=== PATIENT | male | born 1945 | race Caucasian/White ===

== ENCOUNTER 2018-03-03 09:10 | Emergency (ER) | payer OTHER ==
--- OUTSIDE RECORDS SUMMARY | 2018-03-03 09:13 | XMS REPORT | Clinical Summary ---
:1945 Author Organization [facility] Address [address] [place] [id number] Care Team Providers Name Role Phone Unavailable Primary Care Provider Unavailable Allergies Not on File Current Medications Not on file Active Problems Not on file Encounters Date Type Specialty Care Team Description 04/20/2017 Orders Only Cardiothoracic Surgery Provider, MD [place] after 03/02/2017 Social History Tobacco Use Types Packs/Day Years Used Date Never Assessed Sex Assigned at Date Recorded Not on file Last Filed Vital Signs Not on file Plan of Treatment Health Maintenance Due Date Last Done Comments COLON CANCER SCREENING 11/07/1997 SHINGRIX VACCINE (#1) 11/07/1997 ZOSTER VACCINE 2007 PNEUMOCOCCAL POLYSACCHARIDE VACCINE AGE 65 AND OVER 11/07/2012 PNEUMOCOCCAL-13 11/07/2012 INFLUENZA VACCINE 04/04/2018 Results Not on fileafter 03/02/2017
--- OUTSIDE RECORDS SUMMARY | 2018-03-03 09:14 | XMS REPORT | Clinical Summary ---
:1945 Author Organization [facility] Address [address] [place] [address] Phone Care Team Providers Name Role Phone Unavailable Primary Care Provider Unavailable Allergies Active Allergy Reactions Severity Noted Date Comments Codeine Other (See Comments) 11/12/2015 Muscle and stomach cramps Current Medications Prescription Sig. Disp. Refills Start Date End Date Status tiotropium Inhale 18 mcg Active (SPIRIVA) 18 mcg by mouth via inhalation capsule inhaler daily. aspirin 81 MG EC Take 81 mg by Active tablet mouth daily. ezetimibe (ZETIA) Take 1 tablet 0 12/17/2015 Active 10 mg tablet (10 mg total) by mouth daily. metoprolol Take 50 mg by Active (TOPROL-XL) 25 MG mouth daily. 24 hr tablet metFORMIN Take 500 mg by Active (GLUCOPHAGE) 500 mouth 2 (two) MG tablet times daily with breakfast and dinner. albuterol HFA Inhale 2 puffs Active (VENTOLIN HFA) 90 by mouth via mcg/actuation inhaler every 6 inhaler (six) hours as needed for Wheezing. losartan (COZAAR) Take 1 tablet 30 tablet 11 08/15/2017 08/15/2018 Active 25 MG tablet (25 mg total) by mouth daily. predniSONE 2uhbh6u, 50 tablet 0 08/14/2017 Active (DELTASONE) 10 MG 2ujgu1c, tablet 4tabx,3d, 4rjhr5g, 5uljc8y,8eyze6b then stop. furosemide (LASIX) Take 1 tablet 60 tablet 11 08/14/2017 08/14/2018 Active 40 MG tablet (40 mg total) by mouth 2 (two) times daily. clopidogrel Take 75 mg by 08/08/2017 Discontinued (PLAVIX) 75 mg mouth daily. tablet ferrous sulfate Take 325 mg by 08/08/2017 Discontinued 325 (65 FE) MG mouth daily tablet with breakfast. simvastatin Take 1 tablet 0 12/17/2015 08/08/2017 Discontinued (ZOCOR) 40 MG (40 mg total) tablet by mouth nightly. HYDROcodone-acetam Take 1-2 30 tablet 0 12/17/2015 08/08/2017 Discontinued inophen (NORCO tablets by 5-325) 5-325 mg mouth every 4 per tablet (four) hours as needed. levoFLOXacin Take 750 mg by 08/14/2017 Discontinued (LEVAQUIN) 750 MG mouth daily. tablet predniSONE Take 40 mg by 08/14/2017 Discontinued (DELTASONE) 20 MG mouth daily. tablet Active Problems Problem Noted Date Acute on chronic diastolic CHF (congestive heart failure), NYHA class 3 2016 ([facility]) Overview: Due to ischemic CM, decompensation in setting of respiratory illness Acute on chronic congestive heart failure, unspecified congestive heart 2016 failure type Chest pain 12/21/2015 Wound infection 12/11/2015 AAA (abdominal aortic aneurysm) ([facility]) 11/13/2015 HTN (hypertension) 11/13/2015 PVD (peripheral vascular disease) ([facility]) 11/13/2015 Iliac aneurysm ([facility]) 11/13/2015 HLD (hyperlipidemia) 11/13/2015 DM (diabetes mellitus), type 2 ([facility]) 11/13/2015 Encounters Date Type Specialty Care Team Description 08/07/2017 - Hospital Encounter Cardiology Zander Spencer Acute on chronic 08/14/2017 MD Mika congestive heart Emanuel Chairez Reza, MD unspecified Ana Conley congestive heart MD Emanuel failure type ([facility]) (Primary Dx);SOB (shortness of breath);Hypoxemia 08/07/2017 Orders Only General Internal Medicine after 03/02/2017 Family History Medical History Relation Name Comments Aneurysm Father COPD Father Heart disease Father Heart disease Mother Relation Name Status Comments Father Mother Social History Tobacco Use Types Packs/Day Years Used Date Former Smoker 11/11/1965 - 11/11/2012 Smokeless Tobacco: Never Used Comments: smoked 1 pack a week for 40 years Alcohol Use Drinks/Week oz/Week Comments No Sex Assigned at Date Recorded Not on file Last Filed Vital Signs Vital Sign Reading Time Taken Blood Pressure 127/75 08/14/2017 8:14 AM [facility]PERATIONS [facility] Pulse 53 08/14/2017 8:45 AM INFANTRY OPERATIONS SPECIALIST Temperature 36.3 C (97.3 F) 08/14/2017 8:14 AM INFANTRY OPERATIONS SPECIALIST Respiratory Rate 20 08/14/2017 8:45 AM INFANTRY OPERATIONS SPECIALIST Oxygen Saturation 94% 08/14/2017 8:45 AM INFANTRY OPERATIONS SPECIALIST Inhaled Oxygen Concentration - - Weight 84.5 kg (186 lb 3.2 oz) 08/14/2017 5:06 AM INFANTRY OPERATIONS SPECIALIST Height 170.2 cm (5' 7") 08/07/2017 3:12 PM INFANTRY OPERATIONS SPECIALIST Body Mass Index 29.16 08/14/2017 5:06 AM INFANTRY OPERATIONS SPECIALIST Plan of Treatment Health Maintenance Due Date Last Done Comments INFLUENZA VACCINE 06/04/2018 Implants Implanted Type Area Carpet Weaver Device Expiration Model / Identifier Date Serial / Lot Shaq Martinez Gld [id number] - [id number] Graft/Pa N/A: GETINGE 09/03/2018 [id number] / Implanted: Qty: 1 on 11/18/2015 by Chas Lopez MD [facility] Abdomen IND: MAQUET:CV / [id number] Results EKG-SCANNED (08/16/2017 1:01 PM)RHYTHM STRIP - SCAN (08/15/2017 1:01 PM)POC- Glucose meter (08/14/2017 8:19 AM)Only the most recent of25 resultswithin the time period is included. Component Value Ref Range POC-Glucose Meter 121 (H)Comment: TESTED AT [address] 70 - 110 mg/[place] [address] Specimen Performing Laboratory Blood [facility] [address] [address] CBC with platelet count + automated diff (08/14/2017 4:58 AM)Only the most recent of8 resultswithin the time period is included. Component Value Ref Range WBC 12.8 (H) 3.5 - 10.5 K/L RBC 5.35 4.63 - 6.08 M/L Hemoglobin 15.2 13.7 - 17.5 GM/DL Hematocrit 45.8 40.1 - 51.0 % MCV 85.6 79.0 - 92.2 fL MCH 28.4 25.7 - 32.2 pg MCHC 33.2 32.3 - 36.5 GM/DL RDW 14.6 (H) 11.6 - 14.4 % Platelets 145 (L) 150 - 450 K/CU MM MPV 11.1 9.4 - 12.4 fL nRBC 0 0 - 0 /100 WBC % Neutros 81 % % Lymphs 12 % % Monos 6 % % Eos 0 % % Baso 0 % # Neutros 10.45 (H) 1.78 - 5.38 K/L # Lymphs 1.48 1.32 - 3.57 K/L # Monos 0.70 0.30 - 0.82 K/L # Eos 0.00 (L) 0.04 - 0.54 K/L # Baso 0.02 0.01 - 0.08 K/L Immature Granulocytes-Relative 1 0 - 1 % Specimen Performing Laboratory Blood [facility] [address] [address] CBC with platelet count + automated diff (08/14/2017 4:58 AM)Only the most recent of8 resultswithin the time period is included. Specimen Performing Laboratory Blood Narrative The following orders were created for panel order CBC with platelet count + automated diff. Procedure Abnormality Status --------- ------ CBC with platelet count ...[[id number]]AbnormalFinal result Please view results for these tests on the individual orders. Basic metabolic panel (08/14/2017 4:58 AM)Only the most recent of8 resultswithin the time period is included. Component Value Ref Range Sodium 137 136 - 145 meq/L Potassium 3.6 3.5 - 5.1 meq/L Chloride 94 (L) 98 - 107 meq/L CO2 32 (H) 22 - 29 meq/L BUN 36 (H) 7 - 21 mg/dL Creatinine 0.97 0.57 - 1.25 mg/dL Glucose 111 (H) 70 - 105 mg/dL Calcium 9.2 8.4 - 10.2 mg/dL EGFR 77Comment: ESTIMATED GFR IS NOT ACCURATE mL/min/1.73 sq m CREATININE CLEARANCE IN PREDICTING GLOMERULAR FILTRATION RATE. ESTIMATED GFR IS NOT APPLICABLE FOR DIALYSIS PATIENTS. Specimen Performing Laboratory Blood [facility] [address] [address] NM myocardial perfusion PET (rest and stress) (08/11/2017 2:34 PM) Specimen Performing Laboratory [employer] KARON Skinner FINAL REPORT PROCEDURE:Rest/Stress MYOCARDIAL PERFUSION PET with regadenoson\\XA9\\ CPT CODE:32620 INDICATION:CAD HISTORY:Cardiac risk factors: Diabetes, hypertension, hyperlipidemia. Other cardiovascular history: CAD, prior AK, prior PCI. Recent cardiac symptoms: None reported. Current cardiovascular-related medications: Aspirin, Zetia, metoprolol. PROTOCOL:Limited low-dose CT imaging was performed for attenuation correction. 40.1 mCi of Rb-82 chloride was injected iv at rest, and gated PET (positron emission tomography) images were obtained. Subsequently, 40.1 mCi of Rb-82 chloride was injected iv at expected peak pharmacologic effect, and gated PET images were obtained. PRELIMINARY STRESS TEST DATA FROM NONINVASIVE CARDIOLOGY: Pharmacologic stress was by 10-second iv infusion of 0.4 mg of regadenoson. Radiotracer was injected 30 seconds after start of stress. Heart rate was 59 beats/min at rest and 91 beats/min (60% of MPHR) at tracer injection. BP was 134/70 mmHg at rest and 169/78 mmHg at tracer injection. Stress was stopped for predetermined endpoint. The patient experienced no symptoms; treatment was not required. Preliminary ECG evaluation revealed sinus rhythm at rest and no ischemic changes with stress. (Final ECG interpretation and other stress and monitoring data are reported separately by Cardiology.) IMAGING FINDINGS:Study quality is good. Images obtained after stress injection show decreased radiotracer uptake in the mid to apical inferior lateral LV. Resting images show physiologic distribution. LV volume appears normal. RV volume appears normal. Gated images obtained immediately after stress show hypokinetic inferior lateral LV wall motion. Gated images obtained at rest show normal LV wall motion. LVEF at rest is 40%. LVEF at stress is 39%. IMPRESSION: 1. Abnormal study.2. Appropriate pharmacologic stress.3. Abnormal myocardial perfusion.There is a mild severity, moderate size, reversible, perfusion defect in the mid to apical inferior lateral LV.4. Mildly decreased resting LV function. No deterioration of function is noted with pharmacologic stress.5. Extracardiac tracer distribution is normal.6. No previous [facility] study for comparison. NONINVASIVE RISK STRATIFICATION: The above findings are considered intermediate risk (1% to 3% annual mortality rate) based on the following criterion: - Mild/moderate resting left ventricular dysfunction (LVEF 35% to 49%) - Stress-induced moderate perfusion defect without LV dilation or increased lung intake (thallium-201) ([facility]. 2012;59(9):857-31.) Signed: Ilya Colunga MD Report Verified Date/Time:08/11/2017 16:26:13 Reading Location: [id number] [facility] Reading Room Procedure Note Interface, External Ris In - 08/11/2017 4:28 PM INFANTRY OPERATIONS SPECIALIST FINAL REPORT PROCEDURE: Rest/Stress MYOCARDIAL PERFUSION PET with regadenoson\\XA9\\ CPT CODE: 70134 INDICATION: CAD HISTORY: Cardiac risk factors: Diabetes, hypertension, hyperlipidemia. Other cardiovascular history: CAD, prior AK, prior PCI. Recent cardiac symptoms: None reported. Current cardiovascular-related medications: Aspirin, Zetia, metoprolol. PROTOCOL: Limited low-dose CT imaging was performed for attenuation correction. 40.1 mCi of Rb-82 chloride was injected iv at rest, and gated PET (positron emission tomography) images were obtained. Subsequently, 40.1 mCi of Rb-82 chloride was injected iv at expected peak pharmacologic effect, and gated PET images were obtained. PRELIMINARY STRESS TEST DATA FROM NONINVASIVE CARDIOLOGY: Pharmacologic stress was by 10-second iv infusion of 0.4 mg of regadenoson. Radiotracer was injected 30 seconds after start of stress. Heart rate was 59 beats/min at rest and 91 beats/min (60% of MPHR) at tracer injection. BP was 134/70 mmHg at rest and 169/78 mmHg at tracer injection. Stress was stopped for predetermined endpoint. The patient experienced no symptoms; treatment was not required. Preliminary ECG evaluation revealed sinus rhythm at rest and no ischemic changes with stress. (Final ECG interpretation and other stress and monitoring data are reported separately by Cardiology.) IMAGING FINDINGS: Study quality is good. Images obtained after stress injection show decreased radiotracer uptake in the mid to apical inferior lateral LV. Resting images show physiologic distribution. LV volume appears normal. RV volume appears normal. Gated images obtained immediately after stress show hypokinetic inferior lateral LV wall motion. Gated images obtained at rest show normal LV wall motion. LVEF at rest is 40%. LVEF at stress is 39%. IMPRESSION: 1. Abnormal study. 2. Appropriate pharmacologic stress. 3. Abnormal myocardial perfusion. There is a mild severity, moderate size, reversible, perfusion defect in the mid to apical inferior lateral LV. 4. Mildly decreased resting LV function. No deterioration of function is noted with pharmacologic stress. 5. Extracardiac tracer distribution is normal. 6. No previous [facility] study for comparison. NONINVASIVE RISK STRATIFICATION: The above findings are considered intermediate risk (1% to 3% annual mortality rate) based on the following criterion: - Mild/moderate resting left ventricular dysfunction (LVEF 35% to 49%) - Stress-induced moderate perfusion defect without LV dilation or increased lung intake (thallium-201) ([facility]. 2012;59(9):857-81.) Signed: Ilya Colunga MD Report Verified Date/Time: 08/11/2017 16:26:13 Reading Location: [address] Reading Room Treadmill tolerance(Non-Nuclear Treadmill) (08/11/2017 2:28 PM) Specimen Performing Laboratory [employer] Narrative Protocol Name Regadenoson Time In Exercise Phase 00:01:00 Max. Systolic BP 169 mmHg Max Diastolic BP 78 mmHg Max Heart Rate 91 BPM Max Predicted Heart Rate 151 BPM Reason For Termination Predetermined end point Reason for Test CAD, HF exacerbation, Echo Wall-motion abnormalit Target HR Formula (220 - Age)*100% Arrhythmias atrial premature beats ventricular premature beats Resting ECG sinus bradycardia ST Changes No Significant Changes Overall Impression Indeterminate due to pharmacological stress Chest Pain none HR Response To Exercise BP Response To Exercise ASA Zetia metoprolol Confirmed by fellow Gary Bright ([id number]) on 08/11/2017 3:27:50 PM Confirmed by MD NELSON, FIIF ([id number]) on 08/23/2017 12:31:09 PM Procedure Note Interface, External Ris In - 08/23/2017 12:31 PM INFANTRY OPERATIONS SPECIALIST Protocol Name Regadenoson Time In Exercise Phase 00:01:00 Max. Systolic BP 169 mmHg Max Diastolic BP 78 mmHg Max Heart Rate 91 BPM Max Predicted Heart Rate 151 BPM Reason For Termination Predetermined end point Reason for Test CAD, HF exacerbation, Echo Wall-motion abnormalit Target HR Formula (220 - Age)*100% Arrhythmias atrial premature beats ventricular premature beats Resting ECG sinus bradycardia ST Changes No Significant Changes Overall Impression Indeterminate due to pharmacological stress Chest Pain none HR Response To Exercise BP Response To Exercise ASA Zetia metoprolol Confirmed by fellow Gary Bright ([id number]) on 08/11/2017 3:27:50 PM Confirmed by MD DAMON JORGE ([id number]) on 08/23/2017 12:31:09 PM Clostridium difficile Toxin PCR (08/09/2017 4:52 PM) Component Value Ref Range C.Diff Toxin, PCR Not Detected Not Detected Specimen Performing Laboratory Stool [facility] [address] [address] Narrative This qualitative real-time polymerase chain reaction assay detects the tcdB gene, encoded on the C.difficile pathogenicity locus (PaLoc).The product of tcdB , toxin B, is a cytotoxin essential for causing C.difficile-associated disease (CDAD) and is found in virtually all toxigenic C.difficile. This assay is performed for patients suspected of having either community- acquired or nosocomial CDAD.Accordingly, only symptomatic patients should be tested and formed stools will be rejected unless ileus is present (i.e., specified when ordering).Patients may be colonized with toxigenic C.difficile strains not causing active disease; therefore, clinical correlation is needed when deciding how to manage patients with a positive test result. The assay has not been validated as a test of cure as amplifiable nucleic acid may persist after effective treatment; therefore, follow-up testing of a positive result is not recommended. ECHOCARDIOGRAM REPORT - SCAN (08/09/2017 7:20 AM)CT chest with high resolution/ ild (08/08/2017 10:03 PM) Specimen Performing Laboratory [employer] Narrative FINAL REPORT HISTORY: Patient with hx of RA c/b ILD presenting with worsening SOB COMPARISON : None Technique : Multiple axial images of the chest were performed from the lung apices to the lung bases with 5 mm slice thickness without the administration of IV contrast. Images were presented in both the lung and soft tissue windows. In addition, high resolution images of the lungs were performed with 1.25 mm slice thickness in the supine and prone positions as well as with inspiration and expiration. This exam was performed according to our departmental dose optimization program which includes automated exposure control, adjustment of the mA and/or kV according to patient size and/or use of iterative reconstructive technique. Comment: The thyroid gland is within normal limits. There is no axillary or hilar lymphadenopathy. There are some nonspecifically prominent mediastinal lymph nodes. For example, there is a prominent subcarinal lymph node measuring up to 1.9 x 1.1 cm. There is a prominent pretracheal lymph node measuring up to 1.5 x 1.2 cm. There is cardiomegaly. There is atherosclerotic vascular disease. There is coronary atherosclerosis. The patient does have cardiomegaly. The visualized portions of the spleen, adrenal glands, pancreas, and kidneys are within normal limits. There is a lobulated appearance of the hepatic contour. The findings could be related to hepatic cirrhosis. The patient is status post cholecystectomy. The osseous structures as well as the subcutaneous soft tissues are without any abnormalities. No pneumothorax or pleural effusion is seen. The patient does have interstitial prominence as well as fibrosis predominantly in a peripheral distribution. There are areas of patchy groundglass airspace disease seen most significantly in the right lower lobe where there are some alveolar components. In the right lower lobe, there is a 1.0 cm nodule. Correlation with a PET-CT scan is advised. A neoplastic process cannot be entirely excluded. Impression: 1. Predominantly peripheral distribution of interstitial prominence and fibrosis. There is also some patchy groundglass airspace disease. The constellation of findings are nonspecific but could be a sequela of rheumatoid lung. Other considerations include an interstitial pneumonitis such as interstitial pneumonitis/pulmonary fibrosis or drug toxicity. Given the areas of airspace disease, superimposed infectious pneumonitis particularly in the right lower lobe cannot be excluded. 2. Emphysema/COPD. 3. Approximately 1 cm nodule in the right lower lobe. Correlation with a PET-CT scan is advised. 4. Nonspecifically prominent mediastinal lymph nodes. Signed: Roberta Harmon MD Report Verified Date/Time:08/09/2017 07:31:21 Reading Location: [facility] Diagnostic Imaging Reading Room - [place] [address] Procedure Note Interface, External Ris In - 08/09/2017 7:33 AM INFANTRY OPERATIONS SPECIALIST FINAL REPORT HISTORY: Patient with hx of RA c/b ILD presenting with worsening SOB COMPARISON : None Technique : Multiple axial images of the chest were performed from the lung apices to the lung bases with 5 mm slice thickness without the administration of IV contrast. Images were presented in both the lung and soft tissue windows. In addition, high resolution images of the lungs were performed with 1.25 mm slice thickness in the supine and prone positions as well as with inspiration and expiration. This exam was performed according to our departmental dose optimization program which includes automated exposure control, adjustment of the mA and/or kV according to patient size and/or use of iterative reconstructive technique. Comment: The thyroid gland is within normal limits. There is no axillary or hilar lymphadenopathy. There are some nonspecifically prominent mediastinal lymph nodes. For example, there is a prominent subcarinal lymph node measuring up to 1.9 x 1.1 cm. There is a prominent pretracheal lymph node measuring up to 1.5 x 1.2 cm. There is cardiomegaly. There is atherosclerotic vascular disease. There is coronary atherosclerosis. The patient does have cardiomegaly. The visualized portions of the spleen, adrenal glands, pancreas, and kidneys are within normal limits. There is a lobulated appearance of the hepatic contour. The findings could be related to hepatic cirrhosis. The patient is status post cholecystectomy. The osseous structures as well as the subcutaneous soft tissues are without any abnormalities. No pneumothorax or pleural effusion is seen. The patient does have interstitial prominence as well as fibrosis predominantly in a peripheral distribution. There are areas of patchy groundglass airspace disease seen most significantly in the right lower lobe where there are some alveolar components. In the right lower lobe, there is a 1.0 cm nodule. Correlation with a PET-CT scan is advised. A neoplastic process cannot be entirely excluded. Impression: 1. Predominantly peripheral distribution of interstitial prominence and fibrosis. There is also some patchy groundglass airspace disease. The constellation of findings are nonspecific but could be a sequela of rheumatoid lung. Other considerations include an interstitial pneumonitis such as interstitial pneumonitis/pulmonary fibrosis or drug toxicity. Given the areas of airspace disease, superimposed infectious pneumonitis particularly in the right lower lobe cannot be excluded. 2. Emphysema/COPD. 3. Approximately 1 cm nodule in the right lower lobe. Correlation with a PET-CT scan is advised. 4. Nonspecifically prominent mediastinal lymph nodes. Signed: Roberta Harmon MD Report Verified Date/Time: 08/09/2017 07:31:21 Reading Location: [facility] Diagnostic Imaging Reading Room - [place] [address] Troponin I (08/08/2017 4:50 PM)Only the most recent of2 resultswithin the time period is included. Component Value Ref Range Troponin I 0.05 (H) 0.00 - 0.03 ng/mL Specimen Performing Laboratory Blood - Arm, [address] [address] Narrative Troponin I (TnI) levels must be interpreted in the context of the presenting symptoms and the clinical findings. Elevated TnI levels indicate myocardial damage, but are not specific for ischemic heart disease. Elevated TnI levels are seen in patients with other cardiac conditions (including myocarditis and congestive heart failure), and slight TnI elevations occur in patients with other conditions, including sepsis, renal failure, acidosis, acute neurological disease, and persistent tachyarrhythmia. Creatine Kinase (CK), Total and MB (08/08/2017 4:50 PM)Only the most recent of2 resultswithin the time period is included. Component Value Ref Range Total CK 73 29 - 200 U/L CK-MB 1.8 0.0 - 6.6 ng/mL MB Relative Index 2.5 % Specimen Performing Laboratory Blood - Arm, [address] [address] Narrative CK-MB Reference Range: <6.7Normal 6.7-10.0Borderline >10.0 Abnormal 2D Echo W/O Doppler(No Doppler) (08/08/2017 1:58 PM) Component Value Ref Range Ejection Fraction Specimen Performing Laboratory [facility] Narrative Transthoracic Echocardiography Report (TTE) Demographics Patient NameOLIVIER BRAY Date of Study08/08/2017 DAVID Male Visit [id number] Room [id number] Number Date of 1945Referring Physician Age 71 year(s)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 Clinical History HGB 15.0 HCT 45.4 % ILIAC ANEURYSM, COPD, CAD, STENTS X2 (2001, 2005), DMITRY, CPAP, DM, HLD, HTN, AK (2001), TIA, ABD. AO REPAIR, PVD Height: 67 inches Weight: 90.72 kg (200 lbs) BSA: 2.02 m^2 BMI: 31.32 kg/m^2 HR: 68 bpm BP: 155/67 mmHg Summary The LV endocardium is adequately visualized. The left ventricle is chamber size (by vol index) is normal (male - LVED vol - 34-74ml/m2). Moderate concentric LV hypertrophy. The following segment(s) appear hypokinetic: inferolateral and mid lateral ramos . The other segments contract normally. LVEF by Buckley's method of disk assessment is lower limits of normal (50-55%) . LA size is normal (16-34 ml/m2) . The right ventricular chamber size and systolic function are within normal limits. No evidence of tricuspid regurgitation. Unable to estimate peak systolic PA pressure; inadequate TR velocity signal. The inferior vena cava size is normal . The estimated RA pressure by IVC dynamics 5-10mmHg . No pericardial effusion is visualized. Signature Findings Rhythm/BPRegular sinus rhythm during the exam. Left Ventricle The LV endocardium is adequately visualized. The left ventricle is chamber size (by vol index) is normal (male - LVED vol - 34-74ml/m2). Moderate concentric LV hypertrophy. The following segment(s) appear hypokinetic: inferolateral and mid lateral ramos . The other segments contract normally. LVEF by Buckley's method of disk assessment is lower limits of normal (50-55% ) . Left AtriumLA size is normal (16-34 ml/m2) . Right VentricleThe right ventricular chamber size and systolic function are within normal limits. Right Atrium RA size is normal. Aortic Valve Mild AoV cusp thickening. AoV cusp mobility is mildly decreased . Mild AoV cusp calcification. Mild aortic regurgitation. Mild aortic stenosis. Mitral Valve Normal MV structure and function. Mild mitral annular calcification. Tricuspid ValveNormal TV structure and function. No evidence of tricuspid regurgitation. Unable to estimate peak systolic PA pressure; inadequate TR velocity signal. Pulmonic Valve Normal PV structure appears normal by available views. AortaAortic root size (SInus of Valsalva diameter) is normal . PericardiumNo pericardial effusion is visualized. IVC/SVC/PA/PV/PleuralThe inferior vena cava size is normal . The estimated RA pressure by IVC dynamics 5-10mmHg . Chambers/Structures Left Atrium LA Volume: 51.65 ml LA Area: 18.65 cm^ 2 LA Vol. Index: 26 ml/m^2 Left Ventricle LVIDd: 4.18 cm LVIDs: 3.73 cm LV Septum Diastolic: 1.6 cm LV PW Diastolic: 1.38 cm LV FS: 10.8 % LVEDV Buckley's:114.55 ml LVESV Buckley's:49.03 ml LVEDVI: 57 ml/m^2 LVEF Buckley's: 57.2 % LVESVI: 24 ml/m ^2 LVOT Diameter: 2.4 cm Aorta Ao Root S of Lori.: 3.72 cm Doppler/Quantitative Measurements Aortic Valve Peak Velocity: 2.81 m/sMean Velocity: 1.91 m/s Peak Gradient: 31.69 mmHgMean Gradient: 16.85 mmHg AV Area (continuity): 1.57 cm^2 AV VTI: 60.87 cm AV DVI: 0.35 LVOT Peak Velocity: 1.02 m/s Peak Gradient: 4.19 mmHg Mean Velocity: 0.68 m/s Mean Gradient: 2.1 mmHg LVOT Diameter: 2.4 cm LVOT VTI: 21.15 cm LVOT Area: 4.52 cm^2LVOT SV:95.63 ml LVOT CO: 6.5 l/minLVOT CI: 3.22 l/min/m^2 Procedure Note Interface, External Ris In - 08/08/2017 6:49 PM INFANTRY OPERATIONS SPECIALIST Transthoracic Echocardiography Report (TTE) Demographics Patient Name OLIVIER BRAY Date of Study 08/08/2017 DAVID Gender Male Visit Number [id number] Race Room Number 2435 Number Date of 1945 Referring Physician Age 71 year(s) Field Map Editor Mary Paredes RDCS Interpreting [facility] Needs to be Pre Physician Read Zander Brewer MD Procedure Type of Study TTE procedure:ECHO2D MODE W/O DOPPLER (Routine) Indications:Shortness of breath. Clinical History HGB 15.0 HCT 45.4 % ILIAC ANEURYSM, COPD, CAD, STENTS X2 (2001, 2005), DMITRY, CPAP, DM, HLD, HTN, AK (2001), TIA, ABD. AO REPAIR, PVD Height: 67 inches Weight: 90.72 kg (200 lbs) BSA: 2.02 m^2 BMI: 31.32 kg/m^2 HR: 68 bpm BP: 155/67 mmHg Summary The LV endocardium is adequately visualized. The left ventricle is chamber size (by vol index) is normal (male - LVED vol - 34-74ml/m2). Moderate concentric LV hypertrophy. The following segment(s) appear hypokinetic: inferolateral and mid lateral ramos . The other segments contract normally. LVEF by Buckley's method of disk assessment is lower limits of normal (50-55%) . LA size is normal (16-34 ml/m2) . The right ventricular chamber size and systolic function are within normal limits. No evidence of tricuspid regurgitation. Unable to estimate peak systolic PA pressure; inadequate TR velocity signal. The inferior vena cava size is normal . The estimated RA pressure by IVC dynamics 5-10mmHg . No pericardial effusion is visualized. Signature Findings Rhythm/BP Regular sinus rhythm during the exam. Left Ventricle The LV endocardium is adequately visualized. The left ventricle is chamber size (by vol index) is normal (male - LVED vol - 34-74ml/m2). Moderate concentric LV hypertrophy. The following segment(s) appear hypokinetic: inferolateral and mid lateral ramos . The other segments contract normally. LVEF by Buckley's method of disk assessment is lower limits of normal (50-55%) . Left Atrium LA size is normal (16-34 ml/m2) . Right Ventricle The right ventricular chamber size and systolic function are within normal limits. Right Atrium RA size is normal. Aortic Valve Mild AoV cusp thickening. AoV cusp mobility is mildly decreased . Mild AoV cusp calcification. Mild aortic regurgitation. Mild aortic stenosis. Mitral Valve Normal MV structure and function. Mild mitral annular calcification. Tricuspid Valve Normal TV structure and function. No evidence of tricuspid regurgitation. Unable to estimate peak systolic PA pressure; inadequate TR velocity signal. Pulmonic Valve Normal PV structure appears normal by available views. Aorta Aortic root size (SInus of Valsalva diameter) is normal . Pericardium No pericardial effusion is visualized. IVC/SVC/PA/PV/Pleural The inferior vena cava size is normal . The estimated RA pressure by IVC dynamics 5-10mmHg . Chambers/Structures Left Atrium LA Volume: 51.65 ml LA Area: 18.65 cm^2 LA Vol. Index: 26 ml/m^2 Left Ventricle LVIDd: 4.18 cm LVIDs: 3.73 cm LV Septum Diastolic: 1.6 cm LV PW Diastolic: 1.38 cm LV FS: 10.8 % LVEDV Buckley's:114.55 ml LVESV Buckley's:49.03 ml LVEDVI: 57 ml/m^2 LVEF Buckley's: 57.2 % LVESVI: 24 ml/m^2 LVOT Diameter: 2.4 cm Aorta Ao Root S of Lori.: 3.72 cm Doppler/Quantitative Measurements Aortic Valve Peak Velocity: 2.81 m/s Mean Velocity: 1.91 m/s Peak Gradient: 31.69 mmHg Mean Gradient: 16.85 mmHg AV Area (continuity): 1.57 cm^2 AV VTI: 60.87 cm AV DVI: 0.35 LVOT Peak Velocity: 1.02 m/s Peak Gradient: 4.19 mmHg Mean Velocity: 0.68 m/s Mean Gradient: 2.1 mmHg LVOT Diameter: 2.4 cm LVOT VTI: 21.15 cm LVOT Area: 4.52 cm^2 LVOT SV:95.63 ml LVOT CO: 6.5 l/min LVOT CI: 3.22 l/min/m^2 POC-Lactic Acid, Venous (08/08/2017 11:44 AM) Component Value Ref Range POC-Lactic Acid, Venous 1.5Comment: TESTED AT [address] 0.9 - 1.7 mmol/L [place] [address] Specimen [place]forming [place] [address] Urinalysis w/ Microscopic (08/08/2017 11:11 AM) Component Value Ref Range Color, UA Light Yellow Clarity, UA Clear Specific [place], UA 1.004 1.001 - 1.035 pH, UA 5.0 5.0 - 8.0 Protein, UA Negative Negative Glucose, UA Negative Negative Ketones, UA Negative Negative Bilirubin, UA Negative Negative Blood, UA Negative Negative Nitrite, UA Negative Negative Leukocytes, UA Negative Negative Urobilinogen, UA 0.2 0.2 - 1.0 mg/dL RBC, UA 1 /HPF WBC, UA <1 /HPF Bacteria, UA Rare Squam Epithel, UA <1 /HPF Hyaline Casts, UA 2 /LPF Specimen Source Urine, Clean Catch Specimen Performing Laboratory Urine - Urine, [place] [address] ED ECG Interpretation (08/08/2017 12:24 AM) Zander Dodge MD 08/08/2017 12:24 AM ECG/EKG Interpretation Date/Time: 08/07/2017 5:00 PM Performed by: ZANDER SPENCER Authorized by: ZANDER SPENCER The ECG was interpreted by ED physician. This ECG was not compared with previous ECG(s).The ECG is interpreted as sinus rhythm. Rate is normal rate. Heart rate is 80 BPM. Conduction: conduction normal. ST segments normal. Clinical Impression: abnormal ECGECG reviewed and does not meet STEMI criteria. Patient tolerance: Patient tolerated the procedure well with no immediate complications XR chest 2 views (08/07/2017 7:26 PM) Specimen Performing Laboratory GE RIS Narrative FINAL REPORT CHEST, AP AND LATERAL. HISTORY: Shortness of breath. COMPARISON: 12/26/2015. FINDINGS/IMPRESSION: The trachea is midline. Again identified are chronic appearing interstitial/fibrotic changes bilaterally, similar to the prior examination. There is no evidence of new large focal consolidation, pneumothorax, or significant pleural effusion. The cardiomediastinal silhouette is stable in appearance. No acute osseous abnormalities are identified. Signed: Zak Gatica MD Report Verified Date/Time:08/07/2017 21:09:37 Reading Location: [address] Consult Reading Room Procedure Note Interface, External Ris In - 08/07/2017 9:11 PM INFANTRY OPERATIONS SPECIALIST FINAL REPORT CHEST, AP AND LATERAL. HISTORY: Shortness of breath. COMPARISON: 12/26/2015. FINDINGS/IMPRESSION: The trachea is midline. Again identified are chronic appearing interstitial/fibrotic changes bilaterally, similar to the prior examination. There is no evidence of new large focal consolidation, pneumothorax, or significant pleural effusion. The cardiomediastinal silhouette is stable in appearance. No acute osseous abnormalities are identified. Signed: Zak Gatica MD Report Verified Date/Time: 08/07/2017 21:09:37 Reading Location: [facility] C013 Consult Reading Room 12 lead (08/07/2017 5:00 PM) Specimen Performing Laboratory GE MUSE Narrative Ventricular Rate 81 BPM Atrial Rate 81 BPM P-R Interval 140 ms QRS Duration 92 ms Q-T Interval 372 ms QTC Calculation(Bazett) 432 ms P [place] 42 degrees R [place] -27 degrees T [place] 23 degrees Sinus rhythm with Premature atrial complexes Moderate voltage criteria for LVH, may be normal variant Inferior infarct (cited on or before 12-NOV-2015) Poor R wave progression , canot exclude old [id number] December 2015 Nonspecific T wave abnormality inferolateral leads Abnormal ECG When compared with ECG of 21-DEC-2015 13:20, Premature ventricular complexes are no longer Present Premature atrial complexes are now Present Confirmed by MD SALVADOR, KAYLEN ([id number]) on 08/08/2017 6:45:29 AM Procedure Note Interface, External Ris In - 08/08/2017 6:45 AM INFANTRY OPERATIONS SPECIALIST Ventricular Rate 81 BPM Atrial Rate 81 BPM P-R Interval 140 ms QRS Duration 92 ms Q-T Interval 372 ms QTC Calculation(Bazett) 432 ms P [place] 42 degrees R [place] -27 degrees T [place] 23 degrees Sinus rhythm with Premature atrial complexes Moderate voltage criteria for LVH, may be normal variant Inferior infarct (cited on or before 12-NOV-2015) Poor R wave progression , canot exclude old infarct 21 December 2015 Nonspecific T wave abnormality inferolateral leads Abnormal ECG When compared with ECG of 21-DEC-2015 13:20, Premature ventricular complexes are no longer Present Premature atrial complexes are now Present Confirmed by MD SALVADOR, KAYLEN ([id number]) on 08/08/2017 6:45:29 AM B-type Natriuretic Factor (BNP) (08/07/2017 5:00 PM) Component Value Ref Range BNP 1067 (H) 0 - 100 pg/mL Specimen Performing Laboratory Blood - Arm, [address] [address] Magnesium (08/07/2017 5:00 PM) Component Value Ref Range Magnesium 1.9 1.6 - 2.6 mg/dL Specimen Performing Laboratory Blood - Arm, [address] [address] after 03/02/2017
--- OUTSIDE RECORDS SUMMARY | 2018-03-03 09:14 | XMS REPORT ---
:1945 Author Organization [facility] Address [address] [place] [address] [address] [place] [address] Care Team Providers Name Role Phone MARTHA SANCHEZ YARI Unavailable Unavailable Problems This patient has no known problems. Allergies, Adverse Reactions, Alerts This patient has no known allergies or adverse reactions. Medications This patient has no known medications. Results Test Description Test Time Test Comments Text Results Atomic Results Result Comments POCT-GLUCOSE METER 2017-08-14 08:28:00 Test Item Value Reference Range Comments POC-GLUCOSE METER (BEAKER) (test 121 mg/dL 70-110 TESTED AT [facility] [address] [facility] hmxh=9620) [facility] [address] CBC W/PLT COUNT & AUTO [id number] 06:50:00 Test Item Value Reference Range Comments WHITE BLOOD CELL COUNT (BEAKER) (test uuml=116) 12.8 K/ L 3.5-10.5 RED BLOOD CELL COUNT (BEAKER) (test avzm=581) 5.35 M/ L 4.63-6.08 HEMOGLOBIN (BEAKER) (test covc=141) 15.2 GM/DL 13.7-17.5 HEMATOCRIT (BEAKER) (test guok=357) 45.8 % 40.1-51.0 MEAN CORPUSCULAR VOLUME (BEAKER) (test bdrd=120) 85.6 fL 79.0-92.2 MEAN CORPUSCULAR HEMOGLOBIN (BEAKER) (test 28.4 pg 25.7-32.2 hcez=747) MEAN CORPUSCULAR HEMOGLOBIN CONC (BEAKER) (test 33.2 GM/DL 32.3-36.5 lfsv=288) RED CELL DISTRIBUTION WIDTH (BEAKER) (test 14.6 % 11.6-14.4 okvz=021) PLATELET COUNT (BEAKER) (test foyu=471) 145 K/CU MM 150-450 MEAN PLATELET VOLUME (BEAKER) (test qubj=219) 11.1 fL 9.4-12.4 NUCLEATED RED BLOOD CELLS (BEAKER) (test 0 /100 WBC 0-0 gdkp=119) NEUTROPHILS RELATIVE PERCENT (BEAKER) (test 81 % ejga=991) LYMPHOCYTES RELATIVE PERCENT (BEAKER) (test 12 % hvni=671) MONOCYTES RELATIVE PERCENT (BEAKER) (test 6 % rvhf=029) EOSINOPHILS RELATIVE PERCENT (BEAKER) (test 0 % wmsm=546) BASOPHILS RELATIVE PERCENT (BEAKER) (test 0 % irdh=216) NEUTROPHILS ABSOLUTE COUNT (BEAKER) (test 10.45 K/ L 1.78-5.38 epqs=441) LYMPHOCYTES ABSOLUTE COUNT (BEAKER) (test 1.48 K/ L 1.32-3.57 ixnh=494) MONOCYTES ABSOLUTE COUNT (BEAKER) (test 0.70 K/ L 0.30-0.82 pcuq=833) EOSINOPHILS ABSOLUTE COUNT (BEAKER) (test 0.00 K/ L 0.04-0.54 ynkl=840) BASOPHILS ABSOLUTE COUNT (BEAKER) (test 0.02 K/ L 0.01-0.08 fjpj=615) IMMATURE GRANULOCYTES-RELATIVE PERCENT (BEAKER) 1 % 0-1 (test fijd=1738) BASIC METABOLIC [id number] 06:45:00 Test Item Value Reference Range Comments SODIUM (BEAKER) (test 137 meq/L 136-145 fmlj=511) POTASSIUM (BEAKER) (test 3.6 meq/L 3.5-5.1 mocq=996) CHLORIDE (BEAKER) (test 94 meq/L 98-107 elhm=645) CO2 (BEAKER) (test 32 meq/L 22-29 xohl=766) BLOOD UREA NITROGEN 36 mg/dL 7-21 (BEAKER) (test joff=267) CREATININE (BEAKER) (test 0.97 mg/dL 0.57-1.25 ewtr=393) GLUCOSE RANDOM (BEAKER) 111 mg/dL 70-105 (test qhia=133) CALCIUM (BEAKER) (test 9.2 mg/dL 8.4-10.2 igwf=613) EGFR (BEAKER) (test 77 mL/min/1.73 sq m ESTIMATED GFR IS NOT gecs=0945) ACCURATE CREATININE CLEARANCE IN PREDICTING GLOMERULAR FILTRATION RATE. ESTIMATED GFR IS NOT APPLICABLE FOR DIALYSIS PATIENTS. POCT-GLUCOSE [id number] 20:50:00 Test Item Value Reference Range Comments POC-GLUCOSE METER (BEAKER) 78 mg/dL 70-110 TESTED AT [address] (test gkwt=0749) [facility] [address] POCT-GLUCOSE [id number] 17:10:00 Test Item Value Reference Range Comments POC-GLUCOSE METER (BEAKER) 328 mg/dL 70-110 Notified [facility]/TESTED AT [facility] (test xjzx=4024) [address] [place] [address] POCT-GLUCOSE [id number] 14:47:00 Test Item Value Reference Range Comments POC-GLUCOSE METER (BEAKER) 222 mg/dL 70-110 TESTED AT [address] (test zcmq=1295) [facility] [address] POCT-GLUCOSE [id number] 11:34:00 Test Item Value Reference Range Comments POC-GLUCOSE METER (BEAKER) 265 mg/dL 70-110 TESTED AT [address] (test piaa=6119) [facility] [address] POCT-GLUCOSE [id number] 08:39:00 Test Item Value Reference Range Comments POC-GLUCOSE METER (BEAKER) 122 mg/dL 70-110 TESTED AT [address] (test ppcm=5380) [facility] [address] BASIC METABOLIC [id number] 06:29:00 Test Item Value Reference Range Comments SODIUM (BEAKER) (test 137 meq/L 136-145 moef=135) POTASSIUM (BEAKER) (test 3.6 meq/L 3.5-5.1 mhvl=535) CHLORIDE (BEAKER) (test 92 meq/L 98-107 plau=308) CO2 (BEAKER) (test 33 meq/L 22-29 nsec=153) BLOOD UREA NITROGEN 37 mg/dL 7-21 (BEAKER) (test tcbz=796) CREATININE (BEAKER) (test 1.12 mg/dL 0.57-1.25 rrze=608) GLUCOSE RANDOM (BEAKER) 133 mg/dL 70-105 (test moza=309) CALCIUM (BEAKER) (test 9.6 mg/dL 8.4-10.2 cgxt=831) EGFR (BEAKER) (test 65 mL/min/1.73 sq m ESTIMATED GFR IS NOT mjag=0427) ACCURATE CREATININE CLEARANCE IN PREDICTING GLOMERULAR FILTRATION RATE. ESTIMATED GFR IS NOT APPLICABLE FOR DIALYSIS PATIENTS. CBC W/PLT COUNT & AUTO [id number] 05:49:00 Test Item Value Reference Range Comments WHITE BLOOD CELL COUNT (BEAKER) (test jszy=270) 13.0 K/ L 3.5-10.5 RED BLOOD CELL COUNT (BEAKER) (test aumm=178) 5.25 M/ L 4.63-6.08 HEMOGLOBIN (BEAKER) (test izex=743) 15.0 GM/DL 13.7-17.5 HEMATOCRIT (BEAKER) (test roly=872) 45.2 % 40.1-51.0 MEAN CORPUSCULAR VOLUME (BEAKER) (test tbmk=608) 86.1 fL 79.0-92.2 MEAN CORPUSCULAR HEMOGLOBIN (BEAKER) (test 28.6 pg 25.7-32.2 vyec=870) MEAN CORPUSCULAR HEMOGLOBIN CONC (BEAKER) (test 33.2 GM/DL 32.3-36.5 vxeu=814) RED CELL DISTRIBUTION WIDTH (BEAKER) (test 14.6 % 11.6-14.4 jtaz=283) PLATELET COUNT (BEAKER) (test yshs=190) 179 K/CU MM 150-450 MEAN PLATELET VOLUME (BEAKER) (test kcof=514) 11.0 fL 9.4-12.4 NUCLEATED RED BLOOD CELLS (BEAKER) (test 0 /100 WBC 0-0 ehiz=916) NEUTROPHILS RELATIVE PERCENT (BEAKER) (test 83 % fcdt=417) LYMPHOCYTES RELATIVE PERCENT (BEAKER) (test 9 % mgsr=500) MONOCYTES RELATIVE PERCENT (BEAKER) (test 7 % igzx=326) EOSINOPHILS RELATIVE PERCENT (BEAKER) (test 0 % plgl=734) BASOPHILS RELATIVE PERCENT (BEAKER) (test 0 % cays=730) NEUTROPHILS ABSOLUTE COUNT (BEAKER) (test 10.75 K/ L 1.78-5.38 puoe=082) LYMPHOCYTES ABSOLUTE COUNT (BEAKER) (test 1.22 K/ L 1.32-3.57 vnhb=170) MONOCYTES ABSOLUTE COUNT (BEAKER) (test 0.85 K/ L 0.30-0.82 nibj=959) EOSINOPHILS ABSOLUTE COUNT (BEAKER) (test 0.00 K/ L 0.04-0.54 jiwm=355) BASOPHILS ABSOLUTE COUNT (BEAKER) (test 0.03 K/ L 0.01-0.08 iaul=497) IMMATURE GRANULOCYTES-RELATIVE PERCENT (BEAKER) 1 % 0-1 (test wsup=0816) POCT-GLUCOSE [id number] 21:41:00 Test Item Value Reference Range Comments POC-GLUCOSE METER (BEAKER) 283 mg/dL 70-110 TESTED AT [address] (test jlqb=2990) [place] [id number] POCT-GLUCOSE [id number] 17:20:00 Test Item Value Reference Range Comments POC-GLUCOSE METER (BEAKER) 228 mg/dL 70-110 TESTED AT [address] (test cadu=0301) [place] [id number] POCT-GLUCOSE [id number] 11:41:00 Test Item Value Reference Range Comments POC-GLUCOSE METER (BEAKER) 294 mg/dL 70-110 TESTED AT [address] (test vjsl=8632) [place] [id number] POCT-GLUCOSE [id number] 09:38:00 Test Item Value Reference Range Comments POC-GLUCOSE METER (BEAKER) 338 mg/dL 70-110 Notified [facility]/TESTED AT [facility] (test srjx=4168) [address] [place] [address] CBC W/PLT COUNT & AUTO [id number] 05:42:00 Test Item Value Reference Range Comments WHITE BLOOD CELL COUNT (BEAKER) (test ulju=800) 10.9 K/ L 3.5-10.5 RED BLOOD CELL COUNT (BEAKER) (test khtn=740) 5.28 M/ L 4.63-6.08 HEMOGLOBIN (BEAKER) (test biee=088) 15.1 GM/DL 13.7-17.5 HEMATOCRIT (BEAKER) (test bily=166) 45.8 % 40.1-51.0 MEAN CORPUSCULAR VOLUME (BEAKER) (test vemt=337) 86.7 fL 79.0-92.2 MEAN CORPUSCULAR HEMOGLOBIN (BEAKER) (test 28.6 pg 25.7-32.2 aoxd=826) MEAN CORPUSCULAR HEMOGLOBIN CONC (BEAKER) (test 33.0 GM/DL 32.3-36.5 akna=110) RED CELL DISTRIBUTION WIDTH (BEAKER) (test 14.6 % 11.6-14.4 kvom=237) PLATELET COUNT (BEAKER) (test tjym=566) 188 K/CU MM 150-450 MEAN PLATELET VOLUME (BEAKER) (test ekxm=051) 11.5 fL 9.4-12.4 NUCLEATED RED BLOOD CELLS (BEAKER) (test 0 /100 WBC 0-0 ibdl=040) NEUTROPHILS RELATIVE PERCENT (BEAKER) (test 90 % qckg=277) LYMPHOCYTES RELATIVE PERCENT (BEAKER) (test 5 % tpwn=880) MONOCYTES RELATIVE PERCENT (BEAKER) (test 4 % aswf=467) EOSINOPHILS RELATIVE PERCENT (BEAKER) (test 0 % afgx=501) BASOPHILS RELATIVE PERCENT (BEAKER) (test 0 % jtbm=326) NEUTROPHILS ABSOLUTE COUNT (BEAKER) (test 9.85 K/ L 1.78-5.38 panx=972) LYMPHOCYTES ABSOLUTE COUNT (BEAKER) (test 0.51 K/ L 1.32-3.57 ldbd=783) MONOCYTES ABSOLUTE COUNT (BEAKER) (test 0.44 K/ L 0.30-0.82 myiy=056) EOSINOPHILS ABSOLUTE COUNT (BEAKER) (test 0.00 K/ L 0.04-0.54 nwmu=849) BASOPHILS ABSOLUTE COUNT (BEAKER) (test 0.01 K/ L 0.01-0.08 urlv=720) IMMATURE GRANULOCYTES-RELATIVE PERCENT (BEAKER) 1 % 0-1 (test sgwb=3934) BASIC METABOLIC [id number] 05:33:00 Test Item Value Reference Range Comments SODIUM (BEAKER) (test 134 meq/L 136-145 gqmt=456) POTASSIUM (BEAKER) (test 4.5 meq/L 3.5-5.1 grwh=919) CHLORIDE (BEAKER) (test 94 meq/L 98-107 xttd=499) CO2 (BEAKER) (test 30 meq/L 22-29 krbl=364) BLOOD UREA NITROGEN 24 mg/dL 7-21 (BEAKER) (test orcp=013) CREATININE (BEAKER) (test 0.86 mg/dL 0.57-1.25 yttl=512) GLUCOSE RANDOM (BEAKER) 277 mg/dL 70-105 (test qbux=263) CALCIUM (BEAKER) (test 9.4 mg/dL 8.4-10.2 paal=155) EGFR (BEAKER) (test 88 mL/min/1.73 sq m ESTIMATED GFR IS NOT sale=5722) ACCURATE CREATININE CLEARANCE IN PREDICTING GLOMERULAR FILTRATION RATE. ESTIMATED GFR IS NOT APPLICABLE FOR DIALYSIS PATIENTS. POCT-GLUCOSE [id number] 21:39:00 Test Item Value Reference Range Comments POC-GLUCOSE METER (BEAKER) 290 mg/dL 70-110 TESTED AT [facility] [address] [facility] (test oksk=5795) [facility] [address] POCT-GLUCOSE [id number] 17:46:00 Test Item Value Reference Range Comments POC-GLUCOSE METER (BEAKER) 252 mg/dL 70-110 TESTED AT [address] (test lqxl=8639) [place] [address] PET, CARDIAC PERFUSION MULTIPLE STUDIES, REST AND [id number] 16:26: 00Referring: Dr. Smita Stewart for exam:->known CAD s/p STENT x 2 with HF exacerbation; echowall motion abnormality LCX territoryFINAL REPORT PROCEDURE: Rest/Stress MYOCARDIAL PERFUSION PET with regadenoson\XA9\ CPT CODE: 91401 INDICATION: CAD HISTORY: Cardiac risk factors: Diabetes, hypertension, hyperlipidemia. Other cardiovascular history: CAD, prior GA, prior PCI. Recent cardiac symptoms: None reported. Current cardiovascular-related medications: Aspirin, Zetia, metoprolol. PROTOCOL: Limited low-dose CT imaging was performed for attenuation correction. 40.1 mCi of Rb-82 chloride was injected iv at rest, and gated PET (positron emission tomography) images were obtained. Subsequently, 40.1 mCi of Rb-82 chloride was injected iv at expected peak pharmacologic effect , and gated PET images were obtained. PRELIMINARY [...] mmHg at tracer injection. Stress was stopped forpredetermined endpoint. The patient experienced no symptoms; treatment was not required. PreliminaryECG evaluation revealed sinus rhythm at rest and [...] tracer distribution is normal. 6. No previous [facility] study for comparison. NONINVASIVE RISK STRATIFICATION: The above findings are considered intermediate risk (1% to 3% annual mortality rate ) based on the following criterion: - Mild/moderate resting left ventricular dysfunction (LVEF 35% to 49%)- Stress-induced moderate perfusion defect without LV dilation or increasedlung intake (thallium-201)([facility];59(9):857-81.) Signed: Arely Colunga Verified Date/Time: 08/11/2017 16:26:13 Reading Location: [address] Reading Room POCT-GLUCOSE [id number] 13: 31:00 Test Item Value Reference Range Comments POC-GLUCOSE METER (BEAKER) 288 mg/dL 70-110 TESTED AT [facility] [address] [place] [address] (test syym=6900) [facility] [address] POCT-GLUCOSE [id number] 08:50:00 Test Item Value Reference Range Comments POC-GLUCOSE METER (BEAKER) 173 mg/dL 70-110 TESTED AT [address] (test dxxv=0784) [facility] [address] CBC W/PLT COUNT & AUTO [id number] 06:24:00 Test Item Value Reference Range Comments WHITE BLOOD CELL COUNT (BEAKER) (test ebwu=049) 8.1 K/ L 3.5-10.5 RED BLOOD CELL COUNT (BEAKER) (test ntwl=868) 4.75 M/ L 4.63-6.08 HEMOGLOBIN (BEAKER) (test ctji=822) 13.7 GM/DL 13.7-17.5 HEMATOCRIT (BEAKER) (test kmpa=753) 41.8 % 40.1-51.0 MEAN CORPUSCULAR VOLUME (BEAKER) (test nawf=064) 88.0 fL 79.0-92.2 MEAN CORPUSCULAR HEMOGLOBIN (BEAKER) (test 28.8 pg 25.7-32.2 ttly=887) MEAN CORPUSCULAR HEMOGLOBIN CONC (BEAKER) (test 32.8 GM/DL 32.3-36.5 idhn=313) RED CELL DISTRIBUTION WIDTH (BEAKER) (test 14.6 % 11.6-14.4 urqa=888) PLATELET COUNT (BEAKER) (test nwzs=287) 140 K/CU MM 150-450 MEAN PLATELET VOLUME (BEAKER) (test voqh=037) 11.4 fL 9.4-12.4 NUCLEATED RED BLOOD CELLS (BEAKER) (test 0 /100 WBC 0-0 szxc=557) NEUTROPHILS RELATIVE PERCENT (BEAKER) (test 87 % zjxr=026) LYMPHOCYTES RELATIVE PERCENT (BEAKER) (test 6 % fjjd=163) MONOCYTES RELATIVE PERCENT (BEAKER) (test 6 % isnx=190) EOSINOPHILS RELATIVE PERCENT (BEAKER) (test 0 % wpyp=926) BASOPHILS RELATIVE PERCENT (BEAKER) (test 0 % vpzp=887) NEUTROPHILS ABSOLUTE COUNT (BEAKER) (test 7.08 K/ L 1.78-5.38 lhww=656) LYMPHOCYTES ABSOLUTE COUNT (BEAKER) (test 0.48 K/ L 1.32-3.57 bwvl=703) MONOCYTES ABSOLUTE COUNT (BEAKER) (test 0.47 K/ L 0.30-0.82 envr=881) EOSINOPHILS ABSOLUTE COUNT (BEAKER) (test 0.00 K/ L 0.04-0.54 fmar=282) BASOPHILS ABSOLUTE COUNT (BEAKER) (test 0.01 K/ L 0.01-0.08 fiqm=881) IMMATURE GRANULOCYTES-RELATIVE PERCENT (BEAKER) 1 % 0-1 (test wzez=4657) BASIC METABOLIC [id number] 06:07:00 Test Item Value Reference Range Comments SODIUM (BEAKER) (test 135 meq/L 136-145 irdl=539) POTASSIUM (BEAKER) (test 5.0 meq/L 3.5-5.1 xzcs=027) CHLORIDE (BEAKER) (test 100 meq/L 98-107 dfcv=883) CO2 (BEAKER) (test 26 meq/L 22-29 uqup=161) BLOOD UREA NITROGEN 23 mg/dL 7-21 (BEAKER) (test isoq=665) CREATININE (BEAKER) (test 0.73 mg/dL 0.57-1.25 cmsf=924) GLUCOSE RANDOM (BEAKER) 213 mg/dL 70-105 (test jnib=374) CALCIUM (BEAKER) (test 9.5 mg/dL 8.4-10.2 ayvx=443) EGFR (BEAKER) (test 107 mL/min/1.73 sq m ESTIMATED GFR IS NOT tcju=4710) ACCURATE CREATININE CLEARANCE IN PREDICTING GLOMERULAR FILTRATION RATE. ESTIMATED GFR IS NOT APPLICABLE FOR DIALYSIS PATIENTS. POCT-GLUCOSE [id number] 21:36:00 Test Item Value Reference Range Comments POC-GLUCOSE METER (BEAKER) 141 mg/dL 70-110 TESTED AT [facility] [address] [facility] (test uucu=7389) [facility] [address] POCT-GLUCOSE [id number] 17:36:00 Test Item Value Reference Range Comments POC-GLUCOSE METER (BEAKER) 236 mg/dL 70-110 TESTED AT [facility] [address] [facility] (test ajiy=3651) [place] [id number] CLOSTRIDIUM DIFFICILE TOXIN [id number] 14:36:00 Test Item Value Reference Range Comments CLOSTRIDIUM DIFFICILE TOXIN, PCR (BEAKER) (test Not Detected Not Detected pobj=4663) This qualitative real-time polymerase chain reaction assay detects the tcdB gene , encoded on the C.difficile pathogenicity locus (PaLoc). The product of tcdB, toxin B, is a cytotoxin essential for causing C.difficile-associated disease ( CDAD) and is found in virtually all toxigenic C.difficile.This assay is performed for patients suspected of having either community-acquired or nosocomial CDAD. Accordingly, only symptomatic patients should be tested and formed stools will be rejected unless ileus is present (i.e., specified when ordering). Patients may be colonized with toxigenic C.difficile strains not causing active disease; therefore, clinical correlation is needed when deciding how to manage patients with a positive test result.The assay has not been validated as a test of cure as amplifiable nucleic acid may persist after effective treatment; therefore, follow-up testing of a positive result is not recommended.POCT-GLUCOSE [id number] 14:18:00 Test Item Value Reference Range Comments POC-GLUCOSE METER (BEAKER) 266 mg/dL 70-110 TESTED AT [address] (test utfe=8818) [place] [address] POCT-GLUCOSE [id number] 07:54:00 Test Item Value Reference Range Comments POC-GLUCOSE METER (BEAKER) 206 mg/dL 70-110 TESTED AT [address] (test gics=8025) [place] [address] BASIC METABOLIC [id number] 05:33:00 Test Item Value Reference Range Comments SODIUM (BEAKER) (test 133 meq/L 136-145 yjtl=654) POTASSIUM (BEAKER) (test 4.7 meq/L 3.5-5.1 rtyt=464) CHLORIDE (BEAKER) (test 98 meq/L 98-107 edmz=181) CO2 (BEAKER) (test 27 meq/L 22-29 pxtn=088) BLOOD UREA NITROGEN 19 mg/dL 7-21 (BEAKER) (test frwz=369) CREATININE (BEAKER) (test 0.75 mg/dL 0.57-1.25 erng=691) GLUCOSE RANDOM (BEAKER) 232 mg/dL 70-105 (test gwdi=905) CALCIUM (BEAKER) (test 9.1 mg/dL 8.4-10.2 gpzo=729) EGFR (BEAKER) (test 103 mL/min/1.73 sq m ESTIMATED GFR IS NOT ynlf=2053) ACCURATE CREATININE CLEARANCE IN PREDICTING GLOMERULAR FILTRATION RATE. ESTIMATED GFR IS NOT APPLICABLE FOR DIALYSIS PATIENTS. CBC W/PLT COUNT & AUTO [id number] 05:19:00 Test Item Value Reference Range Comments WHITE BLOOD CELL COUNT (BEAKER) (test rgxr=273) 4.6 K/ L 3.5-10.5 RED BLOOD CELL COUNT (BEAKER) (test wtzr=130) 4.80 M/ L 4.63-6.08 HEMOGLOBIN (BEAKER) (test hnqn=930) 13.8 GM/DL 13.7-17.5 HEMATOCRIT (BEAKER) (test pmhj=394) 41.6 % 40.1-51.0 MEAN CORPUSCULAR VOLUME (BEAKER) (test bfhj=407) 86.7 fL 79.0-92.2 MEAN CORPUSCULAR HEMOGLOBIN (BEAKER) (test 28.8 pg 25.7-32.2 qtdx=440) MEAN CORPUSCULAR HEMOGLOBIN CONC (BEAKER) (test 33.2 GM/DL 32.3-36.5 dmof=621) RED CELL DISTRIBUTION WIDTH (BEAKER) (test 14.6 % 11.6-14.4 dwfc=629) PLATELET COUNT (BEAKER) (test yxau=564) 136 K/CU MM 150-450 MEAN PLATELET VOLUME (BEAKER) (test rpmj=613) 11.4 fL 9.4-12.4 NUCLEATED RED BLOOD CELLS (BEAKER) (test 0 /100 WBC 0-0 jcux=989) NEUTROPHILS RELATIVE PERCENT (BEAKER) (test 81 % zwpn=398) LYMPHOCYTES RELATIVE PERCENT (BEAKER) (test 11 % tpoj=388) MONOCYTES RELATIVE PERCENT (BEAKER) (test 7 % hzxh=393) EOSINOPHILS RELATIVE PERCENT (BEAKER) (test 0 % rcjc=127) BASOPHILS RELATIVE PERCENT (BEAKER) (test 0 % tbvu=521) NEUTROPHILS ABSOLUTE COUNT (BEAKER) (test 3.70 K/ L 1.78-5.38 alxy=611) LYMPHOCYTES ABSOLUTE COUNT (BEAKER) (test 0.48 K/ L 1.32-3.57 cspe=615) MONOCYTES ABSOLUTE COUNT (BEAKER) (test 0.31 K/ L 0.30-0.82 jubt=605) EOSINOPHILS ABSOLUTE COUNT (BEAKER) (test 0.00 K/ L 0.04-0.54 wgja=904) BASOPHILS ABSOLUTE COUNT (BEAKER) (test 0.01 K/ L 0.01-0.08 yhvl=073) IMMATURE GRANULOCYTES-RELATIVE PERCENT (BEAKER) 1 % 0-1 (test pkpn=5971) POCT-GLUCOSE [id number] 23:18:00 Test Item Value Reference Range Comments POC-GLUCOSE METER (BEAKER) 238 mg/dL 70-110 TESTED AT [place] [id number] [facility] (test budl=0269) [place] [id number] POCT-GLUCOSE [id number] 16:48:00 Test Item Value Reference Range Comments POC-GLUCOSE METER (BEAKER) 226 mg/dL 70-110 TESTED AT [address] (test rpqd=4377) [place] [address] POCT-GLUCOSE [id number] 13:44:00 Test Item Value Reference Range Comments POC-GLUCOSE METER (BEAKER) 180 mg/dL 70-110 TESTED AT [address] (test gmzu=9940) [place] [address] POCT-GLUCOSE [id number] 08:19:00 Test Item Value Reference Range Comments POC-GLUCOSE METER (BEAKER) 192 mg/dL 70-110 TESTED AT [address] (test pikx=0026) [place] [address] CT, CHEST, WITH HIGH RESOLUTION, INTERSTITAL LUNG [id number] 07:31: 00Referring: Dr. Smita Stewart for exam:->Patient with hx of RA c/b ILD presenting with worsening SOBFINAL REPORT HISTORY: Patient with hx of RA c/b ILD presenting with worseningSOB COMPARISON : None Technique : Multiple axial [...] lobe. Correlation with a PET-CT scan is advised.4. Nonspecifically prominent mediastinal lymph nodes. Signed: Roberta Harmon MDReport Verified Date/ Time: 08/09/2017 07:31:21 Reading Location: [facility] Diagnostic Imaging Reading Room - [place] [address] 07 :31 AMBASIC METABOLIC [id number] 07:02:00 Test Item Value Reference Range Comments SODIUM (BEAKER) (test 132 meq/L 136-145 klrc=943) POTASSIUM (BEAKER) (test 4.5 meq/L 3.5-5.1 jmkc=244) CHLORIDE (BEAKER) (test 94 meq/L 98-107 inbx=981) CO2 (BEAKER) (test 32 meq/L 22-29 bbho=832) BLOOD UREA NITROGEN 20 mg/dL 7-21 (BEAKER) (test jwsh=534) CREATININE (BEAKER) (test 0.76 mg/dL 0.57-1.25 iuin=675) GLUCOSE RANDOM (BEAKER) 212 mg/dL 70-105 (test puxl=951) CALCIUM (BEAKER) (test 9.0 mg/dL 8.4-10.2 hsni=794) EGFR (BEAKER) (test 102 mL/min/1.73 sq m ESTIMATED GFR IS NOT wvag=6328) ACCURATE CREATININE CLEARANCE IN PREDICTING GLOMERULAR FILTRATION RATE. ESTIMATED GFR IS NOT APPLICABLE FOR DIALYSIS PATIENTS. CBC W/PLT COUNT & AUTO [id number] 06:11:00 Test Item Value Reference Range Comments WHITE BLOOD CELL COUNT (BEAKER) (test mfjv=534) 5.0 K/ L 3.5-10.5 RED BLOOD CELL COUNT (BEAKER) (test xbfg=943) 4.85 M/ L 4.63-6.08 HEMOGLOBIN (BEAKER) (test fuji=050) 14.0 GM/DL 13.7-17.5 HEMATOCRIT (BEAKER) (test volg=477) 42.0 % 40.1-51.0 MEAN CORPUSCULAR VOLUME (BEAKER) (test nuej=550) 86.6 fL 79.0-92.2 MEAN CORPUSCULAR HEMOGLOBIN (BEAKER) (test 28.9 pg 25.7-32.2 zpkc=755) MEAN CORPUSCULAR HEMOGLOBIN CONC (BEAKER) (test 33.3 GM/DL 32.3-36.5 apvq=208) RED CELL DISTRIBUTION WIDTH (BEAKER) (test 14.8 % 11.6-14.4 jqxk=189) PLATELET COUNT (BEAKER) (test svct=312) 130 K/CU MM 150-450 MEAN PLATELET VOLUME (BEAKER) (test yhxo=248) 10.7 fL 9.4-12.4 NUCLEATED RED BLOOD CELLS (BEAKER) (test 0 /100 WBC 0-0 hzfk=168) NEUTROPHILS RELATIVE PERCENT (BEAKER) (test 78 % lgbt=702) LYMPHOCYTES RELATIVE PERCENT (BEAKER) (test 13 % xvgq=369) MONOCYTES RELATIVE PERCENT (BEAKER) (test 9 % gzby=096) EOSINOPHILS RELATIVE PERCENT (BEAKER) (test 0 % alvn=012) BASOPHILS RELATIVE PERCENT (BEAKER) (test 0 % pbkd=342) NEUTROPHILS ABSOLUTE COUNT (BEAKER) (test 3.90 K/ L 1.78-5.38 uwxu=696) LYMPHOCYTES ABSOLUTE COUNT (BEAKER) (test 0.63 K/ L 1.32-3.57 newr=715) MONOCYTES ABSOLUTE COUNT (BEAKER) (test 0.43 K/ L 0.30-0.82 esbn=273) EOSINOPHILS ABSOLUTE COUNT (BEAKER) (test 0.00 K/ L 0.04-0.54 sfin=533) BASOPHILS ABSOLUTE COUNT (BEAKER) (test 0.01 K/ L 0.01-0.08 fkft=960) IMMATURE GRANULOCYTES-RELATIVE PERCENT (BEAKER) 1 % 0-1 (test hyno=7893) POCT-GLUCOSE [id number] 21:23:00 Test Item Value Reference Range Comments POC-GLUCOSE METER (BEAKER) 194 mg/dL 70-110 TESTED AT [facility] [address] [facility] (test sywx=0245) [facility] [address] CREATINE KINASE (CK), TOTAL AND [id number] 17:44:00 Test Item Value Reference Range Comments CREATINE KINASE TOTAL (BEAKER) (test sies=149) 73 U/L 29-200 CREATINE KINASE-MB (BEAKER) (test szjz=295) 1.8 ng/mL 0.0-6.6 CREATINE KINASE-MB INDEX (BEAKER) (test iblg=243) 2.5 % CK-MB Reference Range:<6.7 Normal6.7-10.0 Borderline>10.0 AbnormalTROPONIN [id number] 17:44:00 Test Item Value Reference Range Comments TROPONIN I (BEAKER) (test offg=097) 0.05 ng/mL 0.00-0.03 Troponin I (TnI) levels must be interpreted [...] failure, acidosis, acute neurological disease, and persistent tachyarrhythmia.BASIC METABOLIC [id number] 17:41:00 Test Item Value Reference Range Comments SODIUM (BEAKER) (test 138 meq/L 136-145 ccnv=367) POTASSIUM (BEAKER) (test 4.3 meq/L 3.5-5.1 Specimen slightly zeuj=473) hemolyzed CHLORIDE (BEAKER) (test 96 meq/L 98-107 lvlf=746) CO2 (BEAKER) (test 31 meq/L 22-29 nxpn=487) BLOOD UREA NITROGEN 20 mg/dL 7-21 (BEAKER) (test qbxp=115) CREATININE (BEAKER) (test 0.82 mg/dL 0.57-1.25 Specimen slightly jebu=573) hemolyzed GLUCOSE RANDOM (BEAKER) 169 mg/dL 70-105 (test dchq=723) CALCIUM (BEAKER) (test 9.7 mg/dL 8.4-10.2 rtrw=268) EGFR (BEAKER) (test 93 mL/min/1.73 sq m ESTIMATED GFR IS NOT owyb=0157) ACCURATE CREATININE CLEARANCE IN PREDICTING GLOMERULAR FILTRATION RATE. ESTIMATED GFR IS NOT APPLICABLE FOR DIALYSIS PATIENTS. POCT-GLUCOSE [id number] 16:17:00 Test Item Value Reference Range Comments POC-GLUCOSE METER (BEAKER) 159 mg/dL 70-110 TESTED AT [facility] [address] [facility] (test uzbb=5948) [facility] [address] CBC W/PLT COUNT & AUTO [id number] 15:59:00 Test Item Value Reference Range Comments WHITE BLOOD CELL COUNT (BEAKER) (test cxvu=134) 5.3 K/ L 3.5-10.5 RED BLOOD CELL COUNT (BEAKER) (test rgsr=907) 5.24 M/ L 4.63-6.08 HEMOGLOBIN (BEAKER) (test nqvk=961) 15.0 GM/DL 13.7-17.5 HEMATOCRIT (BEAKER) (test iapy=828) 45.4 % 40.1-51.0 MEAN CORPUSCULAR VOLUME (BEAKER) (test mlks=798) 86.6 fL 79.0-92.2 MEAN CORPUSCULAR HEMOGLOBIN (BEAKER) (test 28.6 pg 25.7-32.2 butf=918) MEAN CORPUSCULAR HEMOGLOBIN CONC (BEAKER) (test 33.0 GM/DL 32.3-36.5 kikc=546) RED CELL DISTRIBUTION WIDTH (BEAKER) (test 15.5 % 11.6-14.4 ihqy=014) PLATELET COUNT (BEAKER) (test bywe=545) 167 K/CU MM 150-450 MEAN PLATELET VOLUME (BEAKER) (test zmky=137) 13.2 fL 9.4-12.4 NUCLEATED RED BLOOD CELLS (BEAKER) (test 0 /100 WBC 0-0 mdtt=084) NEUTROPHILS RELATIVE PERCENT (BEAKER) (test 81 % ffkq=679) LYMPHOCYTES RELATIVE PERCENT (BEAKER) (test 12 % mjvx=231) MONOCYTES RELATIVE PERCENT (BEAKER) (test 6 % zgkd=032) EOSINOPHILS RELATIVE PERCENT (BEAKER) (test 0 % msyq=748) BASOPHILS RELATIVE PERCENT (BEAKER) (test 0 % qssq=446) NEUTROPHILS ABSOLUTE COUNT (BEAKER) (test 4.31 K/ L 1.78-5.38 uqnf=791) LYMPHOCYTES ABSOLUTE COUNT (BEAKER) (test 0.66 K/ L 1.32-3.57 ygci=080) MONOCYTES ABSOLUTE COUNT (BEAKER) (test 0.30 K/ L 0.30-0.82 wpme=501) EOSINOPHILS ABSOLUTE COUNT (BEAKER) (test 0.00 K/ L 0.04-0.54 syes=795) BASOPHILS ABSOLUTE COUNT (BEAKER) (test 0.01 K/ L 0.01-0.08 lmvb=357) IMMATURE GRANULOCYTES-RELATIVE PERCENT (BEAKER) 1 % 0-1 (test hptn=1903) POCT-LACTIC ACID, [id number] 13:57:00 Test Item Value Reference Range Comments POC-LACTIC ACID, VENOUS 1.5 mmol/L 0.9-1.7 TESTED AT [facility] [address] [facility] (BEAKER) (test zjca=1355) [facility] [address] URINALYSIS W/ [id number] 12:10:00 Test Item Value Reference Range Comments COLOR (BEAKER) (test cehb=137) Light Yellow CLARITY (BEAKER) (test xhik=084) Clear SPECIFIC GRAVITY UA (BEAKER) (test 1.004 1.001-1.035 iyrz=356) PH UA (BEAKER) (test wjlx=468) 5.0 5.0-8.0 PROTEIN UA (BEAKER) (test bxxb=020) Negative Negative GLUCOSE UA (BEAKER) (test gsau=149) Negative Negative KETONES UA (BEAKER) (test oqvb=082) Negative Negative BILIRUBIN UA (BEAKER) (test mfvt=621) Negative Negative BLOOD UA (BEAKER) (test nlck=773) Negative Negative NITRITE UA (BEAKER) (test rrzk=313) Negative Negative LEUKOCYTE ESTERASE UA (BEAKER) (test Negative Negative uubl=223) UROBILINOGEN UA (BEAKER) (test lugh=112) 0.2 mg/dL 0.2-1.0 RBC UA (BEAKER) (test wznj=357) 1 /HPF WBC UA (BEAKER) (test uroy=888) < /HPF BACTERIA (BEAKER) (test telz=904) Rare SQUAMOUS EPITHELIAL (BEAKER) (test < /HPF uuqj=779) HYALINE CASTS (BEAKER) (test cywp=937) 2 /LPF SOURCE(BEAKER) (test qipk=2378) Urine, Clean Catch POCT-GLUCOSE [id number] 11:37:00 Test Item Value Reference Range Comments POC-GLUCOSE METER (BEAKER) 206 mg/dL 70-110 TESTED AT [facility] [address] [facility] (test nsom=8995) [facility] [address] RAD, CHEST, 2 [id number] 21:09:00Referring: Dr. Smita Stewart for exam:->SHORTNESS OF BREATHFINAL REPORT CHEST, AP AND LATERAL. HISTORY: Shortness of breath. COMPARISON:12/26/2015. FINDINGS/IMPRESSION : The trachea is midline. Again identified are chronic appearing interstitial/ fibrotic changes bilaterally, similar to the prior examination. There is no evidence of newlarge focal consolidation, pneumothorax, or significant pleural effusion. The cardiomediastinal silhouette is stable in appearance. No acute osseous abnormalities are identified. Signed: Zak Gatica MDReport Verified Date/Time: 08/07/2017 21:09:37 Reading Location: [address] Consult Reading Room B- TYPE NATRIURETIC FACTOR (BNP)2017-08-07 17:48:00 Test Item Value Reference Range Comments B-TYPE NATRIURETIC PEPTIDE (BEAKER) (test 1067 pg/mL 0-100 xhyu=162) CREATINE KINASE (CK), TOTAL AND [id number] 17:44:00 Test Item Value Reference Range Comments CREATINE KINASE TOTAL (BEAKER) (test twbr=240) 77 U/L 29-200 CREATINE KINASE-MB (BEAKER) (test huvi=066) 1.7 ng/mL 0.0-6.6 CREATINE KINASE-MB INDEX (BEAKER) (test xmoy=892) 2.2 % CK-MB Reference Range:<6.7 Normal6.7-10.0 Borderline>10.0 AbnormalTROPONIN [id number] 17:44:00 Test Item Value Reference Range Comments TROPONIN I (BEAKER) (test cyvm=212) 0.06 ng/mL 0.00-0.03 Troponin I (TnI) levels must be interpreted [...] failure, acidosis, acute neurological disease, and persistent tachyarrhythmia.[id number] 17:41:00 Test Item Value Reference Range Comments MAGNESIUM (BEAKER) (test vrxj=293) 1.9 mg/dL 1.6-2.6 BASIC METABOLIC [id number] 17:41:00 Test Item Value Reference Range Comments SODIUM (BEAKER) (test 137 meq/L 136-145 rfez=166) POTASSIUM (BEAKER) (test 4.1 meq/L 3.5-5.1 epkt=144) CHLORIDE (BEAKER) (test 100 meq/L 98-107 eioz=080) CO2 (BEAKER) (test 28 meq/L 22-29 mjqt=432) BLOOD UREA NITROGEN 20 mg/dL 7-21 (BEAKER) (test klcd=148) CREATININE (BEAKER) (test 0.78 mg/dL 0.57-1.25 bfwi=151) GLUCOSE RANDOM (BEAKER) 90 mg/dL 70-105 (test pvhw=409) CALCIUM (BEAKER) (test 9.6 mg/dL 8.4-10.2 gdud=381) EGFR (BEAKER) (test 99 mL/min/1.73 sq m ESTIMATED GFR IS NOT sryx=3990) ACCURATE CREATININE CLEARANCE IN PREDICTING GLOMERULAR FILTRATION RATE. ESTIMATED GFR IS NOT APPLICABLE FOR DIALYSIS PATIENTS. CBC W/PLT COUNT & AUTO [id number] 17:31:00 Test Item Value Reference Range Comments WHITE BLOOD CELL COUNT (BEAKER) (test nsjk=548) 11.3 K/ L 3.5-10.5 RED BLOOD CELL COUNT (BEAKER) (test bhxs=120) 5.21 M/ L 4.63-6.08 HEMOGLOBIN (BEAKER) (test mzde=456) 14.8 GM/DL 13.7-17.5 HEMATOCRIT (BEAKER) (test xdal=972) 46.1 % 40.1-51.0 MEAN CORPUSCULAR VOLUME (BEAKER) (test xfld=015) 88.5 fL 79.0-92.2 MEAN CORPUSCULAR HEMOGLOBIN (BEAKER) (test 28.4 pg 25.7-32.2 uicn=240) MEAN CORPUSCULAR HEMOGLOBIN CONC (BEAKER) (test 32.1 GM/DL 32.3-36.5 lqvn=353) RED CELL DISTRIBUTION WIDTH (BEAKER) (test 15.3 % 11.6-14.4 nbbh=202) PLATELET COUNT (BEAKER) (test xbdp=167) 126 K/CU MM 150-450 MEAN PLATELET VOLUME (BEAKER) (test qllp=607) 11.2 fL 9.4-12.4 NUCLEATED RED BLOOD CELLS (BEAKER) (test 0 /100 WBC 0-0 vaxa=718) NEUTROPHILS RELATIVE PERCENT (BEAKER) (test 82 % vvpo=365) LYMPHOCYTES RELATIVE PERCENT (BEAKER) (test 10 % daiv=918) MONOCYTES RELATIVE PERCENT (BEAKER) (test 7 % ibyf=124) EOSINOPHILS RELATIVE PERCENT (BEAKER) (test 0 % oxib=510) BASOPHILS RELATIVE PERCENT (BEAKER) (test 0 % zbif=887) NEUTROPHILS ABSOLUTE COUNT (BEAKER) (test 9.21 K/ L 1.78-5.38 ttpl=622) LYMPHOCYTES ABSOLUTE COUNT (BEAKER) (test 1.16 K/ L 1.32-3.57 fplm=173) MONOCYTES ABSOLUTE COUNT (BEAKER) (test 0.80 K/ L 0.30-0.82 jqid=489) EOSINOPHILS ABSOLUTE COUNT (BEAKER) (test 0.02 K/ L 0.04-0.54 mwyg=885) BASOPHILS ABSOLUTE COUNT (BEAKER) (test 0.03 K/ L 0.01-0.08 nepj=116) IMMATURE GRANULOCYTES-RELATIVE PERCENT (BEAKER) 0 % 0-1 (test fawk=6292)
[2018-03-03 10:13] LABS: Albumin 2.6 g/dL (3.4-5.0); Bilirubin Direct 11.2 mg/dL (0-0.2); Potassium 3.4 mmol/L (3.5-5.1); Protein, Total 6.9 g/dL (6.4-8.2)
[2018-03-03 10:16] LABS: Bilirubin Total 13.6 mg/dL (0.2-1.0)
[2018-03-03 10:37] LABS: Hematocrit 33.5 % (39.6-49.0); MCH 29.5 pg (27.0-35.0); MCV 90.3 fL (80-100); MPV 10.3 fL (7.6-11.3); RBC Red Blood Cell Count 3.71 M/uL (4.33-5.43)
--- NOTE | 2018-03-03 11:15 | RAD REPORT ---
EXAM DESCRIPTION: RAD - Chest Single View - 03/03/2018 9:50 am CLINICAL HISTORY: COPD, dyspnea COMPARISON: August 2007 TECHNIQUE: AP portable chest image was obtained 0937 hours . FINDINGS: Lung volumes are low. Patient has a very extensive interstitial lung pattern. Pattern is n ot substantially different though infiltrates could easily be masked by the severity of the chronic p attern. Heart size is prominent but stable. Upper lobe vascular within normal limits. Trachea is midl ine. No pneumothorax or large pleural effusion. No gross bony abnormality seen. No acute aortic findi ngs suspected. IMPRESSION: Extensive chronic interstitial lung disease present. Pattern is not substantially different but could easily mask early pneumonia. Mild cardiomegaly without vascular engorgement. Mild failure could be masked but no significant failu re or volume overload identified.
--- NOTE | 2018-03-03 12:13 | RAD REPORT ---
EXAM DESCRIPTION: CT - Abdomen Pelvis W Contrast - 03/03/2018 11:44 am CLINICAL HISTORY: Jaundice, abdominal pain COMPARISON: None. TECHNIQUE: Biphasic, helical CT imaging of the abdomen and pelvis was performed following 100 ml non -ionic IV contrast. Oral contrast was given. All CT scans are performed using dose optimization technique as appropriate and may include automated exposure control or mA/KV adjustment according to patient size. FINDINGS: Prominent interstitial fibrotic lung changes are present at each base. No acute infiltrate , mass or pleural effusion. Mild cardiomegaly is present without pericardial effusion. Liver has a nodular contour. No focal liver parenchymal lesion identifiable. No splenomegaly or focal splenic finding. No pancreatic mass or peripancreatic inflammatory stranding. Cholecystectomy clips are present. No biliary tree dilatation. Symmetric renal function is seen with no hydronephrosis or suspicious renal mass. No pyelonephritis o r acute renal parenchymal mass. A 3 centimeter parapelvic cyst or extrarenal pelvis on the left. A 3 centimeter anterior mid left renal cyst is also present. No urinary bladder abnormality. No gastric dilatation or gastric wall thickening. No acute large or small bowel dilatation. The appen timmy is normal. An acute GI process is not suspected. No free air or pneumatosis. Nonspecific strandi ng is seen in the right pericolic gutter and along the right anterior renal fascia. No mass or bulky lymphadenopathy. A complex supraumbilical hernia is present approximately 5 cm in size. Patient has small chronic seromas along the lower abdominal wall incision. No active process suspected at this si te. No adrenal abnormality. Disc and bony degenerative changes are present without an acute bone process. Vascular calcifications are present. Aortoiliac surgical changes are noted. An acute vascular process is not seen. IMPRESSION: No pancreatitis, biliary tree dilatation or obstructive process or jaundice. Nodular liver capsule. No focal liver parenchymal lesions seen. No acute or GI process seen. Additional nonacute findings detailed in the body of the report.
[2018-03-03 12:25] LABS: Anisocytosis 2+; Blood Morphology Comment NOTED (NOT SEEN); Platelet Estimate ADEQ; Target Cells 2+
--- NOTE | 2018-03-03 13:20 | ER ---
Nurse's Notes [facility] Name: Olivier Camp Age: 72 yrs Sex: Male : 1945 Arrival Date: 03/03/2018 Time: 09:13 Bed 5 Private MD: Bob Stanley E Diagnosis: Bilirubinemia;Jaundice Presentation: 03/03 09:24 Presenting complaint: daughter reports that they noticed patient began turning a yellow ss color 1 week ago. Pt has begun new medications recently for RA treatment. Transition of care: patient was not received from another setting of care. Onset of symptoms was February 24, 2018. Risk Assessment: Do you want to hurt yourself or someone else? Patient reports no desire to harm self or others. Initial Sepsis Screen: Does the patient meet any 2 criteria? HR > 90 bpm. Yes Does the patient have a suspected source of infection? No. Patient's initial sepsis screen is negative. Care prior to arrival: None. 09:24 Method Of Arrival: Ambulatory ss 09:24 Acuity: EMILY 3 ss Historical: - Allergies: 09:31 Codeine; ss - Home Meds: 09:51 aspirin 81 mg Oral TbEC [Active]; metformin 500 mg Oral tab 1 tab 2 times per day sv [Active]; Zetia 10 mg Oral tab 1 tab once daily [Active]; metoprolol succinate 25 mg oral Tb24 1 tab once daily [Active]; prednisone 10 mg Oral tab once daily [Active]; furosemide 40 mg Oral tab 1 tab once daily [Active]; Incruse Ellipta 62.5 mcg/actuation inhalation dsdv 1 puff once daily [Active]; albuterol sulfate 90 mcg/actuation Inhl HFAA 2 puffs every 4 hours [Active]; azathioprine 50 mg Oral tab 2 tabs 2 times per day [Active]; Remicade intravenous intravenous [Active]; - PMHx: 09:31 AAA; ADD/ADHD; Diabetes - NIDDM; High Cholesterol; Hypertension; iliac aneurysm; Sleep ss Apnea; 09:51 staph infection; right elbow; sv - PSHx: 09:31 STENTS X 2; AORTIC ANEURYSM; ss - Immunization history:: Adult Immunizations up to date. - Social history:: Smoking status: Patient/guardian denies using tobacco. - Family history:: not pertinent. - Ebola Screening: : No symptoms or risks identified at this time. - Hospitalizations: : No recent hospitalization is reported. Screenin:57 Abuse screen: Denies threats or abuse. Denies injuries from another. Nutritional sv screening: No deficits noted. Tuberculosis screening: No symptoms or risk factors identified. Fall Risk None identified. Assessment: 09:25 General: Appears in no apparent distress. comfortable, Behavior is calm, cooperative, sv appropriate for age. Pain: Denies pain. Neuro: Level of Consciousness is awake, alert, obeys commands, Oriented to person, place, time, situation, Moves all extremities. Full function Gait is steady, Speech is normal. Cardiovascular: Patient's skin is warm and dry. Edema is 1+ to left midcalf, left ankle, right midcalf and right ankle pitting to left midcalf, left ankle, right midcalf and right ankle Rhythm is sinus rhythm with unifocal PVCs. Respiratory: Respiratory effort is even, unlabored, Respiratory pattern is regular, symmetrical. GI: Abdomen is round Abd is soft X 4 quads Reports tolerance of fluids, tolerance of food, "beige" stools Patient currently denies abdominal pain, nausea, vomiting. : Reports dark yellow urine. EENT: Sclera/Cornea icteric. Derm: Skin is jaundiced, Bruising that is multiple bruises noted throughout body in different stages of healing.. Musculoskeletal: Range of motion: intact in all extremities. 11:10 Reassessment: Patient appears in no apparent distress at this time. No changes from sv previously documented assessment. Patient and/or family updated on plan of care and expected duration. Pain level reassessed. Patient is alert, oriented x 3, equal unlabored respirations, skin warm/dry/pink. 13:48 Reassessment: Patient appears in no apparent distress at this time. No changes from sv previously documented assessment. Patient and/or family updated on plan of care and expected duration. Pain level reassessed. Patient is alert, oriented x 3, equal unlabored respirations, skin warm/dry/pink. Vital Signs: 09:31 BP 155 / 87; Pulse 97; Resp 18; Temp 97.6(TE); Pulse Ox 100% on 5 lpm NC; ss 09:41 BP 131 / 75; Pulse 90; Resp 19; Pulse Ox 99% on 5 lpm NC; dh3 10:41 BP 129 / 75; Pulse 87; Resp 28; Pulse Ox 96% on 5 lpm NC; dh3 11:41 BP 119 / 53; Pulse 85; Resp 22; Pulse Ox 98% on 5 lpm NC; dh3 12:11 BP 101 / 80; Pulse 67; Resp 23; Pulse Ox 100% on 5 lpm NC; dh3 12:54 BP 124 / 64; Pulse 68; Resp 17; Pulse Ox 100% on 5 lpm NC; 3 ED Course: 09:13 Patient arrived in ED. sb2 09:13 Bob Stanley MD is Private Physician. sb2 09:16 Ronan Honeycutt MD is Attending Physician. rn 09:18 Elva Lagos RN is Primary Nurse. sv 09:25 Patient has correct armband on for positive identification. Placed in gown. Bed in low sv position. Call light in reach. Adult w/ patient. classroom monitor on. Pulse ox on. NIBP on. Door closed. Head of bed elevated. 09:28 Triage completed. ss 09:31 Arm band placed on right wrist. ss 09:35 Initial lab(s) drawn, by me, sent to lab. First set of blood cultures drawn by me. sv Inserted saline lock: 20 gauge in right antecubital area, using aseptic technique. Blood collected. Flushed right antecubital with 5 ml normal saline. 09:36 EKG done, by ED staff, reviewed by Ronan Honeycutt MD. dh3 09:47 XRAY Chest (1 view) In Process Unspecified. EDMS 09:57 Second set of blood cultures drawn by me, by venipuncture 23G to left ac. dh3 09:58 Awaiting lab results, Awaiting radiology results. Awaiting CT Scan. sv 10:20 Lab(s) recollected, by me, sent to lab. dh3 11:43 CT completed. Patient moved to CT via stretcher. Patient moved back from CT. cw1 11:44 CT Abd/Pelvis - W/Contrast In Process Unspecified. EDMS 12:10 Urine collected: clean catch specimen. sv 13:48 No provider procedures requiring assistance completed. IV discontinued, intact, sv bleeding controlled, No redness/swelling at site. Pressure dressing applied. Administered Medications: No medications were administered Point of Care Testing: Blood Glucose: 09:59 Blood Glucose: 131 mg/dL; sv Ranges: Intake: 10:00 PO: 500ml (Contrast); Total: 500ml. sv 10:00 Called and informed Mónica pt finished contrast. sv Outcome: 13:19 Discharge ordered by . rn 13:48 Patient left the ED. sv 13:48 Discharged to home ambulatory, with family, with his home O2 sv 13:48 Condition: stable 13:48 Discharge instructions given to patient, family, Instructed on discharge instructions, follow up and referral plans. Demonstrated understanding of instructions, follow-up care. Signatures: Dispatcher [employer] Elva Issa RN RN Ronan Honeycutt MD MD rn Smirch, Shelby, RN RN Apurva Wilson 1 Chet, Neena 3 Caroline Lerner sb2 Corrections: (The following items were deleted from the chart) 09:51 09:31 PMHx: staph infection; [facility] 09:56 09:25 GI: Abdomen is round Abd is soft X 4 quads Reports "beige" stools sv :56 09:25 EENT: Sclera/Cornea jaundice. sv sv 13:53 13:52 Patient left the ED. sv sv
--- NOTE | 2018-03-03 13:20 | EDPHYS ---
Physician Documentation [facility] Name: Olivier Camp Age: 72 yrs Sex: Male : 1945 Arrival Date: 03/03/2018 Time: 09:13 Bed 5 Private MD: Bob Stanley E ED Physician Ronan Honeycutt HPI: 03/03 09:31 This 72 yrs old Male presents to ER via Ambulatory with complaints of rn Jaundice. 09:31 Reports yellowing of skin and elevated liver function tests for 1-2 weeks, getting rn worse, no abd pain/vomiting, normal appetite, started azathioprine recently, and on remicade, holding it for last week, no trauma, told in past may have liver problems, + former daily drinker. . Onset: The symptoms/episode began/occurred 2 week(s) ago. Severity of symptoms: At their worst the symptoms were moderate in the emergency department the symptoms are unchanged. The patient has experienced a previous episode. The patient has been recently seen by a physician:. Historical: - Allergies: 09:31 Codeine; ss - Home Meds: 09:51 aspirin 81 mg Oral TbEC [Active]; metformin 500 mg Oral tab 1 tab 2 times per day sv [Active]; Zetia 10 mg Oral tab 1 tab once daily [Active]; metoprolol succinate 25 mg oral Tb24 1 tab once daily [Active]; prednisone 10 mg Oral tab once daily [Active]; furosemide 40 mg Oral tab 1 tab once daily [Active]; Incruse Ellipta 62.5 mcg/actuation inhalation dsdv 1 puff once daily [Active]; albuterol sulfate 90 mcg/actuation Inhl HFAA 2 puffs every 4 hours [Active]; azathioprine 50 mg Oral tab 2 tabs 2 times per day [Active]; Remicade intravenous intravenous [Active]; - PMHx: 09:31 AAA; ADD/ADHD; Diabetes - NIDDM; High Cholesterol; Hypertension; iliac aneurysm; Sleep ss Apnea; 09:51 staph infection; right elbow; sv - PSHx: :31 STENTS X 2; AORTIC ANEURYSM; ss - Immunization history:: Adult Immunizations up to date. - Social history:: Smoking status: Patient/guardian denies using tobacco. - Family history:: not pertinent. - Ebola Screening: : No symptoms or risks identified at this time. - Hospitalizations: : No recent hospitalization is reported. ROS: 09:31 Constitutional: Negative for fever, chills, and weight loss, Eyes: Negative for injury, rn pain, redness, and discharge, Neck: Negative for injury, pain, and swelling, Cardiovascular: Negative for chest pain, palpitations, and edema, Respiratory: Negative for pleuritic chest pain Abdomen/GI: Negative for abdominal pain, nausea, vomiting, diarrhea, and constipation, MS/Extremity: Negative for injury and deformity, Skin: + jaundice Neuro: Negative for headache, weakness, numbness, tingling, and seizure. Exam: : Constitutional: This is a well developed, well nourished patient who is awake, alert, rn and in no acute distress. Head/Face: Normocephalic, atraumatic. Eyes: + scleral icterus Neck: Trachea midline, no thyromegaly or masses palpated, and no cervical lymphadenopathy. Supple, full range of motion without nuchal rigidity, or vertebral point tenderness. No Meningismus. Cardiovascular: Regular rate and rhythm with a normal S1 and S2. No gallops, murmurs, or rubs. Normal PMI, no JVD. No pulse deficits. Respiratory: mild tachypnea with diminished bilateral breath sounds, no retractions, speaks full sentences Abdomen/GI: soft, mild RUQ tenderness, no rebound Skin: + jaundice with ecchymosis over bilateral upper extremities MS/ Extremity: Pulses equal, no cyanosis. Neurovascular intact. Full, normal range of motion. Equal circumference. Neuro: Awake and alert, GCS 15, oriented to person, place, time, and situation. Cranial nerves II-XII grossly intact. Motor strength 5/5 in all extremities. Sensory grossly intact. Vital Signs: 09:31 BP 155 / 87; Pulse 97; Resp 18; Temp 97.6(TE); Pulse Ox 100% on 5 lpm NC; ss 09:41 BP 131 / 75; Pulse 90; Resp 19; Pulse Ox 99% on 5 lpm NC; dh3 10:41 BP 129 / 75; Pulse 87; Resp 28; Pulse Ox 96% on 5 lpm NC; dh3 11:41 BP 119 / 53; Pulse 85; Resp 22; Pulse Ox 98% on 5 lpm NC; dh3 12:11 BP 101 / 80; Pulse 67; Resp 23; Pulse Ox 100% on 5 lpm NC; dh3 12:54 BP 124 / 64; Pulse 68; Resp 17; Pulse Ox 100% on 5 lpm NC; dh3 MDM: 09:16 Patient medically screened. rn 12:59 Differential Diagnosis hepatitis, obstructive jaundice, medication side effect. Data rn reviewed: vital signs, nurses notes, lab test result(s), radiologic studies, CT scan, plain films, and as a result, I will discharge patient. Counseling: I had a detailed discussion with the patient and/or guardian regarding: the historical points, exam findings, and any diagnostic results supporting the discharge/admit diagnosis, lab results, radiology results, the need for outpatient follow up, to return to the emergency department if symptoms worsen or persist or if there are any questions or concerns that arise at home. Special discussion: I discussed with the patient/guardian in detail that at this point there is no indication for admission to the hospital. It is understood, however, that if the symptoms persist or worsen the patient needs to return immediately for re-evaluation. ED course: Pt with labs improving, feels ok, asymptomatic, eating fine, improving Bili, may be due to medication that patient is holding, offered admission for GI consult, but unlikely to due anything acute given normal CT abdomen and gallbladder already removed, patient prefers to go home, will f/u with his doctor on Monday for repeat labs and instructed to return if worsens. . 03/03 09:30 Order name: Basic Metabolic Panel; Complete Time: 10:35 rn 03/03 09:30 Order name: CBC with Diff; Complete Time: 12:37 rn 03/03 09:30 Order name: Hepatic Function; Complete Time: 10:35 rn 03/03 09:30 Order name: Lipase; Complete Time: 10:35 rn 03/03 09:30 Order name: AMMONIA; Complete Time: 10:35 rn 03/03 09:30 Order name: Blood Culture Adult (2) rn 03/03 09:30 Order name: IV Saline Lock; Complete Time: 10:02 rn 03/03 09:30 Order name: Labs collected and sent; Complete Time: 10:02 rn 03/03 09:30 Order name: Hepatitis Panel rn 03/03 09:30 Order name: CT Abd/Pelvis - W/Contrast; Complete Time: 12:15 rn 03/03 09:30 Order name: XRAY Chest (1 view); Complete Time: 12:15 rn 03/03 10:41 Order name: Manual Differential; Complete Time: 12:37 EDMS 03/03 11:32 Order name: Glucose, Ancillary Testing; Complete Time: 12:15 EDMS 03/03 12:12 Order name: Urine Dipstick--Ancillary (enter results) em1 Administered Medications: No medications were administered Point of Care Testing: Blood Glucose: 09:59 Blood Glucose: 131 mg/dL; sv Ranges: Critical Glucose Levels:Adult <50 mg/dl or >400 mg/dl <40 mg/dl or >180 mg/dl Disposition: 03/03/18 13:19 Discharged to Home. Impression: Bilirubinemia, Jaundice. - Condition is Stable. - Discharge Instructions: Jaundice. - Medication Reconciliation Form, Thank You Letter, Antibiotic Education, Prescription Opioid Use form. - Follow up: Private Physician; When: 2 - 3 days; Reason: Recheck today's complaints, Re-evaluation by your physician. - Problem is an ongoing problem. - Symptoms have improved. Signatures: Dispatcher [employer] EDAL Elva Lagos RN RN sv Ronan Honeycutt MD MD rn Smirch, Shelby, RN RN ss Corrections: (The following items were deleted from the chart) 09:51 09:31 PMHx: staph infection; ss sv 13:18 12:59 ED course: Pt with labs improving, feel s. rn rn 13:52 13:19 03/03/2018 13:19 Discharged to Home. Impression: Bilirubinemia; Jaundice. sv Condition is Stable. Forms are Medication Reconciliation Form, Thank You Letter, Antibiotic Education, Prescription Opioid Use. Follow up: Private Physician; When: 2 - 3 days; Reason: Recheck today's complaints, Re-evaluation by your physician. Problem is an ongoing problem. Symptoms have improved. rn
[2018-03-03 13:30] LABS: Urine Blood NEGATIVE (NEG); Urine Glucose TRACE (NEG); Urine Protein TRACE (NEG); Urine pH 5.5 (5.0-7.0)
[2018-03-03 13:56] VITALS: TEMP 97.6
[2018-03-03 14:00] VITALS: O2SAT 100
[2018-03-03 14:02] VITALS: BP 124/64
--- NOTE | 2018-03-04 16:05 | EKG ---
Test Date: 2018-03-03 Test Time: 09:31:25 Resin Mixer: SOL MEASUREMENT RESULTS: Intervals: Rate: 83 OK: 144 QRSD: 104 QT: 366 QTc: 430 [place]: P: 26 OK: 144 QRS: -21 T: 50 INTERPRETIVE STATEMENTS: Sinus rhythm with frequent and consecutive premature ventricular complexes Minimal voltage criteria for LVH, may be normal variant Inferior infarct, age undetermined Anterior infarct, age undetermined Abnormal ECG Compared to ECG 09/01/2017 13:16:02 Ventricular premature complex(es) now present Sinus tachycardia no longer present Atrial premature complex(es) no longer present Myocardial infarct finding still present Electronically Signed On 03-04-18 16:04:31 CDT by Dannie Pugh
[2018-03-07 03:53] LABS: HBsAG Nonreactive (Nonreactive); Hepatitis A IgM Antibody Nonreactive
== END 2018-03-03 13:52 | disposition home or self-care (01) ==
LOC: ER 09:10
DX: E80.4 Gilbert syndrome (principal); I10 Essential (primary) hypertension; E78.00 Pure hypercholesterolemia, unspecified; E11.9 Type 2 diabetes mellitus without complications; Z79.82 Long term (current) use of aspirin; Z88.5 Allergy status to narcotic agent
CPT/HCPCS: 36415; 71045; 74177; 80048; 80074; 80076; 81003; 82140; 82962; 83690; 85025; 87040 ×2; 93005; 99285; Q9967

== ENCOUNTER 2018-05-06 12:57 | Emergency (ER) | payer OTHER ==
--- OUTSIDE RECORDS SUMMARY | 2018-05-06 13:00 | XMS REPORT | Clinical Summary ---
:1945 Author Organization [facility] Address [address] [place] [address] Phone Care Team Providers Name Role Phone [...] (25 mg total) by mouth daily. predniSONE 9ysua8l, 50 tablet 0 08/14/2017 Active (DELTASONE) 10 MG 0izip6o, tablet 4tabx,3d, 2zwup4h, 0cgoo9y,1hgjm3a then stop. furosemide (LASIX) Take 1 tablet [...] (congestive heart failure), NYHA class 3 2016 ([facility]LY [facility]) Overview: Due to ischemic CM, decompensation in setting of respiratory illness Acute on chronic congestive heart failure, unspecified congestive heart 2016 failure type Chest pain 12/21/2015 Wound infection 12/11/2015 AAA (abdominal aortic aneurysm) ([facility]) 11/13/2015 HTN (hypertension) 11/13/2015 PVD (peripheral vascular disease) ([facility]) 11/13/2015 Iliac aneurysm ([facility]) 11/13/2015 HLD (hyperlipidemia) 11/13/2015 DM (diabetes mellitus), type 2 ([facility]) 11/13/2015 Encounters Date Type Specialty Care Team Description 08/07/2017 - Hospital Encounter Cardiology Zander Spencer Acute on chronic 08/14/2017 MD Mika congestive heart Emanuel Chairez Reza, MD unspecified nAa Conley congestive heart MD Emanuel failure type ([facility]) (Primary Dx);SOB (shortness of breath);Hypoxemia 08/07/2017 Orders Only General Internal Medicine after 05/05/2017 Family History Medical History Relation Name Comments [...] Taken Blood Pressure 127/75 08/14/2017 8:14 AM SHAREPOINT DEVELOPER Pulse 53 08/14/2017 8:45 AM SHAREPOINT DEVELOPER Temperature 36.3 C (97.3 F) 08/14/2017 8:14 AM SHAREPOINT DEVELOPER Respiratory Rate 20 08/14/2017 8:45 AM SHAREPOINT DEVELOPER Oxygen Saturation 94% 08/14/2017 8:45 AM SHAREPOINT DEVELOPER Inhaled Oxygen Concentration - - Weight 84.5 kg (186 lb 3.2 oz) 08/14/2017 5:06 AM SHAREPOINT DEVELOPER Height 170.2 cm (5' 7") 08/07/2017 3:12 PM SHAREPOINT DEVELOPER Body Mass Index 29.16 08/14/2017 5:06 AM SHAREPOINT DEVELOPER Plan of Treatment Health Maintenance Due Date Last Done Comments INFLUENZA VACCINE 06/04/2018 Implants Implanted Type Area Voip Engineer Device Expiration Model / Identifier Date Serial / Lot Shaq Martinez Gld [id number] - [id number] Graft/Pa N/A: GETINGE 09/03/2018 [id number] / Implanted: Qty: 1 on 11/18/2015 by Chas Lopez MD [facility] Abdomen IND: MAQUET:CV / [id number] Results EKG-SCANNED (08/16/2017 1:01 PM)RHYTHM STRIP - SCAN (08/15/2017 1:01 PM)POC- Glucose meter (08/14/2017 8:19 AM)Only the most recent of25 resultswithin the time period is included. Component Value Ref Range POC-Glucose Meter 121 (H)Comment: TESTED AT [address] 70 - 110 mg/[place] [address] Specimen Performing Laboratory Blood [facility] [address] [address] CBC with platelet count + automated diff [...] 1 % Specimen Performing Laboratory Blood [facility] [address] [address] CBC with platelet count + automated diff (08/14/2017 4:58 AM)Only the most recent of8 resultswithin the time period is included. Specimen Performing Laboratory Blood Narrative The following orders were created for panel order CBC with platelet count + automated diff. Procedure Abnormality Status --------- ------ CBC with platelet count ...[[id number]]AbnormalFinal result Please view results for these tests [...] DIALYSIS PATIENTS. Specimen Performing Laboratory Blood [facility] [address] [address] NM myocardial perfusion PET (rest and stress) (08/11/2017 2:34 PM) Specimen Performing Laboratory she[facility]hou[facility] KARON Skinner FINAL REPORT PROCEDURE:Rest/Stress MYOCARDIAL PERFUSION PET with regadenoson\\XA9\\ CPT CODE:78779 INDICATION:CAD HISTORY:Cardiac risk factors: Diabetes, hypertension, hyperlipidemia. Other cardiovascular history: CAD, prior MS, prior PCI. Recent cardiac symptoms: None reported. [...] Extracardiac tracer distribution is normal.6. No previous [facility] study for comparison. NONINVASIVE RISK STRATIFICATION: The above findings are considered intermediate risk (1% to 3% annual mortality rate) based on the following criterion: - Mild/moderate resting left ventricular dysfunction (LVEF 35% to 49%) - Stress-induced moderate perfusion defect without LV dilation or increased lung intake (thallium-201) ([employer] 2012;59(9):857-13.) Signed: Ilya Colunga MD Report Verified Date/Time:08/11/2017 16:26:13 Reading Location: [address] P327B [facility] Reading Room Procedure Note Interface, External Ris In - 08/11/2017 4:28 PM SHAREPOINT DEVELOPER FINAL REPORT PROCEDURE: Rest/Stress MYOCARDIAL PERFUSION PET with regadenoson\\XA9\\ CPT CODE: 28939 INDICATION: CAD HISTORY: Cardiac risk factors: Diabetes, hypertension, hyperlipidemia. Other cardiovascular history: CAD, prior MS, prior PCI. Recent cardiac symptoms: None reported. [...] tracer distribution is normal. 6. No previous [facility] study for comparison. NONINVASIVE RISK STRATIFICATION: The above findings are considered intermediate risk (1% to 3% annual mortality rate) based on the following criterion: - Mild/moderate resting left ventricular dysfunction (LVEF 35% to 49%) - Stress-induced moderate perfusion defect without LV dilation or increased lung intake (thallium-201) ([employer] 2012;59(9):857-81.) Signed: Ilya Colunga MD Report Verified Date/Time: 08/11/2017 16:26:13 Reading Location: [address] Reading Room Treadmill tolerance(Non-Nuclear Treadmill) (08/11/2017 2:28 PM) Specimen Performing Laboratory Par8o Narrative Protocol Name Regadenoson Time In Exercise [...] 08/11/2017 3:27:50 PM Confirmed by MD NELSON, FIFI ([id number]) on 08/23/2017 12:31:09 PM Procedure Note Interface, External Ris In - 08/23/2017 12:31 PM SHAREPOINT DEVELOPER Protocol Name Regadenoson Time In Exercise Phase [...] Exercise ASA Zetia metoprolol Confirmed by fellow Gayr Bright ([id number]) on 08/11/2017 3:27:50 PM Confirmed by MD DAMON JORGE ([id number]) on 08/23/2017 12:31:09 PM Clostridium difficile Toxin PCR (08/09/2017 4:52 PM) Component Value Ref Range C.Diff Toxin, PCR Not Detected Not Detected Specimen Performing Laboratory Stool [facility] [address] [address] Narrative This qualitative real-time polymerase chain reaction [...] ild (08/08/2017 10:03 PM) Specimen Performing Laboratory Stribe Narrative FINAL REPORT HISTORY: Patient with hx [...] MD Report Verified Date/Time:08/09/2017 07:31:21 Reading Location: [facility] Diagnostic Imaging Reading Room - [place] [address] Procedure Note Interface, External Ris In - 08/09/2017 7:33 AM SHAREPOINT DEVELOPER FINAL REPORT HISTORY: Patient with hx of [...] Report Verified Date/Time: 08/09/2017 07:31:21 Reading Location: [facility] Diagnostic Imaging Reading Room - [place] [address] Troponin I (08/08/2017 4:50 PM)Only the most recent of2 resultswithin the time period is included. Component Value Ref Range Troponin I 0.05 (H) 0.00 - 0.03 ng/mL Specimen Performing Laboratory Blood - Arm, [address] [address] Narrative Troponin I (TnI) levels must be [...] % Specimen Performing Laboratory Blood - Arm, [address] [address] Narrative CK-MB Reference Range: <6.7Normal 6.7-10.0Borderline >10.0 Abnormal 2D Echo W/O Doppler(No Doppler) (08/08/2017 1:58 PM) Component Value Ref Range Ejection Fraction Specimen Performing Laboratory [facility] ECHO [facility] Narrative Transthoracic Echocardiography Report (TTE) Demographics Patient NameOLIVIER BRAY Date of Study08/08/2017 DAVID Male Visit [id number] Room Easgxb0331 Number Date of 1945Referring Physician Age 71 year(s)Marketing Sales Supervisor Mary Paredes [facility] Interpreting [facility] Needs to be Pre PhysicianRead Zander Brewer MD Procedure Type of Study TTE procedure:ECHO2D MODE W/O DOPPLER (Routine) Indications:Shortness of breath. Clinical History HGB 15.0 HCT 45.4 % ILIAC ANEURYSM, COPD, CAD, STENTS X2 (2001, 2005), DMITRY, CPAP, DM, HLD, HTN, MS (2001), TIA, ABD. AO REPAIR, PVD Height: [...] External Ris In - 08/08/2017 6:49 PM SHAREPOINT DEVELOPER Transthoracic Echocardiography Report (TTE) Demographics Patient Name OLIVIER BRAY Date of Study 08/08/2017 DAVID Gender Male Visit Number [id number] Race Room Number 2435 Number Date of 1945 Referring Physician Age 71 year(s) Marketing Sales Supervisor Mary Paredes RDCS Interpreting [facility] Needs to be Pre Physician Read Zander Brewer MD Procedure Type of Study TTE procedure:ECHO2D MODE W/O DOPPLER (Routine) Indications:Shortness of breath. Clinical History HGB 15.0 HCT 45.4 % ILIAC ANEURYSM, COPD, CAD, STENTS X2 (2001, 2005), DMITRY, CPAP, DM, HLD, HTN, MS (2001), TIA, ABD. AO REPAIR, PVD Height: [...] Range POC-Lactic Acid, Venous 1.5Comment: TESTED AT [address] 0.9 - 1.7 mmol/L [place] [address] Specimen Performing [place] [address] Urinalysis w/ Microscopic (08/08/2017 11:11 AM) Component Value Ref Range Color, UA Light Yellow Clarity, UA Clear Specific [place], UA 1.004 1.001 - 1.035 pH, UA [...] Performing Laboratory Urine - Urine, [place] [address] ED ECG Interpretation (08/08/2017 12:24 AM) Zander [...] MD Report Verified Date/Time:08/07/2017 21:09:37 Reading Location: [address] Consult Reading Room Procedure Note Interface, External Ris In - 08/07/2017 9:11 PM SHAREPOINT DEVELOPER FINAL REPORT CHEST, AP AND LATERAL. HISTORY: [...] Report Verified Date/Time: 08/07/2017 21:09:37 Reading Location: [facility] C013 Consult Reading Room 12 lead (08/07/2017 5:00 PM) Specimen Performing Laboratory GE MUSE Narrative Ventricular Rate 81 BPM Atrial Rate 81 BPM P-R Interval 140 ms QRS Duration 92 ms Q-T Interval 372 ms QTC Calculation(Bazett) 432 ms P [place] 42 degrees R [place] -27 degrees T [place] 23 degrees Sinus rhythm with Premature atrial complexes Moderate voltage criteria for LVH, may be normal variant Inferior infarct (cited on or before 12-NOV-2015) Poor R wave progression , canot exclude old [id number] December 2015 Nonspecific T wave abnormality inferolateral leads Abnormal ECG When compared with ECG of 21-DEC-2015 13:20, Premature ventricular complexes are no longer Present Premature atrial complexes are now Present Confirmed by MD SALVADOR, KAYLEN ([id number]) on 08/08/2017 6:45:29 AM Procedure Note Interface, External Ris In - 08/08/2017 6:45 AM SHAREPOINT DEVELOPER Ventricular Rate 81 BPM Atrial Rate 81 BPM P-R Interval 140 ms QRS Duration 92 ms Q-T Interval 372 ms QTC Calculation(Bazett) 432 ms P [place] 42 degrees R [place] -27 degrees T [place] 23 degrees Sinus rhythm with Premature atrial [...] pg/mL Specimen Performing Laboratory Blood - Arm, [address] [address] Magnesium (08/07/2017 5:00 PM) Component Value Ref Range Magnesium 1.9 1.6 - 2.6 mg/dL Specimen Performing Laboratory Blood - Arm, [address] [address] after 05/05/2017
--- OUTSIDE RECORDS SUMMARY | 2018-05-06 13:00 | XMS REPORT | Clinical Summary ---
:1945 Author Organization [facility] Address [address] [place] [address] Care Team Providers Name Role Phone Bob Stanley MD Primary Care Provider Allergies Active Allergy Reactions Severity Noted Date Comments Codeine Other (See Comments), GI High 01/05/2016 Severe Stomach cramps Intolerance Current Medications Prescription Sig. Disp. Refills Start Date End Date Status aspirin (ECOTRIN) 81 MG Take 81 mg by mouth Active enteric coated tablet daily. metFORMIN (GLUCOPHAGE) Take 500 mg by Active 500 mg tablet mouth 2 (two) times a day with meals. ezetimibe (ZETIA) 10 mg Take 10 mg by mouth Active tablet daily. predniSONE (DELTASONE) 10 Take 10 mg by mouth Active mg tablet daily. albuterol (PROAIR Inhale 2 puffs Active HFA,PROVENTIL every 6 (six) hours HFA,VENTOLIN HFA) 90 as needed for mcg/actuation inhaler wheezing. furosemide (LASIX) 40 mg Take 40 mg by mouth Active tablet 2 (two) times a day. metoprolol tartrate Take 25 mg by mouth Active (LOPRESSOR) 25 mg tablet 2 (two) times a day. ursodiol (ACTIGALL) 500 Take 500 mg by Active MG tablet mouth 3 (three) times a day. spironolactone Take 100 mg by Active (ALDACTONE) 100 MG tablet mouth daily. umeclidinium bromide Inhale. Active (INCRUSE ELLIPTA INHL) HYDROcodone-ibuprofen Take 1 tablet by Active (VICOPROFEN) 7.5-200 mg mouth every 8 per tablet (eight) hours as needed for moderate pain. Active Problems Not on file Encounters Date Type Specialty Care Team Description 04/26/2018 Hospital Encounter Radiology Egwim, Chukwuma I., Cirrhosis of liver with ascites, unspecified hepatic cirrhosis type 04/24/2018 Hospital Encounter Radiology Eula Lopezwcalderon I., Other ascites 04/20/2018 Transcribe Orders Radiology TavowiEula hawkinswcalderon I., Cirrhosis of liver with MD ascites, unspecified hepatic cirrhosis type (Primary Dx) 04/19/2018 Transcribe Orders Radiology EgwiJairon hawkinskwuma I., Other ascites ( Primary MD Dx) 04/13/2018 Hospital Encounter Radiology TavowiEula hawkinswuma I., Cirrhosis of liver without ascites, unspecified hepatic cirrhosis type; Nonspecific abnormal results of liver function study 04/10/2018 Procedure Pass Radiology 04/10/2018 Transcribe Orders Access Eula Lopzewuma I., Cirrhosis of liver without ascites, unspecified hepatic cirrhosis type (Primary Dx); Nonspecific abnormal results of liver function study after 05/05/2017 Social History Tobacco Use Types Packs/Day Years Used Date Never Assessed Sex Assigned at Date Recorded Not on file Last Filed Vital Signs Vital Sign Reading Time Taken Blood Pressure 159/85 04/26/2018 4:45 PM CDT Pulse 87 04/26/2018 4:45 PM CDT Temperature 36.4 C (97.6 F) 04/26/2018 1:45 PM CDT Respiratory Rate 18 04/26/2018 4:45 PM CDT Oxygen Saturation 100% 04/26/2018 4:45 PM CDT Inhaled Oxygen Concentration - - Weight 99.8 kg (220 lb) 04/26/2018 11:10 AM CDT Height 170.2 cm (5' 7") 04/26/2018 11:10 AM CDT Body Mass Index 34.46 04/26/2018 11:10 AM CDT Plan of Treatment Health Maintenance Due Date Last Done Comments COLON CANCER SCREENING 11/07/1997 SHINGRIX VACCINE (#1) 11/07/1997 ZOSTER VACCINE 2007 PNEUMOCOCCAL POLYSACCHARIDE VACCINE AGE 65 AND OVER 11/07/2012 PNEUMOCOCCAL-13 11/07/2012 INFLUENZA VACCINE 04/04/2018 Procedures Procedure Name Priority Date/Time Associated Comments Diagnosis IR TRANSJUGULAR LIVER Routine 04/26/2018 1:57 Cirrhosis of liver Results for this BIOPSY PM CDT with ascites, procedure are in unspecified hepatic the results cirrhosis type section. POC GLUCOSE Routine 04/26/2018 1:45 Results for this PM CDT procedure are in the results section. SURGICAL PATHOLOGY Routine 04/26/2018 1:39 Results for this REQUEST PM CDT procedure are in the results section. POC GLUCOSE Routine 04/26/2018 11:02 Results for this AM CDT procedure are in the results section. US ABDOMINAL Routine 04/24/2018 12:47 Other ascites Results for this PARACENTESIS IMAGING PM CDT procedure are in the results section. CELL COUNT AND Routine 04/24/2018 12:13 Results for this DIFFERENTIAL, BODY PM CDT procedure are in FLUID the results section. GRAM STAIN Routine 04/24/2018 12:13 Results for this PM CDT procedure are in the results section. AEROBIC CULTURE Routine 04/24/2018 12:13 Results for this PM CDT procedure are in the results section. MRI CHOLANGIOGRAM W WO Routine 04/13/2018 9:08 Cirrhosis of liver Results for this CONTRAST AM CDT without ascites, procedure are in unspecified hepatic the results cirrhosis type section. Nonspecific abnormal results of liver function study POC CREATININE Routine 04/13/2018 8:24 Results for this AM CDT procedure are in the results section. ESTIMATED GFR Routine 04/13/2018 8:24 Results for this AM CDT procedure are in the results section. after 05/05/2017 Results IR Transjugular Liver Biopsy (04/26/2018 1:57 PM) Narrative Performed At PERFORMING RADIOLOGIST: ANNA Duncan MD ASSISTANTS: None ANESTHESIA TYPE: Moderate sedation was administered by the procedure nurse and monitored by the procedure physician for a [id number] sedation time of 53 minutes. Lidocaine 1% was used for local anesthetic. ANTIBIOTICS: None. PRE PROCEDURE DIAGNOSIS: Cirrhosis. POST PROCEDURE DIAGNOSIS: Status post right hepatic venogram with pressure measurements and transjugular liver biopsy. PROCEDURE: 1. Right hepatic venogram with pressure measurements. 2. Transjugular liver biopsy. TECHNIQUE: Written informed consent was obtained prior to the procedure. All elements of maximal sterile barrier technique were followed. The patient's right neck was sterilely prepared and draped in the routine manner. Under ultrasound guidance, documentation of vessel patency, needle access with permanent recording, and reporting are performed followed by placement of a sheath in the right internal jugular vein. Using real time ultrasound guidance, Lidocaine 1% was administered to overlying soft tissues via a 25 gauges needle. Then, using real-time ultrasound guidance, a 21-gauge micropuncture needle was used to access the right internal jugular vein. A 0.018 inch guidewire was advanced centrally under fluoroscopy. The needle was removed and a micropuncture sheath system was placed. A 0.035 inch Amplatz wire was then advanced through the micropuncture sheath and into the inferior vena cava. A long 9-Bahamian vascular sheath was then placed, and advanced over the guidewire into the right atrium.A 5-Bahamian multipurpose catheter and the Amplatz wire were used used to select the right hepatic vein. The catheter and wire combination were then advanced distally into the inferior right lower lobe. The catheter in this position, wedged hepatic venogram was performed. Normal parenchymal and peripheral portal vein is noted. Then, with the catheter in this position, wedged hepatic pressure was obtained. The catheter was then retracted gently aspirating until blood flow was obtained. With the catheter in this position, a right hepatic venogram was performed which demonstrated a patent right hepatic vein with normal course and caliber. Again, with the catheter in this position, free hepatic pressure was obtained. Finally, a right atrial pressure was obtained via the sheath. Then, a 0.035 inch Amplatz wire and multipurpose catheter were advanced into the periphery of the right lobe of the liver. The sheath was advanced over the wire catheter combination. The catheter was removed over the wire. The transjugular liver biopsy system was advanced through the 9-Bahamian vascular sheath into the right hepatic vein. With the system in this position, multiple 18-gauge core liver biopsy specimens were obtained and submitted to pathology. The transjugular liver biopsy system and 9-Bahamian vascular sheath were then removed from the right internal jugular vein, and hemostasis was achieved with compression. The patient tolerated the procedure well. RADIATION DOSE: Ka,r=583 mGy COMPLICATIONS: None SPECIMENS REMOVED: As described in the above report. ESTIMATED BLOOD LOSS: Less than 2 mL. BLOOD/BLOOD PRODUCTS ADMINISTERED: None. GRAFTS/IMPLANTS: None. IMPRESSION: 1. Normal right hepatic venogram 2. Successful transjugular liver biopsy was performed, as detailed above. 3. Pressure measurements: Right atrium: 7 mmHg Free hepatic: 8 mmHg Wedge hepatic: 13 mmHg PLAN: - Patient will be observed for the next 3 hours. - Patient will remain nothing by mouth for the next 3 hours. - If patient remained stable, patient will be discharged home. [facility]-[id number] Procedure Note [facility], Radiology Results Incoming - 04/26/2018 4:08 PM CDT PERFORMING RADIOLOGIST: Luis Duncan MD ASSISTANTS: None ANESTHESIA TYPE: Moderate sedation was administered by the procedure nurse and monitored by the procedure physician for a iwuv-yf-qgoy sedation time of 53 minutes. Lidocaine 1 % was used for local anesthetic. ANTIBIOTICS: None. PRE PROCEDURE DIAGNOSIS: Cirrhosis. POST PROCEDURE DIAGNOSIS: Status post right hepatic venogram with pressure measurements and transjugular liver biopsy. PROCEDURE: 1. Right hepatic venogram with pressure measurements. 2. Transjugular liver biopsy. TECHNIQUE: Written informed consent was obtained prior to the procedure. All elements of maximal sterile barrier technique were followed. The patient's right neck was sterilely prepared and draped in the routine manner. Under ultrasound guidance, documentation of vessel patency, needle access with permanent recording, and reporting are performed followed by placement of a sheath in the right internal jugular vein. Using real time ultrasound guidance, Lidocaine 1% was administered to overlying soft tissues via a 25 gauges needle. Then, using real-time ultrasound guidance, a 21-gauge micropuncture needle was used to access the right internal jugular vein. A 0.018 inch guidewire was advanced centrally under fluoroscopy. The needle was removed and a micropuncture sheath system was placed. A 0.035 inch Amplatz wire was then advanced through the micropuncture sheath and into the inferior vena cava. A long 9-Bahamian vascular sheath was then placed , and advanced over the guidewire into the right atrium. A 5-Bahamian multipurpose catheter and the Amplatz wire were used used to select the right hepatic vein. The catheter and wire combination were then advanced distally into the inferior right lower lobe. The catheter in this position, wedged hepatic venogram was performed. Normal parenchymal and peripheral portal vein is noted. Then, with the catheter in this position, wedged hepatic pressure was obtained. The catheter was then retracted gently aspirating until blood flow was obtained. With the catheter in this position, a right hepatic venogram was performed which demonstrated a patent right hepatic vein with normal course and caliber. Again, with the catheter in this position, free hepatic pressure was obtained. Finally, a right atrial pressure was obtained via the sheath. Then, a 0.035 inch Amplatz wire and multipurpose catheter were advanced into the periphery of the right lobe of the liver. The sheath was advanced over the wire catheter combination. The catheter was removed over the wire. The transjugular liver biopsy system was advanced through the 9-Bahamian vascular sheath into the right hepatic vein. With the system in this position, multiple 18-gauge core liver biopsy specimens were obtained and submitted to pathology. The transjugular liver biopsy system and 9-Bahamian vascular sheath were then removed from the right internal jugular vein, and hemostasis was achieved with compression. The patient tolerated the procedure well. RADIATION DOSE: Ka,r=583 mGy COMPLICATIONS: None SPECIMENS REMOVED: As described in the above report. ESTIMATED BLOOD LOSS: Less than 2 mL. BLOOD/BLOOD PRODUCTS ADMINISTERED: None. GRAFTS/IMPLANTS: None. IMPRESSION: 1. Normal right hepatic venogram 2. Successful transjugular liver biopsy was performed, as detailed above. 3. Pressure measurements: Right atrium: 7 mmHg Free hepatic: 8 mmHg Wedge hepatic: 13 mmHg PLAN: - Patient will be observed for the next 3 hours. - Patient will remain nothing by mouth for the next 3 hours. - If patient remained stable, patient will be discharged home. [id number] Performing Organization Address City/[facility] Phone Number [facility] [address] [place] [phone] POC glucose (04/26/2018 1:45 PM)Only the most recent of2 resultswithin the time period is included. POC glucose 74 65 - 99 mg/dL [facility] DEPARTMENT OF PATHOLOGY AND Comment: GENOMIC MEDICINE [facility] Notified RN Meter ID: [id number] Horse Stud Manager: Art Mei Performing Organization Address City/[facility] Phone Number [facility] DEPARTMENT OF PATHOLOGY AND [address] [place], [place] [id number] GENOMIC [facility] Surgical pathology request (04/26/2018 1:39 PM) [facility] DEPARTMENT OF PATHOLOGY AND GENOMIC MEDICINE Surgical pathology report See link below for PDF [facility] DEPARTMENT OF Lab Report PATHOLOGY AND GENOMIC MEDICINE Result status This is Final Report [facility] DEPARTMENT OF for [id number] PATHOLOGY AND GENOMIC MEDICINE Performing Organization Address City/[facility]/Zipcode Phone Number [facility] DEPARTMENT OF PATHOLOGY AND [address] [place] [phone] [facility] US Abdominal Paracentesis Imaging (04/24/2018 12:47 PM) Narrative Performed At Procedure [facility] Ultrasound-guided paracentesis. Physician Dr. Leal Clinical Indication Ascites. Anesthesia Lidocaine 1%. Sedation None. Technique Written informed consent was obtained prior to the procedure.Preprocedure ultrasound demonstrated ascites accessible for paracentesis. Utilizing standard sterile technique and real-time sonographic guidance, a 5 Bahamian Yueh catheter was advanced successfully into the peritoneal cavity with return of yellow ascites. A total of 4.8 L of fluid was removed. The Yueh catheter was removed and hemostasis was achieved with manual compression. The patient tolerated the procedure well. Complications None. Impression: Successful ultrasound-guided paracentesis with removal of 4.8 L of yellow ascites. Procedure Note Interface, Radiology Results Incoming - 04/24/2018 1:33 PM CDT Procedure Ultrasound-guided paracentesis. Physician Dr. Leal Clinical Indication Ascites. Anesthesia Lidocaine 1%. Sedation None. Technique Written informed consent was obtained prior to the procedure. Preprocedure ultrasound demonstrated ascites accessible for paracentesis. Utilizing standard sterile technique and real-time sonographic guidance, a 5 Bahamian Yueh catheter was advanced successfully into the peritoneal cavity with return of yellow ascites. A total of 4.8 L of fluid was removed. The Yueh catheter was removed and hemostasis was achieved with manual compression. The patient tolerated the procedure well. Complications None. Impression: Successful ultrasound-guided paracentesis with removal of 4.8 L of yellow ascites. Performing Organization Address City/State/Zipcode Phone Number [facility] [address] [place] [address] Aerobic culture (04/24/2018 12:13 PM) Aerobic culture isolate No growth after 3 days. [facility] DEPARTMENT OF Comment: PATHOLOGY AND GENOMIC Specimen Information MEDICINE Specimen Source: Peritoneal fluid Specimen Site: Not otherwise specified Specimen Peritoneal fluid - Not otherwise specified Performing Organization Address City/State/Zipcode Phone Number [facility] DEPARTMENT OF PATHOLOGY AND [address] [place] [phone] GENOMIC MEDICINE Gram stain (04/24/2018 12:13 PM) Gram stain isolate Few WBC's [facility] DEPARTMENT OF PATHOLOGY No organisms seen AND GENOMIC MEDICINE Comment: Specimen Information Specimen Source: Peritoneal fluid Specimen Site: Not otherwise specified Specimen Peritoneal fluid - Not otherwise specified Performing Organization Address City/[facility]/Zipcode Phone Number [facility] DEPARTMENT OF PATHOLOGY AND [address] [place] [address] [facility] MEDICINE Cell count and differential, body fluid (04/24/2018 12:13 PM) [facility] fluid type Peritoneal [facility] DEPARTMENT OF PATHOLOGY AND GENOMIC MEDICINE Color, fluid Pale yellow [facility] DEPARTMENT OF PATHOLOGY AND GENOMIC MEDICINE Appearance, fluid Hazy [facility] DEPARTMENT OF PATHOLOGY AND GENOMIC MEDICINE RBC, fluid SEE COMMENTComment: 1+ (0 /CMM [facility] DEPARTMENT OF - 500 RBC/CMM) PATHOLOGY AND GENOMIC MEDICINE Nucleated cells, fluid 307 /CMM [facility] DEPARTMENT OF PATHOLOGY AND GENOMIC MEDICINE Fluid mononuclear cell See Diff [facility] DEPARTMENT OF PATHOLOGY AND GENOMIC MEDICINE Neutrophils, fluid 4 % [facility] DEPARTMENT OF PATHOLOGY AND GENOMIC MEDICINE Lymphocytes, fluid 30 % [facility] DEPARTMENT OF PATHOLOGY AND GENOMIC MEDICINE Macrophages, fluid 66 % [facility] DEPARTMENT OF PATHOLOGY AND GENOMIC MEDICINE Specimen Fluid Narrative Performed At peritoneal [facility] DEPARTMENT OF PATHOLOGY AND GENOMIC MEDICINE Performing Organization Address City/State/Zipcode Phone Number [facility] DEPARTMENT OF PATHOLOGY AND [address] [place] [address] [facility] MRI CHOLANGIOGRAM W WO CONTRAST (04/13/2018 9:08 AM) Narrative Performed At EXAMINATION:MRI CHOLANGIOGRAM W WO CONTRAST [facility] CLINICAL HISTORY:K74.60 Unspecified cirrhosis of liver, R94.5 Abnormal results of liver function studies, cirrhosiselevated liver enzymes COMPARISON:None. TECHNIQUE: Multiplanar, multisequence MRI of the abdomen with and without intravenous gadolinium. MRCP images were obtained with 3-D reconstructions performed on the acquisition scanner under concurrent supervision. FINDINGS: The liver cirrhotic. There is a 1.8 cm hypointensity in the caudate lobe noted on out of phase T1 sequence (series 20 6A image 47). However no correlating signal or enhancement abnormality is seen on th e other sequences, suggesting artifact rather than true lesion though source of artifact is unclear. Portal vein is patent. The spleen is mildly enlarged. There is moderate ascites. Gallbladder is absent. No biliary or pancreatic duct dilatation. No pancreatic mass. A few cysts in the kidneys ranging from 2 mm up to 2.8 cm. No adrenal mass. No lymphadenopathy. Marked anasarca. IMPRESSION: Liver cirrhosis and portal hypertension. 1.8 cm subtle lipid containing lesion versus, more likely, artifact in the caudate lobe. Recommend short interval (3 months) follow-up with liver protocol CT. [facility]-[id number] Procedure Note Hm Interface, Radiology Results Incoming - 04/13/2018 10:05 AM CDT EXAMINATION: MRI CHOLANGIOGRAM W WO CONTRAST CLINICAL HISTORY: K74.60 Unspecified cirrhosis of liver, R94.5 Abnormal results of liver function studies, cirrhosis elevated liver enzymes COMPARISON: None. TECHNIQUE: Multiplanar, multisequence MRI of the abdomen with and without intravenous gadolinium. MRCP images were obtained with 3-D reconstructions performed on the acquisition scanner under concurrent supervision. FINDINGS: The liver cirrhotic. There is a 1.8 cm hypointensity in the caudate lobe noted on out of phase T1 sequence (series 20 6A image 47). However no correlating signal or enhancement abnormality is seen on the other sequences, suggesting artifact rather than true lesion though source of artifact is unclear. Portal vein is patent. The spleen is mildly enlarged. There is moderate ascites. Gallbladder is absent. No biliary or pancreatic duct dilatation. No pancreatic mass. A few cysts in the kidneys ranging from 2 mm up to 2.8 cm. No adrenal mass. No lymphadenopathy. Marked anasarca. IMPRESSION: Liver cirrhosis and portal hypertension. 1.8 cm subtle lipid containing lesion versus, more likely, artifact in the caudate lobe. Recommend short interval (3 months) follow-up with liver protocol CT. [facility]-[id number] Performing Organization Address City/[facility]/Zipcode Phone Number [facility] [address] [place] [address] Estimated GFR (04/13/2018 8:24 AM) GFR Non Af Amer 74 mL/min/1.73 m2 [facility] DEPARTMENT OF PATHOLOGY AND GENOMIC MEDICINE GFR Af Amer 89 mL/min/1.73 m2 [facility] DEPARTMENT OF Comment: PATHOLOGY AND GENOMIC Chronic kidney disease: <60 mL/min/1.73m2 MEDICINE Kidney failure: <15 mL/min/1.73m2 The estimated GFR is calculated from the IDMS-traceable Modification of Diet in Renal Disease Equation. The accuracy of the calculation is poor when the creatinine is normal. Calculated values >90 mL/min/1.73m2 are not reported. This equation has not been validated in children (<18 years), women, the elderly (>70 years), or ethnic groups other than Caucasians and Americans. Specimen Blood Performing Organization Address City/State/Zipcode Phone Number [facility] DEPARTMENT OF PATHOLOGY AND [address] [place] [address] GENOMIC MEDICINE POC creatinine (04/13/2018 8:24 AM) POC creatinine 1.0 0.7 - 1.2 mg/dl [facility] DEPARTMENT OF PATHOLOGY Comment: AND GENOMIC MEDICINE Meter ID: [id number] Horse Stud Manager: Joshua Nichols Specimen Blood Performing Organization Address City/State/Zipcode Phone Number [facility] DEPARTMENT OF PATHOLOGY AND [address] [place] [address] GENOMIC MEDICINE after 05/05/2017 Insurance Payer Benefit Plan / Group Subscriber ID Type Phone Address [employer] MEDICARE AETNA MEDICARE HMO/PPO [facility] xxxxxxxx HMO Home: [facility] TOM TOVAR y [phone] [place] [phone]
--- OUTSIDE RECORDS SUMMARY | 2018-05-06 13:01 | XMS REPORT ---
:1945 [facility] Address [address] [place] [address] [address] [place] [address] Care Team Providers Name Role Phone MARTHA [...] (BEAKER) (test 121 mg/dL 70-110 TESTED AT [facility] [address] [facility] vvfy=4285) [facility] [address] CBC W/PLT COUNT & AUTO [id number] 06:50:00 Test Item Value Reference Range Comments WHITE BLOOD CELL COUNT (BEAKER) (test jiat=845) 12.8 K/ L 3.5-10.5 RED BLOOD CELL COUNT (BEAKER) (test asmc=169) 5.35 M/ L 4.63-6.08 HEMOGLOBIN (BEAKER) (test pjsw=725) 15.2 GM/DL 13.7-17.5 HEMATOCRIT (BEAKER) (test emqc=399) 45.8 % 40.1-51.0 MEAN CORPUSCULAR VOLUME (BEAKER) (test nyav=422) 85.6 fL 79.0-92.2 MEAN CORPUSCULAR HEMOGLOBIN (BEAKER) (test 28.4 pg 25.7-32.2 eufb=128) MEAN CORPUSCULAR HEMOGLOBIN CONC (BEAKER) (test 33.2 GM/DL 32.3-36.5 kyzf=364) RED CELL DISTRIBUTION WIDTH (BEAKER) (test 14.6 % 11.6-14.4 wpxe=300) PLATELET COUNT (BEAKER) (test jzcq=551) 145 K/CU MM 150-450 MEAN PLATELET VOLUME (BEAKER) (test bjqv=357) 11.1 fL 9.4-12.4 NUCLEATED RED BLOOD CELLS (BEAKER) (test 0 /100 WBC 0-0 rfef=168) NEUTROPHILS RELATIVE PERCENT (BEAKER) (test 81 % blyt=026) LYMPHOCYTES RELATIVE PERCENT (BEAKER) (test 12 % emih=353) MONOCYTES RELATIVE PERCENT (BEAKER) (test 6 % fjvq=673) EOSINOPHILS RELATIVE PERCENT (BEAKER) (test 0 % prhs=584) BASOPHILS RELATIVE PERCENT (BEAKER) (test 0 % ubsr=624) NEUTROPHILS ABSOLUTE COUNT (BEAKER) (test 10.45 K/ L 1.78-5.38 xzmu=808) LYMPHOCYTES ABSOLUTE COUNT (BEAKER) (test 1.48 K/ L 1.32-3.57 majz=803) MONOCYTES ABSOLUTE COUNT (BEAKER) (test 0.70 K/ L 0.30-0.82 ytdg=017) EOSINOPHILS ABSOLUTE COUNT (BEAKER) (test 0.00 K/ L 0.04-0.54 movc=221) BASOPHILS ABSOLUTE COUNT (BEAKER) (test 0.02 K/ L 0.01-0.08 msdw=923) IMMATURE GRANULOCYTES-RELATIVE PERCENT (BEAKER) 1 % 0-1 (test xepp=5004) BASIC METABOLIC [id number] 06:45:00 Test Item Value Reference Range Comments SODIUM (BEAKER) (test 137 meq/L 136-145 sgpi=119) POTASSIUM (BEAKER) (test 3.6 meq/L 3.5-5.1 kxzh=254) CHLORIDE (BEAKER) (test 94 meq/L 98-107 mnxo=608) CO2 (BEAKER) (test 32 meq/L 22-29 hejl=425) BLOOD UREA NITROGEN 36 mg/dL 7-21 (BEAKER) (test uikq=911) CREATININE (BEAKER) (test 0.97 mg/dL 0.57-1.25 uidg=638) GLUCOSE RANDOM (BEAKER) 111 mg/dL 70-105 (test xakh=962) CALCIUM (BEAKER) (test 9.2 mg/dL 8.4-10.2 ehkn=903) EGFR (BEAKER) (test 77 mL/min/1.73 sq m ESTIMATED GFR IS NOT ekuw=3288) ACCURATE CREATININE CLEARANCE IN PREDICTING GLOMERULAR FILTRATION RATE. ESTIMATED GFR IS NOT APPLICABLE FOR DIALYSIS PATIENTS. POCT-GLUCOSE [id number] 20:50:00 Test Item Value Reference Range Comments POC-GLUCOSE METER (BEAKER) 78 mg/dL 70-110 TESTED AT [address] (test jlee=8002) [facility] [address] POCT-GLUCOSE [id number] 17:10:00 Test Item Value Reference Range Comments POC-GLUCOSE METER (BEAKER) 328 mg/dL 70-110 Notified [facility]/TESTED AT [facility] (test tlhh=4407) [address] [place] [address] POCT-GLUCOSE [id number] 14:47:00 Test Item Value Reference Range Comments POC-GLUCOSE METER (BEAKER) 222 mg/dL 70-110 TESTED AT [address] (test uipl=0874) [facility] [address] POCT-GLUCOSE [id number] 11:34:00 Test Item Value Reference Range Comments POC-GLUCOSE METER (BEAKER) 265 mg/dL 70-110 TESTED AT [address] (test jjin=3341) [facility] [address] POCT-GLUCOSE [id number] 08:39:00 Test Item Value Reference Range Comments POC-GLUCOSE METER (BEAKER) 122 mg/dL 70-110 TESTED AT [address] (test gyel=8870) [facility] [address] BASIC METABOLIC [id number] 06:29:00 Test Item Value Reference Range Comments SODIUM (BEAKER) (test 137 meq/L 136-145 xhrn=481) POTASSIUM (BEAKER) (test 3.6 meq/L 3.5-5.1 pgpt=854) CHLORIDE (BEAKER) (test 92 meq/L 98-107 yjiw=051) CO2 (BEAKER) (test 33 meq/L 22-29 vpad=450) BLOOD UREA NITROGEN 37 mg/dL 7-21 (BEAKER) (test gzzb=740) CREATININE (BEAKER) (test 1.12 mg/dL 0.57-1.25 rtoa=813) GLUCOSE RANDOM (BEAKER) 133 mg/dL 70-105 (test bpya=465) CALCIUM (BEAKER) (test 9.6 mg/dL 8.4-10.2 fjpx=310) EGFR (BEAKER) (test 65 mL/min/1.73 sq m ESTIMATED GFR IS NOT moxv=7232) ACCURATE CREATININE CLEARANCE IN PREDICTING GLOMERULAR FILTRATION RATE. ESTIMATED GFR IS NOT APPLICABLE FOR DIALYSIS PATIENTS. CBC W/PLT COUNT & AUTO [id number] 05:49:00 Test Item Value Reference Range Comments WHITE BLOOD CELL COUNT (BEAKER) (test lxrd=986) 13.0 K/ L 3.5-10.5 RED BLOOD CELL COUNT (BEAKER) (test mjjw=619) 5.25 M/ L 4.63-6.08 HEMOGLOBIN (BEAKER) (test doyr=947) 15.0 GM/DL 13.7-17.5 HEMATOCRIT (BEAKER) (test ztwe=346) 45.2 % 40.1-51.0 MEAN CORPUSCULAR VOLUME (BEAKER) (test itpg=542) 86.1 fL 79.0-92.2 MEAN CORPUSCULAR HEMOGLOBIN (BEAKER) (test 28.6 pg 25.7-32.2 ahzo=164) MEAN CORPUSCULAR HEMOGLOBIN CONC (BEAKER) (test 33.2 GM/DL 32.3-36.5 uttx=203) RED CELL DISTRIBUTION WIDTH (BEAKER) (test 14.6 % 11.6-14.4 xgxn=022) PLATELET COUNT (BEAKER) (test bfij=263) 179 K/CU MM 150-450 MEAN PLATELET VOLUME (BEAKER) (test frxg=979) 11.0 fL 9.4-12.4 NUCLEATED RED BLOOD CELLS (BEAKER) (test 0 /100 WBC 0-0 azlt=681) NEUTROPHILS RELATIVE PERCENT (BEAKER) (test 83 % zqvx=960) LYMPHOCYTES RELATIVE PERCENT (BEAKER) (test 9 % fmcr=842) MONOCYTES RELATIVE PERCENT (BEAKER) (test 7 % owft=547) EOSINOPHILS RELATIVE PERCENT (BEAKER) (test 0 % wjdz=911) BASOPHILS RELATIVE PERCENT (BEAKER) (test 0 % efiq=420) NEUTROPHILS ABSOLUTE COUNT (BEAKER) (test 10.75 K/ L 1.78-5.38 ezqi=027) LYMPHOCYTES ABSOLUTE COUNT (BEAKER) (test 1.22 K/ L 1.32-3.57 qyyk=566) MONOCYTES ABSOLUTE COUNT (BEAKER) (test 0.85 K/ L 0.30-0.82 jewx=465) EOSINOPHILS ABSOLUTE COUNT (BEAKER) (test 0.00 K/ L 0.04-0.54 mfav=736) BASOPHILS ABSOLUTE COUNT (BEAKER) (test 0.03 K/ L 0.01-0.08 mmbl=708) IMMATURE GRANULOCYTES-RELATIVE PERCENT (BEAKER) 1 % 0-1 (test rwkn=7758) POCT-GLUCOSE [id number] 21:41:00 Test Item Value Reference Range Comments POC-GLUCOSE METER (BEAKER) 283 mg/dL 70-110 TESTED AT [address] (test imxt=8292) [place] [id number] POCT-GLUCOSE [id number] 17:20:00 Test Item Value Reference Range Comments POC-GLUCOSE METER (BEAKER) 228 mg/dL 70-110 TESTED AT [address] (test xhjl=7985) [place] [id number] POCT-GLUCOSE [id number] 11:41:00 Test Item Value Reference Range Comments POC-GLUCOSE METER (BEAKER) 294 mg/dL 70-110 TESTED AT [address] (test wvvm=9247) [place] [id number] POCT-GLUCOSE [id number] 09:38:00 Test Item Value Reference Range Comments POC-GLUCOSE METER (BEAKER) 338 mg/dL 70-110 Notified [facility]/TESTED AT [facility] (test eugk=3537) [address] [place] [address] CBC W/PLT COUNT & AUTO [id number] 05:42:00 Test Item Value Reference Range Comments WHITE BLOOD CELL COUNT (BEAKER) (test cwol=919) 10.9 K/ L 3.5-10.5 RED BLOOD CELL COUNT (BEAKER) (test xxxn=842) 5.28 M/ L 4.63-6.08 HEMOGLOBIN (BEAKER) (test acdg=438) 15.1 GM/DL 13.7-17.5 HEMATOCRIT (BEAKER) (test ucqw=196) 45.8 % 40.1-51.0 MEAN CORPUSCULAR VOLUME (BEAKER) (test dlsm=722) 86.7 fL 79.0-92.2 MEAN CORPUSCULAR HEMOGLOBIN (BEAKER) (test 28.6 pg 25.7-32.2 wdes=479) MEAN CORPUSCULAR HEMOGLOBIN CONC (BEAKER) (test 33.0 GM/DL 32.3-36.5 hozc=540) RED CELL DISTRIBUTION WIDTH (BEAKER) (test 14.6 % 11.6-14.4 dvzb=870) PLATELET COUNT (BEAKER) (test ocjs=209) 188 K/CU MM 150-450 MEAN PLATELET VOLUME (BEAKER) (test eqar=650) 11.5 fL 9.4-12.4 NUCLEATED RED BLOOD CELLS (BEAKER) (test 0 /100 WBC 0-0 vllp=603) NEUTROPHILS RELATIVE PERCENT (BEAKER) (test 90 % ryvl=874) LYMPHOCYTES RELATIVE PERCENT (BEAKER) (test 5 % ujti=069) MONOCYTES RELATIVE PERCENT (BEAKER) (test 4 % npde=773) EOSINOPHILS RELATIVE PERCENT (BEAKER) (test 0 % kzsl=156) BASOPHILS RELATIVE PERCENT (BEAKER) (test 0 % lqpf=245) NEUTROPHILS ABSOLUTE COUNT (BEAKER) (test 9.85 K/ L 1.78-5.38 mtav=617) LYMPHOCYTES ABSOLUTE COUNT (BEAKER) (test 0.51 K/ L 1.32-3.57 hddu=785) MONOCYTES ABSOLUTE COUNT (BEAKER) (test 0.44 K/ L 0.30-0.82 bcyh=453) EOSINOPHILS ABSOLUTE COUNT (BEAKER) (test 0.00 K/ L 0.04-0.54 vgvz=022) BASOPHILS ABSOLUTE COUNT (BEAKER) (test 0.01 K/ L 0.01-0.08 kogf=188) IMMATURE GRANULOCYTES-RELATIVE PERCENT (BEAKER) 1 % 0-1 (test irto=3875) BASIC METABOLIC [id number] 05:33:00 Test Item Value Reference Range Comments SODIUM (BEAKER) (test 134 meq/L 136-145 fzln=725) POTASSIUM (BEAKER) (test 4.5 meq/L 3.5-5.1 odbl=159) CHLORIDE (BEAKER) (test 94 meq/L 98-107 oyin=773) CO2 (BEAKER) (test 30 meq/L 22-29 nxmz=145) BLOOD UREA NITROGEN 24 mg/dL 7-21 (BEAKER) (test ryfd=586) CREATININE (BEAKER) (test 0.86 mg/dL 0.57-1.25 okma=968) GLUCOSE RANDOM (BEAKER) 277 mg/dL 70-105 (test ojbr=400) CALCIUM (BEAKER) (test 9.4 mg/dL 8.4-10.2 cjer=602) EGFR (BEAKER) (test 88 mL/min/1.73 sq m ESTIMATED GFR IS NOT yals=0979) ACCURATE CREATININE CLEARANCE IN PREDICTING GLOMERULAR FILTRATION RATE. ESTIMATED GFR IS NOT APPLICABLE FOR DIALYSIS PATIENTS. POCT-GLUCOSE [id number] 21:39:00 Test Item Value Reference Range Comments POC-GLUCOSE METER (BEAKER) 290 mg/dL 70-110 TESTED AT [facility] [address] [facility] (test clfd=1032) [facility] [address] POCT-GLUCOSE [id number] 17:46:00 Test Item Value Reference Range Comments POC-GLUCOSE METER (BEAKER) 252 mg/dL 70-110 TESTED AT [address] (test pjxu=3951) [place] [address] PET, CARDIAC PERFUSION MULTIPLE STUDIES, REST AND [id number] 16:26: 00Referring: Dr. Smita Stewart for exam:->known CAD s/p STENT x 2 with HF exacerbation; echowall motion abnormality LCX territoryFINAL REPORT PROCEDURE: Rest/Stress MYOCARDIAL PERFUSION PET with regadenoson\XA9\ CPT CODE: 31166 INDICATION: CAD HISTORY: Cardiac risk factors: Diabetes, hypertension, hyperlipidemia. Other cardiovascular history: CAD, prior [place], prior PCI. Recent cardiac symptoms: None reported. [...] tracer distribution is normal. 6. No previous [facility] study for comparison. NONINVASIVE RISK STRATIFICATION: The above findings are considered intermediate risk (1% to 3% annual mortality rate ) based on the following criterion: - Mild/moderate resting left ventricular dysfunction (LVEF 35% to 49%)- Stress-induced moderate perfusion defect without LV dilation or increasedlung intake (thallium-201)([facility] 2012;59(9):857-81.) Signed: Arely Colunga Verified Date/Time: 08/11/2017 16:26:13 Reading Location: [address] Reading Room POCT-GLUCOSE [id number] 13: 31:00 Test Item Value Reference Range Comments POC-GLUCOSE METER (BEAKER) 288 mg/dL 70-110 TESTED AT [facility] [address] [place] [address] (test jlin=3945) [facility] [address] POCT-GLUCOSE [id number] 08:50:00 Test Item Value Reference Range Comments POC-GLUCOSE METER (BEAKER) 173 mg/dL 70-110 TESTED AT [address] (test pyyf=7435) [facility] [address] CBC W/PLT COUNT & AUTO [id number] 06:24:00 Test Item Value Reference Range Comments WHITE BLOOD CELL COUNT (BEAKER) (test qbai=641) 8.1 K/ L 3.5-10.5 RED BLOOD CELL COUNT (BEAKER) (test cpae=691) 4.75 M/ L 4.63-6.08 HEMOGLOBIN (BEAKER) (test pfxt=458) 13.7 GM/DL 13.7-17.5 HEMATOCRIT (BEAKER) (test gfsz=018) 41.8 % 40.1-51.0 MEAN CORPUSCULAR VOLUME (BEAKER) (test cgnq=309) 88.0 fL 79.0-92.2 MEAN CORPUSCULAR HEMOGLOBIN (BEAKER) (test 28.8 pg 25.7-32.2 wlpm=932) MEAN CORPUSCULAR HEMOGLOBIN CONC (BEAKER) (test 32.8 GM/DL 32.3-36.5 xpcw=268) RED CELL DISTRIBUTION WIDTH (BEAKER) (test 14.6 % 11.6-14.4 rxyr=438) PLATELET COUNT (BEAKER) (test uuhr=268) 140 K/CU MM 150-450 MEAN PLATELET VOLUME (BEAKER) (test mwjq=881) 11.4 fL 9.4-12.4 NUCLEATED RED BLOOD CELLS (BEAKER) (test 0 /100 WBC 0-0 aipq=214) NEUTROPHILS RELATIVE PERCENT (BEAKER) (test 87 % xiuw=012) LYMPHOCYTES RELATIVE PERCENT (BEAKER) (test 6 % ujup=467) MONOCYTES RELATIVE PERCENT (BEAKER) (test 6 % tvyo=299) EOSINOPHILS RELATIVE PERCENT (BEAKER) (test 0 % umxs=801) BASOPHILS RELATIVE PERCENT (BEAKER) (test 0 % ofmv=137) NEUTROPHILS ABSOLUTE COUNT (BEAKER) (test 7.08 K/ L 1.78-5.38 wxxy=152) LYMPHOCYTES ABSOLUTE COUNT (BEAKER) (test 0.48 K/ L 1.32-3.57 yxbm=904) MONOCYTES ABSOLUTE COUNT (BEAKER) (test 0.47 K/ L 0.30-0.82 cyyj=767) EOSINOPHILS ABSOLUTE COUNT (BEAKER) (test 0.00 K/ L 0.04-0.54 adff=028) BASOPHILS ABSOLUTE COUNT (BEAKER) (test 0.01 K/ L 0.01-0.08 yfqk=154) IMMATURE GRANULOCYTES-RELATIVE PERCENT (BEAKER) 1 % 0-1 (test rcvu=9339) BASIC METABOLIC [id number] 06:07:00 Test Item Value Reference Range Comments SODIUM (BEAKER) (test 135 meq/L 136-145 ykpy=482) POTASSIUM (BEAKER) (test 5.0 meq/L 3.5-5.1 ifvz=737) CHLORIDE (BEAKER) (test 100 meq/L 98-107 uugv=801) CO2 (BEAKER) (test 26 meq/L 22-29 mmnh=345) BLOOD UREA NITROGEN 23 mg/dL 7-21 (BEAKER) (test jyoy=056) CREATININE (BEAKER) (test 0.73 mg/dL 0.57-1.25 vcnv=621) GLUCOSE RANDOM (BEAKER) 213 mg/dL 70-105 (test wvkh=393) CALCIUM (BEAKER) (test 9.5 mg/dL 8.4-10.2 syau=281) EGFR (BEAKER) (test 107 mL/min/1.73 sq m ESTIMATED GFR IS NOT afib=1878) ACCURATE CREATININE CLEARANCE IN PREDICTING GLOMERULAR FILTRATION RATE. ESTIMATED GFR IS NOT APPLICABLE FOR DIALYSIS PATIENTS. POCT-GLUCOSE [id number] 21:36:00 Test Item Value Reference Range Comments POC-GLUCOSE METER (BEAKER) 141 mg/dL 70-110 TESTED AT [facility] [address] [facility] (test husr=0562) [facility] [address] POCT-GLUCOSE [id number] 17:36:00 Test Item Value Reference Range Comments POC-GLUCOSE METER (BEAKER) 236 mg/dL 70-110 TESTED AT [facility] [address] [facility] (test svsr=1076) [place] [id number] CLOSTRIDIUM DIFFICILE TOXIN [id number] 14:36:00 Test Item Value Reference Range Comments CLOSTRIDIUM DIFFICILE TOXIN, PCR (BEAKER) (test Not Detected Not Detected wuhd=7148) This qualitative real-time polymerase chain reaction assay [...] of a positive result is not recommended.POCT-GLUCOSE [id number] 14:18:00 Test Item Value Reference Range Comments POC-GLUCOSE METER (BEAKER) 266 mg/dL 70-110 TESTED AT [address] (test irmf=8529) [place] [address] POCT-GLUCOSE [id number] 07:54:00 Test Item Value Reference Range Comments POC-GLUCOSE METER (BEAKER) 206 mg/dL 70-110 TESTED AT [address] (test ubec=4631) [place] [address] BASIC METABOLIC [id number] 05:33:00 Test Item Value Reference Range Comments SODIUM (BEAKER) (test 133 meq/L 136-145 ozls=897) POTASSIUM (BEAKER) (test 4.7 meq/L 3.5-5.1 muxl=717) CHLORIDE (BEAKER) (test 98 meq/L 98-107 bvsn=229) CO2 (BEAKER) (test 27 meq/L 22-29 jtqs=705) BLOOD UREA NITROGEN 19 mg/dL 7-21 (BEAKER) (test irup=936) CREATININE (BEAKER) (test 0.75 mg/dL 0.57-1.25 sfaa=833) GLUCOSE RANDOM (BEAKER) 232 mg/dL 70-105 (test vcvz=811) CALCIUM (BEAKER) (test 9.1 mg/dL 8.4-10.2 omjq=284) EGFR (BEAKER) (test 103 mL/min/1.73 sq m ESTIMATED GFR IS NOT tpwq=8469) ACCURATE CREATININE CLEARANCE IN PREDICTING GLOMERULAR FILTRATION RATE. ESTIMATED GFR IS NOT APPLICABLE FOR DIALYSIS PATIENTS. CBC W/PLT COUNT & AUTO [id number] 05:19:00 Test Item Value Reference Range Comments WHITE BLOOD CELL COUNT (BEAKER) (test xeyk=794) 4.6 K/ L 3.5-10.5 RED BLOOD CELL COUNT (BEAKER) (test lczf=726) 4.80 M/ L 4.63-6.08 HEMOGLOBIN (BEAKER) (test eskn=280) 13.8 GM/DL 13.7-17.5 HEMATOCRIT (BEAKER) (test dmwq=933) 41.6 % 40.1-51.0 MEAN CORPUSCULAR VOLUME (BEAKER) (test tqgv=444) 86.7 fL 79.0-92.2 MEAN CORPUSCULAR HEMOGLOBIN (BEAKER) (test 28.8 pg 25.7-32.2 xsim=853) MEAN CORPUSCULAR HEMOGLOBIN CONC (BEAKER) (test 33.2 GM/DL 32.3-36.5 vegk=240) RED CELL DISTRIBUTION WIDTH (BEAKER) (test 14.6 % 11.6-14.4 wokd=582) PLATELET COUNT (BEAKER) (test dwpq=642) 136 K/CU MM 150-450 MEAN PLATELET VOLUME (BEAKER) (test ynzd=059) 11.4 fL 9.4-12.4 NUCLEATED RED BLOOD CELLS (BEAKER) (test 0 /100 WBC 0-0 ltwv=917) NEUTROPHILS RELATIVE PERCENT (BEAKER) (test 81 % eonl=109) LYMPHOCYTES RELATIVE PERCENT (BEAKER) (test 11 % bqby=172) MONOCYTES RELATIVE PERCENT (BEAKER) (test 7 % rjqf=434) EOSINOPHILS RELATIVE PERCENT (BEAKER) (test 0 % dagp=935) BASOPHILS RELATIVE PERCENT (BEAKER) (test 0 % juot=259) NEUTROPHILS ABSOLUTE COUNT (BEAKER) (test 3.70 K/ L 1.78-5.38 arsu=513) LYMPHOCYTES ABSOLUTE COUNT (BEAKER) (test 0.48 K/ L 1.32-3.57 heug=842) MONOCYTES ABSOLUTE COUNT (BEAKER) (test 0.31 K/ L 0.30-0.82 wukc=902) EOSINOPHILS ABSOLUTE COUNT (BEAKER) (test 0.00 K/ L 0.04-0.54 wcto=696) BASOPHILS ABSOLUTE COUNT (BEAKER) (test 0.01 K/ L 0.01-0.08 vgdu=329) IMMATURE GRANULOCYTES-RELATIVE PERCENT (BEAKER) 1 % 0-1 (test sduf=9425) POCT-GLUCOSE [id number] 23:18:00 Test Item Value Reference Range Comments POC-GLUCOSE METER (BEAKER) 238 mg/dL 70-110 TESTED AT [place] [id number] [facility] (test thvc=2190) [place] [id number] POCT-GLUCOSE [id number] 16:48:00 Test Item Value Reference Range Comments POC-GLUCOSE METER (BEAKER) 226 mg/dL 70-110 TESTED AT [address] (test ugii=7320) [place] [address] POCT-GLUCOSE [id number] 13:44:00 Test Item Value Reference Range Comments POC-GLUCOSE METER (BEAKER) 180 mg/dL 70-110 TESTED AT [address] (test rnzu=1429) [place] [address] POCT-GLUCOSE [id number] 08:19:00 Test Item Value Reference Range Comments POC-GLUCOSE METER (BEAKER) 192 mg/dL 70-110 TESTED AT [address] (test nsot=8203) [place] [address] CT, CHEST, WITH HIGH RESOLUTION, INTERSTITAL LUNG [id number] 07:31: 00Referring: Dr. Smita Stewart for exam:->Patient [...] Verified Date/ Time: 08/09/2017 07:31:21 Reading Location: [facility] Diagnostic Imaging Reading Room - [place] [address] 07 :31 AMBASIC METABOLIC [id number] 07:02:00 Test Item Value Reference Range Comments SODIUM (BEAKER) (test 132 meq/L 136-145 prxy=537) POTASSIUM (BEAKER) (test 4.5 meq/L 3.5-5.1 oxhj=727) CHLORIDE (BEAKER) (test 94 meq/L 98-107 fcus=945) CO2 (BEAKER) (test 32 meq/L 22-29 tqed=700) BLOOD UREA NITROGEN 20 mg/dL 7-21 (BEAKER) (test tllg=535) CREATININE (BEAKER) (test 0.76 mg/dL 0.57-1.25 ybsx=670) GLUCOSE RANDOM (BEAKER) 212 mg/dL 70-105 (test lfcq=830) CALCIUM (BEAKER) (test 9.0 mg/dL 8.4-10.2 rdfr=080) EGFR (BEAKER) (test 102 mL/min/1.73 sq m ESTIMATED GFR IS NOT xslj=3183) ACCURATE CREATININE CLEARANCE IN PREDICTING GLOMERULAR FILTRATION RATE. ESTIMATED GFR IS NOT APPLICABLE FOR DIALYSIS PATIENTS. CBC W/PLT COUNT & AUTO [id number] 06:11:00 Test Item Value Reference Range Comments WHITE BLOOD CELL COUNT (BEAKER) (test ynjh=931) 5.0 K/ L 3.5-10.5 RED BLOOD CELL COUNT (BEAKER) (test sveh=083) 4.85 M/ L 4.63-6.08 HEMOGLOBIN (BEAKER) (test vjsq=365) 14.0 GM/DL 13.7-17.5 HEMATOCRIT (BEAKER) (test buis=644) 42.0 % 40.1-51.0 MEAN CORPUSCULAR VOLUME (BEAKER) (test xpkr=098) 86.6 fL 79.0-92.2 MEAN CORPUSCULAR HEMOGLOBIN (BEAKER) (test 28.9 pg 25.7-32.2 prba=671) MEAN CORPUSCULAR HEMOGLOBIN CONC (BEAKER) (test 33.3 GM/DL 32.3-36.5 inro=114) RED CELL DISTRIBUTION WIDTH (BEAKER) (test 14.8 % 11.6-14.4 vktt=162) PLATELET COUNT (BEAKER) (test khof=366) 130 K/CU MM 150-450 MEAN PLATELET VOLUME (BEAKER) (test ftzv=270) 10.7 fL 9.4-12.4 NUCLEATED RED BLOOD CELLS (BEAKER) (test 0 /100 WBC 0-0 tfoq=907) NEUTROPHILS RELATIVE PERCENT (BEAKER) (test 78 % kxby=868) LYMPHOCYTES RELATIVE PERCENT (BEAKER) (test 13 % koxb=966) MONOCYTES RELATIVE PERCENT (BEAKER) (test 9 % qyzl=352) EOSINOPHILS RELATIVE PERCENT (BEAKER) (test 0 % okxq=274) BASOPHILS RELATIVE PERCENT (BEAKER) (test 0 % glri=325) NEUTROPHILS ABSOLUTE COUNT (BEAKER) (test 3.90 K/ L 1.78-5.38 cvco=507) LYMPHOCYTES ABSOLUTE COUNT (BEAKER) (test 0.63 K/ L 1.32-3.57 mkde=252) MONOCYTES ABSOLUTE COUNT (BEAKER) (test 0.43 K/ L 0.30-0.82 eiev=194) EOSINOPHILS ABSOLUTE COUNT (BEAKER) (test 0.00 K/ L 0.04-0.54 yrfo=597) BASOPHILS ABSOLUTE COUNT (BEAKER) (test 0.01 K/ L 0.01-0.08 hmnx=247) IMMATURE GRANULOCYTES-RELATIVE PERCENT (BEAKER) 1 % 0-1 (test rmmj=2039) POCT-GLUCOSE [id number] 21:23:00 Test Item Value Reference Range Comments POC-GLUCOSE METER (BEAKER) 194 mg/dL 70-110 TESTED AT [facility] [address] [facility] (test rkdm=4069) [facility] [address] CREATINE KINASE (CK), TOTAL AND [id number] 17:44:00 Test Item Value Reference Range Comments CREATINE KINASE TOTAL (BEAKER) (test hbng=280) 73 U/L 29-200 CREATINE KINASE-MB (BEAKER) (test btio=401) 1.8 ng/mL 0.0-6.6 CREATINE KINASE-MB INDEX (BEAKER) (test dagv=187) 2.5 % CK-MB Reference Range:<6.7 Normal6.7-10.0 Borderline>10.0 AbnormalTROPONIN [id number] 17:44:00 Test Item Value Reference Range Comments TROPONIN I (BEAKER) (test tnlg=900) 0.05 ng/mL 0.00-0.03 Troponin I (TnI) levels [...] acute neurological disease, and persistent tachyarrhythmia.BASIC METABOLIC [id number] 17:41:00 Test Item Value Reference Range Comments SODIUM (BEAKER) (test 138 meq/L 136-145 gnid=409) POTASSIUM (BEAKER) (test 4.3 meq/L 3.5-5.1 Specimen slightly qrxx=979) hemolyzed CHLORIDE (BEAKER) (test 96 meq/L 98-107 bjgc=604) CO2 (BEAKER) (test 31 meq/L 22-29 zhqw=086) BLOOD UREA NITROGEN 20 mg/dL 7-21 (BEAKER) (test ndhb=014) CREATININE (BEAKER) (test 0.82 mg/dL 0.57-1.25 Specimen slightly sxou=915) hemolyzed GLUCOSE RANDOM (BEAKER) 169 mg/dL 70-105 (test htmn=734) CALCIUM (BEAKER) (test 9.7 mg/dL 8.4-10.2 dawy=681) EGFR (BEAKER) (test 93 mL/min/1.73 sq m ESTIMATED GFR IS NOT ttld=0056) ACCURATE CREATININE CLEARANCE IN PREDICTING GLOMERULAR FILTRATION RATE. ESTIMATED GFR IS NOT APPLICABLE FOR DIALYSIS PATIENTS. POCT-GLUCOSE [id number] 16:17:00 Test Item Value Reference Range Comments POC-GLUCOSE METER (BEAKER) 159 mg/dL 70-110 TESTED AT [facility] [address] [facility] (test xbwb=3806) [facility] [address] CBC W/PLT COUNT & AUTO [id number] 15:59:00 Test Item Value Reference Range Comments WHITE BLOOD CELL COUNT (BEAKER) (test kogu=519) 5.3 K/ L 3.5-10.5 RED BLOOD CELL COUNT (BEAKER) (test hhrz=864) 5.24 M/ L 4.63-6.08 HEMOGLOBIN (BEAKER) (test icjf=529) 15.0 GM/DL 13.7-17.5 HEMATOCRIT (BEAKER) (test rjnb=766) 45.4 % 40.1-51.0 MEAN CORPUSCULAR VOLUME (BEAKER) (test ifmk=222) 86.6 fL 79.0-92.2 MEAN CORPUSCULAR HEMOGLOBIN (BEAKER) (test 28.6 pg 25.7-32.2 iqdp=642) MEAN CORPUSCULAR HEMOGLOBIN CONC (BEAKER) (test 33.0 GM/DL 32.3-36.5 bcir=434) RED CELL DISTRIBUTION WIDTH (BEAKER) (test 15.5 % 11.6-14.4 jnyw=224) PLATELET COUNT (BEAKER) (test gugf=906) 167 K/CU MM 150-450 MEAN PLATELET VOLUME (BEAKER) (test xxbk=732) 13.2 fL 9.4-12.4 NUCLEATED RED BLOOD CELLS (BEAKER) (test 0 /100 WBC 0-0 ysdo=302) NEUTROPHILS RELATIVE PERCENT (BEAKER) (test 81 % owaq=145) LYMPHOCYTES RELATIVE PERCENT (BEAKER) (test 12 % evlf=539) MONOCYTES RELATIVE PERCENT (BEAKER) (test 6 % pglb=662) EOSINOPHILS RELATIVE PERCENT (BEAKER) (test 0 % uvtk=377) BASOPHILS RELATIVE PERCENT (BEAKER) (test 0 % bakn=854) NEUTROPHILS ABSOLUTE COUNT (BEAKER) (test 4.31 K/ L 1.78-5.38 vyxw=618) LYMPHOCYTES ABSOLUTE COUNT (BEAKER) (test 0.66 K/ L 1.32-3.57 hfhe=350) MONOCYTES ABSOLUTE COUNT (BEAKER) (test 0.30 K/ L 0.30-0.82 ryyr=109) EOSINOPHILS ABSOLUTE COUNT (BEAKER) (test 0.00 K/ L 0.04-0.54 mecw=211) BASOPHILS ABSOLUTE COUNT (BEAKER) (test 0.01 K/ L 0.01-0.08 rggw=440) IMMATURE GRANULOCYTES-RELATIVE PERCENT (BEAKER) 1 % 0-1 (test jewe=6311) POCT-LACTIC ACID, [id number] 13:57:00 Test Item Value Reference Range Comments POC-LACTIC ACID, VENOUS 1.5 mmol/L 0.9-1.7 TESTED AT [facility] [address] [facility] (BEAKER) (test muno=0082) [facility] [address] URINALYSIS W/ [id number] 12:10:00 Test Item Value Reference Range Comments COLOR (BEAKER) (test gsdw=488) Light Yellow CLARITY (BEAKER) (test qefn=145) Clear SPECIFIC GRAVITY UA (BEAKER) (test 1.004 1.001-1.035 svyq=630) PH UA (BEAKER) (test fkmm=458) 5.0 5.0-8.0 PROTEIN UA (BEAKER) (test ikcq=075) Negative Negative GLUCOSE UA (BEAKER) (test kxfd=666) Negative Negative KETONES UA (BEAKER) (test pzdh=866) Negative Negative BILIRUBIN UA (BEAKER) (test vavz=017) Negative Negative BLOOD UA (BEAKER) (test wora=127) Negative Negative NITRITE UA (BEAKER) (test oris=921) Negative Negative LEUKOCYTE ESTERASE UA (BEAKER) (test Negative Negative epuy=023) UROBILINOGEN UA (BEAKER) (test mjgb=653) 0.2 mg/dL 0.2-1.0 RBC UA (BEAKER) (test nphu=376) 1 /HPF WBC UA (BEAKER) (test sigg=243) < /HPF BACTERIA (BEAKER) (test zyld=947) Rare SQUAMOUS EPITHELIAL (BEAKER) (test < /HPF iyai=325) HYALINE CASTS (BEAKER) (test irnw=218) 2 /LPF SOURCE(BEAKER) (test nubl=3262) Urine, Clean Catch POCT-GLUCOSE [id number] 11:37:00 Test Item Value Reference Range Comments POC-GLUCOSE METER (BEAKER) 206 mg/dL 70-110 TESTED AT [facility] [address] [facility] (test uljn=6199) [facility] [address] RAD, CHEST, 2 [id number] 21:09:00Referring: Dr. Smita Stewart for exam:->SHORTNESS OF [...] MDReport Verified Date/Time: 08/07/2017 21:09:37 Reading Location: [address] Consult Reading Room B- TYPE NATRIURETIC FACTOR (BNP)2017-08-07 17:48:00 Test Item Value Reference Range Comments B-TYPE NATRIURETIC PEPTIDE (BEAKER) (test 1067 pg/mL 0-100 llcm=509) CREATINE KINASE (CK), TOTAL AND [id number] 17:44:00 Test Item Value Reference Range Comments CREATINE KINASE TOTAL (BEAKER) (test ujvw=016) 77 U/L 29-200 CREATINE KINASE-MB (BEAKER) (test yswz=621) 1.7 ng/mL 0.0-6.6 CREATINE KINASE-MB INDEX (BEAKER) (test lsdf=747) 2.2 % CK-MB Reference Range:<6.7 Normal6.7-10.0 Borderline>10.0 AbnormalTROPONIN [id number] 17:44:00 Test Item Value Reference Range Comments TROPONIN I (BEAKER) (test lxyc=641) 0.06 ng/mL 0.00-0.03 Troponin I (TnI) levels [...] failure, acidosis, acute neurological disease, and persistent tachyarrhythmia.[id number] 17:41:00 Test Item Value Reference Range Comments MAGNESIUM (BEAKER) (test vyvc=586) 1.9 mg/dL 1.6-2.6 BASIC METABOLIC [id number] 17:41:00 Test Item Value Reference Range Comments SODIUM (BEAKER) (test 137 meq/L 136-145 nnts=716) POTASSIUM (BEAKER) (test 4.1 meq/L 3.5-5.1 opdu=999) CHLORIDE (BEAKER) (test 100 meq/L 98-107 dawv=218) CO2 (BEAKER) (test 28 meq/L 22-29 uuei=777) BLOOD UREA NITROGEN 20 mg/dL 7-21 (BEAKER) (test quyf=842) CREATININE (BEAKER) (test 0.78 mg/dL 0.57-1.25 bwgj=073) GLUCOSE RANDOM (BEAKER) 90 mg/dL 70-105 (test ncmo=986) CALCIUM (BEAKER) (test 9.6 mg/dL 8.4-10.2 qiug=944) EGFR (BEAKER) (test 99 mL/min/1.73 sq m ESTIMATED GFR IS NOT wpvu=5824) ACCURATE CREATININE CLEARANCE IN PREDICTING GLOMERULAR FILTRATION RATE. ESTIMATED GFR IS NOT APPLICABLE FOR DIALYSIS PATIENTS. CBC W/PLT COUNT & AUTO [id number] 17:31:00 Test Item Value Reference Range Comments WHITE BLOOD CELL COUNT (BEAKER) (test qqjj=859) 11.3 K/ L 3.5-10.5 RED BLOOD CELL COUNT (BEAKER) (test bbva=982) 5.21 M/ L 4.63-6.08 HEMOGLOBIN (BEAKER) (test zgon=315) 14.8 GM/DL 13.7-17.5 HEMATOCRIT (BEAKER) (test oclh=653) 46.1 % 40.1-51.0 MEAN CORPUSCULAR VOLUME (BEAKER) (test njik=309) 88.5 fL 79.0-92.2 MEAN CORPUSCULAR HEMOGLOBIN (BEAKER) (test 28.4 pg 25.7-32.2 skgd=034) MEAN CORPUSCULAR HEMOGLOBIN CONC (BEAKER) (test 32.1 GM/DL 32.3-36.5 lowr=397) RED CELL DISTRIBUTION WIDTH (BEAKER) (test 15.3 % 11.6-14.4 ageo=349) PLATELET COUNT (BEAKER) (test ztyl=958) 126 K/CU MM 150-450 MEAN PLATELET VOLUME (BEAKER) (test pmmu=949) 11.2 fL 9.4-12.4 NUCLEATED RED BLOOD CELLS (BEAKER) (test 0 /100 WBC 0-0 cpbx=382) NEUTROPHILS RELATIVE PERCENT (BEAKER) (test 82 % jfve=582) LYMPHOCYTES RELATIVE PERCENT (BEAKER) (test 10 % pako=776) MONOCYTES RELATIVE PERCENT (BEAKER) (test 7 % uvkc=667) EOSINOPHILS RELATIVE PERCENT (BEAKER) (test 0 % lxuc=396) BASOPHILS RELATIVE PERCENT (BEAKER) (test 0 % mpif=436) NEUTROPHILS ABSOLUTE COUNT (BEAKER) (test 9.21 K/ L 1.78-5.38 thlg=242) LYMPHOCYTES ABSOLUTE COUNT (BEAKER) (test 1.16 K/ L 1.32-3.57 datq=614) MONOCYTES ABSOLUTE COUNT (BEAKER) (test 0.80 K/ L 0.30-0.82 djcr=204) EOSINOPHILS ABSOLUTE COUNT (BEAKER) (test 0.02 K/ L 0.04-0.54 ecba=682) BASOPHILS ABSOLUTE COUNT (BEAKER) (test 0.03 K/ L 0.01-0.08 kotp=759) IMMATURE GRANULOCYTES-RELATIVE PERCENT (BEAKER) 0 % 0-1 (test pvme=8613)
[2018-05-06 13:34] LABS: Absolute Neutrophil 10.8 K/uL (1.8-8.0); Basophils % 0.4 % (0-1.3); Eosinophils % 1.2 % (0-4.4); Hematocrit 28.1 % (39.6-49.0); Lymphocytes % 14.3 % (15.3-44.8); MCH 32.6 pg (27.0-35.0); MCV 93.6 fL (80-100); MPV 9.5 fL (7.6-11.3); Monocytes % 7.4 % (3.3-12.3); RBC Red Blood Cell Count 3.01 M/uL (4.33-5.43)
[2018-05-06 13:41] LABS: Protime INR 1.2
[2018-05-06 14:01] LABS: Potassium 3.7 mmol/L (3.5-5.1)
[2018-05-06 14:02] LABS: Albumin 2.2 g/dL (3.4-5.0); Bilirubin Direct 1.8 mg/dL (0-0.2); Bilirubin Total 2.2 mg/dL (0.2-1.0); CKMB Creatine Kinase MB 1.1 ng/mL (0.3-3.6); Magnesium 1.6 mg/dL (1.8-2.4); Protein, Total 6.7 g/dL (6.4-8.2); Troponin (Emerg Dept Use Only) 0.03 ng/mL (0.0-0.045)
--- NOTE | 2018-05-06 14:33 | RAD REPORT ---
[facility] 1:47 pm CLINICAL HISTORY: Abdominal distention;SOB COMPARISON: Chest Single View dated 03/03/2018; FINDINGS: Moderate to marked bilateral interstitial lung opacities are unchanged having the appeara nce pulmonary fibrosis. The lungs appear clear of acute infiltrate. The heart is moderately enlarged IMPRESSION: No acute abnormalities displayed
[2018-05-06] MEDS ORDERED: PANTOPRAZOLE 40 MG INJ ONE ×2 (14:43→15:58)
[2018-05-06] MEDS ORDERED: PANTOPRAZOLE INJ 80 MG in NA CHLORIDE 0.9% 250 ML IV SCH (15:00)
[2018-05-06] MEDS ORDERED: ONDANSETRON 4 MG/2 ML VIAL ONE (15:02)
--- NOTE | 2018-05-06 15:30 | RAD REPORT ---
EXAM DESCRIPTION: CT - Abdomen Pelvis W Contrast - 05/06/2018 3:15 pm CLINICAL HISTORY: Abdominal pain COMPARISON: Abdomen Pelvis W Contrast dated 03/03/2018; TECHNIQUE: Computed axial tomography of the abdomen pelvis was obtained. 100 cc Isovue-300 was admin istered intravenously. Oral contrast was not requested which limits evaluation of bowel. All CT scans are performed using dose optimization technique as appropriate and may include automated exposure control or mA/KV adjustment according to patient size. FINDINGS: A cirrhotic liver is present. The portal vein is patent. The spleen, pancreas and adrenals appear unremarkable. Right kidney appears normal. Left renal cysts are unchanged. Postsurgical changes involve the aorta. Diverticula stem from the colon without evidence of diverticulitis. The appendix is normal. A small amount of ascites is present. A periumbilical hernia contains fat. The measures 3 centimeters . Small ventral hernias are present within the pelvis IMPRESSION: Cirrhosis with small to moderate amount of ascites.
[2018-05-06] MEDS ORDERED: NA CHLORIDE 0.9% 1,000 ML ONE (15:58)
[2018-05-06] MEDS ORDERED: OCTREOTIDE ACETATE 100 MCG/ML ONE (15:59)
[2018-05-06] MEDS ORDERED: CEFTRIAXONE/SWI 1gm 2 GM/20 ML SYR ONE (15:59)
[2018-05-06] MEDS ORDERED: OCTREOTIDE 500 MCG in NA CHLORIDE 0.9% 500 ML IV SCH (16:00)
--- NOTE | 2018-05-06 16:16 | ER ---
Nurse's Notes [facility] Name: Olivier Camp Age: 72 yrs Sex: Male : 1945 Arrival Date: 05/06/2018 Time: 12:57 Bed 8 Private MD: ANG CRUZ; Bob Stanley E Diagnosis: Gastrointestinal hemorrhage, unspecified Presentation: 05/06 12:58 Presenting complaint: EMS states: pt reports shortness of breath that started a few sg days ago but is worsening today, pt states that about two weeks ago he had 4 liters removed from his abdomen due to history of liver issues, reports GI physicians with [facility] in [facility] or [place] unsure at this time. Transition of care: patient was not received from another setting of care. Onset of symptoms was May 06, 2018. Risk Assessment: Do you want to hurt yourself or someone else? Patient reports no desire to harm self or others. Initial Sepsis Screen: Does the patient meet any 2 criteria? RR > 20 per min. HR > 90 bpm. Does the patient have a suspected source of infection? No. Patient's initial sepsis screen is negative. Care prior to arrival: None. 12:58 Method Of Arrival: EMS: [facility] sg 12:58 Acuity: EMILY 3 sg Triage Assessment: 13:00 General: Appears in no apparent distress. comfortable, well groomed, well developed, sg well nourished, Behavior is calm, cooperative, appropriate for age. Respiratory: the patient has mild shortness of breath. Historical: - Allergies: 13:06 Codeine; sg - Home Meds: 13:06 aspirin 81 mg oral chew 1 tab once daily [Active]; metformin 500 mg Oral tab 1 tab 2 sg times per day [Active]; ezetimibe oral 10 mg oral 1 tab once daily [Active]; metoprolol tartrate 25 mg Oral tab 1 tab once daily [Active]; prednisone 10 mg Oral tab 1 tab once daily [Active]; furosemide 40 mg Oral tab 1 tab once daily [Active]; Incruse Ellipta 62.5 mcg/actuation inhalation dsdv 1 puff once daily [Active]; Ventolin HFA 90 mcg/actuation Nebulizer HFAA 1 puff as needed when short of breath [Active]; hydrocodone-ibuprofen 7.5-200 mg Oral tab 1 tab every 4-6 hours for Pain [Active]; - PMHx: 13:06 AAA; ADD/ADHD; Diabetes - NIDDM; High Cholesterol; Hypertension; iliac aneurysm; Sleep sg Apnea; staph infection; right elbow; - PSHx: 13:06 AORTIC ANEURYSM; STENTS X 2; sg - Immunization history:: Adult Immunizations up to date. - Social history:: Smoking status: Patient/guardian denies using tobacco. - Ebola Screening: : Patient negative for fever greater than or equal to 101.5 degrees Fahrenheit, and additional compatible Ebola Virus Disease symptoms Patient denies exposure to infectious person Patient denies travel to an Ebola-affected area in the 21 days before illness onset No symptoms or risks identified at this time. Screenin:00 Abuse screen: Denies threats or abuse. Denies injuries from another. Nutritional sg screening: No deficits noted. Tuberculosis screening: No symptoms or risk factors identified. Never had TB. Fall Risk None identified. Assessment: 13:00 General: Appears in no apparent distress. uncomfortable, well groomed, well developed, sg well nourished, Behavior is calm, cooperative, appropriate for age. Pain: Denies pain. Neuro: Level of Consciousness is awake, alert, obeys commands, Oriented to person, place, time, Mercury Purifier are equal bilaterally Moves all extremities. Full function Speech is normal, Facial symmetry appears normal. Cardiovascular: Heart tones S1 S2 present Capillary refill is brisk in bilateral fingers Patient's skin is warm and dry. Chest pain is denied. Cardiovascular: Rhythm is sinus tachycardia. Respiratory: Reports shortness of breath at rest while sitting upright Airway is patent Respiratory effort is even, labored, Respiratory pattern is symmetrical, tachypnea Breath sounds are clear. GI: Abdomen is round distended, Last BM was May 06, 2018. Reports diarrhea, dark tarry stools. : No signs and/or symptoms were reported regarding the genitourinary system. EENT: No signs and/or symptoms were reported regarding the EENT system. Derm: Skin is intact, is healthy with good turgor, Skin is dry, Skin is jaundiced, Skin temperature is cool. Musculoskeletal: No signs and/or symptoms reported regarding the musculoskeletal system. Vital Signs: 13:00 BP 115 / 78; Pulse 108; Resp 21 S; Temp 97.7; Pulse Ox 93% on 2 lpm NC; Pain 0/10; sg 14:14 BP 133 / 80; Pulse 104; Resp 20; Temp 97.7; Pulse Ox 98% on 4 lpm NC; sg ED Course: 12:57 Patient arrived in ED. sg 12:58 Bob Stanley MD is Private Physician. sg 12:58 ANG CRUZ is Private Physician. sg 13:00 Triage completed. sg 13:00 Patient has correct armband on for positive identification. Bed in low position. Call sg light in reach. Side rails up X2. cardiac monitor on. Pulse ox on. NIBP on. Warm blanket given. Head of bed lowered. 13:00 No provider procedures requiring assistance completed. sg 13:07 Arm band placed on. sg 13:13 Ilya Caldera NP is PHCP. pm1 13:13 Dandy Lubin MD is Attending Physician. pm1 13:25 Initial lab(s) drawn, by me, sent to lab. EKG done, by ED staff, reviewed by Ilya [email or web address] Werner LEPE. Inserted saline lock: 22 gauge in right antecubital area, using aseptic technique. Blood collected. 13:32 Td Shields, OSMAN is Primary Nurse. sg 13:45 X-ray completed. Portable x-ray completed in exam room. Patient tolerated procedure ml well. 13:47 XRAY Chest (1 view) In Process Unspecified. EDMS 15:15 CT Abd/Pelvis - W/Contrast: IV contrast only In Process Unspecified. EDMS 17:25 Patient admitted, IV remains in place. intact, No redness/swelling at site. sg Administered Medications: 14:47 Drug: ProTONIX 40 mg Route: IVP; Site: right antecubital; la1 15:10 Follow up: Response: No adverse reaction sg 15:08 Drug: Zofran 4 mg Route: IVP; Site: right forearm; sg 15:30 Follow up: Response: No adverse reaction; Nausea is decreased sg 15:20 Drug: Magnesium Sulfate 1 grams Route: IVPB; Infused Over: 1 hrs; Site: right forearm; sg 16:00 Drug: ProTONIX 40 mg Route: IVP; Site: right forearm; sg 16:30 Follow up: Response: No adverse reaction 16:00 Drug: Rocephin - (cefTRIAXone) 2 grams {Note: medication administered slow IVP as per sg Pharmacy Instructions.} Route: IVPB; Infused Over: 30 mins; Site: right forearm; 16:19 Follow up: Response: No adverse reaction; IV Status: Completed infusion sg 16:01 CANCELLED (chagned to 100 mcg bolus): Octreotide 75 mcg IV at calculated rate once pm1 16:16 Drug: NS 0.9% 1000 ml Route: IV; Rate: 100 ml/hr; Site: right forearm; sg 16:27 Drug: Octreotide Infusion (50 mcg/hr) - (Octreotide 500 mcg, NS 0.9% 500 ml) Route: IV; sg Rate: 75 ml/hr; Site: left forearm; 18:00 Follow up: Response: No adverse reaction; IV Status: Infusion continued upon transfer sg 16:28 Drug: ProTONIX 8 mg/hr Route: IV; Rate: 25 ml/hr; Site: right forearm; sg 16:28 Drug: Octreotide 100 mcg Route: IV; Rate: bolus; Site: left forearm; sg 19:25 Follow up: Response: No adverse reaction; IV Status: Completed infusion Outcome: 16:15 ER care complete, transfer ordered by MD. pm1 17:40 Transferred by ground EMS to [facility], Transfer form completed. sg 17:40 Condition: stable 17:40 Instructed on follow up and referral plans. the need for transfer, safety practices, Demonstrated understanding of instructions, follow-up care. 17:41 Patient left the ED. ss Signatures: Dispatcher [employer] EDSaman Huffman [email or web address] Td Shields RN RN sg Lopez, Melissa ml Smirch, Shelby, RN RN ss Attema, Lee, RN RN la1 Ilya Caldera NP SCREW SUPERVISOR pm1
--- NOTE | 2018-05-06 16:16 | EDPHYS ---
Physician Documentation [facility] Name: Olivier Camp Age: 72 yrs Sex: Male : 1945 Arrival Date: 05/06/2018 Time: 12:57 Bed 8 Private MD: ANTHONY, EPISCOPAL; Bob Stanley E ED Physician Dandy Lubin HPI: 05/06 14:00 This 72 yrs old Male presents to ER via EMS with complaints of Shortness Of pm1 Breath, Abdominal Distention, Bloody Stools. 14:00 The patient presents to the emergency department with rectal bleeding, melena, on pm1 toilet paper, in toilet bowl, Every 2-3 hours since onset 1600 yesterday. Onset: The symptoms/episode began/occurred yesterday. Abdominal pain: none is appreciated. Modifying factors: The symptoms are alleviated by nothing, the symptoms are aggravated by nothing. Associated signs and symptoms: Pertinent positives: shortness of breath, Abdominal distention. Vomit x 1, Pertinent negatives: chest pain, dizziness at rest, dizziness when standing, fever, syncope, near-syncope. The patient has not experienced similar symptoms in the past. The patient has been recently seen by a physician: Paracentesis about 2 weeks ago with 4L removed. Patient with complaints of abdominal bloating/distention for 2-3 days with some shortness of breath. Patient noticed that he had to use more home oxygen than he normally uses. Yesterday the patient had shortness of breath walking to the restroom then had a black tarry bowel movement at 1600. Patient felt nauseated looking at the melena and vomited once. Melena every 2-3 hours since onset. Patient reports symptoms of shortness of breath improved with lying supine. Historical: - Allergies: 13:06 Codeine; sg - Home Meds: 13:06 aspirin 81 mg oral chew 1 tab once daily [Active]; metformin 500 mg Oral tab 1 tab 2 sg times per day [Active]; ezetimibe oral 10 mg oral 1 tab once daily [Active]; metoprolol tartrate 25 mg Oral tab 1 tab once daily [Active]; prednisone 10 mg Oral tab 1 tab once daily [Active]; furosemide 40 mg Oral tab 1 tab once daily [Active]; Incruse Ellipta 62.5 mcg/actuation inhalation dsdv 1 puff once daily [Active]; Ventolin HFA 90 mcg/actuation Nebulizer HFAA 1 puff as needed when short of breath [Active]; hydrocodone-ibuprofen 7.5-200 mg Oral tab 1 tab every 4-6 hours for Pain [Active]; - PMHx: 13:06 AAA; ADD/ADHD; Diabetes - NIDDM; High Cholesterol; Hypertension; iliac aneurysm; Sleep sg Apnea; staph infection; right elbow; - PSHx: 13:06 AORTIC ANEURYSM; STENTS X 2; sg - Immunization history:: Adult Immunizations up to date. - Social history:: Smoking status: Patient/guardian denies using tobacco. - Ebola Screening: : Patient negative for fever greater than or equal to 101.5 degrees Fahrenheit, and additional compatible Ebola Virus Disease symptoms Patient denies exposure to infectious person Patient denies travel to an Ebola-affected area in the 21 days before illness onset No symptoms or risks identified at this time. ROS: 14:00 Constitutional: Negative for fever, chills, and weight loss, Eyes: Negative for injury, pm1 pain, redness, and discharge, ENT: Negative for injury, pain, and discharge, Neck: Negative for injury, pain, and swelling, Cardiovascular: Negative for chest pain, palpitations, and edema. 14:00 Back: Negative for injury and pain, : Negative for injury, bleeding, discharge, and swelling, MS/Extremity: Negative for injury and deformity, Skin: Negative for injury, rash, and discoloration, Neuro: Negative for headache, weakness, numbness, tingling, and seizure. 14:00 Respiratory: Positive for shortness of breath, Negative for cough, wheezing. 14:00 Abdomen/GI: Positive for black/tarry stool, Vomit x 1, Negative for abdominal pain. Exam: 14:00 Constitutional: This is a well developed, well nourished patient who is awake, alert, pm1 and in no acute distress. Head/Face: Normocephalic, atraumatic. Eyes: Pupils equal round and reactive to light, extra-ocular motions intact. Lids and lashes normal. Conjunctiva and sclera are non-icteric and not injected. Cornea within normal limits. Periorbital areas with no swelling, redness, or edema. ENT: Nares patent. No nasal discharge, no septal abnormalities noted. Tympanic membranes are normal and external auditory canals are clear. Oropharynx with no redness, swelling, or masses, exudates, or evidence of obstruction, uvula midline. Mucous membranes moist. Neck: Trachea midline, no thyromegaly or masses palpated, and no cervical lymphadenopathy. Supple, full range of motion without nuchal rigidity, or vertebral point tenderness. No Meningismus. Chest/axilla: Normal chest wall appearance and motion. Nontender with no deformity. No lesions are appreciated. Cardiovascular: Regular rate and rhythm with a normal S1 and S2. No gallops, murmurs, or rubs. Normal PMI, no JVD. No pulse deficits. Respiratory: Lungs have equal breath sounds bilaterally, clear to auscultation and percussion. No rales, rhonchi or wheezes noted. No increased work of breathing, no retractions or nasal flaring. 14:00 Back: No spinal tenderness. No costovertebral tenderness. Full range of motion. Skin: Warm, dry with normal turgor. Normal color with no rashes, no lesions, and no evidence of cellulitis. MS/ Extremity: Pulses equal, no cyanosis. Neurovascular intact. Full, normal range of motion. 14:00 Abdomen/GI: Inspection: abdomen appears normal, Bowel sounds: normal, Palpation: abdomen is soft and non-tender, Rectal exam: rectal tone normal, Stool: guaiac positive, black, mass, is not appreciated, swelling, is not appreciated, tenderness, is not appreciated. 14:00 Neuro: Orientation: is normal, Motor: moves all fours. Vital Signs: 13:00 BP 115 / 78; Pulse 108; Resp 21 S; Temp 97.7; Pulse Ox 93% on 2 lpm NC; Pain 0/10; sg 14:14 BP 133 / 80; Pulse 104; Resp 20; Temp 97.7; Pulse Ox 98% on 4 lpm NC; sg MDM: 13:20 Patient medically screened. pm1 15:40 Counseling: I had a detailed discussion with the patient and/or guardian regarding: the pm1 historical points, exam findings, and any diagnostic results supporting the discharge/admit diagnosis, lab results, radiology results, the need to transfer to another facility, [facility] does not immediately have the required specialist. 15:53 Physician consultation: Ronaldo Bain MD was called at 15:54, was contacted at pm1 15:54, regarding regarding transfer, patient's condition, and will see patient would like medications started, NS 100 mL/hr, Octreotide 100 mcg IV bolus, Octreotide continuous infusion 75 mcg/hr, Protonix 80 mg IV bolus, and Protonix 8 mg/hr continuous infusion, and Rocephin 2 gm IV. 16:10 Physician consultation: MD Redd was contacted at 16:04, regarding regarding transfer, pm1 patient's condition, and will see patient. 16:40 Data reviewed: vital signs. Data interpreted: Pulse oximetry: on room air is 98 %. pm1 Interpretation: normal. 05/06 13:15 Order name: Basic Metabolic Panel; Complete Time: 14:17 pm1 05/06 13:15 Order name: CBC with Diff; Complete Time: 13:44 pm1 05/06 13:15 Order name: Ckmb; Complete Time: 14:17 pm1 05/06 13:15 Order name: CPK; Complete Time: 14:17 pm1 05/06 13:15 Order name: LFT's; Complete Time: 14:17 pm1 05/06 13:15 Order name: Magnesium; Complete Time: 14:17 pm1 05/06 13:15 Order name: NT PRO-BNP; Complete Time: 14:17 pm1 05/06 13:15 Order name: PT-INR; Complete Time: 14:17 pm1 05/06 13:15 Order name: Ptt, Activated; Complete Time: 14:17 pm1 05/06 13:15 Order name: Troponin (emerg Dept Use Only); Complete Time: 14:17 pm1 05/06 13:17 Order name: AMMONIA; Complete Time: 14:17 pm1 05/06 13:17 Order name: Type And Screen; Complete Time: 14:17 pm1 05/06 14:39 Order name: ABO/RH no charge; Complete Time: 14:41 EDMS 05/06 16:14 Order name: Blood Culture Adult (2) pm1 05/06 16:14 Order name: Urine Culture pm1 05/06 16:15 Order name: Blood Culture EDRI 05/06 16:24 Order name: Urine Dipstick--Ancillary (enter results) 05/06 13:15 Order name: XRAY Chest (1 view); Complete Time: 14:41 pm1 05/06 14:33 Order name: CT Abd/Pelvis - W/Contrast: IV contrast only; Complete Time: 15:31 pm1 05/06 13:15 Order name: EKG; Complete Time: 13:16 pm1 05/06 13:15 Order name: Cardiac monitoring; Complete Time: 13:25 pm1 05/06 13:15 Order name: EKG - Nurse/Tech; Complete Time: 13:26 pm1 05/06 13:15 Order name: IV Saline Lock; Complete Time: 13:26 pm1 05/06 13:15 Order name: Labs collected and sent; Complete Time: 13:26 pm1 05/06 13:15 Order name: O2 Per Protocol; Complete Time: 13:26 pm1 05/06 13:15 Order name: O2 Sat Monitoring; Complete Time: 13:26 pm1 05/06 13:15 Order name: Urine Dipstick-Ancillary (obtain specimen); Complete Time: 16:17 pm1 Administered Medications: 14:47 Drug: ProTONIX 40 mg Route: IVP; Site: right antecubital; la1 15:10 Follow up: Response: No adverse reaction sg 15:08 Drug: Zofran 4 mg Route: IVP; Site: right forearm; sg 15:30 Follow up: Response: No adverse reaction; Nausea is decreased sg 15:20 Drug: Magnesium Sulfate 1 grams Route: IVPB; Infused Over: 1 hrs; Site: right forearm; sg 16:00 Drug: ProTONIX 40 mg Route: IVP; Site: right forearm; sg 16:30 Follow up: Response: No adverse reaction sg 16:00 Drug: Rocephin - (cefTRIAXone) 2 grams {Note: medication administered slow IVP as per Pharmacy Instructions.} Route: IVPB; Infused Over: 30 mins; Site: right forearm; 16:19 Follow up: Response: No adverse reaction; IV Status: Completed infusion sg 16:01 CANCELLED (chagned to 100 mcg bolus): Octreotide 75 mcg IV at calculated rate once pm1 16:16 Drug: NS 0.9% 1000 ml Route: IV; Rate: 100 ml/hr; Site: right forearm; sg 16:27 Drug: Octreotide Infusion (50 mcg/hr) - (Octreotide 500 mcg, NS 0.9% 500 ml) Route: IV; sg Rate: 75 ml/hr; Site: left forearm; 18:00 Follow up: Response: No adverse reaction; IV Status: Infusion continued upon transfer sg 16:28 Drug: ProTONIX 8 mg/hr Route: IV; Rate: 25 ml/hr; Site: right forearm; sg 16:28 Drug: Octreotide 100 mcg Route: IV; Rate: bolus; Site: left forearm; sg 19:25 Follow up: Response: No adverse reaction; IV Status: Completed infusion sg Disposition: 05/06/18 16:15 Transfer ordered to [facility]. Diagnosis is Gastrointestinal hemorrhage, unspecified. - Reason for transfer: Higher level of care. - Accepting physician is Tramaine. - Condition is Stable. - Problem is new. - Symptoms have improved. Addendum: 05/10/2018 07:11 Co-signature as Attending Physician, Dandy Lubin MD I agree with the assessment and k dr plan of care. Signatures: Dispatcher [employer] EDTd Diaz RN RN sg Rittger, Kevin, MD MD [facility] Anni Kurtz RN RN Ac Ocasio RN RN la1 Ilya Caldera, SHERLEY FILM SOUND COORDINATOR pm1 Corrections: (The following items were deleted from the chart) 05/06 16:01 15:49 Octreotide 75 mcg IV at calculated rate once ordered. pm1 pm1 17:41 16:15 05/06/2018 16:15 Transfer ordered to [facility]. Diagnosis is ss Gastrointestinal hemorrhage, unspecified. Reason for transfer: Higher level of care. Accepting physician is Tramaine. Condition is Stable. Problem is new. Symptoms have improved. pm1
[2018-05-06] MEDS ORDERED: OCTREOTIDE ACETATE 100 MCG/ML IV SCH (17:00)
[2018-05-06 17:49] VITALS: TEMP 97.7
[2018-05-06 17:51] VITALS: BP 133/80; O2SAT 98
[2018-05-06 20:39] LABS: Urine Blood NEGATIVE (NEG); Urine Glucose NEGATIVE (NEG); Urine Protein NEGATIVE (NEG); Urine Specific Gravity 1.015 (1.005-1.030)
--- NOTE | 2018-05-07 07:56 | EKG ---
Test Date: 2018-05-06 Test Time: 13:07:43 [employer] Lead: KRISTEN MEASUREMENT RESULTS: Intervals: Rate: 110 GA: 132 QRSD: 96 QT: 344 QTc: 465 [place]: P: 16 GA: 132 QRS: -11 T: 66 INTERPRETIVE STATEMENTS: Sinus tachycardia with premature supraventricular complexes Inferior infarct, age undetermined Cannot rule out Anterior infarct, age undetermined Abnormal ECG Compared to ECG 03/03/2018 09:31:25 Atrial premature complex(es) now present Sinus rhythm no longer present Ventricular premature complex(es) no longer present Left ventricular hypertrophy no longer present Myocardial infarct finding still present Electronically Signed On 05-07-18 07:54:56 CDT by Richard Borden
== END 2018-05-06 17:41 | disposition short-term general hospital (02) ==
LOC: ER 12:57
DX: K92.2 Gastrointestinal hemorrhage, unspecified (principal); I10 Essential (primary) hypertension; E78.5 Hyperlipidemia, unspecified; E11.9 Type 2 diabetes mellitus without complications; F90.9 Attention-deficit hyperactivity disorder, unspecified type; Z79.82 Long term (current) use of aspirin; Z88.5 Allergy status to narcotic agent; Z95.2 Presence of prosthetic heart valve
CPT/HCPCS: 36415; 71045; 74177; 80048; 80076; 81003; 82140; 82550; 82553; 83735; 83880; 84484; 85025; 85610; 85730; 86850; 86900; 86901; 87040 ×2; 87086; 87088; 93005; 99285; C9113 ×3; J0696; J2354 ×2; J2405; J7030; Q9967

== ENCOUNTER 2019-01-03 02:04 | Inpatient (IN) | payer OTHER ==
--- OUTSIDE RECORDS SUMMARY | 2019-01-03 02:07 | XMS REPORT | Clinical Summary ---
:1945 Author Organization [facility] Address [address] [place] [address] Care Team Providers Name Role Phone Bob Stanley MD Primary Care Provider Allergies Active Allergy Reactions Severity Noted Date Comments Codeine Other (See Comments), GI High 01/05/2016 Severe Stomach cramps Intolerance Medications Medication Sig Dispensed Refills Start End Date Status Date aspirin (ECOTRIN) Take 81 mg by 0 Active 81 MG enteric mouth daily. coated tablet metFORMIN Take 500 mg by 0 Active (GLUCOPHAGE) 500 mg mouth 2 (two) tablet times a day with meals. ezetimibe (ZETIA) Take 10 mg by 0 Active 10 mg tablet mouth daily. predniSONE Take 10 mg by 0 Active (DELTASONE) 10 mg mouth daily. tablet albuterol (PROAIR Inhale 2 puffs 0 Active HFA,PROVENTIL every 6 (six) HFA,VENTOLIN HFA) hours as needed 90 mcg/actuation for wheezing. inhaler furosemide (LASIX) Take 40 mg by 0 Active 40 mg tablet mouth 2 (two) times a day. ursodiol (ACTIGALL) Take 500 mg by 0 Active 500 MG tablet mouth 3 (three) times a day. spironolactone Take 100 mg by 0 Active (ALDACTONE) 100 MG mouth daily. tablet umeclidinium Inhale 1 0 Active (INCRUSE ELLIPTA) inhalations 62.5 mcg/actuation daily. blister with device HYDROcodone-ibuprof Take 1 tablet by 0 Active en (VICOPROFEN) mouth every 8 7.5-200 mg per (eight) hours as tablet needed for moderate pain. metoprolol tartrate Take 25 mg by 0 05/15/20 Discontinued (LOPRESSOR) 25 mg mouth 2 (two) 18 tablet times a day. propranolol Take 1 tablet (10 60 tablet 0 05/15/20 Discontinued (INDERAL) 10 MG mg total) by 8 18 tablet mouth 2 (two) times a day for 30 days. ipratropium-albuter Take 3 mL by 270 mL 0 05/15/20 Discontinued ol (DUO-NEB) nebulization 8 18 0.5-2.5 mg/mL every 6 (six) nebulizer hours while awake for 30 days. budesonide Take 2 mL (0.5 mg 120 mL 0 05/15/20 Discontinued (PULMICORT) 0.5 total) by 8 18 mg/2 mL nebulizer nebulization 2 solution (two) times a day for 30 days. potassium chloride Take 2 capsules 60 capsule 0 05/15/20 Discontinued (MICRO-K) 10 MEQ CR (20 mEq total) by 8 18 capsule mouth daily for 30 days. pantoprazole Take 1 tablet (40 60 tablet 0 05/15/20 Discontinued (PROTONIX) 40 MG EC mg total) by 8 18 tablet mouth 2 (two) times a day for 30 days. budesonide Take 2 mL (0.5 mg 120 mL 0 06/14/20 (PULMICORT) 0.5 total) by 8 18 mg/2 mL nebulizer nebulization 2 solution (two) times a day for 30 days. ipratropium-albuter Take 3 mL by 270 mL 0 06/14/20 ol (DUO-NEB) nebulization 8 18 0.5-2.5 mg/mL every 6 (six) nebulizer hours while awake for 30 days. pantoprazole Take 1 tablet (40 60 tablet 0 06/14/20 (PROTONIX) 40 MG EC mg total) by 8 18 tablet mouth 2 (two) times a day for 30 days. potassium chloride Take 2 capsules 60 capsule 0 06/14/20 (MICRO-K) 10 MEQ CR (20 mEq total) by 8 18 capsule mouth daily for 30 days. propranolol Take 1 tablet (10 60 tablet 0 06/14/20 (INDERAL) 10 MG mg total) by 8 18 tablet mouth 2 (two) times a day for 30 days. Active Problems Problem Noted Date GI bleed 05/06/2018 Pulmonary fibrosis 05/06/2018 Rheumatoid arthritis 05/06/2018 Hyperlipidemia 05/06/2018 Type 2 diabetes mellitus 05/06/2018 TIA (transient ischemic attack) 05/06/2018 CAD (coronary artery disease) 05/06/2018 Gastrointestinal hemorrhage 05/06/2018 Overview: Added automatically from request for surgery [id number] Encounters Date Type Specialty Care Team Description [facility] Lorraine Gregory Abnormal CT of the chest 9 Encounter MD Hazel Transcribe Access Lorraine Gregory Abnormal CT of the chest 9 Orders MD Hazel (Primary Dx) [facility] Lorraine Gregory Interstitial lung disease 9 Encounter MD Hazel ([facility]) Transcribe Access Lorraine Gregory Interstitial lung disease 9 Orders MD Hazel ([facility]) (Primary Dx) Anesthesia Gastroenterology Benji, 8 Event Shelly Raymundo MD Surgery Gastroenterology Egjordin, EGD W/ BANDING 8 Renetta Jennings MD [facility] G[facility]enter[facility] Egjordin, Gastrointestinal hemorrhage, 8 Encounter Renetta Jennings, unspecified gastrointestinal MD hemorrhage type (Primary Dx) [facility] Blaine, 8 Medicine OSMAN Figueroa Anesthesia Gastroenterology Fabian, 8 Event MD Ronan Surgery Gastroenterology Taya, COLON @ BS 8 MD Ronaldo Surgery Gastroenterology Taya, ESOPHAGOGASTRODUODENOSCOPY 8 MD Ronaldo (EGD) [facility] Internal Taya, Gastrointestinal hemorrhage , unspecified gastrointestinal hemorrhage type (Primary Dx); 8 - Encounter Medicine MD Ronaldo Pulmonary fibrosis; Sonali, Rheumatoid arthritis, involving unspecified site, unspecified rheumatoid factor presence; 8 MD Xavier Hyperlipidemia, unspecified hyperlipidemia type; Barnett, Type 2 diabetes mellitus with complication, without long-term current use of insulin Robert Garcia MD Intake Access N/A 8 Hospital Radiology Egwim, Cirrhosis of liver with 8 Encounter Jaironkwcalderon Jennings, ascites, unspecified hepatic MD cirrhosis type Hospital Radiology Egwim, Other ascites 8 Encounter Renetta Jennings, Transcribe Radiology Egwim, Cirrhosis of liver with 8 Orders Eulawcalderon Jennings, ascites, unspecified hepatic MD cirrhosis type (Primary Dx) Transcribe Radiology Egwim, Other ascites (Primary Dx) 8 Orders Renetta Jennings MD [facility] Egwim, Cirrhosis of liver without ascites, unspecified hepatic cirrhosis type; 8 Encounter Renetta Jennings, Nonspecific abnormal results of liver function study Transcribe Access Egwim, Cirrhosis of liver without ascites, unspecified hepatic cirrhosis type (Primary Dx); 8 Orders [place] Michaela, Nonspecific abnormal results of liver function study after 01/02/2018 Social History Tobacco Use Types Packs/Day Years Used Date Former Smoker Smokeless Tobacco: Never Used Alcohol Use Drinks/Week oz/Week Comments No Sex Assigned at Date Recorded Not on file Job Start Date Occupation Industry Not on file Not on file Not on file Travel History Travel Start Travel End No recent travel history available. Last Filed Vital Signs Vital Sign Reading Time Taken Blood Pressure 147/67 07/03/2018 1:55 PM CDT Pulse 97 07/03/2018 1:55 PM CDT Temperature 36.4 C (97.5 F) 07/03/2018 1:27 PM CDT Respiratory Rate 18 07/03/2018 1:55 PM CDT Oxygen Saturation 96% 07/03/2018 1:55 PM CDT Inhaled Oxygen Concentration - - Weight 82.9 kg (182 lb 12.8 oz) 05/15/2018 5:00 AM CDT Height 170.2 cm (5' 7") 07/03/2018 12:27 PM CDT Body Mass Index 28.63 05/15/2018 5:00 AM CDT Plan of Treatment Health Maintenance Due Date Last Done Comments DIABETIC RETINAL EYE EXAM 1945 DIABETIC FOOT EXAM 11/07/1957 URINE MICROALBUMIN 11/07/1957 COLON CANCER SCREENING 11/07/1997 SHINGLES VACCINES (#1) 11/07/1997 65+ PNEUMOCOCCAL VACCINE (1 of 2 - PCV13) 11/07/2012 PNEUMOCOCCAL POLYSACCHARIDE VACCINE AGE 65 AND OVER 11/07/2012 INFLUENZA VACCINE 04/04/2019 Procedures Procedure Name Priority Date/Time Associated Diagnosis Comments PET CT SKULL BASE TO MID THIGH Routine 11/29/[address] of the Results for 1:52 PM CDT chest this procedure are in the results section. POC GLUCOSE Routine 11/29/2018 Results for 12:35 PM CDT this procedure are in the results section. CT CHEST WO CONTRAST Routine 11/16/2018 Interstitial lung Results for 11:38 AM CDT disease (HCC) this procedure are in the results section. ESOPHAGOGASTRODUODENOSCOPY 07/03/2018 Cirrhosis (HCC) (EGD) 12:54 PM CDT Secondary esophageal varices with bleeding (HCC) POC GLUCOSE Routine 07/03/2018 Results for 12:22 PM CDT this procedure are in the results section. POC GLUCOSE Routine 05/15/2018 Results for 11:56 AM CDT this procedure are in the results section. POC GLUCOSE Routine 05/15/2018 Results for 7:58 AM CDT this procedure are in the results section. ZZESTIMATED GFR Routine 05/15/2018 Results for 5:20 AM CDT this procedure are in the results section. PROTHROMBIN TIME WITH INR Routine 05/15/2018 Results for 5:20 AM CDT this procedure are in the results section. COMPREHENSIVE METABOLIC PANEL Routine 05/15/2018 Results for 5:20 AM CDT this procedure are in the results section. HC COMPLETE BLD COUNT W/AUTO Routine 05/15/2018 Results for DIFF 5:20 AM CDT this procedure are in the results section. POC GLUCOSE Routine 05/14/2018 Results for 9:06 PM CDT this procedure are in the results section. POC GLUCOSE Routine 05/14/2018 Results for 6:00 PM CDT this procedure are in the results section. NM CARDIAC SHUNT EVALUATION Routine 05/14/2018 Results for 10:51 AM CDT this procedure are in the results section. ECHOCARDIOGRAM 2D COMPLETE W Routine 05/14/2018 Results for MMODE SPECTRAL COLOR DOPPLER 9:32 AM CDT this ([id number]) procedure are in the results section. POC GLUCOSE Routine 05/14/2018 Results for 8:22 AM CDT this procedure are in the results section. ZZESTIMATED GFR Routine 05/14/2018 Results for 4:40 AM CDT this procedure are in the results section. PROTHROMBIN TIME WITH INR Routine 05/14/2018 Results for 4:40 AM CDT this procedure are in the results section. COMPREHENSIVE METABOLIC PANEL Routine 05/14/2018 Results for 4:40 AM CDT this procedure are in the results section. HC COMPLETE BLD COUNT W/AUTO Routine 05/14/2018 Results for DIFF 4:40 AM CDT this procedure are in the results section. POC GLUCOSE Routine 05/13/2018 Results for 9:09 PM CDT this procedure are in the results section. POC GLUCOSE Routine 05/13/2018 Results for 6:06 PM CDT this procedure are in the results section. POC GLUCOSE Routine 05/13/2018 Results for 12:20 PM CDT this procedure are in the results section. POC GLUCOSE Routine 05/13/2018 Results for 8:20 AM CDT this procedure are in the results section. HEMOGLOBIN A1C Routine 05/13/2018 Results for 5:00 AM CDT this procedure are in the results section. PROTHROMBIN TIME WITH INR Routine 05/13/2018 Results for 5:00 AM CDT this procedure are in the results section. HC COMPLETE BLD COUNT W/AUTO Routine 05/13/2018 Results for DIFF 5:00 AM CDT this procedure are in the results section. ZZESTIMATED GFR Routine 05/13/2018 Results for 4:00 AM CDT this procedure are in the results section. COMPREHENSIVE METABOLIC PANEL Routine 05/13/2018 Results for 4:00 AM CDT this procedure are in the results section. POC GLUCOSE Routine 05/12/2018 Results for 11:09 PM CDT this procedure are in the results section. POC GLUCOSE Routine 05/12/2018 Results for 6:58 PM CDT this procedure are in the results section. CT ANGIOGRAM PE CHEST Routine 05/12/2018 Results for 6:33 PM CDT this procedure are in the results section. POC GLUCOSE Routine 05/12/2018 Results for 12:11 PM CDT this procedure are in the results section. POC GLUCOSE Routine 05/12/2018 Results for 9:12 AM CDT this procedure are in the results section. HC COMPLETE BLD COUNT W/AUTO Routine 05/12/2018 Results for DIFF 4:45 AM CDT this procedure are in the results section. PROTHROMBIN TIME WITH INR Routine 05/12/2018 Results for 4:05 AM CDT this procedure are in the results section. ZZESTIMATED GFR Routine 05/12/2018 Results for 4:00 AM CDT this procedure are in the results section. COMPREHENSIVE METABOLIC PANEL Routine 05/12/2018 Results for 4:00 AM CDT this procedure are in the results section. POC GLUCOSE Routine 05/11/2018 Results for 9:09 PM CDT this procedure are in the results section. POC GLUCOSE Routine 05/11/2018 Results for 5:51 PM CDT this procedure are in the results section. CONSULT TO OSTOMY CARE NURSE Routine 05/11/2018 5:03 PM CDT POC GLUCOSE Routine 05/11/2018 Results for 12:07 PM CDT this procedure are in the results section. POC GLUCOSE Routine 05/11/2018 Results for 7:46 AM CDT this procedure are in the results section. ZZESTIMATED GFR Routine 05/11/2018 Results for 5:20 AM CDT this procedure are in the results section. PROTHROMBIN TIME WITH INR Routine 05/11/2018 Results for 5:20 AM CDT this procedure are in the results section. PHOSPHORUS LEVEL Routine 05/11/2018 Results for 5:20 AM CDT this procedure are in the results section. MAGNESIUM LEVEL Routine 05/11/2018 Results for 5:20 AM CDT this procedure are in the results section. HEPATIC FUNCTION PANEL Routine 05/11/2018 Results for 5:20 AM CDT this procedure are in the results section. BASIC METABOLIC PANEL Routine 05/11/2018 Results for 5:20 AM CDT this procedure are in the results section. HC COMPLETE BLD COUNT W/AUTO Routine 05/11/2018 Results for DIFF 5:20 AM CDT this procedure are in the results section. ALPHA FETOPROTEIN Routine 05/11/2018 Results for 5:20 AM CDT this procedure are in the results section. POC GLUCOSE Routine 05/10/2018 Results for 9:58 PM CDT this procedure are in the results section. US ABDOMEN COMPLETE Routine 05/10/2018 Results for 9:30 PM CDT this procedure are in the results section. POC GLUCOSE Routine 05/10/2018 Results for 5:29 PM CDT this procedure are in the results section. POC GLUCOSE Routine 05/10/2018 Results for 11:59 AM CDT this procedure are in the results section. POC GLUCOSE Routine 05/10/2018 Results for 8:35 AM CDT this procedure are in the results section. XR CHEST 1 VW PORTABLE Routine 05/10/2018 Results for 6:41 AM CDT this procedure are in the results section. POC GLUCOSE Routine 05/10/2018 Results for 5:02 AM CDT this procedure are in the results section. ZZESTIMATED GFR Routine 05/10/2018 Results for 12:55 AM CDT this procedure are in the results section. LDH Routine 05/10/2018 Results for 12:55 AM CDT this procedure are in the results section. PHOSPHORUS LEVEL Routine 05/10/2018 Results for 12:55 AM CDT this procedure are in the results section. MAGNESIUM LEVEL Routine 05/10/2018 Results for 12:55 AM CDT this procedure are in the results section. HEPATIC FUNCTION PANEL Routine 05/10/2018 Results for 12:55 AM CDT this procedure are in the results section. BASIC METABOLIC PANEL Routine 05/10/2018 Results for 12:55 AM CDT this procedure are in the results section. POC GLUCOSE Routine 05/10/2018 Results for 12:32 AM CDT this procedure are in the results section. FIBRINOGEN Routine 05/10/2018 Results for 12:30 AM CDT this procedure are in the results section. PARTIAL THROMBOPLASTIN TIME Routine 05/10/2018 Results for (PTT) 12:30 AM CDT this procedure are in the results section. PROTHROMBIN TIME WITH INR Routine 05/10/2018 Results for 12:30 AM CDT this procedure are in the results section. HC COMPLETE BLD COUNT W/AUTO Routine 05/10/2018 Results for DIFF 12:30 AM CDT this procedure are in the results section. POC GLUCOSE Routine 05/09/2018 Results for 8:59 PM CDT this procedure are in the results section. POC GLUCOSE Routine 05/09/2018 Results for 3:40 PM CDT this procedure are in the results section. COLONOSCOPY 05/09/2018 Gastrointestinal 2:00 PM CDT hemorrhage, unspecified gastrointestinal hemorrhage type POC GLUCOSE Routine 05/09/2018 Results for 12:13 PM CDT this procedure are in the results section. POC GLUCOSE Routine 05/09/2018 Results for 8:07 AM CDT this procedure are in the results section. POC GLUCOSE Routine 05/09/2018 Results for 5:05 AM CDT this procedure are in the results section. ZZESTIMATED GFR Routine 05/09/2018 Results for 3:00 AM CDT this procedure are in the results section. PARTIAL THROMBOPLASTIN TIME Routine 05/09/2018 Results for (PTT) 3:00 AM CDT this procedure are in the results section. FIBRINOGEN Routine 05/09/2018 Results for 3:00 AM CDT this procedure are in the results section. LDH Routine 05/09/2018 Results for 3:00 AM CDT this procedure are in the results section. PROTHROMBIN TIME WITH INR Routine 05/09/2018 Results for 3:00 AM CDT this procedure are in the results section. PHOSPHORUS LEVEL Routine 05/09/2018 Results for 3:00 AM CDT this procedure are in the results section. MAGNESIUM LEVEL Routine 05/09/2018 Results for 3:00 AM CDT this procedure are in the results section. HEPATIC FUNCTION PANEL Routine 05/09/2018 Results for 3:00 AM CDT this procedure are in the results section. IONIZED CALCIUM Routine 05/09/2018 Results for 3:00 AM CDT this procedure are in the results section. LACTIC ACID LEVEL Routine 05/09/2018 Results for 3:00 AM CDT this procedure are in the results section. HC COMPLETE BLD COUNT W/AUTO Routine 05/09/2018 Results for DIFF 3:00 AM CDT this procedure are in the results section. BASIC METABOLIC PANEL Routine 05/09/2018 Results for 3:00 AM CDT this procedure are in the results section. POC GLUCOSE Routine 05/09/2018 Results for 12:24 AM CDT this procedure are in the results section. POC GLUCOSE Routine 05/08/2018 Results for 8:26 PM CDT this procedure are in the results section. POC GLUCOSE Routine 05/08/2018 Results for 3:29 PM CDT this procedure are in the results section. POC GLUCOSE Routine 05/08/2018 Results for 12:29 PM CDT this procedure are in the results section. US ABDOMINAL PARACENTESIS STAT 05/08/2018 Results for IMAGING 9:50 AM CDT this procedure are in the results section. CYTOLOGY (NON-GYNECOLOGICAL) Routine 05/08/2018 Results for REQUEST 9:40 AM CDT this procedure are in the results section. CELL COUNT AND DIFFERENTIAL, Routine 05/08/2018 Results for BODY FLUID 9:40 AM CDT this procedure are in the results section. ALBUMIN, MISC FLUID Routine 05/08/2018 Results for 9:40 AM CDT this procedure are in the results section. PROTEIN, MISC FLUID Routine 05/08/2018 Results for 9:40 AM CDT this procedure are in the results section. GRAM STAIN Routine 05/08/2018 Results for 9:40 AM CDT this procedure are in the results section. ANAEROBIC CULTURE Routine 05/08/2018 Results for 9:40 AM CDT this procedure are in the results section. AEROBIC CULTURE Routine 05/08/2018 Results for 9:40 AM CDT this procedure are in the results section. POC GLUCOSE Routine 05/08/2018 Results for 8:12 AM CDT this procedure are in the results section. POC GLUCOSE Routine 05/08/2018 Results for 5:15 AM CDT this procedure are in the results section. HC COMPLETE BLD COUNT W/AUTO Routine 05/08/2018 Results for DIFF 4:05 AM CDT this procedure are in the results section. TROPONIN Routine 05/08/2018 Results for 2:28 AM CDT this procedure are in the results section. ZZESTIMATED GFR Routine 05/08/2018 Results for 2:28 AM CDT this procedure are in the results section. LDH Routine 05/08/2018 Results for 2:28 AM CDT this procedure are in the results section. PHOSPHORUS LEVEL Routine 05/08/2018 Results for 2:28 AM CDT this procedure are in the results section. MAGNESIUM LEVEL Routine 05/08/2018 Results for 2:28 AM CDT this procedure are in the results section. HEPATIC FUNCTION PANEL Routine 05/08/2018 Results for 2:28 AM CDT this procedure are in the results section. LACTIC ACID LEVEL Routine 05/08/2018 Results for 2:28 AM CDT this procedure are in the results section. BASIC METABOLIC PANEL Routine 05/08/2018 Results for 2:28 AM CDT this procedure are in the results section. ECG 12-LEAD STAT 05/08/2018 Results for 2:14 AM CDT this procedure are in the results section. IONIZED CALCIUM, ARTERIAL Routine 05/08/2018 Results for 2:05 AM CDT this procedure are in the results section. ARTERIAL BLOOD GAS Routine 05/08/2018 Results for 2:05 AM CDT this procedure are in the results section. FIBRINOGEN Routine 05/08/2018 Results for 2:05 AM CDT this procedure are in the results section. PROTHROMBIN TIME WITH INR Routine 05/08/2018 Results for 2:05 AM CDT this procedure are in the results section. POC GLUCOSE Routine 05/08/2018 Results for 12:44 AM CDT this procedure are in the results section. HC COMPLETE BLD COUNT W/AUTO Routine 05/07/2018 Results for DIFF 10:30 PM CDT this procedure are in the results section. POC GLUCOSE Routine 05/07/2018 Results for 10:08 PM CDT this procedure are in the results section. POC GLUCOSE Routine 05/07/2018 Results for 7:16 PM CDT this procedure are in the results section. HC COMPLETE BLD COUNT W/AUTO Routine 05/07/2018 Results for DIFF 4:20 PM CDT this procedure are in the results section. POC GLUCOSE Routine 05/07/2018 Results for 4:02 PM CDT this procedure are in the results section. TRANSFUSE RED BLOOD CELLS STAT 05/07/2018 2:14 PM CDT POC GLUCOSE Routine 05/07/2018 Results for 12:17 PM CDT this procedure are in the results section. HEMOGLOBIN & HEMATOCRIT Routine 05/07/2018 Results for 10:09 AM CDT this procedure are in the results section. ESOPHAGOGASTRODUODENOSCOPY 05/07/2018 Gastrointestinal (EGD) 8:15 AM CDT hemorrhage, unspecified gastrointestinal hemorrhage type POC GLUCOSE Routine 05/07/2018 Results for 7:59 AM CDT this procedure are in the results section. POC GLUCOSE Routine 05/07/2018 Results for 5:17 AM CDT this procedure are in the results section. POC GLUCOSE Routine 05/07/2018 Results for 1:30 AM CDT this procedure are in the results section. ZZESTIMATED GFR Routine 05/07/2018 Results for 1:25 AM CDT this procedure are in the results section. FIBRINOGEN Routine 05/07/2018 Results for 1:25 AM CDT this procedure are in the results section. LDH Routine 05/07/2018 Results for 1:25 AM CDT this procedure are in the results section. PROTHROMBIN TIME WITH INR Routine 05/07/2018 Results for 1:25 AM CDT this procedure are in the results section. PHOSPHORUS LEVEL Routine 05/07/2018 Results for 1:25 AM CDT this procedure are in the results section. MAGNESIUM LEVEL Routine 05/07/2018 Results for 1:25 AM CDT this procedure are in the results section. HEPATIC FUNCTION PANEL Routine 05/07/2018 Results for 1:25 AM CDT this procedure are in the results section. IONIZED CALCIUM Routine 05/07/2018 Results for 1:25 AM CDT this procedure are in the results section. LACTIC ACID LEVEL Routine 05/07/2018 Results for 1:25 AM CDT this procedure are in the results section. HC COMPLETE BLD COUNT W/AUTO Routine 05/07/2018 Results for DIFF 1:25 AM CDT this procedure are in the results section. BASIC METABOLIC PANEL Routine 05/07/2018 Results for 1:25 AM CDT this procedure are in the results section. POC GLUCOSE Routine 05/06/2018 Results for 9:08 PM CDT this procedure are in the results section. THROMBOELASTOGRAPH Routine 05/06/2018 Results for 8:25 PM CDT this procedure are in the results section. PREPARE RBC Timed 05/06/2018 Results for 7:26 PM CDT this procedure are in the results section. MAGNESIUM LEVEL STAT 05/06/2018 Results for 7:26 PM CDT this procedure are in the results section. PHOSPHORUS LEVEL STAT 05/06/2018 Results for 7:26 PM CDT this procedure are in the results section. PROTHROMBIN TIME WITH INR STAT 05/06/2018 Results for 7:26 PM CDT this procedure are in the results section. PARTIAL THROMBOPLASTIN TIME STAT 05/06/2018 Results for (PTT) 7:26 PM CDT this procedure are in the results section. FIBRINOGEN STAT 05/06/2018 Results for 7:26 PM CDT this procedure are in the results section. ZZESTIMATED GFR STAT 05/06/2018 Results for 7:26 PM CDT this procedure are in the results section. IONIZED CALCIUM STAT 05/06/2018 Results for 7:26 PM CDT this procedure are in the results section. HEPATIC FUNCTION PANEL STAT 05/06/2018 Results for 7:26 PM CDT this procedure are in the results section. BASIC METABOLIC PANEL STAT 05/06/2018 Results for 7:26 PM CDT this procedure are in the results section. HC COMPLETE BLD COUNT W/AUTO STAT 05/06/2018 Results for DIFF 7:26 PM CDT this procedure are in the results section. TYPE AND SCREEN Routine 05/06/2018 Results for 7:26 PM CDT this procedure are in the results section. IR TRANSJUGULAR LIVER BIOPSY Routine 04/26/2018 Cirrhosis of liver Results for 1:57 PM CDT with ascites, this unspecified hepatic procedure are cirrhosis type in the results section. POC GLUCOSE Routine 04/26/2018 Results for 1:45 PM CDT this procedure are in the results section. SURGICAL PATHOLOGY REQUEST Routine 04/26/2018 Results for 1:39 PM CDT this procedure are in the results section. POC GLUCOSE Routine 04/26/2018 Results for 11:02 AM CDT this procedure are in the results section. US ABDOMINAL PARACENTESIS Routine 04/24/2018 Other ascites Results for IMAGING 12:47 PM CDT this procedure are in the results section. CELL COUNT AND DIFFERENTIAL, Routine 04/24/2018 Results for BODY FLUID 12:13 PM CDT this procedure are in the results section. GRAM STAIN Routine 04/24/2018 Results for 12:13 PM CDT this procedure are in the results section. AEROBIC CULTURE Routine 04/24/2018 Results for 12:13 PM CDT this procedure are in the results section. MRI CHOLANGIOGRAM W WO Routine 04/13/2018 Cirrhosis of liver Results for CONTRAST 9:08 AM CDT without ascites, this unspecified hepatic procedure are cirrhosis type in the Nonspecific abnormal results results of liver section. function study POC CREATININE Routine 04/13/2018 Results for 8:24 AM CDT this procedure are in the results section. ESTIMATED GFR Routine 04/13/2018 Results for 8:24 AM CDT this procedure are in the results section. after 01/02/2018 Results PET/CT Skull Base To Mid Thigh (11/29/2018 1:52 PM CDT) Narrative Performed At EXAMINATION:PET CT SKULL BASE TO MID THIGH [facility] CLINICAL HISTORY: R93.89 Abnormal findings on diagnostic imaging of other specified body structures, ABN CT OF THE CHEST ; STAGING COMPARISON:No prior PET scans, CT chest 11/16/2018 TECHNIQUE: The patient received 10-15 mCi 18-FDG intravenously. 1 hour later, PET/CT scanning from the orbits to the mid thighs was performed. CT scanning was nondiagnostic and used for attenuation correction purposes and to aid in localization of any abnormal findings on the PET images. Automated dose exposure control was utilized. Blood erochsn=304. FINDINGS: Head and Neck There is no suspicious lymph node uptake and no evidence of malignancy in the visualized brain. Chest A cluster of prominent lymph nodes in the right lower paratracheal region near the hilum is present with one of these demonstrating an SUV of 5.4; the others demonstrate equivocal uptake. A few other upper normal-sized lymph nodes bilaterally in the mediastinum demonstrate absent to faint uptake, likely benign and secondary to chronic, advanced interstitial prominent fibrosis. The chronic interstitial lung disease is associated with patchy, mild inflammatory uptake bilaterally (SUV=2.7). There are 2 adjacent spiculated pulmonary nodules in the inferolateral right upper lobe near the minor fissure, the larger measuring 2.4 cm with marked uptake (SUV=15.2). Adjacent to this, slightly superior/posterior, a second nodule measures about 1.6 cm, also with high uptake (SUV=14.6). Uptake in the left hemithorax is normal. Abdomen A focus of moderate uptake in the lateral aspect of the right hepatic lobe without a definite abnormality on noncontrast CT (SUV=5.2). Uptake in the spleen, adrenal glands, pancreas, kidneys, and stomach is normal. There is no suspicious retroperitoneal or mesenteric lymph node uptake. Pelvis There is no suspicious pelvic or inguinal lymph node uptake. Osseous Structures There is no suspicious osseous uptake. IMPRESSION: 1.There are 2 adjacent spiculated nodules in the lateral right mid lung with very high uptake, highly suspicious for malignancy. 2.Metastatic right lower paratracheal lymph node. Other prominent lymph nodes in the mediastinum demonstrate minimal uptake, likely secondary to chronic pulmonary inflammation. 3.Probable small metastasis in the liver. [facility]-[id number] Procedure Note [facility], Radiology Results Incoming - 11/29/2018 3:09 PM CDT EXAMINATION: PET CT SKULL BASE TO MID THIGH CLINICAL HISTORY: R93.89 Abnormal findings on diagnostic imaging of other specified body structures, ABN CT OF THE CHEST ; STAGING COMPARISON: No prior PET scans, CT chest 11/16/2018 TECHNIQUE: The patient received 10-15 mCi 18-FDG intravenously. 1 hour later, PET/CT scanning from the orbits to the mid thighs was performed. CT scanning was nondiagnostic and used for attenuation correction purposes and to aid in localization of any abnormal findings on the PET images. Automated dose exposure control was utilized. Blood jlqwkdo=181. FINDINGS: Head and Neck There is no suspicious lymph node uptake and no evidence of malignancy in the visualized brain. Chest A cluster of prominent lymph nodes in the right lower paratracheal region near the hilum is present with one of these demonstrating an SUV of 5.4; the others demonstrate equivocal uptake. A few other upper normal-sized lymph nodes bilaterally in the mediastinum demonstrate absent to faint uptake, likely benign and secondary to chronic, advanced interstitial prominent fibrosis. The chronic interstitial lung disease is associated with patchy, mild inflammatory uptake bilaterally (SUV=2.7). There are 2 adjacent spiculated pulmonary nodules in the inferolateral right upper lobe near the minor fissure, the larger measuring 2.4 cm with marked uptake (SUV=15.2 ). Adjacent to this, slightly superior/posterior, a second nodule measures about 1.6 cm, also with high uptake (SUV=14.6). Uptake in the left hemithorax is normal. Abdomen A focus of moderate uptake in the lateral aspect of the right hepatic lobe without a definite abnormality on noncontrast CT (SUV=5.2). Uptake in the spleen , adrenal glands, pancreas, kidneys, and stomach is normal. There is no suspicious retroperitoneal or mesenteric lymph node uptake. Pelvis There is no suspicious pelvic or inguinal lymph node uptake. Osseous Structures There is no suspicious osseous uptake. IMPRESSION: 1. There are 2 adjacent spiculated nodules in the lateral right mid lung with very high uptake, highly suspicious for malignancy. 2. Metastatic right lower paratracheal lymph node. Other prominent lymph nodes in the mediastinum demonstrate minimal uptake, likely secondary to chronic pulmonary inflammation. 3. Probable small metastasis in the liver. [facility]-[id number] Performing Organization Address City/[facility] Phone Number [address] [address] POC glucose (11/29/2018 12:35 PM CDT)Only the most recent of47 resultswithin the time period is included. POC glucose 108 (H) 65 - 99 mg/dL [facility] Comment: No Action Needed Meter ID: [id number] Baggage Security Checker: Armin Gonzalez Performing Organization Address City/State/Zipcode Phone Number [facility] DEPARTMENT OF PATHOLOGY AND [address] [place] [address] GENOMIC MEDICINE [address] [address] [address] Chest Wo Contrast (11/16/2018 11:38 AM CDT) Narrative Performed At EXAMINATION: [facility] CT CHEST WO CONTRAST CLINICAL HISTORY: J84.9 Interstitial pulmonary diseaseunspecified, J84.9 TECHNIQUE:Multiple axial images of the chest were obtained without intravenous contrast. The lack of intravenous contrast reduces the sensitivity of detecting solid organ disease and evaluating vasculature. Sagittal and coronal computerized reformatted images were also obtained. CT imaging was performed with iterative reconstruction techniques and/or automated exposure control to reduce radiation dose. COMPARISON: To previous examination from 05/12/2018 IMPRESSION: Findings concerning for malignancy in the right lung. 1.No air trapping is identified. 2.Subpleural cysts and probable honeycombing is present, in a diffuse pattern, without a zonal gradient present. 3.There are 2 spiculated 2 cm mass is present within the right upper lobe adjacent to the horizontal fissure, consistent with malignancy. This was not present on a previous examination from 12/02/2016. 4.Findings are consistent with interstitial fibrosis, possibly related to chronic hypersensitivity pneumonitis or sarcoidosis. Usual interstitial pneumonitis cannot be excluded. No groundglass attenuation is appreciated. 5.No hilar or mediastinal lymphadenopathy is appreciated. Extensive coronary artery calcifications are present. 6.A moderate amount of upper abdominal ascites is present. The liver is slightly lobulated, and some degree of cirrhosis may be present [id number] Procedure Note [facility], Radiology Results Incoming - 11/16/2018 12:45 PM CDT EXAMINATION: CT CHEST WO CONTRAST CLINICAL HISTORY: J84.9 Interstitial pulmonary disease unspecified, J84.9 TECHNIQUE: Multiple axial images of the chest were obtained without intravenous contrast. The lack of intravenous contrast reduces the sensitivity of detecting solid organ disease and evaluating vasculature. Sagittal and coronal computerized reformatted images were also obtained. CT imaging was performed with iterative reconstruction techniques and/or automated exposure control to reduce radiation dose. COMPARISON: To previous examination from 05/12/2018 IMPRESSION: Findings concerning for malignancy in the right lung. 1. No air trapping is identified. 2. Subpleural cysts and probable honeycombing is present, in a diffuse pattern , without a zonal gradient present. 3. There are 2 spiculated 2 cm mass is present within the right upper lobe adjacent to the horizontal fissure, consistent with malignancy. This was not present on a previous examination from 12/02/2016. 4. Findings are consistent with interstitial fibrosis, possibly related to chronic hypersensitivity pneumonitis or sarcoidosis. Usual interstitial pneumonitis cannot be excluded. No groundglass attenuation is appreciated. 5. No hilar or mediastinal lymphadenopathy is appreciated. Extensive coronary artery calcifications are present. 6. A moderate amount of upper abdominal ascites is present. The liver is slightly lobulated, and some degree of cirrhosis may be present [id number] Performing Organization Address City/[facility]/Zipcode Phone Number [facility] [address] [place] [address] Estimated GFR (05/15/2018 5:20 AM CDT)Only the most recent of10 resultswithin the time period is included. GFR Non Af Amer 66 mL/min/1.73 m2 [facility] DEPARTMENT OF PATHOLOGY AND GENOMIC MEDICINE GFR Af Amer 80 mL/min/1.73 m2 [facility] DEPARTMENT OF Comment: PATHOLOGY AND GENOMIC Chronic [...] groups other than Caucasians and Americans. Specimen Plasma specimen Performing Organization Address [facility] Services[facility] Phone Number [facility] DEPARTMENT OF PATHOLOGY AND [address] [place], [place] [phone] [facility] Prothrombin time with INR (05/15/2018 5:20 AM CDT)Only the most recent of10 resultswithin the time period is included. Prothrombin time 16.1 (H) 12.0 - 15.0 sec [facility] DEPARTMENT OF PATHOLOGY AND GENOMIC MEDICINE INR 1.3 [facility] DEPARTMENT OF Comment: PATHOLOGY AND GENOMIC The International Normalized Ratio (INR) is a therapeutic MEDICINE monitoring tool for patients who are stable on oral anticoagulant therapy. An INR of 2.0-3.0 is suggested for deep vein thrombosis/pulmonary embolism. Specimen Blood Performing Organization Address [facility]/Zipcode Phone Number [facility] DEPARTMENT OF PATHOLOGY AND [address] [place], [place] [phone] [employer] [facility] CBC with platelet and differential (05/15/2018 5:20 AM CDT)Only the most recent of12 resultswithin the time period is included. WBC 7.88 4.50 - 11.00 k/uL [facility] DEPARTMENT OF PATHOLOGY AND GENOMIC MEDICINE RBC 2.79 (L) 4.40 - 6.00 m/uL [facility] DEPARTMENT OF PATHOLOGY AND GENOMIC MEDICINE HGB 8.6 (L) 14.0 - 18.0 g/dL [facility] DEPARTMENT OF PATHOLOGY AND GENOMIC MEDICINE HCT 26.4 (L) 41.0 - 51.0 % [facility] DEPARTMENT OF PATHOLOGY AND GENOMIC MEDICINE MCV 94.6 82.0 - 100.0 fL [facility] DEPARTMENT OF PATHOLOGY AND GENOMIC MEDICINE MCH 30.8 27.0 - 34.0 pg [facility] DEPARTMENT OF PATHOLOGY AND GENOMIC MEDICINE MCHC 32.6 31.0 - 37.0 g/dL [facility] DEPARTMENT OF PATHOLOGY AND GENOMIC MEDICINE RDW - SD 49.1 37.0 - 55.0 fL [facility] DEPARTMENT OF PATHOLOGY AND GENOMIC MEDICINE MPV 11.4 8.8 - 13.2 fL [facility] DEPARTMENT OF PATHOLOGY AND GENOMIC MEDICINE Platelet count 126 (L) 150 - 400 k/uL [facility] DEPARTMENT OF PATHOLOGY AND GENOMIC MEDICINE Nucleated RBC 0.00 /100 WBC [facility] DEPARTMENT OF PATHOLOGY AND GENOMIC MEDICINE Neutrophils 72.1 (H) 39.0 - 69.0 % [facility] DEPARTMENT OF PATHOLOGY AND GENOMIC MEDICINE Lymphocytes 17.4 (L) 25.0 - 45.0 % [facility] DEPARTMENT OF PATHOLOGY AND GENOMIC MEDICINE Monocytes 8.5 0.0 - 10.0 % [facility] DEPARTMENT OF PATHOLOGY AND GENOMIC MEDICINE Eosinophils 1.3 0.0 - 5.0 % [facility] DEPARTMENT OF PATHOLOGY AND GENOMIC MEDICINE Basophils 0.3 0.0 - 1.0 % [facility] DEPARTMENT OF PATHOLOGY AND GENOMIC MEDICINE Immature granulocytes 0.4Comment: 0.0 - 1.0 % [facility] DEPARTMENT OF "Immature PATHOLOGY AND GENOMIC granulocytes" MEDICINE (promyelocytes, myelocytes, metamyelocytes) Specimen Blood Performing Organization Address City/State/Zipcode Phone Number [facility] DEPARTMENT OF PATHOLOGY [address] [address] GENOMIC MEDICINE Comprehensive metabolic panel (05/15/2018 5:20 AM CDT)Only the most recent of4 resultswithin the time period is included. Sodium 136 135 - 148 mEq/L [facility] DEPARTMENT OF PATHOLOGY AND GENOMIC MEDICINE Potassium 3.7 3.5 - 5.0 mEq/L [facility] DEPARTMENT OF PATHOLOGY AND GENOMIC MEDICINE Chloride 94 (L) 98 - 112 mEq/L [facility] DEPARTMENT OF PATHOLOGY AND GENOMIC MEDICINE CO2 31 24 - 31 mEq/L [facility] DEPARTMENT OF PATHOLOGY AND GENOMIC MEDICINE Anion gap 11@ANIO 7 - 15 mEq/L [facility] DEPARTMENT OF PATHOLOGY AND GENOMIC MEDICINE BUN 10 8 - 23 mg/dL [facility] DEPARTMENT OF PATHOLOGY AND GENOMIC MEDICINE Creatinine 1.1 0.70 - 1.20 mg/dL [facility] DEPARTMENT OF PATHOLOGY AND GENOMIC MEDICINE Glucose 99 65 - 99 mg/dL [facility] DEPARTMENT OF PATHOLOGY AND GENOMIC MEDICINE Calcium 8.3 (L) 8.8 - 10.2 mg/dL [facility] DEPARTMENT OF PATHOLOGY AND GENOMIC MEDICINE Protein 6.6 6.3 - 8.3 g/dL [facility] DEPARTMENT OF Comment: PATHOLOGY AND GENOMIC 4.6-7.0 g/dL MEDICINE 1 week 4.4-7.6 g/dL 7 months-1year5.1-7.3 g/dL 1-2 years5.6-7.5 g/dL >3 years6.0-8.0 g/dL 18-150 6.3-8.3 g/dL Albumin 2.1 (L) 3.5 - 5.0 g/dL [facility] DEPARTMENT OF PATHOLOGY AND GENOMIC MEDICINE A/G ratio 0.5 (L) 0.7 - 3.8 [facility] DEPARTMENT OF PATHOLOGY AND GENOMIC MEDICINE Alkaline phosphatase 140 (H) 40 - 129 U/L [facility] DEPARTMENT OF PATHOLOGY AND GENOMIC MEDICINE AST 41 10 - 50 U/L [facility] DEPARTMENT OF PATHOLOGY AND GENOMIC MEDICINE ALT 20 5 - 50 U/L [facility] DEPARTMENT OF PATHOLOGY AND GENOMIC MEDICINE Total bilirubin 1.7 (H) 0.0 - 1.2 mg/dL [facility] DEPARTMENT OF PATHOLOGY AND GENOMIC MEDICINE Specimen Plasma specimen Performing Organization Address City/State/Zipcode Phone Number [facility] DEPARTMENT OF PATHOLOGY AND [address] [place], [place] [phone] [place] [address] Cardiac Shunt Evaluation (05/14/2018 10:51 AM CDT) Narrative Performed At EXAMINATION: NM CARDIAC SHUNT EVALUATION [facility] CLINICAL HISTORY: 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 FINDINGS: No definite tracer uptake in the brain. Physiological uptake in the salivary glands indicates free technetium pertechnetate, an incidental finding. IMPRESSION: No definite evidence of right to left shunt. [facility]-[id number] Procedure Note Interface, Radiology Results Incoming - 05/14/2018 11:08 AM CDT EXAMINATION: NM CARDIAC SHUNT EVALUATION CLINICAL HISTORY: eval hepatopulmonary syndrome pt with cirrhosis and ILD TECHNIQUE: The patient was injected with 5 mCi of [id number] intravenously, followed by imaging of the brain. FINDINGS: No definite tracer uptake in the brain. Physiological uptake in the salivary glands indicates free technetium pertechnetate, an incidental finding. IMPRESSION: No definite evidence of right to left shunt. [facility]-[id number] Performing Organization Address City/State/Zipcode Phone Number [facility] [address] [facility] [place] [address] Echocardiogram complete w contrast and 3D if needed (05/14/2018 9:32 AM CDT) Narrative Performed At [facility] Echocardiography Report [id number] [facility] [address], [place] [address] Pat.Name:OLIVIER BRAY.ID:[id number] .Date: 05/14/2018 Refer.MD:RONALDO SAMS MD Exam Time: 8:55:00 AMStudy Type:Routine Echo Height:67inWeight: 192lb BSA: 1.99 m2 DOBAge:1945,72Y Sex: MALEBP:124/76 Sonogrphr: Elza Giang RDCS, RVSPat. Stat.:Inpatient Room:[facility] Study Status:Final Echo Event ID:[id number] Order ID:[id number] Reason for Study:HF; initial eval with symptoms History / Clinical:Coronary Artery Disease, Diabetes, Hyperlipidemia, TIA Procedures:2D Echo, Colorflow Doppler SUMMARY: Estimated EF is 55-59%. Mild to moderate aortic valve stenosis. LV filling pressure is normal. FINDINGS: LV: LV size is normal. There is moderate concentric LV hypertrophy.LV EF is normal. Overall wall motion is normal.Estimated EF is 55-59%. RV: RV size is normal. RV systolic function is normal. LA: LA volume is severely enlarged. RA: RA size is normal. AO: Aortic root diameter is normal. NICOLE: No pericardial effusion. AV: Moderate thickening and calcification of AV leaflets. A traceof aortic regurgitation. Mild to moderate aortic valvestenosis. Estimated mean aortic valve gradient 23 mmHgwith a valve area of 1.2 cm2. MV: Moderate mitral annular calcification. PV: No structural PV abnormalities noted. TV: No structural TV abnormalities noted. Taylor: LV relaxation is impaired. LV filling pressure is normal. Other:Insufficient TR jet to estimate PA systolic pressure. MEASUREMENTS: 2D Parasternal Long [place] LVIDd5 cmIndex2.5 cm/m LV Nljl035.8 g(122-174) LVIDs3.6 cmLVM Giatw438.6 g/m2 LV%fs 28 % RWT0.5 IVSd 1.3 cmLVOT 2.2 cm LVPWd1.3 cmAo An2.5 cm LA Ds5.1 cmAo Rtd 3.8 cm Index1.9 cm/m LA Sng Plane LA Area 30.7 cm2(8.8-23.4) LA Vol 118.8 ml Index59.7 ml/m LA LngAx 6.3 cm DOPPLER AV For Flow/KELLY AV pkVel 353.1 cm/s (100-170) AV AC/ET 0.3 AV mnVel 228.5 cm/Neela TVI64.1 cm AV pkPG 49.9 mmHgAVpkAcRt 5941.4 cm/s2 AV Mean G 25.6 mmHgAV VoZt0192.7 cm/s2 AV AC 82 msec (83-118) AV Area1.2 cm2(3-5) AV ET280 msec LVOT For Flow LVOT Area3.8 cm2 LVOT SV 73.9 ml [id number] cm/sHR84.3 bpm LVOTpkPG 5.4 mmHgLVOT CO6.2 l/min LVOTmnPG 2.4 mmHgLVOT CI3.1 l/m/m2 LVOT TVI19.5 cm Signed 05/14/2018 02:22 PM Tony Call M.D. Procedure Note Interface, Radiology Results In - 05/14/2018 2:23 PM CDT Echocardiography Report [id number]Name: OLIVIER BRAY.ID: [id number] .Date: 05/14/2018 Refer.MD: RONALDO SAMS MD Exam Time: 8:55:00 AM Study Type:Routine Echo Height: 67in Weight: 192lb BSA: 1.99 m2 Age: 5 1945,72Y Sex: MALE BP: 124/76 Sonogrphr: Elza Giang RDCS, RVSPat. Stat.:Inpatient Room: [facility] Study Status:Final Echo Event ID:[id number] Order ID: [id number] Reason for Study:HF; initial eval with symptoms History / Clinical:Coronary Artery Disease, Diabetes, Hyperlipidemia, TIA Procedures:2D Echo, Colorflow Doppler SUMMARY: Estimated EF is 55-59%. Mild to moderate aortic valve stenosis. LV filling pressure is normal. FINDINGS: LV: LV size is normal. There is moderate concentric LV hypertrophy. LV EF is normal. Overall wall motion is normal. Estimated EF is 55-59%. RV: RV size is normal. RV systolic function is normal. LA: LA volume is severely enlarged. RA: RA size is normal. AO: Aortic root diameter is normal. NICOLE: No pericardial effusion. AV: Moderate thickening and calcification of AV leaflets. A trace of aortic regurgitation. Mild to moderate aortic valve stenosis. Estimated mean aortic valve gradient 23 mmHg with a valve area of 1.2 cm2. MV: Moderate mitral annular calcification. PV: No structural PV abnormalities noted. TV: No structural TV abnormalities noted. Taylor: LV relaxation is impaired. LV filling pressure is normal. Other: Insufficient TR jet to estimate PA systolic pressure. MEASUREMENTS: 2D Parasternal Long [place] LVIDd 5 cm Index 2.5 cm/m LV Mass 261.8 g (122-174) LVIDs 3.6 cm LVM Index 131.6 g/m2 LV%fs 28 % RWT 0.5 IVSd 1.3 cm LVOT 2.2 cm LVPWd 1.3 cm Ao An 2.5 cm LA Ds 5.1 cm Ao Rtd 3.8 cm Index 1.9 cm/m LA Sng Plane LA Area 30.7 cm2 (8.8-23.4) LA Vol 118.8 ml Index 59.7 ml/m LA LngAx 6.3 cm DOPPLER AV For Flow/KELLY AV pkVel 353.1 cm/s (100-170) AV AC/ET 0.3 AV mnVel 228.5 cm/s AV TVI 64.1 cm AV pkPG 49.9 mmHg AVpkAcRt 5941.4 cm/s2 AV Mean G 25.6 mmHg AV DeRt 1259.7 cm/s2 AV AC 82 msec (83-118) AV Area 1.2 cm2 (3-5) AV ET 280 msec LVOT For Flow LVOT Area 3.8 cm2 LVOT SV 73.9 ml LVOTpkVel 116 cm/s HR 84.3 bpm LVOTpkPG 5.4 mmHg LVOT CO 6.2 l/min LVOTmnPG 2.4 mmHg LVOT CI 3.1 l/m/m2 LVOT TVI 19.5 cm Signed 05/14/2018 02:22 PM Tony Call M.D. Performing Organization Address City/State/Zipcode Phone Number [facility] [address] [place] [address] Hemoglobin A1c (05/13/2018 5:00 AM CDT) Hemoglobin A1C 5.0 4.0 - 5.6 % [facility] DEPARTMENT OF PATHOLOGY Comment: [facility] MEDICINE HbA1c cutoffs for diagnosing diabetes: 4.0% - 5.6%=normal 5.7% - 6.4%=increased risk for diabetes (prediabetes) >=6.5%=diabetes Goals for glycemic control (ADA 2016) < 7.0%Target for non adults with diabetes. More or less stringent targets may be appropriate for individual patients. <7.5% Target for Children and adolescents with type 1 diabetes. Narrative Performed At [facility] ADDED BY BENEDICT CISNEROS/LEROY [facility] DEPARTMENT OF PATHOLOGY AND GENOMIC 05/13/201812:23 NA MEDICINE Performing Organization Address [facility] Services[facility] Phone Number [facility] DEPARTMENT OF PATHOLOGY AND [address] [place] [address] [facility] CT Angiogram Pe Chest (05/12/2018 6:33 PM CDT) Narrative Performed At CT ANGIOGRAM PE CHEST [facility] CLINICAL INDICATION: PE suspectedlow pretest prob TECHNIQUE:CT angiographic images of the chest were obtained during intravenous administration of iodinated contrast.Computerized, reformatted images and 3-D MIP images were obtained and archived (per CT pulmonary embolism protocol). CT scans are performed using radiation dose reduction techniques (iterative reconstruction and/or automated exposure control). Technical factors are evaluated and adjusted to ensure appropriate moderation of exposure. Automated dose management technology is applied to adjust radiation exposure while achieving a diagnostic quality image. COMPARISON:12/02/[address] FINDINGS: Pulmonary arteries: Diagnostic quality of study is adequate for the evaluation of pulmonary embolism. There is no evidence of acute or chronic pulmonary embolism. No evidence of right heart strain. The main pulmonary artery is normal in diameter. Aorta:Atherosclerosis. Lungs and large airways: Findings of chronic interstitial lung disease including tenting of the fissures, traction bronchiectasis, and diffuse cystic honeycombing. No convincing apical basilar gradient.No airspace consolidations or suspicious nodules. Pleura:No pleural effusion, pleural thickening, or pneumothorax. Heart and pericardium:Heart size is normal. No pericardial effusion. Mediastinum and haydee:No mass or hematoma. Lymph nodes:No pathological adenopathy in the haydee, axilla or mediastinum. Chest wall:Unremarkable. Bones:No acute bony abnormalities. Likely chronic compression fracture involving the T12 vertebral body. Upper abdomen: Limited evaluation of the upper abdomen demonstrating cirrhotic liver with small ascites. There are colonic diverticula. No acute abnormality.. IMPRESSION: 1. Negative CTA examination for pulmonary embolism. 2. No acute pulmonary abnormality. 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 [facility]-[id number] Procedure Note [facility], Radiology Results Incoming - 05/12/2018 8:[address] ANGIOGRAM PE CHEST CLINICAL INDICATION: PE suspected low pretest prob TECHNIQUE: CT angiographic images of the chest were obtained during intravenous administration of iodinated contrast. Computerized, reformatted images and 3-D MIP images were obtained and archived (per CT pulmonary embolism protocol). CT scans are performed using radiation dose reduction techniques (iterative reconstruction and/or automated exposure control). Technical factors are evaluated and adjusted to ensure appropriate moderation of exposure. Automated dose management technology is applied to adjust radiation exposure while achieving a diagnostic quality image. COMPARISON: 12/02/[address] FINDINGS: Pulmonary arteries: Diagnostic quality of study is adequate for the evaluation of pulmonary embolism. There is no evidence of acute or chronic pulmonary embolism. No evidence of right heart strain. The main pulmonary artery is normal in diameter. Aorta: Atherosclerosis. Lungs and large airways: Findings of chronic interstitial lung disease including tenting of the fissures, traction bronchiectasis, and diffuse cystic honeycombing. No convincing apical basilar gradient. No airspace consolidations or suspicious nodules. Pleura: No pleural effusion, pleural thickening, or pneumothorax. Heart and pericardium: Heart size is normal. No pericardial effusion. Mediastinum and haydee: No mass or hematoma. Lymph nodes: No pathological adenopathy in the haydee, axilla or mediastinum. Chest wall: Unremarkable. Bones: No acute bony abnormalities. Likely chronic compression fracture involving the T12 vertebral body. Upper abdomen: Limited evaluation of the upper abdomen demonstrating cirrhotic liver with small ascites. There are colonic diverticula. No acute abnormality.. IMPRESSION: 1. Negative CTA examination for pulmonary embolism. 2. No acute pulmonary abnormality. 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 [facility]-[id number] Performing Organization Address City/State/Zipcode Phone Number [facility] [address] [place] [phone] Alpha fetoprotein (05/11/2018 5:20 AM CDT) Alpha fetoprotein 2.7 0.0 - 8.3 ng/mL [facility] DEPARTMENT OF Comment: PATHOLOGY AND GENOMIC The Irene 8000 AFP immunoassay was used. MEDICINE Results obtained with different assay methods or kits should not be used interchangeably and may be different. Specimen Serum Performing Organization Address [facility] Phone Number [facility] DEPARTMENT OF PATHOLOGY AND [address] [place] [address] Phosphorus level (05/11/2018 5:20 AM CDT)Only the most recent of6 resultswithin the time period is included. Phosphorus 2.8 2.4 - 4.5 mg/dL [facility] DEPARTMENT OF PATHOLOGY AND GENOMIC [facility] Specimen Plasma specimen Performing Organization Address [facility] Phone Number [facility] DEPARTMENT OF PATHOLOGY AND [address] [place] [address] Magnesium level (05/11/2018 5:20 AM CDT)Only the most recent of6 resultswithin the time period is included. Magnesium 1.7 1.6 - 2.4 mg/dL [facility] DEPARTMENT OF PATHOLOGY AND GENOMIC MEDICINE Specimen Plasma specimen Performing Organization Address [facility] Phone Number [facility] DEPARTMENT OF PATHOLOGY AND [address] [place] [address] Hepatic function panel (05/11/2018 5:20 AM CDT)Only the most recent of6 resultswithin the time period is included. Albumin 2.1 (L) 3.5 - 5.0 g/dL [facility] DEPARTMENT OF PATHOLOGY AND GENOMIC MEDICINE Total bilirubin 1.6 (H) 0.0 - 1.2 mg/dL [facility] DEPARTMENT OF PATHOLOGY AND GENOMIC MEDICINE Bilirubin direct 1.0 (H) 0.0 - 0.3 mg/dL [facility] DEPARTMENT OF PATHOLOGY AND GENOMIC MEDICINE Alkaline phosphatase 130 (H) 40 - 129 U/L [facility] DEPARTMENT OF PATHOLOGY AND GENOMIC MEDICINE Protein 6.1 (L) 6.3 - 8.3 g/dL [facility] DEPARTMENT OF Comment: PATHOLOGY AND GENOMIC [place] 4.6-7.0 g/dL MEDICINE 1 week 4.4-7.6 g/dL 7 months-1year5.1-7.3 g/dL 1-2 years5.6-7.5 g/dL >3 years6.0-8.0 g/dL 18-150 6.3-8.3 g/dL ALT 15 5 - 50 U/L [facility] DEPARTMENT OF PATHOLOGY AND GENOMIC MEDICINE AST 29 10 - 50 U/L [facility] DEPARTMENT OF PATHOLOGY AND GENOMIC MEDICINE Specimen Plasma specimen Performing Organization Address City/[facility] Phone Number [facility] DEPARTMENT PATHOLOGY AND [address] [place] [address] [employer] [facility] Basic metabolic panel (05/11/2018 5:20 AM CDT)Only the most recent of6 resultswithin the time period is included. Sodium 138 135 - 148 mEq/L [facility] DEPARTMENT OF PATHOLOGY AND GENOMIC MEDICINE Potassium 3.7 3.5 - 5.0 mEq/L [facility] DEPARTMENT OF PATHOLOGY AND GENOMIC MEDICINE Chloride 100 98 - 112 mEq/L [facility] DEPARTMENT OF PATHOLOGY AND GENOMIC MEDICINE CO2 29 24 - 31 mEq/L [facility] DEPARTMENT OF PATHOLOGY AND GENOMIC MEDICINE Anion gap 9@ANIO 7 - 15 mEq/L [facility] DEPARTMENT OF PATHOLOGY AND GENOMIC MEDICINE BUN 10 8 - 23 mg/dL [facility] DEPARTMENT OF PATHOLOGY AND GENOMIC MEDICINE Creatinine 0.9 0.70 - 1.20 mg/dL [facility] DEPARTMENT OF PATHOLOGY AND GENOMIC MEDICINE Glucose 105 (H) 65 - 99 mg/dL [facility] DEPARTMENT OF PATHOLOGY AND GENOMIC MEDICINE Calcium 8.3 (L) 8.8 - 10.2 mg/dL [facility] DEPARTMENT OF PATHOLOGY AND GENOMIC MEDICINE Specimen Plasma specimen Performing Organization Address [facility] Phone Number [facility] DEPARTMENT OF PATHOLOGY AND [address] [place] [address] [facility] US Abdomen Complete (05/10/2018 9:30 PM CDT) Narrative Performed At Examination:US ABDOMEN COMPLETE [facility] Clinical History: CIRRHOSIS, HCC screening Comparison: None. Findings: Abdominal ultrasound was performed. The liver is increased in echogenicity. It is nodular in contour. No focal lesion is seen. The patient is status post cholecystectomy. The common bile duct measured 5.9 mm. The portal vein is patent. Pancreas is partially visualized but unremarkable. The spleen is slightly enlarged measuring up to 14.4 cm. The right kidney is within normal limits without hydronephrosis or urinary calculus. There is a left renal cyst noted measuring 2.7 x 2.5 x 2.0 cm. Aorta is partially visualized but unremarkable. Vena cava is unremarkable. Ascites is noted. No pleural effusion is seen. IMPRESSION: 1. Hepatic cirrhosis with splenomegaly and ascites. 2. Left renal cyst. [facility]-[id number] Procedure Note Interface, Radiology Results Incoming - 05/11/2018 12:00 AM CDT Examination: US ABDOMEN COMPLETE Clinical History: CIRRHOSIS, HCC screening Comparison: None. Findings: Abdominal ultrasound was performed. The liver is increased in echogenicity. It is nodular in contour. No focal lesion is seen. The patient is status post cholecystectomy. The common bile duct measured 5.9 mm. The portal vein is patent. Pancreas is partially visualized but unremarkable. The spleen is slightly enlarged measuring up to 14.4 cm. The right kidney is within normal limits without hydronephrosis or urinary calculus. There is a left renal cyst noted measuring 2.7 x 2.5 x 2.0 cm. Aorta is partially visualized but unremarkable. Vena cava is unremarkable. Ascites is noted. No pleural effusion is seen. IMPRESSION: 1. Hepatic cirrhosis with splenomegaly and ascites. 2. Left renal cyst. [facility]-[id number] Performing Organization Address [facility]/[employer] Phone Number [facility] [address] [place] [address] XR Chest 1 Vw Portable (05/10/2018 6:41 AM CDT) Narrative Performed At EXAMINATION:XR CHEST 1 VW PORTABLE [facility] CLINICAL HISTORY:Ventilator Patient COMPARISON:05/30/2013 chest IMPRESSION: Considerable interstitial changes throughout each lung showing progression compared to previous. Interstitial fibrosis suspected. Difficult to exclude superimposed inflammatory process. Lungs are somewhat hypoexpanded. No effusion No pneumothorax Mild cardiac enlargement. Atherosclerosis arch aorta mild in degree. Visualized skeleton intact Single view chest [id number] Procedure Note Interface, Radiology Results Incoming - 05/10/2018 8:20 AM CDT EXAMINATION: XR CHEST 1 VW PORTABLE CLINICAL HISTORY: Ventilator Patient COMPARISON: 05/30/2013 chest IMPRESSION: Considerable interstitial changes throughout each lung showing progression compared to previous. Interstitial fibrosis suspected. Difficult to exclude superimposed inflammatory process. Lungs are somewhat hypoexpanded. No effusion No pneumothorax Mild cardiac enlargement. Atherosclerosis arch aorta mild in degree. Visualized skeleton intact Single view chest [id number] Performing Organization Address [facility] Phone Number [facility] [address] [place] [phone] LDH (05/10/2018 12:55 AM CDT)Only the most recent of4 resultswithin the time period is included. LDH 215 87 - 225 U/L [facility] DEPARTMENT OF PATHOLOGY AND GENOMIC MEDICINE Specimen Plasma specimen Performing Organization Address [facility] Phone Number [facility] DEPARTMENT OF PATHOLOGY AND [address] [place] [address] Partial thromboplastin time, activated (05/10/2018 12:30 AM CDT)Only the most recent of3 resultswithin the time period is included. PTT 27.9 23.0 - 36.0 sec [facility] DEPARTMENT OF PATHOLOGY Comment: AND [facility] MEDICINE PTT therapeutic range for unfractionated heparin is 61.0-112.0 seconds which corresponds to Anti-Xa 0.3-0.7 U/ml. Specimen Blood Performing Organization Address [facility] Phone Number [facility] DEPARTMENT OF PATHOLOGY AND [address] [place] [address] Fibrinogen (05/10/2018 12:30 AM CDT)Only the most recent of5 resultswithin the time period is included. Fibrinogen 250 200 - 450 mg/dL [facility] DEPARTMENT OF PATHOLOGY AND GENOMIC MEDICINE Specimen Blood Performing Organization Address [facility] Number [facility] DEPARTMENT OF PATHOLOGY AND [address] [place] [address] Lactic acid level (05/09/2018 3:00 AM CDT)Only the most recent of3 resultswithin the time period is included. Lactic acid 2.2 0.5 - 2.2 mmol/L [facility] DEPARTMENT OF PATHOLOGY AND GENOMIC MEDICINE Specimen Plasma specimen Performing Organization Address [facility] Phone Number [facility] DEPARTMENT OF PATHOLOGY AND [address] [place] [address] Ionized calcium (05/09/2018 3:00 AM CDT)Only the most recent of3 resultswithin the time period is included. pH 7.54 [facility] DEPARTMENT OF PATHOLOGY AND GENOMIC MEDICINE Ionized calcium 1.19 1.11 - 1.32 mmol/L [facility] DEPARTMENT OF PATHOLOGY AND GENOMIC MEDICINE Specimen Plasma specimen Performing Organization Address [facility]/Zipcode Phone Number [facility] DEPARTMENT OF PATHOLOGY AND [address] [place] [address] [employer] MEDICINE US Abdominal Paracentesis Imaging (05/08/2018 9:50 AM CDT)Only the most recent of2 resultswithin the time period is included. Narrative Performed At EXAMINATION:US ABDOMINAL PARACENTESIS IMAGING [facility] CLINICAL HISTORY: ASCITES COMPARISON: Paracentesis from April 24, 2018 TECHNIQUE: The procedure's risks, benefits, and alternatives were discussed with the patient and written, informed consent was obtained. Using ultrasound guidance, a site for needle entry was selected and the overlying skin was prepped and draped in the usual sterile fashion. 1% buffered lidocaine was used for local anesthesia. A 5 Guyan[place] Yueh catheter was inserted into the peritoneal cavity. 1.5 L of yellow peritoneal fluid was removed. Aspirated fluid was also sent for laboratory analysis. The patient tolerated the procedure without difficulty. IMPRESSION: Ultrasound-guided diagnostic and therapeuticparacentesis. [facility]-[id number] Procedure Note Interface, Radiology Results Incoming - 05/08/2018 11:11 AM CDT EXAMINATION: US ABDOMINAL PARACENTESIS IMAGING CLINICAL HISTORY: ASCITES COMPARISON: Paracentesis from April 24, 2018 TECHNIQUE: The procedure's risks, benefits, and alternatives were discussed with the patient and written, informed consent was obtained. Using ultrasound guidance, a site for needle entry was selected and the overlying skin was prepped and draped in the usual sterile fashion. 1% buffered lidocaine was used for local anesthesia. A 5 Guyanese Yueh catheter was inserted into the peritoneal cavity. 1.5 L of yellow peritoneal fluid was removed. Aspirated fluid was also sent for laboratory analysis. The patient tolerated the procedure without difficulty. IMPRESSION: Ultrasound-guided diagnostic and therapeutic paracentesis. [facility]-[id number] Performing Organization Address [facility]/[employer] Phone Number [facility] [address] [place] [address] Aerobic culture (05/08/2018 9:40 AM CDT)Only the most recent of2 resultswithin the time period is included. Aerobic culture isolate No growth after 3 days. [facility] DEPARTMENT OF Comment: PATHOLOGY AND GENOMIC Specimen Information MEDICINE Specimen Source: Peritoneal fluid Specimen Site: Abdomen, right Specimen Peritoneal fluid - Abdomen, right Performing Organization Address City/[facility]/Zipcode Phone Number [facility] DEPARTMENT OF PATHOLOGY AND [address] [place] [address] GENOMIC MEDICINE Gram stain (05/08/2018 9:40 AM CDT)Only the most recent of2 resultswithin the time period is included. Gram stain isolate Few WBC's [facility] DEPARTMENT OF PATHOLOGY Rare Gram positive cocci in pairs AND GENOMIC MEDICINE Comment: Specimen Information Specimen Source: Peritoneal fluid Specimen Site: Abdomen, right Specimen Peritoneal fluid - Abdomen, right Performing Organization Address City/[facility] Phone Number [facility] DEPARTMENT OF PATHOLOGY AND [address] [place] [address] MEDICINE Anaerobic culture (05/08/2018 9:40 AM CDT) Anaerobic culture No anaerobic organisms isolated. [facility] DEPARTMENT OF isolate Comment: PATHOLOGY AND GENOMIC Specimen Information MEDICINE Specimen Source: Peritoneal fluid Specimen Site: Abdomen, right Specimen Peritoneal fluid - Abdomen, right Performing Organization Address [facility] Phone Number [facility] DEPARTMENT OF PATHOLOGY AND [address] [place] [address] GENOMIC MEDICINE Cell count and differential, body fluid (05/08/2018 9:40 AM CDT)Only the most recent of2 resultswithin the time period is included. [facility] fluid type Ascitic [facility] DEPARTMENT OF PATHOLOGY AND GENOMIC MEDICINE Color, fluid Yellow [facility] DEPARTMENT OF PATHOLOGY AND GENOMIC MEDICINE Appearance, fluid Clear [facility] DEPARTMENT OF PATHOLOGY AND GENOMIC MEDICINE RBC, fluid SEE COMMENTComment: 1+ /CMM [facility] DEPARTMENT OF (0 - 500 RBC/CMM) PATHOLOGY AND GENOMIC MEDICINE Nucleated cells, fluid 639 /CMM [facility] DEPARTMENT OF PATHOLOGY AND GENOMIC MEDICINE Fluid mononuclear cell See Diff [facility] DEPARTMENT OF PATHOLOGY AND GENOMIC MEDICINE Neutrophils, fluid 6 % [facility] DEPARTMENT OF PATHOLOGY AND GENOMIC MEDICINE Lymphocytes, fluid 17 % [facility] DEPARTMENT OF PATHOLOGY AND GENOMIC MEDICINE Mesothelial cells, fluid 1 % [facility] DEPARTMENT OF PATHOLOGY AND GENOMIC MEDICINE Macrophages, fluid 76 % [facility] DEPARTMENT OF PATHOLOGY AND GENOMIC MEDICINE Specimen Fluid Performing Organization Address [facility] Phone Number [facility] DEPARTMENT OF PATHOLOGY AND [address] [place] [address] GENOMIC MEDICINE Protein, [facility] (05/08/2018 9:40 AM CDT) Fluid type Ascitic [facility] DEPARTMENT OF PATHOLOGY AND GENOMIC MEDICINE Protein, fluid 1.5 g/dL [facility] DEPARTMENT OF PATHOLOGY Comment: AND GENOMIC MEDICINE Analysis performed on Irene 8000 analyzer. This is not an approved methodology for this specimen type;accuracy and clinical significance uncertain. Specimen Fluid Performing Organization Address City/State/Zipcode Phone Number [facility] DEPARTMENT OF PATHOLOGY AND [address] [place] [phone] GENOMIC MEDICINE Albumin, misc fluid (05/08/2018 9:40 AM CDT) Fluid type Ascitic [facility] DEPARTMENT OF PATHOLOGY AND GENOMIC MEDICINE Albumin, fluid 0.6 g/dL [facility] DEPARTMENT OF PATHOLOGY Comment: AND GENOMIC MEDICINE Analysis performed on Irene 8000 analyzer. This is not an approved methodology for this specimen type;accuracy and clinical significance uncertain. Specimen Fluid Performing Organization Address City/State/Zipcode Phone Number [facility] DEPARTMENT OF PATHOLOGY AND [address] [place] [phone] GENOMIC MEDICINE Cytology (non-gynecological) request (05/08/2018 9:40 AM CDT) [facility] DEPARTMENT OF PATHOLOGY AND GENOMIC MEDICINE Cytology See link below for PDF [facility] DEPARTMENT OF (non-gynecological) report Lab Report PATHOLOGY AND GENOMIC MEDICINE Result status This is Final Report [facility] DEPARTMENT OF for [id number] PATHOLOGY AND GENOMIC MEDICINE Performing Organization Address City/[facility] Services[facility] Phone Number [facility] DEPARTMENT OF PATHOLOGY AND [address] [place] [phone] GENOMIC MEDICINE Troponin (05/08/2018 2:28 AM CDT) Troponin <0.30 0.00 - 0.30 ng/mL [facility] DEPARTMENT OF PATHOLOGY Comment: AND GENOMIC MEDICINE 0.30 - 1.49 ng/mlMay indicate increased risk of acute coronary syndrome. >=1.5 ng/mlConsistent with acute myocardial infarction. The diagnostic value of a single normal or non-diagnostic result is questionable.Serial samples at 2-6 hour intervals are required to rule out acute myocardial injury. Specimen Plasma specimen Performing Organization Address City/[facility]/Zipcode Phone Number [facility] DEPARTMENT OF PATHOLOGY AND [address] [place] [phone] GENOMIC MEDICINE ECG 12 lead (05/08/2018 2:14 AM CDT) Ventricular rate 74 [facility] Atrial rate 74 [facility] KS interval 150 [facility] QRSD interval 90 [facility] QT interval 400 [facility] QTC interval 444 [facility] P axis 1 21 [facility] QRS axis 1 -19 [facility] MUSE T wave axis 78 [facility] MUSE EKG impression Normal sinus rhythm-Inferior infarct , age [facility] MUSE undetermined-Poor R wave progression- Performing Organization Address City/[facility]/Zipcode Phone Number [facility] MUSE [address] [place] [phone] Ionized calcium, arterial (05/08/2018 2:05 AM CDT) Ionized calcium, arterial 1.03 (L) 1.11 - 1.32 mmol/L [facility] DEPARTMENT OF PATHOLOGY AND GENOMIC MEDICINE Specimen Blood Performing Organization Address [facility] Services[facility] Phone Number [facility] DEPARTMENT OF PATHOLOGY AND [address] [place] [phone] [facility] Arterial blood gas (05/08/2018 2:05 AM CDT) pH, arterial 7.47 (H) 7.35 - 7.45 [facility] DEPARTMENT OF PATHOLOGY AND GENOMIC MEDICINE pCO2, arterial 38 35 - 45 mmHg [facility] DEPARTMENT OF PATHOLOGY AND GENOMIC MEDICINE pO2, arterial 147 (H) 80 - 90 mmHg [facility] DEPARTMENT OF PATHOLOGY AND GENOMIC MEDICINE Bicarbonate, arterial 27.6 21.0 - 28.0 mmol/L [facility] DEPARTMENT OF PATHOLOGY AND GENOMIC MEDICINE Base excess, arterial 4 (H) -2 - 2 mEq/L [facility] DEPARTMENT OF PATHOLOGY AND GENOMIC MEDICINE O2 saturation, arterial 100 95 - 100 % [facility] DEPARTMENT OF PATHOLOGY AND GENOMIC MEDICINE Specimen Blood Performing Organization Address [facility] Phone Number [facility] DEPARTMENT OF PATHOLOGY AND [address] [place] [phone] [facility] MEDICINE Hemoglobin & hematocrit (05/07/2018 10:09 AM CDT) HGB 6.9 (LL) 14.0 - 18.0 g/dL [facility] DEPARTMENT OF PATHOLOGY Comment: AND GENOMIC MEDICINE Results double checked. _ results called to and read back by _GEENA WEBB (name/location) at _ 05/07/201811:47 _(date/time) by _NYASIA. HCT 21.2 (L) 41.0 - 51.0 % [facility] DEPARTMENT OF PATHOLOGY AND GENOMIC MEDICINE Performing Organization Address City/[facility] Services[facility] Phone Number [facility] DEPARTMENT OF PATHOLOGY AND [address] [place], [place] [phone] GENOMIC MEDICINE Thromboelastograph (05/06/2018 8:25 PM CDT) TEG R time 4.1 min [facility] DEPARTMENT OF PATHOLOGY AND GENOMIC MEDICINE TEG K time 1.1 min [facility] DEPARTMENT OF PATHOLOGY AND GENOMIC MEDICINE TEG angle 73.3 Deg [facility] DEPARTMENT OF PATHOLOGY AND GENOMIC MEDICINE TEG max amplitude 69.8 mm [facility] DEPARTMENT OF PATHOLOGY AND GENOMIC MEDICINE TEG coagulation index 3.20 Index [facility] DEPARTMENT OF PATHOLOGY AND GENOMIC MEDICINE TEG fibrinolysis/30 0.2 % [facility] DEPARTMENT OF Comment: PATHOLOGY AND GENOMIC Reference Ranges for TEG: MEDICINE Test: UnitsKaolin:Citrate Kaolin: Rmin 3.7-8.3 2.5- 7.5 Kmin 0.5-3.7 0.8- 2.8 AngleDeg 46.8-73.6 55.2-78.4 MA mm54.5-72.5 50.6-69.4 Gd/sc [id number] CI Index-3.0 - 3.0-3.0 - 3.0 LY30 % 0.0 - 7.5 0.0 - 7.5 Specimen description, TEG OTHER [facility] DEPARTMENT OF PATHOLOGY AND GENOMIC MEDICINE Sample type, TEG CK [facility] DEPARTMENT OF PATHOLOGY AND GENOMIC MEDICINE TEG SP time 3.7 min [facility] DEPARTMENT OF PATHOLOGY AND GENOMIC MEDICINE TEG G 11,558.9 d/sc [facility] DEPARTMENT OF PATHOLOGY AND GENOMIC MEDICINE Specimen Plasma specimen Performing Organization Address City/[facility] Services[facility] Phone Number [facility] DEPARTMENT OF PATHOLOGY AND [address] [place] [address] Prepare RBC, 1 Units (05/06/2018 7:26 PM CDT) Product name Red Blood Cells -1, [facility] DEPARTMENT OF Leukored PATHOLOGY AND GENOMIC MEDICINE Unit number [id number] [facility] DEPARTMENT OF PATHOLOGY AND GENOMIC MEDICINE Product code [id number] [facility] DEPARTMENT OF PATHOLOGY AND GENOMIC MEDICINE Dispense status Transfused [facility] DEPARTMENT OF PATHOLOGY AND GENOMIC MEDICINE Blood expiration date [facility] DEPARTMENT OF PATHOLOGY AND GENOMIC MEDICINE Blood type code 6200 [facility] DEPARTMENT OF PATHOLOGY AND GENOMIC MEDICINE Blood type A POSITIVE [facility] DEPARTMENT OF PATHOLOGY AND GENOMIC MEDICINE Performing Organization Address City/[facility] Services[facility] Phone Number [facility] DEPARTMENT OF PATHOLOGY AND [address] [place], [place] [phone] GENOMIC MEDICINE Type and screen (05/06/2018 7:26 PM CDT) ABO grouping A [facility] DEPARTMENT OF PATHOLOGY AND GENOMIC MEDICINE Rh type POS [facility] DEPARTMENT OF PATHOLOGY AND GENOMIC MEDICINE Antibody screen (gel) NEG [facility] DEPARTMENT OF PATHOLOGY AND GENOMIC MEDICINE Specimen Blood Performing Organization Address City/State/Zipcode Phone Number [facility] DEPARTMENT OF PATHOLOGY AND [address] [place] [address] GENOMIC MEDICINE IR Transjugular Liver Biopsy (04/26/2018 1:57 PM CDT) Narrative Performed At PERFORMING RADIOLOGIST: ANNA Duncan MD ASSISTANTS: None ANESTHESIA TYPE: Moderate sedation was administered by the procedure nurse and monitored by the procedure physician for a ewpd-ue-fwpx sedation time of 53 minutes. Lidocaine 1% [...] into the inferior vena cava. A long 9-Guyanese vascular sheath was then placed, and advanced over the guidewire into the right atrium.A 5-Guyanese multipurpose catheter and the Amplatz wire were [...] liver biopsy system was advanced through the 9-Guyanese vascular sheath into the right hepatic vein. With the system in this position, multiple 18-gauge core liver biopsy specimens were obtained and submitted to pathology. The transjugular liver biopsy system and 9-Guyanese vascular sheath were then removed from the [...] remained stable, patient will be discharged home. [facility]-[id number] Procedure Note [facility], Radiology Results Incoming - 04/26/2018 4:08 PM CDT PERFORMING RADIOLOGIST: Luis Duncan MD ASSISTANTS: None ANESTHESIA TYPE: Moderate sedation was administered by the procedure nurse and monitored by the procedure physician for a qliv-fw-mras sedation time of 53 minutes. Lidocaine 1 [...] into the inferior vena cava. A long 9-Guyanese vascular sheath was then placed , and advanced over the guidewire into the right atrium. A 5-Guyanese multipurpose catheter and the Amplatz wire were [...] liver biopsy system was advanced through the 9-Guyanese vascular sheath into the right hepatic vein. With the system in this position, multiple 18-gauge core liver biopsy specimens were obtained and submitted to pathology. The transjugular liver biopsy system and 9-Guyanese vascular sheath were then removed from the [...] remained stable, patient will be discharged home. [facility]-[id number] Performing Organization Address City/[facility]/Zipcode Phone Number [facility] [address] [place] [address] Surgical pathology request (04/26/2018 1:39 PM CDT) [facility] DEPARTMENT OF PATHOLOGY AND GENOMIC MEDICINE Surgical pathology report See link below for PDF [facility] DEPARTMENT OF Lab Report PATHOLOGY AND GENOMIC MEDICINE Result status This is Final Report [facility] DEPARTMENT OF for [id number] PATHOLOGY AND GENOMIC MEDICINE Performing Organization Address [facility] Phone Number [facility] DEPARTMENT OF PATHOLOGY AND [address] [place] [phone] [facility] MEDICINE MRI CHOLANGIOGRAM W WO CONTRAST (04/13/2018 9:08 AM CDT) Narrative Performed At EXAMINATION:MRI [facility] WO [facility]AST [facility] H[facility]:K74.60 Unspecified cirrhosis of liver, R94.5 [...] (3 months) follow-up with liver protocol CT. [facility]-[id number] Procedure Note Interface, Radiology Results Incoming - 04/13/2018 10:05 [...] (3 months) follow-up with liver protocol CT. [facility]-[id number] Performing Organization Address City/[facility]/Zipcode Phone Number [facility] [address] [place] [address] Estimated GFR (04/13/2018 8:24 AM CDT) GFR Non Af Amer 74 mL/min/1.73 m2 [facility] DEPARTMENT OF PATHOLOGY AND GENOMIC MEDICINE GFR Af Amer 89 mL/min/1.73 m2 [facility] DEPARTMENT OF Comment: PATHOLOGY AND GENOMIC Chronic [...] and Americans. Specimen Blood Performing Organization Address City/[facility]/Zipcode Phone Number [facility] DEPARTMENT OF PATHOLOGY AND [address] [place] [address] GENOMIC MEDICINE POC creatinine (04/13/2018 8:24 AM CDT) POC creatinine 1.0 0.7 - 1.2 mg/dl [facility] DEPARTMENT OF PATHOLOGY Comment: AND GENOMIC MEDICINE Meter ID: [id number] Baggage Security Checker: Joshua Nichols Specimen Blood Performing Organization Address City/State/Zipcode Phone Number [facility] DEPARTMENT OF PATHOLOGY AND [address] [phone] GENOMIC MEDICINE after 01/02/2018 Insurance Payer Benefit Plan / Group Subscriber ID Type Phone Address AETNA MEDICARE AETNA MEDICARE HMO/PPO [facility] xxxxxxxx HMO Advance Directives Patient has advance care planning documents on file. For more information, please contact:Ankit Butler[address] [place] [address]
--- OUTSIDE RECORDS SUMMARY | 2019-01-03 02:08 | XMS REPORT | Clinical Summary ---
:1945 Author Organization [facility] Address [address] [place] [address] Care Team Providers Name Role Phone Chas Ring MD Primary Care Provider Reg Henao Unavailable Allergies Active Allergy Reactions Severity Noted Date Comments Codeine Other (See Comments) 11/12/2015 Muscle and stomach cramps Medications Medication Sig Dispensed Refills Start Date End Date Status tiotropium Inhale 18 mcg by 0 Active (SPIRIVA) 18 mcg mouth via inhaler inhalation capsule daily. aspirin 81 MG EC Take 81 mg by 0 Active tablet mouth daily. ezetimibe (ZETIA) Take 1 tablet (10 0 12/17/2015 Active 10 mg tablet mg total) by mouth daily. metoprolol Take 50 mg by 0 Active (TOPROL-XL) 25 MG mouth daily. 24 hr tablet metFORMIN Take 500 mg by 0 Active (GLUCOPHAGE) 500 MG mouth 2 (two) tablet times daily with breakfast and dinner. albuterol HFA Inhale 2 puffs by 0 Active (VENTOLIN HFA) 90 mouth via inhaler mcg/actuation every 6 (six) inhaler hours as needed for Wheezing. predniSONE 7ghof2r, 8fzow7k, 50 tablet 0 08/14/2017 Active (DELTASONE) 10 MG 4tabx,3d, 6ykwo9v, tablet 5jhew8d,6sbzs5b then stop. losartan (COZAAR) Take 1 tablet (25 30 tablet 11 08/15/2017 08/15/2018 25 MG tablet mg total) by mouth daily. furosemide (LASIX) Take 1 tablet (40 60 tablet 08/14/2017 08/14/2018 40 MG tablet mg total) by mouth 2 (two) times daily. Active Problems Problem Noted Date Acute on chronic diastolic CHF (congestive heart failure), NYHA class 3 2016 Overview: Due to ischemic CM, decompensation in setting of respiratory illness Acute on chronic congestive heart failure, unspecified congestive heart 2016 failure type Chest pain 12/21/2015 Wound infection 12/11/2015 AAA (abdominal aortic aneurysm) 11/13/2015 HTN (hypertension) 11/13/2015 PVD (peripheral vascular disease) 11/13/2015 Iliac aneurysm 11/13/2015 HLD (hyperlipidemia) 11/13/2015 DM (diabetes mellitus), type 2 11/13/2015 Family History Medical History Relation Name Comments [...] travel history available. 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 Device Shelf Model / Identifier Expiration Serial / Date Lot Shaq Sepulveda [employer] Gld [id number] - [id number] Graft/Pa N/A: GETINGE 09/03/2018 [id number] / Implanted: Qty: 1 on 11/18/2015 by Chas Lopez MD [facility] Abdomen IND: ARIELLA:CV / [id number] Results Not on fileafter 01/02/2018 Insurance Payer Benefit Plan / Subscriber ID Type Phone Address Group [employer]ET[employer] - MEDICARE AETNA MEDICARE HMO xxxxxxxx [phone] [address] [employer] CARE POS PPO DEWEY LOPEZ [id number] Advance Directives For more information, please contact:[address] [phone] Code Status Date Activated Date Inactivated Comments Full Code 08/08/2017 8:29 AM 08/14/2017 1:46 PM This code status was determined by: Patient Full Code 12/11/2015 3:38 PM 12/17/2015 6:07 PM This code status was determined by: Patient Full Code 11/18/2015 8:13 AM 11/24/2015 3:27 PM This code status was determined by: Patient
--- OUTSIDE RECORDS SUMMARY | 2019-01-03 02:09 | XMS REPORT ---
:1945 Author Organization [facility] Address [address] [place] [address] [address] [place] [address] Care Team Providers Name Role Phone MARTHA [...] (BEAKER) (test 121 mg/dL 70-110 TESTED AT [facility] [address] [facility] owef=9141) [facility] [address] CBC W/PLT COUNT & AUTO [id number] 06:50:00 Test Item Value Reference Range Comments WHITE BLOOD CELL COUNT (BEAKER) (test invp=221) 12.8 K/ L 3.5-10.5 RED BLOOD CELL COUNT (BEAKER) (test tqug=898) 5.35 M/ L 4.63-6.08 HEMOGLOBIN (BEAKER) (test kmxm=711) 15.2 GM/DL 13.7-17.5 HEMATOCRIT (BEAKER) (test qgio=390) 45.8 % 40.1-51.0 MEAN CORPUSCULAR VOLUME (BEAKER) (test rknu=589) 85.6 fL 79.0-92.2 MEAN CORPUSCULAR HEMOGLOBIN (BEAKER) (test 28.4 pg 25.7-32.2 kecd=774) MEAN CORPUSCULAR HEMOGLOBIN CONC (BEAKER) (test 33.2 GM/DL 32.3-36.5 cvsa=036) RED CELL DISTRIBUTION WIDTH (BEAKER) (test 14.6 % 11.6-14.4 efvo=333) PLATELET COUNT (BEAKER) (test isdb=303) 145 K/CU MM 150-450 MEAN PLATELET VOLUME (BEAKER) (test tmya=420) 11.1 fL 9.4-12.4 NUCLEATED RED BLOOD CELLS (BEAKER) (test 0 /100 WBC 0-0 ffuy=275) NEUTROPHILS RELATIVE PERCENT (BEAKER) (test 81 % rqwn=371) LYMPHOCYTES RELATIVE PERCENT (BEAKER) (test 12 % enti=356) MONOCYTES RELATIVE PERCENT (BEAKER) (test 6 % udxs=537) EOSINOPHILS RELATIVE PERCENT (BEAKER) (test 0 % ilsl=542) BASOPHILS RELATIVE PERCENT (BEAKER) (test 0 % sgcy=305) NEUTROPHILS ABSOLUTE COUNT (BEAKER) (test 10.45 K/ L 1.78-5.38 ljkj=097) LYMPHOCYTES ABSOLUTE COUNT (BEAKER) (test 1.48 K/ L 1.32-3.57 tvcj=804) MONOCYTES ABSOLUTE COUNT (BEAKER) (test 0.70 K/ L 0.30-0.82 erbm=736) EOSINOPHILS ABSOLUTE COUNT (BEAKER) (test 0.00 K/ L 0.04-0.54 ycth=283) BASOPHILS ABSOLUTE COUNT (BEAKER) (test 0.02 K/ L 0.01-0.08 ljui=595) IMMATURE GRANULOCYTES-RELATIVE PERCENT (BEAKER) 1 % 0-1 (test hwou=9345) BASIC METABOLIC [id number] 06:45:00 Test Item Value Reference Range Comments SODIUM (BEAKER) (test 137 meq/L 136-145 mocw=654) POTASSIUM (BEAKER) (test 3.6 meq/L 3.5-5.1 qrce=223) CHLORIDE (BEAKER) (test 94 meq/L 98-107 kibz=932) CO2 (BEAKER) (test 32 meq/L 22-29 ecek=852) BLOOD UREA NITROGEN 36 mg/dL 7-21 (BEAKER) (test slyv=865) CREATININE (BEAKER) (test 0.97 mg/dL 0.57-1.25 qppp=786) GLUCOSE RANDOM (BEAKER) 111 mg/dL 70-105 (test kfug=076) CALCIUM (BEAKER) (test 9.2 mg/dL 8.4-10.2 xloe=025) EGFR (BEAKER) (test 77 mL/min/1.73 sq m ESTIMATED GFR IS NOT fbor=3480) ACCURATE CREATININE CLEARANCE IN PREDICTING GLOMERULAR FILTRATION RATE. ESTIMATED GFR IS NOT APPLICABLE FOR DIALYSIS PATIENTS. POCT-GLUCOSE [id number] 20:50:00 Test Item Value Reference Range Comments POC-GLUCOSE METER (BEAKER) 78 mg/dL 70-110 TESTED AT [address] (test nuky=8367) [facility] [address] POCT-GLUCOSE [id number] 17:10:00 Test Item Value Reference Range Comments POC-GLUCOSE METER (BEAKER) 328 mg/dL 70-110 Notified [facility]/TESTED AT [facility] (test pvan=9770) [address] [place] [address] POCT-GLUCOSE [id number] 14:47:00 Test Item Value Reference Range Comments POC-GLUCOSE METER (BEAKER) 222 mg/dL 70-110 TESTED AT [address] (test tfet=8665) [facility] [address] POCT-GLUCOSE [id number] 11:34:00 Test Item Value Reference Range Comments POC-GLUCOSE METER (BEAKER) 265 mg/dL 70-110 TESTED AT [address] (test zjdc=3735) [facility] [address] POCT-GLUCOSE [id number] 08:39:00 Test Item Value Reference Range Comments POC-GLUCOSE METER (BEAKER) 122 mg/dL 70-110 TESTED AT [address] (test cjsg=8247) [facility] [address] BASIC METABOLIC [id number] 06:29:00 Test Item Value Reference Range Comments SODIUM (BEAKER) (test 137 meq/L 136-145 jlcu=859) POTASSIUM (BEAKER) (test 3.6 meq/L 3.5-5.1 gnkp=444) CHLORIDE (BEAKER) (test 92 meq/L 98-107 zdev=634) CO2 (BEAKER) (test 33 meq/L 22-29 immz=001) BLOOD UREA NITROGEN 37 mg/dL 7-21 (BEAKER) (test tych=200) CREATININE (BEAKER) (test 1.12 mg/dL 0.57-1.25 rpwk=664) GLUCOSE RANDOM (BEAKER) 133 mg/dL 70-105 (test bbyl=475) CALCIUM (BEAKER) (test 9.6 mg/dL 8.4-10.2 trdq=456) EGFR (BEAKER) (test 65 mL/min/1.73 sq m ESTIMATED GFR IS NOT lrxq=2959) ACCURATE CREATININE CLEARANCE IN PREDICTING GLOMERULAR FILTRATION RATE. ESTIMATED GFR IS NOT APPLICABLE FOR DIALYSIS PATIENTS. CBC W/PLT COUNT & AUTO [id number] 05:49:00 Test Item Value Reference Range Comments WHITE BLOOD CELL COUNT (BEAKER) (test gqju=796) 13.0 K/ L 3.5-10.5 RED BLOOD CELL COUNT (BEAKER) (test pkqc=504) 5.25 M/ L 4.63-6.08 HEMOGLOBIN (BEAKER) (test wgzo=983) 15.0 GM/DL 13.7-17.5 HEMATOCRIT (BEAKER) (test uxuo=481) 45.2 % 40.1-51.0 MEAN CORPUSCULAR VOLUME (BEAKER) (test adph=358) 86.1 fL 79.0-92.2 MEAN CORPUSCULAR HEMOGLOBIN (BEAKER) (test 28.6 pg 25.7-32.2 psza=935) MEAN CORPUSCULAR HEMOGLOBIN CONC (BEAKER) (test 33.2 GM/DL 32.3-36.5 iwbn=052) RED CELL DISTRIBUTION WIDTH (BEAKER) (test 14.6 % 11.6-14.4 aici=426) PLATELET COUNT (BEAKER) (test ixlt=574) 179 K/CU MM 150-450 MEAN PLATELET VOLUME (BEAKER) (test yxvz=263) 11.0 fL 9.4-12.4 NUCLEATED RED BLOOD CELLS (BEAKER) (test 0 /100 WBC 0-0 mksn=648) NEUTROPHILS RELATIVE PERCENT (BEAKER) (test 83 % bolp=622) LYMPHOCYTES RELATIVE PERCENT (BEAKER) (test 9 % dlaq=344) MONOCYTES RELATIVE PERCENT (BEAKER) (test 7 % gmnf=322) EOSINOPHILS RELATIVE PERCENT (BEAKER) (test 0 % aqlu=493) BASOPHILS RELATIVE PERCENT (BEAKER) (test 0 % sfky=401) NEUTROPHILS ABSOLUTE COUNT (BEAKER) (test 10.75 K/ L 1.78-5.38 vrsb=213) LYMPHOCYTES ABSOLUTE COUNT (BEAKER) (test 1.22 K/ L 1.32-3.57 rlbm=527) MONOCYTES ABSOLUTE COUNT (BEAKER) (test 0.85 K/ L 0.30-0.82 pgdr=639) EOSINOPHILS ABSOLUTE COUNT (BEAKER) (test 0.00 K/ L 0.04-0.54 jreu=360) BASOPHILS ABSOLUTE COUNT (BEAKER) (test 0.03 K/ L 0.01-0.08 gbjk=573) IMMATURE GRANULOCYTES-RELATIVE PERCENT (BEAKER) 1 % 0-1 (test ffnj=7542) POCT-GLUCOSE [id number] 21:41:00 Test Item Value Reference Range Comments POC-GLUCOSE METER (BEAKER) 283 mg/dL 70-110 TESTED AT [address] (test hxbz=0776) [place] [id number] POCT-GLUCOSE [id number] 17:20:00 Test Item Value Reference Range Comments POC-GLUCOSE METER (BEAKER) 228 mg/dL 70-110 TESTED AT [address] (test dadx=6245) [place] [id number] POCT-GLUCOSE [id number] 11:41:00 Test Item Value Reference Range Comments POC-GLUCOSE METER (BEAKER) 294 mg/dL 70-110 TESTED AT [address] (test feze=2446) [place] [id number] POCT-GLUCOSE [id number] 09:38:00 Test Item Value Reference Range Comments POC-GLUCOSE METER (BEAKER) 338 mg/dL 70-110 Notified [facility]/TESTED AT [facility] (test vovz=9646) [address] [place] [address] CBC W/PLT COUNT & AUTO [id number] 05:42:00 Test Item Value Reference Range Comments WHITE BLOOD CELL COUNT (BEAKER) (test uohq=678) 10.9 K/ L 3.5-10.5 RED BLOOD CELL COUNT (BEAKER) (test tcts=399) 5.28 M/ L 4.63-6.08 HEMOGLOBIN (BEAKER) (test gusf=514) 15.1 GM/DL 13.7-17.5 HEMATOCRIT (BEAKER) (test ygqf=154) 45.8 % 40.1-51.0 MEAN CORPUSCULAR VOLUME (BEAKER) (test dfmv=818) 86.7 fL 79.0-92.2 MEAN CORPUSCULAR HEMOGLOBIN (BEAKER) (test 28.6 pg 25.7-32.2 xumg=845) MEAN CORPUSCULAR HEMOGLOBIN CONC (BEAKER) (test 33.0 GM/DL 32.3-36.5 eodq=246) RED CELL DISTRIBUTION WIDTH (BEAKER) (test 14.6 % 11.6-14.4 ddol=836) PLATELET COUNT (BEAKER) (test ldlu=574) 188 K/CU MM 150-450 MEAN PLATELET VOLUME (BEAKER) (test vifi=289) 11.5 fL 9.4-12.4 NUCLEATED RED BLOOD CELLS (BEAKER) (test 0 /100 WBC 0-0 obfp=581) NEUTROPHILS RELATIVE PERCENT (BEAKER) (test 90 % elzs=148) LYMPHOCYTES RELATIVE PERCENT (BEAKER) (test 5 % xnki=221) MONOCYTES RELATIVE PERCENT (BEAKER) (test 4 % oxbe=493) EOSINOPHILS RELATIVE PERCENT (BEAKER) (test 0 % yecd=958) BASOPHILS RELATIVE PERCENT (BEAKER) (test 0 % qzyp=472) NEUTROPHILS ABSOLUTE COUNT (BEAKER) (test 9.85 K/ L 1.78-5.38 osuf=933) LYMPHOCYTES ABSOLUTE COUNT (BEAKER) (test 0.51 K/ L 1.32-3.57 cxwz=056) MONOCYTES ABSOLUTE COUNT (BEAKER) (test 0.44 K/ L 0.30-0.82 qcai=564) EOSINOPHILS ABSOLUTE COUNT (BEAKER) (test 0.00 K/ L 0.04-0.54 tppa=032) BASOPHILS ABSOLUTE COUNT (BEAKER) (test 0.01 K/ L 0.01-0.08 dumn=202) IMMATURE GRANULOCYTES-RELATIVE PERCENT (BEAKER) 1 % 0-1 (test mhxx=9520) BASIC METABOLIC [id number] 05:33:00 Test Item Value Reference Range Comments SODIUM (BEAKER) (test 134 meq/L 136-145 qvfq=241) POTASSIUM (BEAKER) (test 4.5 meq/L 3.5-5.1 dtwu=729) CHLORIDE (BEAKER) (test 94 meq/L 98-107 kitw=224) CO2 (BEAKER) (test 30 meq/L 22-29 sjvw=638) BLOOD UREA NITROGEN 24 mg/dL 7-21 (BEAKER) (test xjiu=908) CREATININE (BEAKER) (test 0.86 mg/dL 0.57-1.25 edcy=083) GLUCOSE RANDOM (BEAKER) 277 mg/dL 70-105 (test sbha=159) CALCIUM (BEAKER) (test 9.4 mg/dL 8.4-10.2 hwrp=291) EGFR (BEAKER) (test 88 mL/min/1.73 sq m ESTIMATED GFR IS NOT ydtc=2202) ACCURATE CREATININE CLEARANCE IN PREDICTING GLOMERULAR FILTRATION RATE. ESTIMATED GFR IS NOT APPLICABLE FOR DIALYSIS PATIENTS. POCT-GLUCOSE [id number] 21:39:00 Test Item Value Reference Range Comments POC-GLUCOSE METER (BEAKER) 290 mg/dL 70-110 TESTED AT [facility] [address] [facility] (test mcii=0172) [facility] [address] POCT-GLUCOSE [id number] 17:46:00 Test Item Value Reference Range Comments POC-GLUCOSE METER (BEAKER) 252 mg/dL 70-110 TESTED AT [address] (test hmkt=1036) [place] [address] PET, CARDIAC PERFUSION MULTIPLE STUDIES, REST AND [id number] 16:26: 00Referring: Dr. Smita Stewart for exam:->known CAD s/p STENT x 2 with HF exacerbation; echowall motion abnormality LCX territoryFINAL REPORT PROCEDURE: Rest/Stress MYOCARDIAL PERFUSION PET with regadenoson\XA9\ CPT CODE: 85001 INDICATION: CAD HISTORY: Cardiac risk factors: Diabetes, hypertension, hyperlipidemia. Other cardiovascular history: CAD, prior MN, prior PCI. Recent cardiac symptoms: None reported. [...] tracer distribution is normal. 6. No previous [facility] study for comparison. NONINVASIVE RISK STRATIFICATION: The above findings are considered intermediate risk (1% to 3% annual mortality rate ) based on the following criterion: - Mild/moderate resting left ventricular dysfunction (LVEF 35% to 49%)- Stress-induced moderate perfusion defect without LV dilation or increasedlung intake (thallium-201)(JACC. 2012;59(9):857-81.) Signed: Arely Colunga Verified Date/Time: 08/11/2017 16:26:13 Reading Location: [address] Reading Room POCT-GLUCOSE [id number] 13: 31:00 Test Item Value Reference Range Comments POC-GLUCOSE METER (BEAKER) 288 mg/dL 70-110 TESTED AT [facility] [address] [place] [address] (test wiby=3797) [facility] [address] POCT-GLUCOSE [id number] 08:50:00 Test Item Value Reference Range Comments POC-GLUCOSE METER (BEAKER) 173 mg/dL 70-110 TESTED AT [address] (test uhps=7379) [facility] [address] CBC W/PLT COUNT & AUTO [id number] 06:24:00 Test Item Value Reference Range Comments WHITE BLOOD CELL COUNT (BEAKER) (test lnbj=427) 8.1 K/ L 3.5-10.5 RED BLOOD CELL COUNT (BEAKER) (test swpi=252) 4.75 M/ L 4.63-6.08 HEMOGLOBIN (BEAKER) (test ouot=895) 13.7 GM/DL 13.7-17.5 HEMATOCRIT (BEAKER) (test znmw=881) 41.8 % 40.1-51.0 MEAN CORPUSCULAR VOLUME (BEAKER) (test vijd=607) 88.0 fL 79.0-92.2 MEAN CORPUSCULAR HEMOGLOBIN (BEAKER) (test 28.8 pg 25.7-32.2 epqj=398) MEAN CORPUSCULAR HEMOGLOBIN CONC (BEAKER) (test 32.8 GM/DL 32.3-36.5 yzqd=450) RED CELL DISTRIBUTION WIDTH (BEAKER) (test 14.6 % 11.6-14.4 smcc=005) PLATELET COUNT (BEAKER) (test lben=090) 140 K/CU MM 150-450 MEAN PLATELET VOLUME (BEAKER) (test mddu=541) 11.4 fL 9.4-12.4 NUCLEATED RED BLOOD CELLS (BEAKER) (test 0 /100 WBC 0-0 pibx=476) NEUTROPHILS RELATIVE PERCENT (BEAKER) (test 87 % qptn=939) LYMPHOCYTES RELATIVE PERCENT (BEAKER) (test 6 % vwmz=107) MONOCYTES RELATIVE PERCENT (BEAKER) (test 6 % ivij=166) EOSINOPHILS RELATIVE PERCENT (BEAKER) (test 0 % ejyu=621) BASOPHILS RELATIVE PERCENT (BEAKER) (test 0 % pdwt=009) NEUTROPHILS ABSOLUTE COUNT (BEAKER) (test 7.08 K/ L 1.78-5.38 luik=875) LYMPHOCYTES ABSOLUTE COUNT (BEAKER) (test 0.48 K/ L 1.32-3.57 ohbg=812) MONOCYTES ABSOLUTE COUNT (BEAKER) (test 0.47 K/ L 0.30-0.82 lwhk=196) EOSINOPHILS ABSOLUTE COUNT (BEAKER) (test 0.00 K/ L 0.04-0.54 gzbi=999) BASOPHILS ABSOLUTE COUNT (BEAKER) (test 0.01 K/ L 0.01-0.08 vcgn=477) IMMATURE GRANULOCYTES-RELATIVE PERCENT (BEAKER) 1 % 0-1 (test dlso=8978) BASIC METABOLIC [id number] 06:07:00 Test Item Value Reference Range Comments SODIUM (BEAKER) (test 135 meq/L 136-145 eibh=240) POTASSIUM (BEAKER) (test 5.0 meq/L 3.5-5.1 aart=384) CHLORIDE (BEAKER) (test 100 meq/L 98-107 aiek=279) CO2 (BEAKER) (test 26 meq/L 22-29 tjge=103) BLOOD UREA NITROGEN 23 mg/dL 7-21 (BEAKER) (test aibh=053) CREATININE (BEAKER) (test 0.73 mg/dL 0.57-1.25 jnux=920) GLUCOSE RANDOM (BEAKER) 213 mg/dL 70-105 (test zfze=065) CALCIUM (BEAKER) (test 9.5 mg/dL 8.4-10.2 icvt=480) EGFR (BEAKER) (test 107 mL/min/1.73 sq m ESTIMATED GFR IS NOT ooqu=2897) ACCURATE CREATININE CLEARANCE IN PREDICTING GLOMERULAR FILTRATION RATE. ESTIMATED GFR IS NOT APPLICABLE FOR DIALYSIS PATIENTS. POCT-GLUCOSE [id number] 21:36:00 Test Item Value Reference Range Comments POC-GLUCOSE METER (BEAKER) 141 mg/dL 70-110 TESTED AT [facility] [address] [facility] (test wecv=6094) [facility] [address] POCT-GLUCOSE [id number] 17:36:00 Test Item Value Reference Range Comments POC-GLUCOSE METER (BEAKER) 236 mg/dL 70-110 TESTED AT [facility] [address] [facility] (test tklw=9589) [place] [id number] CLOSTRIDIUM DIFFICILE TOXIN [id number] 14:36:00 Test Item Value Reference Range Comments CLOSTRIDIUM DIFFICILE TOXIN, PCR (BEAKER) (test Not Detected Not Detected etgj=4813) This qualitative real-time polymerase chain reaction assay [...] of a positive result is not recommended.POCT-GLUCOSE [id number] 14:18:00 Test Item Value Reference Range Comments POC-GLUCOSE METER (BEAKER) 266 mg/dL 70-110 TESTED AT [address] (test otal=8710) [place] [address] POCT-GLUCOSE [id number] 07:54:00 Test Item Value Reference Range Comments POC-GLUCOSE METER (BEAKER) 206 mg/dL 70-110 TESTED AT [address] (test egks=0999) [place] [address] BASIC METABOLIC [id number] 05:33:00 Test Item Value Reference Range Comments SODIUM (BEAKER) (test 133 meq/L 136-145 iziu=316) POTASSIUM (BEAKER) (test 4.7 meq/L 3.5-5.1 kdkp=574) CHLORIDE (BEAKER) (test 98 meq/L 98-107 lpwt=723) CO2 (BEAKER) (test 27 meq/L 22-29 ygqj=614) BLOOD UREA NITROGEN 19 mg/dL 7-21 (BEAKER) (test fbvc=284) CREATININE (BEAKER) (test 0.75 mg/dL 0.57-1.25 bhko=620) GLUCOSE RANDOM (BEAKER) 232 mg/dL 70-105 (test yray=140) CALCIUM (BEAKER) (test 9.1 mg/dL 8.4-10.2 dibf=289) EGFR (BEAKER) (test 103 mL/min/1.73 sq m ESTIMATED GFR IS NOT suqd=0564) ACCURATE CREATININE CLEARANCE IN PREDICTING GLOMERULAR FILTRATION RATE. ESTIMATED GFR IS NOT APPLICABLE FOR DIALYSIS PATIENTS. CBC W/PLT COUNT & AUTO [id number] 05:19:00 Test Item Value Reference Range Comments WHITE BLOOD CELL COUNT (BEAKER) (test qpoe=491) 4.6 K/ L 3.5-10.5 RED BLOOD CELL COUNT (BEAKER) (test elqm=874) 4.80 M/ L 4.63-6.08 HEMOGLOBIN (BEAKER) (test igvf=618) 13.8 GM/DL 13.7-17.5 HEMATOCRIT (BEAKER) (test ygav=189) 41.6 % 40.1-51.0 MEAN CORPUSCULAR VOLUME (BEAKER) (test hbhj=253) 86.7 fL 79.0-92.2 MEAN CORPUSCULAR HEMOGLOBIN (BEAKER) (test 28.8 pg 25.7-32.2 uett=343) MEAN CORPUSCULAR HEMOGLOBIN CONC (BEAKER) (test 33.2 GM/DL 32.3-36.5 vwsl=491) RED CELL DISTRIBUTION WIDTH (BEAKER) (test 14.6 % 11.6-14.4 unwu=200) PLATELET COUNT (BEAKER) (test pfvh=824) 136 K/CU MM 150-450 MEAN PLATELET VOLUME (BEAKER) (test pwka=435) 11.4 fL 9.4-12.4 NUCLEATED RED BLOOD CELLS (BEAKER) (test 0 /100 WBC 0-0 wwvj=227) NEUTROPHILS RELATIVE PERCENT (BEAKER) (test 81 % lyiz=760) LYMPHOCYTES RELATIVE PERCENT (BEAKER) (test 11 % tayg=103) MONOCYTES RELATIVE PERCENT (BEAKER) (test 7 % atlu=026) EOSINOPHILS RELATIVE PERCENT (BEAKER) (test 0 % faey=544) BASOPHILS RELATIVE PERCENT (BEAKER) (test 0 % euqm=622) NEUTROPHILS ABSOLUTE COUNT (BEAKER) (test 3.70 K/ L 1.78-5.38 izdn=435) LYMPHOCYTES ABSOLUTE COUNT (BEAKER) (test 0.48 K/ L 1.32-3.57 ffgm=230) MONOCYTES ABSOLUTE COUNT (BEAKER) (test 0.31 K/ L 0.30-0.82 hrln=128) EOSINOPHILS ABSOLUTE COUNT (BEAKER) (test 0.00 K/ L 0.04-0.54 tbcg=937) BASOPHILS ABSOLUTE COUNT (BEAKER) (test 0.01 K/ L 0.01-0.08 wajf=879) IMMATURE GRANULOCYTES-RELATIVE PERCENT (BEAKER) 1 % 0-1 (test lftm=7918) POCT-GLUCOSE [id number] 23:18:00 Test Item Value Reference Range Comments POC-GLUCOSE METER (BEAKER) 238 mg/dL 70-110 TESTED AT [address] (test hnbp=0470) [place] [id number] POCT-GLUCOSE [id number] 16:48:00 Test Item Value Reference Range Comments POC-GLUCOSE METER (BEAKER) 226 mg/dL 70-110 TESTED AT [address] (test zwgz=7856) [place] [address] POCT-GLUCOSE [id number] 13:44:00 Test Item Value Reference Range Comments POC-GLUCOSE METER (BEAKER) 180 mg/dL 70-110 TESTED AT [address] (test ycgn=2934) [place] [address] POCT-GLUCOSE [id number] 08:19:00 Test Item Value Reference Range Comments POC-GLUCOSE METER (BEAKER) 192 mg/dL 70-110 TESTED AT [address] (test agoc=3449) [place] [address] CT, CHEST, WITH HIGH RESOLUTION, INTERSTITAL LUNG [id number] 07:31: 00Referring: Dr. Smita Stewart for exam:->Patient [...] Verified Date/ Time: 08/09/2017 07:31:21 Reading Location: [facility] Diagnostic Imaging Reading Room - [place] [address] 07 :31 AMBASIC METABOLIC [id number] 07:02:00 Test Item Value Reference Range Comments SODIUM (BEAKER) (test 132 meq/L 136-145 txar=525) POTASSIUM (BEAKER) (test 4.5 meq/L 3.5-5.1 wjdv=580) CHLORIDE (BEAKER) (test 94 meq/L 98-107 rsop=565) CO2 (BEAKER) (test 32 meq/L 22-29 ohyb=984) BLOOD UREA NITROGEN 20 mg/dL 7-21 (BEAKER) (test gnsf=490) CREATININE (BEAKER) (test 0.76 mg/dL 0.57-1.25 jebt=087) GLUCOSE RANDOM (BEAKER) 212 mg/dL 70-105 (test qcut=482) CALCIUM (BEAKER) (test 9.0 mg/dL 8.4-10.2 rwvr=574) EGFR (BEAKER) (test 102 mL/min/1.73 sq m ESTIMATED GFR IS NOT cxub=7324) ACCURATE CREATININE CLEARANCE IN PREDICTING GLOMERULAR FILTRATION RATE. ESTIMATED GFR IS NOT APPLICABLE FOR DIALYSIS PATIENTS. CBC W/PLT COUNT & AUTO [id number] 06:11:00 Test Item Value Reference Range Comments WHITE BLOOD CELL COUNT (BEAKER) (test swcd=566) 5.0 K/ L 3.5-10.5 RED BLOOD CELL COUNT (BEAKER) (test xptp=640) 4.85 M/ L 4.63-6.08 HEMOGLOBIN (BEAKER) (test ytgb=799) 14.0 GM/DL 13.7-17.5 HEMATOCRIT (BEAKER) (test lgva=071) 42.0 % 40.1-51.0 MEAN CORPUSCULAR VOLUME (BEAKER) (test pqdx=871) 86.6 fL 79.0-92.2 MEAN CORPUSCULAR HEMOGLOBIN (BEAKER) (test 28.9 pg 25.7-32.2 ncyr=810) MEAN CORPUSCULAR HEMOGLOBIN CONC (BEAKER) (test 33.3 GM/DL 32.3-36.5 qywy=261) RED CELL DISTRIBUTION WIDTH (BEAKER) (test 14.8 % 11.6-14.4 ldkf=541) PLATELET COUNT (BEAKER) (test kvhf=094) 130 K/CU MM 150-450 MEAN PLATELET VOLUME (BEAKER) (test uyhi=428) 10.7 fL 9.4-12.4 NUCLEATED RED BLOOD CELLS (BEAKER) (test 0 /100 WBC 0-0 kgxa=843) NEUTROPHILS RELATIVE PERCENT (BEAKER) (test 78 % hcji=725) LYMPHOCYTES RELATIVE PERCENT (BEAKER) (test 13 % cfcu=614) MONOCYTES RELATIVE PERCENT (BEAKER) (test 9 % flua=018) EOSINOPHILS RELATIVE PERCENT (BEAKER) (test 0 % zghx=302) BASOPHILS RELATIVE PERCENT (BEAKER) (test 0 % vtan=499) NEUTROPHILS ABSOLUTE COUNT (BEAKER) (test 3.90 K/ L 1.78-5.38 ghmy=955) LYMPHOCYTES ABSOLUTE COUNT (BEAKER) (test 0.63 K/ L 1.32-3.57 dhow=756) MONOCYTES ABSOLUTE COUNT (BEAKER) (test 0.43 K/ L 0.30-0.82 gvah=050) EOSINOPHILS ABSOLUTE COUNT (BEAKER) (test 0.00 K/ L 0.04-0.54 oqzu=926) BASOPHILS ABSOLUTE COUNT (BEAKER) (test 0.01 K/ L 0.01-0.08 luek=247) IMMATURE GRANULOCYTES-RELATIVE PERCENT (BEAKER) 1 % 0-1 (test sclp=8880) POCT-GLUCOSE [id number] 21:23:00 Test Item Value Reference Range Comments POC-GLUCOSE METER (BEAKER) 194 mg/dL 70-110 TESTED AT [facility] [address] [facility] (test uaaf=8679) [facility] [id number] CREATINE KINASE (CK), TOTAL AND [id number] 17:44:00 Test Item Value Reference Range Comments CREATINE KINASE TOTAL (BEAKER) (test moqc=133) 73 U/L 29-200 CREATINE KINASE-MB (BEAKER) (test tfsb=283) 1.8 ng/mL 0.0-6.6 CREATINE KINASE-MB INDEX (BEAKER) (test zxko=372) 2.5 % CK-MB Reference Range:<6.7 Normal6.7-10.0 Borderline>10.0 AbnormalTROPONIN [id number] 17:44:00 Test Item Value Reference Range Comments TROPONIN I (BEAKER) (test cxjq=950) 0.05 ng/mL 0.00-0.03 Troponin I (TnI) levels [...] acute neurological disease, and persistent tachyarrhythmia.BASIC METABOLIC [id number] 17:41:00 Test Item Value Reference Range Comments SODIUM (BEAKER) (test 138 meq/L 136-145 grgt=176) POTASSIUM (BEAKER) (test 4.3 meq/L 3.5-5.1 Specimen slightly pfrc=291) hemolyzed CHLORIDE (BEAKER) (test 96 meq/L 98-107 seam=100) CO2 (BEAKER) (test 31 meq/L 22-29 irhe=717) BLOOD UREA NITROGEN 20 mg/dL 7-21 (BEAKER) (test yzqz=319) CREATININE (BEAKER) (test 0.82 mg/dL 0.57-1.25 Specimen slightly trpy=260) hemolyzed GLUCOSE RANDOM (BEAKER) 169 mg/dL 70-105 (test vved=467) CALCIUM (BEAKER) (test 9.7 mg/dL 8.4-10.2 imzv=231) EGFR (BEAKER) (test 93 mL/min/1.73 sq m ESTIMATED GFR IS NOT onyg=1423) ACCURATE CREATININE CLEARANCE IN PREDICTING GLOMERULAR FILTRATION RATE. ESTIMATED GFR IS NOT APPLICABLE FOR DIALYSIS PATIENTS. POCT-GLUCOSE [id number] 16:17:00 Test Item Value Reference Range Comments POC-GLUCOSE METER (BEAKER) 159 mg/dL 70-110 TESTED AT [facility] [address] [facility] (test uotw=8569) [facility] [id number] CBC W/PLT COUNT & AUTO [id number] 15:59:00 Test Item Value Reference Range Comments WHITE BLOOD CELL COUNT (BEAKER) (test whmu=781) 5.3 K/ L 3.5-10.5 RED BLOOD CELL COUNT (BEAKER) (test tfjf=147) 5.24 M/ L 4.63-6.08 HEMOGLOBIN (BEAKER) (test ihqm=192) 15.0 GM/DL 13.7-17.5 HEMATOCRIT (BEAKER) (test hkwi=850) 45.4 % 40.1-51.0 MEAN CORPUSCULAR VOLUME (BEAKER) (test qmbq=616) 86.6 fL 79.0-92.2 MEAN CORPUSCULAR HEMOGLOBIN (BEAKER) (test 28.6 pg 25.7-32.2 kcxm=753) MEAN CORPUSCULAR HEMOGLOBIN CONC (BEAKER) (test 33.0 GM/DL 32.3-36.5 arlh=884) RED CELL DISTRIBUTION WIDTH (BEAKER) (test 15.5 % 11.6-14.4 famr=024) PLATELET COUNT (BEAKER) (test bosq=026) 167 K/CU MM 150-450 MEAN PLATELET VOLUME (BEAKER) (test umcb=754) 13.2 fL 9.4-12.4 NUCLEATED RED BLOOD CELLS (BEAKER) (test 0 /100 WBC 0-0 vcry=202) NEUTROPHILS RELATIVE PERCENT (BEAKER) (test 81 % vusl=203) LYMPHOCYTES RELATIVE PERCENT (BEAKER) (test 12 % rxiz=977) MONOCYTES RELATIVE PERCENT (BEAKER) (test 6 % pwjw=963) EOSINOPHILS RELATIVE PERCENT (BEAKER) (test 0 % rgfb=021) BASOPHILS RELATIVE PERCENT (BEAKER) (test 0 % kqaf=865) NEUTROPHILS ABSOLUTE COUNT (BEAKER) (test 4.31 K/ L 1.78-5.38 uqkp=228) LYMPHOCYTES ABSOLUTE COUNT (BEAKER) (test 0.66 K/ L 1.32-3.57 oyeq=889) MONOCYTES ABSOLUTE COUNT (BEAKER) (test 0.30 K/ L 0.30-0.82 obxo=545) EOSINOPHILS ABSOLUTE COUNT (BEAKER) (test 0.00 K/ L 0.04-0.54 sati=118) BASOPHILS ABSOLUTE COUNT (BEAKER) (test 0.01 K/ L 0.01-0.08 qhaz=551) IMMATURE GRANULOCYTES-RELATIVE PERCENT (BEAKER) 1 % 0-1 (test ofhe=0753) POCT-LACTIC ACID, [id number] 13:57:00 Test Item Value Reference Range Comments POC-LACTIC ACID, VENOUS 1.5 mmol/L 0.9-1.7 TESTED AT [facility] [address] [facility] (BEAKER) (test izvr=7389) [facility] [address] URINALYSIS W/ [id number] 12:10:00 Test Item Value Reference Range Comments COLOR (BEAKER) (test dcmt=248) Light Yellow CLARITY (BEAKER) (test fhfw=311) Clear SPECIFIC GRAVITY UA (BEAKER) (test 1.004 1.001-1.035 atyp=174) PH UA (BEAKER) (test anzh=940) 5.0 5.0-8.0 PROTEIN UA (BEAKER) (test liwl=296) Negative Negative GLUCOSE UA (BEAKER) (test fxfd=060) Negative Negative KETONES UA (BEAKER) (test dlbs=906) Negative Negative BILIRUBIN UA (BEAKER) (test vbtj=563) Negative Negative BLOOD UA (BEAKER) (test kqek=055) Negative Negative NITRITE UA (BEAKER) (test jxxr=356) Negative Negative LEUKOCYTE ESTERASE UA (BEAKER) (test Negative Negative fpjt=665) UROBILINOGEN UA (BEAKER) (test adoq=628) 0.2 mg/dL 0.2-1.0 RBC UA (BEAKER) (test biti=286) 1 /HPF WBC UA (BEAKER) (test wfoi=924) < /HPF BACTERIA (BEAKER) (test hcsi=714) Rare SQUAMOUS EPITHELIAL (BEAKER) (test < /HPF xgte=565) HYALINE CASTS (BEAKER) (test ztgr=411) 2 /LPF SOURCE(BEAKER) (test wnbt=4409) Urine, Clean Catch POCT-GLUCOSE [id number] 11:37:00 Test Item Value Reference Range Comments POC-GLUCOSE METER (BEAKER) 206 mg/dL 70-110 TESTED AT [facility] [address] [facility] (test gzdk=2638) [facility] [address] RAD, CHEST, 2 [id number] 21:09:00Referring: Dr. Smita Stewart for exam:->SHORTNESS OF [...] MDReport Verified Date/Time: 08/07/2017 21:09:37 Reading Location: [address] Consult Reading Room B- TYPE NATRIURETIC FACTOR (BNP)2017-08-07 17:48:00 Test Item Value Reference Range Comments B-TYPE NATRIURETIC PEPTIDE (BEAKER) (test 1067 pg/mL 0-100 ditd=318) CREATINE KINASE (CK), TOTAL AND [id number] 17:44:00 Test Item Value Reference Range Comments CREATINE KINASE TOTAL (BEAKER) (test brpj=843) 77 U/L 29-200 CREATINE KINASE-MB (BEAKER) (test ilfw=508) 1.7 ng/mL 0.0-6.6 CREATINE KINASE-MB INDEX (BEAKER) (test epyy=650) 2.2 % CK-MB Reference Range:<6.7 Normal6.7-10.0 Borderline>10.0 AbnormalTROPONIN [id number] 17:44:00 Test Item Value Reference Range Comments TROPONIN I (BEAKER) (test arsq=068) 0.06 ng/mL 0.00-0.03 Troponin I (TnI) levels [...] failure, acidosis, acute neurological disease, and persistent tachyarrhythmia.[id number] 17:41:00 Test Item Value Reference Range Comments MAGNESIUM (BEAKER) (test xhlt=506) 1.9 mg/dL 1.6-2.6 BASIC METABOLIC [id number] 17:41:00 Test Item Value Reference Range Comments SODIUM (BEAKER) (test 137 meq/L 136-145 vnlb=113) POTASSIUM (BEAKER) (test 4.1 meq/L 3.5-5.1 hqeo=922) CHLORIDE (BEAKER) (test 100 meq/L 98-107 zpro=000) CO2 (BEAKER) (test 28 meq/L 22-29 jsda=976) BLOOD UREA NITROGEN 20 mg/dL 7-21 (BEAKER) (test aoow=685) CREATININE (BEAKER) (test 0.78 mg/dL 0.57-1.25 mcxd=452) GLUCOSE RANDOM (BEAKER) 90 mg/dL 70-105 (test shkj=976) CALCIUM (BEAKER) (test 9.6 mg/dL 8.4-10.2 mljo=305) EGFR (BEAKER) (test 99 mL/min/1.73 sq m ESTIMATED GFR IS NOT yomp=2075) ACCURATE CREATININE CLEARANCE IN PREDICTING GLOMERULAR FILTRATION RATE. ESTIMATED GFR IS NOT APPLICABLE FOR DIALYSIS PATIENTS. CBC W/PLT COUNT & AUTO [id number] 17:31:00 Test Item Value Reference Range Comments WHITE BLOOD CELL COUNT (BEAKER) (test rmxa=541) 11.3 K/ L 3.5-10.5 RED BLOOD CELL COUNT (BEAKER) (test idbf=182) 5.21 M/ L 4.63-6.08 HEMOGLOBIN (BEAKER) (test zxbf=909) 14.8 GM/DL 13.7-17.5 HEMATOCRIT (BEAKER) (test zvqc=247) 46.1 % 40.1-51.0 MEAN CORPUSCULAR VOLUME (BEAKER) (test qrai=519) 88.5 fL 79.0-92.2 MEAN CORPUSCULAR HEMOGLOBIN (BEAKER) (test 28.4 pg 25.7-32.2 xaeu=059) MEAN CORPUSCULAR HEMOGLOBIN CONC (BEAKER) (test 32.1 GM/DL 32.3-36.5 obci=718) RED CELL DISTRIBUTION WIDTH (BEAKER) (test 15.3 % 11.6-14.4 lsqg=509) PLATELET COUNT (BEAKER) (test wwht=661) 126 K/CU MM 150-450 MEAN PLATELET VOLUME (BEAKER) (test mqqe=098) 11.2 fL 9.4-12.4 NUCLEATED RED BLOOD CELLS (BEAKER) (test 0 /100 WBC 0-0 ouvt=623) NEUTROPHILS RELATIVE PERCENT (BEAKER) (test 82 % fesh=067) LYMPHOCYTES RELATIVE PERCENT (BEAKER) (test 10 % qbgw=166) MONOCYTES RELATIVE PERCENT (BEAKER) (test 7 % tkjm=253) EOSINOPHILS RELATIVE PERCENT (BEAKER) (test 0 % eiyy=886) BASOPHILS RELATIVE PERCENT (BEAKER) (test 0 % lnws=409) NEUTROPHILS ABSOLUTE COUNT (BEAKER) (test 9.21 K/ L 1.78-5.38 qkul=423) LYMPHOCYTES ABSOLUTE COUNT (BEAKER) (test 1.16 K/ L 1.32-3.57 nkgy=265) MONOCYTES ABSOLUTE COUNT (BEAKER) (test 0.80 K/ L 0.30-0.82 vjww=346) EOSINOPHILS ABSOLUTE COUNT (BEAKER) (test 0.02 K/ L 0.04-0.54 cpog=133) BASOPHILS ABSOLUTE COUNT (BEAKER) (test 0.03 K/ L 0.01-0.08 oonk=857) IMMATURE GRANULOCYTES-RELATIVE PERCENT (BEAKER) 0 % 0-1 (test rulc=0636)
[2019-01-03] MEDS ORDERED: ALBUTEROL 2.5 MG/3 ML NEB SOL ONE (02:22)
[2019-01-03] MEDS ORDERED: IPRATROPIUM BROM 0.5MG/2.5ML ONE (02:22)
[2019-01-03] MEDS ORDERED: LEVALBUTEROL 1.25 MG/3 ML NEB ONE (02:24)
[2019-01-03] MEDS ORDERED: METHYLPREDNISOLONE 125 MG INJ ONE (02:34)
[2019-01-03] MEDS ORDERED: Magnesium Sulfate 2gm IVPB 2 G/50 ML BAG IV ONE (02:34)
[2019-01-03 03:20] LABS: Protime INR 1.04
[2019-01-03 03:21] LABS: Absolute Lymphocytes (CBC) 2.1 K/uL (0.7-4.9); Absolute Monocytes 1.1 K/uL (0.1-1.3); Absolute Neutrophil 11.7 K/uL (1.8-8.0); Basophils % 0.6 % (0-1.3); Hematocrit 36.1 % (39.6-49.0); Lymphocytes % 13.7 % (15.3-44.8); MPV 9.7 fL (7.6-11.3); Monocytes % 7.1 % (3.3-12.3); RBC Red Blood Cell Count 4.42 M/uL (4.33-5.43)
--- NOTE | 2019-01-03 03:24 | ER ---
Nurse's Notes [facility] Name: Olivier Camp Age: 73 yrs Sex: Male : 1945 Arrival Date: 01/03/2019 Time: 02:07 Bed 5 Private MD: Diagnosis: Chronic obstructive pulmonary disease with (acute) exacerbation;Hypoxemia Presentation: 01/03 02:13 Presenting complaint: EMS states: they were toned out for report of pt developing bb sudden onset of shortness of breath when he got up to go to the bathroom at approx 0130. Transition of care: patient was not received from another setting of care. Onset of symptoms was January 03, 2019. Risk Assessment: Do you want to hurt yourself or someone else? Patient reports no desire to harm self or others. Initial Sepsis Screen: Does the patient meet any 2 criteria? RR > 20 per min. HR > 90 bpm. Yes Does the patient have a suspected source of infection? Yes: Productive cough/pneumonia If YES to both, name of provider notified: Seamus LANDIN. Care prior to arrival: Medication(s) given: solu-medrol 125 mg IV initiated. 18 GA, in the right antecubital area, Glucose check: 147. 02:13 Method Of Arrival: EMS: [facility] bb 02:13 Acuity: EMILY 1 bb Historical: - Allergies: 02:24 Codeine; bb - Home Meds: 02:24 aspirin 81 mg Oral chew 1 tab once daily [Active]; furosemide 40 mg Oral tab 1 tab once bb daily [Active]; Zetia 10 mg Oral tab 1 tab once daily [Active]; Ventolin HFA 90 mcg/actuation Nebulizer HFAA 1 puff as needed when short of breath [Active]; oxycodone 5 mg Oral cap [Active]; prednisone 10 mg Oral tab 1 tab once daily [Active]; budesonide 0.5 mg/2 mL inhalation nbsp 2 mL 2 times per day [Active]; ipratropium bromide 0.02 % inhalation soln 2.5 mL every 6 hours [Active]; pantoprazole 40 mg oral TbEC 1 tab once daily [Active]; metformin 500 mg Oral tab 1 tab 2 times per day [Active]; spironolactone 100 mg Oral tab 1 tab once daily [Active]; ursodiol 500 mg Oral tab 2 times per day [Active]; Incruse Ellipta 62.5 mcg/actuation inhalation dsdv 1 puff once daily [Active]; - PMHx: 02:24 AAA; ADD/ADHD; Diabetes - NIDDM; High Cholesterol; Hypertension; iliac aneurysm; Sleep bb Apnea; staph infection; right elbow; COPD; Pulmonary Fibrosis; chronic back pain; - PSHx: 02:24 AORTIC ANEURYSM; STENTS X 2; bb - Immunization history:: Adult Immunizations up to date. - Social history:: Smoking status: Patient/guardian denies using tobacco, the patient reports quitting approximately 7 years ago. - Ebola Screening: : No symptoms or risks identified at this time. Screenin:46 Abuse screen: Denies threats or abuse. Denies injuries from another. Nutritional lp1 screening: No deficits noted. Tuberculosis screening: No symptoms or risk factors identified. Fall Risk Total Yepez Fall Scale indicates High Risk Score (45 or more points). Fall prevention measures have been instituted. Side Rails Up X 2 As available patient and family educated on Fall Prevention Program and Strategies. Assessment: 02:38 General: Appears distressed, Behavior is anxious. lp1 02:38 Pain: Complains of pain in back, related to previous back injury. Neuro: Level of lp1 Consciousness is awake, alert, obeys commands, Oriented to person, place, situation, Pupils are PERRLA. Cardiovascular: Clubbing of nail beds is present Rhythm is sinus tachycardia. Respiratory: Reports shortness of breath Airway is patent Trachea midline Respiratory effort is labored, with retractions, Respiratory pattern is hyperventilation tachypnea Breath sounds are clear bilaterally. Onset: The symptoms/episode began/occurred suddenly, the patient has severe shortness of breath. GI: Abdomen is non-distended. : No signs and/or symptoms were reported regarding the genitourinary system. EENT: No signs and/or symptoms were reported regarding the EENT system. Derm: Skin is fragile, is thin, with poor turgor Skin is dry, Skin is pale, Wound noted Other: multiple skin tears to bilateral arms, not actively bleeding, scabs noted. Musculoskeletal: Circulation, motion, and sensation intact. 02:38 Derm: Wound noted right scapular area, right arm and left arm Wound is multiple skin rr5 peeled noted. 03:30 Reassessment: Patient appears in no apparent distress at this time. Patient and/or lp1 family updated on plan of care and expected duration. Pain level reassessed. Patient resting, no distress noted, BiPAP in place. 04:30 Reassessment: Patient's daughter at bedside Patient states feeling better. Patient lp1 states symptoms have improved. Reassessment: BiPAP remains in place. General: Behavior is calm, cooperative. 04:45 Reassessment: Dr. Giles at bedside. lp1 Vital Signs: 02:24 BP 120 / 106; Pulse 127; Resp 52 S; Temp 97.6(O); Pulse Ox 85% on 6 lpm NC; Weight bb 82.55 kg (R); Height 5 ft. 7 in. (170.18 cm) (R); Pain 6/10; 02:35 BP 125 / 77; Pulse 120; Resp 35; Pulse Ox 100% on 75% BiPAP; lp1 02:45 BP 118 / 74; Pulse 121; Resp 26; Pulse Ox 99% on 45% BiPAP; lp1 03:00 BP 100 / 84; Pulse 119; Resp 32; Pulse Ox 96% on 40% BiPAP; lp1 03:20 BP 120 / 78; Pulse 119; Resp 27; Pulse Ox 98% on 40% BiPAP; lp1 03:40 BP 113 / 75; Pulse 117; Resp 30; Pulse Ox 98% on 40% BiPAP; lp1 04:00 BP 123 / 77; Pulse 118; Resp 26; Pulse Ox 99% on 40% BiPAP; lp1 04:20 BP 122 / 79; Pulse 115; Resp 25; Pulse Ox 100% on 40% BiPAP; lp1 04:40 BP 130 / 71; Pulse 113; Resp 24; Pulse Ox 100% on 40% BiPAP; lp1 05:20 BP 146 / 78; Pulse 115; Resp 28; Pulse Ox 100% on 40% BiPAP; Pain 0/10; lp1 06:00 BP 117 / 71; Pulse 110; Resp 28; Pulse Ox 100% on 40% BiPAP; lp1 02:24 Body Mass Index 28.50 (82.55 kg, 170.18 cm) bb 02:35 14/6, Rate of 12 lp1 02:45 14/6; Rate of 12 lp1 ED Course: 02:07 Patient arrived in ED. tl2 02:08 Seamus Nieves PA is PHCP. cp 02:09 Seamus Calderón MD is Attending Physician. cp 02:09 EKG done, by ED staff, reviewed by Seamus Calderón MD. rr5 02:10 Patient has correct armband on for positive identification. Placed in gown. Bed in low rr5 position. Call light in reach. Side rails up X2. alarm security or surveillance monitor on. Pulse ox on. NIBP on. 02:15 Triage completed. bb 02:20 Maintain EMS IV. Dressing intact. Site clean \T\ dry. Gauge \T\ site: 18g to R AC. lp 1 02:24 Arm band placed on Patient placed in an exam room, on a stretcher, on oxygen, on bb clinical research monitor, on pulse oximetry, respiratory called for Bipap. 02:25 Inserted saline lock: 20 gauge in left antecubital area, using aseptic technique. Blood lp1 collected. 02:32 Estefany Cramer, RN is Primary Nurse. lp1 02:34 Radiology exam delayed due to IV insertion attempt and/or patient not having kw appropriate IV at this time. RESPIRATORY IN ROOM. 02:37 X-ray completed. Portable x-ray completed in exam room. Patient tolerated procedure kw well. 02:38 XRAY Chest (1 view) In Process Unspecified. EDMS 03:22 Erika Winn MD is Hospitalizing Provider. cp 04:54 No provider procedures requiring assistance completed. Patient admitted, IV remains in lp1 place. Administered Medications: 02:10 Drug: Xopenex (3) 1.25 mg Route: Inhalation; lp1 02:30 Drug: Magnesium Sulfate 2 grams Route: IVPB; Infused Over: 2 hrs; Site: left rr5 antecubital; 03:34 Follow up: IV Status: Completed infusion; IV Intake: 50ml lp1 02:35 Drug: SOLU-Medrol 125 mg Route: IVP; Site: right antecubital; rr5 03:34 Follow up: Response: No adverse reaction lp1 Intake: 03:34 IV: 50ml; Total: 50ml. lp1 Outcome: 03:23 Decision to Hospitalize by Provider. cp 04:54 Condition: stable lp1 04:54 Instructed on the need for admit. 05:20 Admitted to Med/surg accompanied by tech, family with patient, via stretcher, room 215, lp1 with oxygen, with chart, Report called to Saman Toro RN 06:13 Patient left the ED. bb Signatures: Dispatcher [employer] EDChandni Soliz RN RN bb Angella Andrews Laura RN RN lp1 Seamus Nieves PA PA cp Knox, Taylor RN RN tl2 Zander Metz RN RN rr5 Corrections: (The following items were deleted from the chart) 02:41 02:38 General: Appears distressed, lp1 lp1 05:22 02:38 Derm: Skin is fragile, is thin, with poor turgor Skin is dry, Skin is pale, lp1 lp1
--- NOTE | 2019-01-03 03:24 | EDPHYS ---
Physician Documentation [facility] Name: Olivier Camp Age: 73 yrs Sex: Male : 1945 Arrival Date: 01/03/2019 Time: 02:07 Bed 5 Private MD: ED Physician Seamus Calderón HPI: 01/03 02:23 This 73 yrs old Male presents to ER via EMS with complaints of Breathing cp Difficulty. 02:23 The patient has shortness of breath at rest. Onset: The symptoms/episode began/occurred cp suddenly, this morning. Duration: The symptoms are continuous, and are steadily getting worse. The patient's shortness of breath is aggravated by light activity, talking. Associated signs and symptoms: Pertinent positives: productive cough, Pertinent negatives: chest pain, fever. Severity of symptoms: in the emergency department the symptoms are unchanged despite EMS interventions. Historical: - Allergies: 02:24 Codeine; bb - Home Meds: 02:24 aspirin 81 mg Oral chew 1 tab once daily [Active]; furosemide 40 mg Oral tab 1 tab once bb daily [Active]; Zetia 10 mg Oral tab 1 tab once daily [Active]; Ventolin HFA 90 mcg/actuation Nebulizer HFAA 1 puff as needed when short of breath [Active]; oxycodone 5 mg Oral cap [Active]; prednisone 10 mg Oral tab 1 tab once daily [Active]; budesonide 0.5 mg/2 mL inhalation nbsp 2 mL 2 times per day [Active]; ipratropium bromide 0.02 % inhalation soln 2.5 mL every 6 hours [Active]; pantoprazole 40 mg oral TbEC 1 tab once daily [Active]; metformin 500 mg Oral tab 1 tab 2 times per day [Active]; spironolactone 100 mg Oral tab 1 tab once daily [Active]; ursodiol 500 mg Oral tab 2 times per day [Active]; Incruse Ellipta 62.5 mcg/actuation inhalation dsdv 1 puff once daily [Active]; - PMHx: 02:24 AAA; ADD/ADHD; Diabetes - NIDDM; High Cholesterol; Hypertension; iliac aneurysm; Sleep bb Apnea; staph infection; right elbow; COPD; Pulmonary Fibrosis; chronic back pain; - PSHx: 02:24 AORTIC ANEURYSM; STENTS X 2; bb - Immunization history:: Adult Immunizations up to date. - Social history:: Smoking status: Patient/guardian denies using tobacco, the patient reports quitting approximately 7 years ago. - Ebola Screening: : No symptoms or risks identified at this time. ROS: 02:24 Eyes: Negative for injury, pain, redness, and discharge. cp 02:24 Constitutional: Negative for body aches, chills, fever, poor PO intake. 02:24 ENT: Negative for drainage from ear(s), ear pain, sore throat, difficulty swallowing, difficulty handling secretions. 02:24 Cardiovascular: Negative for chest pain, edema, palpitations. 02:24 Respiratory: Positive for cough, "sounds productive", shortness of breath, at rest. 02:24 Abdomen/GI: Negative for abdominal pain, nausea, vomiting, and diarrhea, black/tarry stool, rectal bleeding. 02:24 Back: Positive for pain at rest, pain with movement. 02:24 Skin: Negative for rash. 02:24 Neuro: Negative for altered mental status, headache, weakness. 02:24 All other systems are negative. Exam: 02:16 ECG was reviewed by the Attending Physician. cp 02:25 Head/Face: Normocephalic, atraumatic. cp 02:25 Constitutional: The patient appears alert, awake, non-diaphoretic, non-toxic, well developed, well nourished, uncomfortable. 02:25 Eyes: Periorbital structures: appear normal, Pupils: equal, round, and reactive to light and accomodation, Extraocular movements: intact throughout, Conjunctiva: normal, no exudate, no injection, Sclera: no appreciated abnormality, Lids and lashes: appear normal, bilaterally. 02:25 ENT: External ear(s): are unremarkable, Ear canal(s): are normal, clear, TM's: are normal, no evidence of bulging, no erythema, Nose: is normal, Mouth: Lips: moist, Oral mucosa: pink and intact, moist, Posterior pharynx: is normal, airway is patent, no erythema, no exudate. 02:25 Neck: ROM/movement: is normal, is supple, without pain, no range of motions limitations, no meningismus, no nuchal rigidity. 02:25 Chest/axilla: Inspection: normal, Palpation: is normal, no crepitus, no tenderness. 02:25 Cardiovascular: Rate: tachycardic, Rhythm: regular, Edema: very mild in lower legs, JVD: is not appreciated. 02:25 Respiratory: moderate respiratory distress is noted, Respirations: labored breathing, that is moderate, shallow respirations, that is moderate, Breath sounds: decreased breath sounds, that are moderate, throughout, wheezing: is not appreciated. 02:25 Abdomen/GI: Inspection: distension, that is mild, Bowel sounds: active, all quadrants, Palpation: abdomen is soft and non-tender, in all quadrants. 02:25 Back: pain, that is moderate, ROM is painful, with all movement. 02:25 Neuro: Orientation: to person, place \\T\\ time. Mentation: is normal, Motor: moves all fours, strength is normal. Vital Signs: 02:24 BP 120 / 106; Pulse 127; Resp 52 S; Temp 97.6(O); Pulse Ox 85% on 6 lpm NC; Weight bb 82.55 kg (R); Height 5 ft. 7 in. (170.18 cm) (R); Pain 6/10; 02:35 BP 125 / 77; Pulse 120; Resp 35; Pulse Ox 100% on 75% BiPAP; lp1 02:45 BP 118 / 74; Pulse 121; Resp 26; Pulse Ox 99% on 45% BiPAP; lp1 03:00 BP 100 / 84; Pulse 119; Resp 32; Pulse Ox 96% on 40% BiPAP; lp1 03:20 BP 120 / 78; Pulse 119; Resp 27; Pulse Ox 98% on 40% BiPAP; lp1 03:40 BP 113 / 75; Pulse 117; Resp 30; Pulse Ox 98% on 40% BiPAP; lp1 04:00 BP 123 / 77; Pulse 118; Resp 26; Pulse Ox 99% on 40% BiPAP; lp1 04:20 BP 122 / 79; Pulse 115; Resp 25; Pulse Ox 100% on 40% BiPAP; lp1 04:40 BP 130 / 71; Pulse 113; Resp 24; Pulse Ox 100% on 40% BiPAP; lp1 05:20 BP 146 / 78; Pulse 115; Resp 28; Pulse Ox 100% on 40% BiPAP; Pain 0/10; lp1 06:00 BP 117 / 71; Pulse 110; Resp 28; Pulse Ox 100% on 40% BiPAP; lp1 02:24 Body Mass Index 28.50 (82.55 kg, 170.18 cm) bb 02:35 14/6, Rate of 12 lp1 02:45 14/6; Rate of 12 lp1 MDM: 02:13 Patient medically screened. [facility] 03:25 Physician consultation: Erika Winn MD was called at 03:20, was contacted at 03:20, regarding admission, to the telemetry unit. patient's condition. 04:00 Data reviewed: vital signs, nurses notes, lab test result(s), EKG, radiologic studies, cp plain films. 04:00 Test interpretation: by ED physician or midlevel provider: ECG, plain radiologic cp studies. ED course: Chest xray negative for focal infiltrates. 01/03 02:12 Order name: Basic Metabolic Panel 01/03 02:12 Order name: CBC with Diff; Complete Time: 03:53 cp 01/03 02:12 Order name: LFT's 01/03 02:12 Order name: Magnesium cp 01/03 02:12 Order name: NT PRO-BNP 01/03 02:12 Order name: PT-INR; Complete Time: 03:53 cp 01/03 02:12 Order name: Troponin (emerg Dept Use Only) 01/03 02:12 Order name: XRAY Chest (1 view) 01/03 02:12 Order name: BIPAP 01/03 05:41 Order name: Blood Culture Adult (2) 01/03 05:52 Order name: Blood Culture EDND 01/03 02:12 Order name: EKG; Complete Time: 02:13 cp 01/03 02:12 Order name: Cardiac monitoring; Complete Time: 02:19 cp 01/03 02:12 Order name: EKG - Nurse/Tech; Complete Time: 02:19 cp 01/03 02:12 Order name: IV Saline Lock; Complete Time: 02:19 cp 01/03 02:12 Order name: Labs collected and sent; Complete Time: 02:34 cp 01/03 02:12 Order name: O2 Per Protocol; Complete Time: 02:34 cp 01/03 02:12 Order name: O2 Sat Monitoring; Complete Time: 02:35 cp EC:16 Rate is 124 beats/min. Rhythm is regular. LA interval is normal. QRS interval is cp normal. QT interval is normal. Interpreted by me. Reviewed by me. Administered Medications: 02:10 Drug: Xopenex (3) 1.25 mg Route: Inhalation; lp1 02:30 Drug: Magnesium Sulfate 2 grams Route: IVPB; Infused Over: 2 hrs; Site: left rr5 antecubital; 03:34 Follow up: IV Status: Completed infusion; IV Intake: 50ml lp1 02:35 Drug: SOLU-Medrol 125 mg Route: IVP; Site: right antecubital; rr5 03:34 Follow up: Response: No adverse reaction lp1 Disposition: 07:53 Co-signature as Attending Physician, Seamus Calderón MD I agree with the assessment and meseret plan of care. Disposition: 01/03/19 03:23 Hospitalization ordered by Erika Winn for Inpatient Admission. Preliminary diagnosis are Chronic obstructive pulmonary disease with (acute) exacerbation, Hypoxemia. - Bed requested for Telemetry/MedSurg (Inpatient). - Status is Inpatient Admission. bb - Condition is Stable. - Problem is new. - Symptoms have improved. UTI on Admission? No Signatures: Dispatcher [employer] EDSeamus Warner MD MD cha Ballard, Brenda, RN RN bb Estefany Cramer RN RN lp1 Seamus Nieves PA PA cp Garcia, Cindy, OSMAN RN Zander Metz RN RN rr5 Corrections: (The following items were deleted from the chart) 05:00 03:23 Hospitalization Ordered by Erika Winn MD for Inpatient Admission. Preliminary cg diagnosis is Chronic obstructive pulmonary disease with (acute) exacerbation; Hypoxemia. Bed requested for Telemetry/MedSurg (Inpatient). Status is Inpatient Admission. Condition is Stable. Problem is new. Symptoms have improved. UTI on Admission? No. cp 06:13 05:00 01/03/2019 03:23 Hospitalization Ordered by Erika Winn MD for Inpatient bb Admission. Preliminary diagnosis is Chronic obstructive pulmonary disease with (acute) exacerbation; Hypoxemia. Bed requested for Telemetry/MedSurg (Inpatient). Status is Inpatient Admission. Condition is Stable. Problem is new. Symptoms have improved. UTI on Admission? No. cg
[2019-01-03 04:01] LABS: Albumin 2.4 g/dL (3.4-5.0); Bilirubin Direct 0.4 mg/dL (0-0.2); Bilirubin Total 0.9 mg/dL (0.2-1.0); Magnesium 2.7 mg/dL (1.8-2.4); Potassium 5.1 mmol/L (3.5-5.1); Protein, Total 8.5 g/dL (6.4-8.2); Troponin (Emerg Dept Use Only) 0.07 ng/mL (0.0-0.045)
--- NOTE | 2019-01-03 04:51 | P.HP ---
Certification for Inpatient Patient admitted to: Inpatient With expected LOS: >2 Midnights Practitioner: I am a practitioner with admitting privileges, knowledge of patient current condition, hospital course, and medical plan of care. Services: Services provided to patient in accordance with Admission requirements found in Title 42 Section 412.3 of the Code of Federal Regulations Patient History Date of Service: 01/03/19 Reason for admission: acute on chronic respiratory failure History of Present Illness: Mr Camp is a 73 years old male with multiple medical problems includins, COPD , pulmonary fibrosis on continuous home oxygen at 2 L by NC, AAA, HTN, NIDDM, CAD, who start about 2 days ago with cough and progressive SOB, more than usual. He also change the color of his secretion from clear to brown. He denied fever or chills. No chest pain. Last night, his SOB got even worse when he got up to go to the bathroom, EMS were called then. IN ER he was afebrile, O2 Sat 86 % on 6 L of O2, Lab work shows Leukocytosis 15.1K (he is on chronic steroids), CXR worsening bilateral infiltrate compared with previous XR, awaiting radiology report. Allergies codeine Allergy (Verified 11/05/15 14:25) severe stomach cramps Home medications list reviewed: Yes Home Medications: Aspirin 81 mg PO DAILY 08/03/17 Ezetimibe 10 mg PO DAILY 08/03/17 Metformin HCl 500 mg PO BID 08/03/17 Tiotropium [place] [Spiriva] 1 puff IH DAILY 08/03/17 predniSONE [Prednisone*] 10 mg PO DAILY 08/03/17 Albuterol Inhaler [Ventolin Inhaler*] 2 puff IH Q4H PRN #1 hfa.aer.ad 08/04/17 Losartan Potassium [Cozaar] 25 mg PO DAILY 09/02/17 Furosemide 40 mg PO DAILY #1 tablet 09/05/17 Metoprolol Tartrate [Lopressor*] 12.5 mg PO BID 6AM 6PM #60 tab 09/05/17 Smz./Tmp. [Bactrim Ds 800 MG/160 MG*] 1 tab PO BID #20 tab 09/05/17 - Past Medical/Surgical History Diabetic: Yes -: COPD -: Diabetes mellitus type 2 -: Severe chronic interstitial lung disease -: HTN -: Rheumatoid arthritis -: CAD with previous stents -: AAA with repair -: Iliac aneurysm with repair -: Rheumatoid arthritis -: Chronic oxygen -: Chronic steroid use -: AAA repair -: coronary cath with 2 stent placement -: Cholecystectomy -: left rotator cuff sx Psychosocial/ Personal History: The patient is . He has children. He does not work. - Social History Smoking Status: Former smoker Alcohol use: Yes CD- Drugs: No Caffeine use: Yes Place of Residence: Home Review of Systems 10-point ROS is otherwise unremarkable Physical Examination - Physical Exam General: Alert, Mild distress (due to SOB) HEENT: Atraumatic, PERRLA, Mucous membr. moist/pink, EOMI, Sclerae nonicteric Neck: Supple, 2+ carotid pulse no bruit, No LAD, Without JVD or thyroid abnormality Respiratory: Diminished, Crackles/rales Cardiovascular: Regular rate/rhythm, Normal S1 S2 Gastrointestinal: Normal bowel sounds, No tenderness Musculoskeletal: No tenderness, Swelling (1+ LE edema) Integumentary: No rashes Neurological: Normal speech, Normal strength at 5/5 x4 extr, Normal tone, Normal affect Lymphatics: No axilla or inguinal lymphadenopathy - Studies Laboratory Data (last 24 hrs) 01/03/19 03:30: Sodium 131 L, Potassium 5.1, BUN 13, Creatinine 1.13, Glucose 164 H, Magnesium 2.7 H D, Total Bilirubin 0.9, AST 28, ALT 21, Alkaline Phosphatase 123 H 01/03/19 02:25: PT 12.2, INR 1.04 01/03/19 02:25: WBC 15.1 H, Hgb 11.1 L, Hct 36.1 L, Plt Count 129 L Assessment and Plan - Problems (Diagnosis) (1) Acute and chronic respiratory failure Current Visit: Yes Status: Acute Qualifiers: Respiratory failure complication: hypoxia Qualified Code(s): J96.21 - Acute and chronic respiratory failure with hypoxia (2) COPD exacerbation Onset Date: 08/03/17 Current Visit: No Status: Acute (3) CAD (coronary artery disease) Onset Date: 08/03/17 Current Visit: No Status: Chronic Qualifiers: Coronary Disease-Associated Artery/Lesion type: [place] artery [place] vs. transplanted heart: [place] heart Associated angina: without angina Qualified Code(s): I25.10 - Atherosclerotic heart disease of [place] coronary artery without angina pectoris (4) Diabetes mellitus Current Visit: No Status: Chronic Qualifiers: Diabetes mellitus type: type 2 Diabetes mellitus terminal system operator insulin use: without terminal system operator use Diabetes mellitus complication status: with other specified complication Qualified Code(s): E11.69 - Type 2 diabetes mellitus with other specified complication (5) HTN (hypertension) Onset Date: 08/03/17 Current Visit: No Status: Chronic Qualifiers: Hypertension type: essential hypertension Qualified Code(s): I10 - Essential (primary) hypertension - Plan Will admit Mr Camp due to acute on chronic respiratory failure, due to possible COPD exacerbation. Will order lactate, procalcitonin, start empiric abx treatment, IV steroids and breathing treatments. Consult [facility]ist. - Advance Directives Does patient have a Living Will: Yes Does patient have a Durable POA for Healthcare: Yes - Code Status/Comfort Care Code Status Assessed: Yes Code Status: Full Code
[2019-01-03] MEDS ORDERED: ACETAMINOPHEN 500 MG TAB PO PRN (06:27)
[2019-01-03] MEDS ORDERED: ONDANSETRON 4 MG/2 ML VIAL IV PRN (06:27)
[2019-01-03] MEDS ORDERED: CEFTRIAXONE 1 GM/NS 50 ML 1 GM/50 ML BAG IV SCH (07:00)
--- NOTE | 2019-01-03 07:13 | EKG ---
Test Date: 2019-01-03 Test Time: 02:09:48 R D Internship: RR MEASUREMENT RESULTS: Intervals: Rate: 124 FL: 156 QRSD: 98 QT: 290 QTc: 416 [place]: P: 43 FL: 156 QRS: -15 T: 83 INTERPRETIVE STATEMENTS: Sinus tachycardia with fusion complexes Left ventricular hypertrophy with repolarization abnormality Inferior infarct, age undetermined Abnormal ECG Compared to ECG 05/06/2018 13:07:43 Fusion complex(es) now present Left ventricular hypertrophy now present Early repolarization now present Atrial premature complex(es) no longer present Myocardial infarct finding still present Electronically Signed On 01-03-19 07:12:15 CDT by Richard Borden
--- NOTE | 2019-01-03 08:25 | RAD REPORT ---
EXAM DESCRIPTION: RAD - Chest Single View - 01/03/2019 2:40 am CLINICAL HISTORY: Cough;SOB Chest pain. COMPARISON: Chest Pa And Lat (2 Views) dated 06/19/2018; Chest Single View dated 05/06/2018; Chest Sin gle View dated 03/03/2018; Chest Pa And Lat (2 Views) dated 09/02/2017 FINDINGS: Portable technique limits examination quality. Moderate bilateral pulmonary opacities are noted, likely representing pulmonary edema superimposed on chronic fibrotic changes. The heart is moderately enlarged. No displaced fractures. IMPRESSION: Moderate CHF suspected, superimposed on chronic fibrotic changes.
[2019-01-03] MEDS ORDERED: OXYCODONE HCL 5 MG TAB PO PRN (08:49)
[2019-01-03] MEDS ORDERED: EZETIMIBE 10 MG TAB PO SCH (09:00)
[2019-01-03] MEDS: HOME MED 1 EA UNK (Umeclidinium Bromide [Incruse Ellipta] 62.5 MCG) IH SCH (09:00)
[2019-01-03] MEDS ORDERED: FUROSEMIDE 40 MG TABLET PO SCH (09:00)
[2019-01-03] MEDS ORDERED: PANTOPRAZOLE 40MG TABLET PO SCH (09:00)
[2019-01-03] MEDS ORDERED: CEFTRIAXONE/SWI 1gm 1 GM/10 ML SYR IV SCH (09:00)
[2019-01-03] MEDS ORDERED: AZITHROMYCIN IV 500 MG in NA CHLORIDE 0.9% 250 ML IVPB SCH (09:00)
[2019-01-03] MEDS: ARFORMOTEROL TARTRATE 15 MCG/2 ML VIAL.NEB NEB SCH ×2 (10:00→20:00)
[2019-01-03] MEDS: IPRATROPIUM BROM 0.5MG/2.5ML NEB PRN (10:00)
[2019-01-03] MEDS: ALBUTEROL 2.5 MG/3 ML NEB SOL NEB PRN (10:00)
[2019-01-03 10:17] LABS: Arterial Blood Carboxyhemoglob 2.1 % (0-1.5); Blood Gas Oxyhemoglobin 81.5 % (94-97); Blood O2 Saturation 83.5 % (92-98.5)
[2019-01-03] MEDS: INSULIN -REGULAR HUMAN 50 UNIT/0.5 ML ML SQ SCH ×4 (10:24→23:49)
[2019-01-03] MEDS: SPIRONOLACTONE 100 MG TAB PO SCH (10:26)
[2019-01-03] MEDS: URSODIOL 300 MG CAP PO SCH ×2 (10:26→21:24)
[2019-01-03] MEDS: ASPIRIN 81 MG CHEWABLE TABLET PO SCH (10:26)
[2019-01-03] MEDS: ENOXAPARIN 40 MG/0.4 ML SQ SCH (10:27)
[2019-01-03] MEDS: METHYLPREDNISOLONE 40 MG INJ IV SCH ×3 (12:23→23:50)
--- NOTE | 2019-01-03 12:35 | RAD REPORT ---
EXAM DESCRIPTION: CT - Chest For Pe Angio - 01/03/2019 12:01 pm CLINICAL HISTORY: Chest pain. SOB, tachycardia, COPD, r/out PE COMPARISON: Thorax Wo Con dated 09/01/2017; Abdomen Pelvis W Contrast dated 03/03/2018; Abdomen P marcos W Contrast dated 05/06/2018 TECHNIQUE: CT angiogram of the pulmonary arteries was performed with MIP. All CT scans are performed using dose optimization technique as appropriate and may include automated exposure control or mA/KV adjustment according to patient size. FINDINGS: No evidence of pulmonary thromboembolism. No acute aortic finding demonstrated. Severe alveolar lung opacities are present bilaterally superimposed on fibroemphysematous changes. In addition, there is pleural based mass noted in the right lower lobe laterally measuring 23 x 20 mm, significantly enlarged since the 2017 prior study at which time it measured 11 mm. Trace bilateral pleural fluid. Enlarged lymph nodes are present in the mediastinum including the right peritracheal region measuring 3.5 x 2.9 cm, AP window measuring 12 mm and right hilum measuring 2.6 x 1.9 cm. No concerning bony finding. Liver cirrhosis with mild ascites noted in the upper abdomen. IMPRESSION: No evidence of pulmonary thromboembolism. Severe bilateral alveolar lung opacities superimposed on chronic emphysematous changes. This may repr esent pulmonary edema/ volume overload or pneumonia. Right lower lobe pleural abutting mass measuring 23 x 20 mm, enlarged since comparative 2017 study, w ith enlarged mediastinal and right hilar lymph nodes. This likely represent lung malignancy. Liver cirrhosis and mild ascites in the upper abdomen.
[2019-01-03] MEDS ORDERED: FUROSEMIDE 40 MG/4 ML VIAL IV ONE (12:59)
--- NOTE | 2019-01-03 13:03 | P.CNS ---
Date of Consult: 01/03/19 Chief Complaint: acute on chronic respiratory failure History of Present Illness: Patient is 73 years of age recently had a liver biopsy done Aram has some mets to the lung was scheduled to have a biopsy done at [facility]. History obtained from his daughter he became acutely ill more short of breath patient has a history of pulmonary fibrosis cirrhosis of the liver this found to have diffuse ground-glass changes on is chest x-ray confirmed by CT scan was transferred to the ICU with some slight cough no fever or chills Allergies codeine Allergy (Verified 11/05/15 14:25) severe stomach cramps Home Medications: Aspirin 81 mg PO DAILY 08/03/17 Ezetimibe 10 mg PO DAILY 08/03/17 Metformin HCl 500 mg PO BID 08/03/17 Tiotropium [place] [Spiriva] 1 puff IH DAILY 08/03/17 predniSONE [Prednisone*] 10 mg PO DAILY 08/03/17 Albuterol Inhaler [Ventolin Inhaler*] 2 puff IH Q4H PRN #1 hfa.aer.ad 08/04/17 Furosemide 40 mg PO DAILY #1 tablet 09/05/17 Oxycodone HCl [Oxyir] 5 mg PO Q6H PRN 01/03/19 Pantoprazole [Protonix Tab] 40 mg PO DAILY 01/03/19 Spironolactone 100 mg PO DAILY 01/03/19 Umeclidinium [place] [Incruse Ellipta] 62.5 mcg IH DAILY 01/03/19 Ursodiol [Actigall] 300 mg PO BID 01/03/19 - Past Medical/Surgical History Diabetic: Yes -: COPD -: Diabetes mellitus type 2 -: Severe chronic interstitial lung disease -: HTN -: Rheumatoid arthritis -: CAD with previous stents -: AAA with repair -: Iliac aneurysm with repair -: Rheumatoid arthritis -: Chronic oxygen -: Chronic steroid use -: AAA repair -: coronary cath with 2 stent placement -: Cholecystectomy -: left rotator cuff sx Psychosocial/ Personal History: The patient is . He has children. He does not work. - Social History Smoking Status: Former smoker Alcohol use: No CD- Drugs: No Caffeine use: Yes Place of Residence: Home Review of Systems General: Weakness Respiratory: Cough, Shortness of Breath Gastrointestinal: Nausea Physical Examination Temp Pulse Resp BP Pulse Ox 97.6 F 123 H 21 H 133/89 97 05/02/19 08:00 01/03/19 10:26 01/03/19 08:00 01/03/19 10:26 01/03/19 08:00 General: Alert, Oriented x3, Moderate distress HEENT: Atraumatic Neck: Supple Respiratory: Crackles/rales (Extensive crackles bilaterally) Cardiovascular: No edema, Normal S1 S2 Gastrointestinal: Normal bowel sounds, Soft and benign Laboratory Data (last 24 hrs) 01/03/19 03:30: Sodium 131 L, Potassium 5.1, BUN 13, Creatinine 1.13, Glucose 164 H, Magnesium 2.7 H D, Total Bilirubin 0.9, AST 28, ALT 21, Alkaline Phosphatase 123 H 01/03/19 02:25: PT 12.2, INR 1.04 01/03/19 02:25: WBC 15.1 H, Hgb 11.1 L, Hct 36.1 L, Plt Count 129 L - Problems (1) Respiratory failure Current Visit: Yes Status: Acute Plan: Patient is 73 years of age admitted with acute shortness of breath he has diffuse bilateral ground-glass changes patient is very hypoxic white count is elevated BNP is also elevated continue with steroids antibiotics gentle diuresis patient does take steroids at home patient has a history of pulmonary fibrosis and COPD these his CT scan is significantly worse patient has mediastinal adenopathy and a right lung mass was scheduled to have a biopsy done at [facility] patient developed acute respiratory distress after his CT scan and was intubated by anesthesia currently on a vent protocol sputum cultures prognosis very poor Qualifiers: Chronicity: acute
[2019-01-03] MEDS ORDERED: NA CHLORIDE 0.9% 250 ML IV PRN (13:11)
[2019-01-03] MEDS ORDERED: HALOPERIDOL LACT 5 MG/ML INJ IV PRN (13:11)
[2019-01-03] MEDS ORDERED: MIDAZOLAM HCL 2 MG/2 ML INJ IV PRN (13:11)
[2019-01-03] MEDS ORDERED: RSI MEDICATION KIT IV ONE (13:13)
[2019-01-03] MEDS ORDERED: PROPOFOL 1,000 MG/100 ML VIAL IV ONE (13:16)
[2019-01-03] MEDS ORDERED: D50W 25 GM/50 ML SYRINGE IV PRN (13:53)
[2019-01-03] MEDS ORDERED: GLUCAGON 1 MG/VIAL IM PRN (13:53)
[2019-01-03 14:18] LABS: Arterial Blood Carboxyhemoglob 1.3 % (0-1.5); Blood Gas Oxyhemoglobin 93.7 % (94-97); Blood O2 Saturation 95.4 % (92-98.5)
--- NOTE | 2019-01-03 14:39 | RAD REPORT ---
EXAM DESCRIPTION: RAD - Chest Single View - 01/03/2019 2:25 pm CLINICAL HISTORY: E-Tube placement Chest pain. COMPARISON: Chest Single View dated 01/03/2019; Chest Pa And Lat (2 Views) dated 06/19/2018; Chest Sin gle View dated 05/06/2018; Chest Single View dated 03/03/2018 FINDINGS: Portable technique limits examination quality. Severe bilateral pulmonary opacities are noted, mildly worsened since earlier study same date. Findin gs may indicate pulmonary edema, pneumonia or ARDS. Tip of the ET tube is above the max. Enteric t ube descends in the stomach. The heart is moderately enlarged in size.
[2019-01-03] MEDS: Levofloxacin 750mg IV 750 MG/150 ML BAG IV SCH (15:39)
[2019-01-03] MEDS: FENTANYL CITR 100 MCG/2 ML IV PRN (16:15)
--- NOTE | 2019-01-03 16:16 | PN ---
Date of Progress Note: 01/03/2019 Code Status: Full. Subjective: The patient seen and examined. Chart reviewed and case discussed with RN. Family at th e bedside. Treatment plan explained. All questions answered. The patient still very short of breat h, getting winded with minimal movement and conversation. The patient still having some cough, able to be weaned off of BiPAP, this morning. Medications: List reviewed. Physical Examination: Vital Signs: Temperature 97.6, heart rate 123, blood pressure 133/89, respirations 21, O2 97% on 5 L via nasal cannula. General: Awake, alert, oriented x3. Elderly male, in mild respiratory distress, ill appearing. CV: S1, S2. Regular rate and rhythm. Peripheral pulses weak bilaterally. Respiratory: Diminished breath sounds. Wheezing heard. No stridor. The patient is tachypneic, wit h use of accessory muscles. Gastrointestinal: Abdomen is soft, nontender, nondistended. Positive bowel sounds. No guarding or rigidity. Extremities: No clubbing, cyanosis, or edema. Neurologic: Nonfocal. Laboratory Data: Troponin 0.07, 0.11. Procalcitonin 0.17. WBC 15.1. Blood cultures are pending. Assessment And Plan: A 73-year-old male with: 1.Acute respiratory failure with hypoxia. The patient was on BiPAP overnight, has been off for a fe w hours now, this morning, still very winded, desaturating to about 87% on 5 L of O2 with minimal mov ement, likely secondary to chronic obstructive pulmonary disease exacerbation. 2.Acute chronic obstructive pulmonary disease exacerbation. We will continue with steroids, nebuliz er treatments and supplemental oxygen. Dr. Phan has been consulted. 3.Coronary artery disease, [place] artery and [place] heart, without angina, status post stent. 4.Aortic aneurysm, status post repair. 5.Peripheral vascular disease, status post intervention. 6.Diabetes mellitus type 2, [id number], with the hyperglycemia. Continue on sliding scal e insulin, and monitor Accu-Cheks. 7.Essential hypertension, stable. We will resume home medications. 8.Hepatic and lung lesions. The patient was scheduled to be with Anesthesia at [facility] for a bi opsy. The patient has already had a CT scan done at [facility], possibility of primary hepatic and primary lung. The patient to follow up with his Oncologist at [facility]. 9.Deep vein thrombosis prophylaxis addressed. /ADRIANNA Voice ID: [id number] Report ID: [id number]
[2019-01-03] MEDS: PROPOFOL 1,000 MG/100 ML VIAL IV PRN ×2 (17:09→23:19)
[2019-01-03] MEDS: FUROSEMIDE 40 MG/4 ML VIAL IV SCH (21:24)
[2019-01-04 00:16] LABS: Urine Appearance CLEAR; Urine Bilirubin NEGATIVE (NEG); Urine Blood NEGATIVE (NEG); Urine Color YELLOW; Urine Glucose NEGATIVE (NEG); Urine Protein NEGATIVE (NEG); Urine Specific Gravity 1.015 (1.005-1.030); Urine Urobilinogen 0.2 mg/dL (0.2-1.0)
[2019-01-04 00:23] LABS: Urine Microscopic Reflex NO UMIC
[2019-01-04] MEDS: FENTANYL CITR 100 MCG/2 ML IV PRN ×3 (03:58→16:14)
[2019-01-04 05:25] LABS: Blood Gas Oxyhemoglobin 91.3 % (94-97); Blood O2 Saturation 93.5 % (92-98.5)
[2019-01-04] MEDS: INSULIN -REGULAR HUMAN 50 UNIT/0.5 ML ML SQ SCH ×3 (05:51→18:01)
[2019-01-04] MEDS: METHYLPREDNISOLONE 40 MG INJ IV SCH ×3 (05:51→18:02)
[2019-01-04] MEDS: PROPOFOL 1,000 MG/100 ML VIAL IV PRN ×2 (05:52→13:07)
[2019-01-04 06:02] LABS: Absolute Lymphocytes (CBC) 0.5 K/uL (0.7-4.9); Absolute Monocytes 0.4 K/uL (0.1-1.3); Absolute Neutrophil 14.6 K/uL (1.8-8.0); Basophils % 0.3 % (0-1.3); Hematocrit 27.1 % (39.6-49.0); Monocytes % 2.8 % (3.3-12.3); RBC Red Blood Cell Count 3.37 M/uL (4.33-5.43)
[2019-01-04 06:08] LABS: Potassium 5.3 mmol/L (3.5-5.1)
[2019-01-04 06:44] LABS: Blood Morphology Comment NOT SEEN (NOT SEEN); Platelet Estimate ADEQ
--- NOTE | 2019-01-04 07:18 | RAD REPORT ---
EXAM DESCRIPTION: Eliel Single View01/04/2019 7:10 am CLINICAL HISTORY: Shortness of COMPARISON: May 2018 FINDINGS: Endotracheal tube has its tip 7 centimeters above the max. A nasogastric tube is presen t within the distal stomach/proximal duodenum. Extensive bilateral interstitial pulmonary opacities mostly represent pulmonary fibrosis. Mild superimposed pulmonary edema could be present. The heart remains enlarged
[2019-01-04] MEDS: ARFORMOTEROL TARTRATE 15 MCG/2 ML VIAL.NEB NEB SCH ×2 (08:03→20:01)
[2019-01-04] MEDS ORDERED: SODIUM CHLORIDE 0.9% 10ML INJ IV PRN (08:04)
[2019-01-04] MEDS ORDERED: SOD POLYSTYREN SUL 15 GM/60 ML UCUP FT ONE (08:24)
--- NOTE | 2019-01-04 08:32 | ECHO ---
HEIGHT: 5 ft 7 in WEIGHT: 184 lb 1.6 oz DATE OF STUDY: 01/03/[address]: Ethan Phan MD 2-DIMENSIONAL: YES M.MODE: YES DOPPLER: YES COLOR FLOW: YES TDS: NO PORTABLE: NO DEFINITY: NO BUBBLE STUDY: NO DIAGNOSIS: RULE OUT CONGESTIVE HEART FAILURE CARDIAC HISTORY: CATHERIZATION: SURGERY: PROSTHETIC VALVE: PACEMAKER: MEASUREMENTS (cm) DIASTOLIC (NORMALS) SYSTOLIC (NORMALS) IVSd 1.5 (0.6-1.2) LA Diam (1.9-4.0) LVEF 30-35% LVIDd 4.7 (3.5-5.7) LVIDs 4.3 (2.0-3.5) %FS 9% LVPWd 1.4 (0.6-1.2) Ao Diam 2.9 (2.0-3.7) 2 DIMENSIONAL ASSESSMENT: RIGHT ATRIUM: NORMAL LEFT ATRIUM: DILATED RIGHT VENTRICLE: NORMAL LEFT VENTRICLE: LEFT VENTRICULAR HYPERTROPHY TRICUSPID VALVE: NORMAL MITRAL VALVE: MITRAL ANNULAR CALCIFICATION PULMONIC VALVE: NORMAL AORTIC VALVE: STENOSIS PERICARDIAL EFFUSION: NONE AORTIC ROOT: NORMAL LEFT VENTRICULAR WALL MOTION: POSTERIOR, INFERIOR AKINESIS. DOPPLER/COLOR FLOW: SEVERE AORTIC STENOSIS PEAK/MEAN GRADIENT 52/33 ESTIMATED AORTIC VALVE AREA 0.8 CM SQUARED. MILD AORTIC REGURGITATION AND MITRAL REGURGITATION. COMMENTS: DEPRESSED LEFT VENTRICULAR EJECTION FRACTION WITH WALL MOTION ABNORMALITIES. LEFT VENTRICULAR HYPERTROPHY. DILATED LEFT ATRIUM. MITRAL ANNULAR CALCIFICATION. SEVERE AORTIC STENOSIS. TECHNOLOGIST: REBECCA [facility]
[2019-01-04] MEDS: HOME MED 1 EA UNK (Umeclidinium Bromide [Incruse Ellipta] 62.5 MCG) IH SCH (09:00)
[2019-01-04] MEDS: SPIRONOLACTONE 100 MG TAB PO SCH (09:45)
[2019-01-04] MEDS: PANTOPRAZOLE 40 MG INJ IVP SCH (09:45)
[2019-01-04] MEDS: ASPIRIN 81 MG CHEWABLE TABLET PO SCH (09:45)
[2019-01-04] MEDS: ENOXAPARIN 40 MG/0.4 ML SQ SCH (09:45)
[2019-01-04] MEDS: FUROSEMIDE 40 MG/4 ML VIAL IV SCH ×2 (09:45→21:12)
[2019-01-04] MEDS: URSODIOL 300 MG CAP PO SCH ×2 (10:39→21:12)
[2019-01-04] MEDS ORDERED: VECURONIUM 10 MG/VIAL IV ONE (11:30)
[2019-01-04] MEDS ORDERED: WATER FOR INJ,STERILE 10 ML IV ONE (11:32)
--- NOTE | 2019-01-04 11:32 | P.PN ---
Subjective Date of Service: 01/04/19 Chief Complaint: acute on chronic respiratory failure Patient's condition is stable he was intubated yesterday Review of Systems is unable to be obtained Physical Examination - Vital Signs Temperature: 97.4 F Blood Pressure: 119/56 Pulse: 90 Respirations: 16 Pulse Ox (%): 100 - Physical Exam General: Unresponsive (On propofol) Neck: Supple Respiratory: Crackles/rales (Bilateral crackle) Cardiovascular: No edema, Normal S1 S2 Assessment & Plan - Problems (Diagnosis) (1) Respiratory failure Current Visit: Yes Status: Acute Plan: Patient admitted with respiratory failure he has cut diffuse interstitial lung disease which has worsened echocardiogram shows diminished ejection fraction sputum cultures pending blood cultures negative continue with steroids antibiotics bronchodilators will try and wean off propofol and hopefully the ventilator labs reviewed white count is elevated mildly anemic renal function is slightly worse is currently on 35% oxygen prognosis very poor discuss with the daughter Qualifiers: Chronicity: acute
[2019-01-04] MEDS: Levofloxacin 750mg IV 750 MG/150 ML BAG IV SCH (12:36)
[2019-01-04] MEDS: LORazepam 2 MG/ML VIAL IV PRN (12:50)
--- NOTE | 2019-01-04 13:59 | CON ---
Reason For Consult: Abnormal troponins, abnormal echocardiogram. History Of Present Illness: Mr. Camp is 73. He was brought to our emergency room, falling, confus ed, altered mental status, feeling weak and progressively more short of breath for several days. Den ied having chest pain. When he got up to go to the bathroom he was very short of breath, very lighthe aded. EMS was called. He was brought to the ER. He was intubated shortly after being here. He has a history of severe chronic interstitial lung disease, diabetes, obstructive lung disease, rheumatoi d arthritis, abdominal aortic aneurysm repair, chronic steroid use. He has had repair of an iliac an eurysm. He has had coronary heart disease with coronary stents. He has had a cholecystectomy, left rotator cuff tear. He has aortic valve disease, it may be moderate stenosis, but on our echo. Since being here in the hospital it shows severe aortic stenosis. He also has lung nodes or masses and bi opsies were pending at [facility]. He has lumbar compression fractures from osteoporosis. On his c hest x-ray, it looks like he has worsening bilateral infiltrates. I am asked to see him because the troponin levels were elevated. The troponins were 0.07, 0.11 and 0.21. Physical Examination: General: The patient is on a propofol drip and unresponsive. I am told by the nurses when the propo fol was turned off for a brief period of time, he awakes and responds. Lungs: His lungs reveal diffuse crackles. I do not appreciate any wheezes. There are decreased wagner ath sounds both lung bases. Heart: The heart reveals a systolic ejection murmur, it is grade 2/6, perhaps 3/6. We do not apprec iate a diastolic murmur. Abdomen: Soft. Extremities: Mild edema. Distal pulses diminished. His electrocardiogram shows sinus tachycardia with PVCs, LVH, inferior infarct. His echocardiogram s hows mildly depressed ejection fraction with inferior and posterior wall akinesis. He has left ventr icular hypertrophy. Mitral annular calcification. Aortic stenosis with a peak gradient of 52, mean gradient of 33. Estimated valve area of 0.8 square cm. All this is consistent with severe aortic st enosis. There is mild aortic regurgitation and mitral regurgitation also. Impression: The patient has several reasons why his troponins have gone up. Other than acute lincoln ry occlusion, I think he is probably septic with pneumonia, multiple lung masses, very compromised im mune system and all these and severe aortic stenosis have all resulted in the elevated troponin. I w ould not recommend doing an emergency cardiac cath. We should try to get his pneumonia and other negin g problems treated as well as we can, perhaps we get him extubated and since he already has establish ed care at [facility], he would probably prefer to go there to do a heart catheterization and see ab out his aortic stenosis. Other pulmonary problems rather than do it here. RAMSEY/ADRIANNA Voice ID: [id number] Report ID: [id number]
[2019-01-04] MEDS ORDERED: JEVITY 1.2 CAL LIQUID 1,000 ML BOT RTH SCH (14:00)
--- NOTE | 2019-01-04 17:50 | PN ---
Date of Progress Note: 01/04/2019 Subjective: The patient is seen and examined, chart reviewed, and case discussed with RN and Dr. Galileo bryant. The patient was intubated yesterday due to acute respiratory distress and found to be in flui d overload, has advanced pulmonary fibrosis along with lung mass, also had hemoptysis. Family at the bedside, treatment plan explained, all questions answered. Physical Examination: Vital Signs: Temperature 97.4, heart rate 90, blood pressure 119/56, respirations 16, O2 of 100% on ET tube. General: Asleep, intubated, sedated, does not follow commands. CV: S1, S2. Regular rate and rhythm. Pulses present. Pulses weak bilaterally. Respiratory: Diminished breath sounds, no wheezing, some crackles present. Gastrointestinal: Abdomen is soft, nondistended. Positive bowel sounds. Extremities: No clubbing or cyanosis. Pedal edema. Neuro: Intubated, sedated; however, when propofol was turned off, he was able to follow commands. Medications: List reviewed. Laboratory Data: Sodium 132, potassium 5.3, chloride 95, CO2 of 28, BUN 25, creatinine 1.54, glucose 176, calcium 9.1. WBC 15.6, H and H 8.7 and 27.1, platelets 126, neutrophils 93%. Blood cultures c urrently pending, no growth to date. Sputum culture is also pending. Echocardiogram shows severe ao rtic stenosis, mild aortic regurgitation and mild mitral regurgitation, left ventricular hypertrophy. Assessment And Plan: A 73-year-old male with: 1.Acute respiratory failure with hypoxia, currently on ventilator. The patient had to be intubated yesterday due to worsening condition, likely secondary to multifactorial etiologies including moderat e-to-severe pulmonary fibrosis, lung mass, hemoptysis, pulmonary edema, and chronic obstructive pulmo nary disease. We will continue to wean as tolerated. Appreciate Dr. Phan's input. 2.Acute chronic obstructive pulmonary disease exacerbation. We will continue with steroids, antibio tics were added yesterday, continue nebulizer treatments, currently intubated. 3.Severe aortic stenosis. Echocardiogram reviewed. EF is 30-35%. 4.Hypertensive heart disease. 5.Coronary artery disease, [place] artery and [place] heart, without angina status post stent. 6.Elevated troponin level, likely due to hypoxia. 7.Metabolic acidosis secondary to hypoxia. 8.Acute kidney injury, multifactorial, likely due to hypoxia as well as contrast-induced nephropathy . We will continue to monitor. The patient has good urinary output at this time. 9.Abdominal aortic aneurysm status post repair. 10.Peripheral vascular disease status post intervention. 11.Diabetes mellitus type 2, [id number], with hyperglycemia. We will continue sliding sc jamarcus insulin and monitor blood glucose levels. 12.Essential hypertension, stable. We will use IV medications p.r.n. 13.Hepatic and lung lesions, likely metastatic cancer. The patient's workup is ongoing at [facility]. Daughter brought in previous PET scan and head CT scan. We will place into our PAC system for c omparison. 14.Deep venous thrombosis prophylaxis with SCDs. We will avoid Lovenox due to hemoptysis. Plan: Continue to wean off ventilator as per Pulmonology. Overall, guarded prognosis. Follow up on cultures. /ADRIANNA Voice ID: [id number] Report ID: [id number]
[2019-01-05] MEDS: PROPOFOL 1,000 MG/100 ML VIAL IV PRN ×2 (00:18→08:24)
[2019-01-05] MEDS: METHYLPREDNISOLONE 40 MG INJ IV SCH ×4 (00:23→18:06)
[2019-01-05] MEDS: INSULIN -REGULAR HUMAN 50 UNIT/0.5 ML ML SQ SCH ×4 (00:25→18:05)
[2019-01-05] MEDS: FENTANYL CITR 100 MCG/2 ML IV PRN ×4 (04:38→16:02)
[2019-01-05 05:49] LABS: Absolute Lymphocytes (CBC) 0.4 K/uL (0.7-4.9); Absolute Monocytes 0.5 K/uL (0.1-1.3); Absolute Neutrophil 10.9 K/uL (1.8-8.0); Basophils % 0.1 % (0-1.3); Hematocrit 27.4 % (39.6-49.0); Lymphocytes % 3.2 % (15.3-44.8); MPV 8.5 fL (7.6-11.3); Monocytes % 4.1 % (3.3-12.3); RBC Red Blood Cell Count 3.38 M/uL (4.33-5.43)
[2019-01-05 05:57] LABS: Potassium 4.2 mmol/L (3.5-5.1)
[2019-01-05] MEDS: ARFORMOTEROL TARTRATE 15 MCG/2 ML VIAL.NEB NEB SCH ×2 (07:30→20:00)
[2019-01-05] MEDS: HOME MED 1 EA UNK (Umeclidinium Bromide [Incruse Ellipta] 62.5 MCG) IH SCH (09:00)
[2019-01-05] MEDS: PANTOPRAZOLE 40 MG INJ IVP SCH (09:19)
[2019-01-05] MEDS: FUROSEMIDE 40 MG/4 ML VIAL IV SCH (09:19)
[2019-01-05] MEDS: ASPIRIN 81 MG CHEWABLE TABLET PO SCH (09:20)
[2019-01-05] MEDS: SPIRONOLACTONE 100 MG TAB PO SCH (09:20)
[2019-01-05] MEDS: URSODIOL 300 MG CAP PO SCH ×2 (09:20→21:08)
--- NOTE | 2019-01-05 10:30 | P.PN ---
Subjective Date of Service: 01/05/19 Chief Complaint: Respiratory failure Patient failed weaning trial yesterday is currently being weaned off the propofol otherwise stable renal function is slightly worse Review of Systems is unable to be obtained Physical Examination - Vital Signs Temperature: 97.1 F Blood Pressure: 140/79 Pulse: 105 Respirations: 16 Pulse Ox (%): 100 - Physical Exam General: Unresponsive (On propofol) Respiratory: Crackles/rales (Crackles bilaterally) Cardiovascular: Regular rate/rhythm, Edema Assessment & Plan - Problems (Diagnosis) (1) Respiratory failure Current Visit: Yes Status: Acute Plan: Patient admitted with respiratory failure has severe pulmonary fibrosis cultures are so far negative chest x-rays shows pulmonary fibrosis white count is declining patient has congestive heart failure on echocardiogram severe aortic stenosis reduce dose of Lasix renal function is slightly worse vital signs stable oxygen is 30% PEEP of 10 patient tolerating tube feeds Qualifiers: Chronicity: acute Respiratory failure complication: hypoxia and hypercapnia Qualified Code(s): J96.01 - Acute respiratory failure with hypoxia ; J96.02 - Acute respiratory failure with hypercapnia
--- NOTE | 2019-01-05 12:51 | PN ---
Mr. Camp seems to be improving somewhat. I am not sure he could be extubated today or tomorrow, bu t his pulmonary status is better. At some point, he probably needs a cardiac cath and careful evalua tion of his aortic valve. See if he would be a candidate for a transcutaneous AVR. He may need sten ts as well, but at this point, he still needs to have his respiratory status improved. RAMSEY/MODThomas Voice ID: [id number] Report ID: [id number]
[2019-01-05] MEDS: LORazepam 2 MG/ML VIAL IV PRN (15:00)
--- NOTE | 2019-01-05 15:17 | RAD REPORT ---
EXAM DESCRIPTION: Eliel Single View01/05/2019 2:48 pm CLINICAL HISTORY: Device placement/endotracheal tube placement COMPARISON: January 04 FINDINGS: Endotracheal tube has its tip 8 centimeters above the max. PICC line and nasogastric tube remain in place Unchanged bilateral pulmonary opacities IMPRESSION: Endotracheal tube with its tip 8 centimeters above the max
--- NOTE | 2019-01-05 15:42 | PN ---
Date of Progress Note: 01/05/2019 Subjective: The patient is seen and examined. Chart reviewed and case discussed with RN. The patie nt still intubated and sedated. Daughter at the bedside. Treatment plan explained, all questions an swered. Medications: List reviewed. Physical Examination: Vital Signs: Temperature 97.1, heart rate 105, blood pressure 140/79, respirations 16, O2 100% on ET tube, FiO2 is 35%. General: Intubated and sedated. Does not appear to be in respiratory distress. CV: S1 and S2. 3/6 holosystolic murmur present. Respiratory: Diminished breath sounds, left worse than right. Some rhonchi present. Gastrointestinal: Abdomen is soft and nondistended. Positive bowel sounds. Extremities: No clubbing or cyanosis. The patient starting to develop peripheral edema. Neurologic: Intubated and sedated. However, has been responsive. Moving extremities on propofol. Laboratory Data: Sodium 132, potassium 4.2, chloride 93, CO2 32, BUN 48, creatinine 1.92, glucose 19 9, calcium 8.9. WBC 11.8, H and H 8.7 and 27.4, platelets 104, neutrophils 92%. Blood cultures pend ing. Sputum culture growing 1+ yeast. Assessment And Plan: A 73-year-old male with: 1.Acute respiratory failure with hypoxia, still on ventilator, 30% FiO2, 10 of PEEP. Appreciate, Dr Bobby Phan's input. Wean as tolerated. Likely secondary to multifactorial etiology including modera te to severe pulmonary fibrosis, lung mass, pulmonary edema, and chronic obstructive pulmonary diseas e. 2.Acute chronic obstructive pulmonary disease exacerbation. Continue steroids and IV antibiotics. Continue nebulizer treatments. Currently on ventilator. 3.Severe aortic stenosis, ejection fraction 30%-35%. This is contributing to the pulmonary edema. 4.Acute kidney injury, also multifactorial, likely due to hypoxia as well as contrast-induced nephro mode. We will likely plateau. We will decrease dose of Lasix and consult Nephrology. 5.Hypertensive heart disease. 6.Coronary artery disease, [place] artery and [place] heart without angina, status post stent. 7.Elevated troponin level secondary to current medical condition including hypoxia, congestive heart failure, not a candidate for heart catheterization at this time. Appreciate Dr. Pugh' input. 8.Abdominal aortic aneurysm, status post repair. 9.Peripheral vascular disease, stable. 10.Diabetes mellitus type 2 noninsulin-requiring with hyperglycemia. Continue sliding scale insulin and monitor Accu-Cheks. 11.Essential hypertension, stable. Continue medications. 12.Liver and lung lesions, likely metastatic cancer. Workup has been ongoing at [facility]. 13.Deep venous thrombosis prophylaxis with sequential compression devices. No further hemoptysis. Consider resuming Lovenox as patient is nonambulatory. Plan: Follow up with career consultant recommendations. We will continue to wean as tolerated off the vent . Adjust Lasix dose. Overall poor prognosis. /IJEOMAL Voice ID: [id number] Report ID: [id number]
[2019-01-05] MEDS ORDERED: RSI MEDICATION KIT IV ONE (15:45)
--- NOTE | 2019-01-05 16:00 | RAD REPORT ---
EXAM DESCRIPTION: Eliel Single View01/05/2019 3:52 pm CLINICAL HISTORY: Device placement endotracheal tube placement COMPARISON: January 05 FINDINGS: Since the earlier film on the same date an endotracheal tube has been advanced. The tip li es 1.5 millimeters above the max
--- NOTE | 2019-01-05 16:53 | CON ---
Date of Consultation: 01/05/2019 History Of Present Illness: Acute kidney injury. History Of Present Illness: Acute kidney injury, moderately severe, nonoliguric , associated with cardiorenal syndrome, renal hypoperfusion. The patient is admitted to ICU, is intubated for respiratory failure and congestive heart failure. The patient was found to have acute kidney injury. Baseline creatinine level on arrival to the hospital was 1.13, over last 48 hours creatinine has risen up to 1.92, yesterday was 1.54, and today is 1.92. There is elevated BUN up to 48 today, and the patient has hyponatremia with sodium level of 132, and hyperkalemia, potassium is 5.3. The patient has multiple medical problems including history of aortic stenoses, coronary artery disease, atherosclerotic vascular disease. He was brought to emergency room after he fell at home. He was confused, had altered mental status. He was progressively getting worse over the last several days and was complaining of shortness of breath. He denies chest pain. He became lightheaded and EMS was called. He was intubated after he was admitted to the hospital. He has severe chronic interstitial lung disease, diabetes mellitus type 2, obstructive lung disease, rheumatoid arthritis, abdominal aortic aneurysm repaired, chronic steroid use for rheumatoid arthritis, iliac aneurysm, had coronary artery disease and stent placement, had aortic valve disease with moderate stenosis diagnosed in the past and also had biopsy done on lung nodule, and pending report from [facility]. Previously, he had lumbar compression and fractures from osteoporosis. A chest x-ray show worsening of bilateral infiltrates, congestive heart failure. Troponin level was trending up from 0.07-0.21. Acute kidney injury, nonoliguric, was found over last 48 hours. The patient has severe cardiorenal syndrome and has diminished systolic ejection fraction. Acute kidney injury is associated with renal hypoperfusion, cardiorenal syndrome , remains nonoliguric. The patient was started on diuretic and renal function has declined over the last 24 hours. Review of Systems: Unobtainable. The patient is somewhat sedated and on propofol drip as well as he is intubated. He cannot provide review of systems. Physical Examination: Eyes: Anicteric sclerae. No hemorrhagic changes. Ears, Nose, mouth, and Throat: No oozing. Neck: no JVD, no bruits Lungs: Diffuse crackles. No wheezing. No rhonchi. Heart: S1, S2. Ejection murmur 2/6 with systolic murmur. No pericardial friction rub. Abdomen: Obese, soft. No rebound. No guarding. Extremities: Edema present bilaterally in both legs. Skin: Warm and dry. No skin rashes. Neurologic: The patient does not have tremor. He is moving extremities. Psychiatric : patient is intubated Laboratory Work: Sodium 132, potassium 5.3, chloride 95, CO2 28, BUN 48, creatinine 1.92, glucose 199, calcium 8.9. Urinalysis showed specific gravity 1.015, blood negative, nitrites negative, bilirubin negative, leukocyte esterase negative, and urine protein negative. Hematology showed white count 15.1, hemoglobin 11.1, platelet count 129,000, neutrophils 77.6, lymphocytes 13.7. Microbiology is pending. Sputum culture preliminary report showed 1+ yeast, and other cultures are pending. Impression: 1. Acute kidney injury secondary to cardiorenal syndrome with diuretic effect. Diuretic dose is adjusted for maintenance diuresis. Continue to monitor fluid balance and electrolytes. 2. Hyperkalemia, likely in setting of cardiorenal syndrome with poor renal perfusion. The patient has congestive heart failure, he may benefit from MARY inhibitor. Monitor electrolytes closely and adjust treatment. Current potassium level has improved to 4.2. So the hyperkalemia resolved. 3. Pulmonary edema, congestive heart failure, complicated history with aortic stenosis and coronary artery disease. Troponin level is elevated. The patient may need further workup. 4. Respiratory failure. Continue diuretics for pulmonary edema and congestive heart failure. Adjust treatment according to fluid balance and electrolyte panel. 5. History of diabetes mellitus, screen for proteinuria can be done when the patient is stable. 6. The patient may need renal ultrasound to check kidney size and echotexture. The patient did not have previous significant history of kidney complications. ARGENIS/ADRIANNA Voice ID: [id number] Report ID: [id number] VAISHALI
--- NOTE | 2019-01-05 21:00 | RAD REPORT ---
EXAM DESCRIPTION: US - Renal Ultrasound-Complete - 01/05/2019 8:35 pm CLINICAL HISTORY: Acute renal insufficiency COMPARISON: And 2011 FINDINGS: The right kidney measures 10 cm with a mildly increased echotexture. The left kidney measures 11 cm with a mildly increased echotexture. A 3 centimeter cyst. Extrarenal p marcos. Hydronephrosis is not seen. Evaluation the bladder was limited as it is decompressed IMPRESSION: Increased renal echotexture consistent with parenchymal disease
[2019-01-06] MEDS: METHYLPREDNISOLONE 40 MG INJ IV SCH ×5 (00:21→23:38)
[2019-01-06] MEDS: INSULIN -REGULAR HUMAN 50 UNIT/0.5 ML ML SQ SCH ×5 (00:29→23:50)
[2019-01-06] MEDS: FENTANYL CITR 100 MCG/2 ML IV PRN ×3 (05:59→20:15)
[2019-01-06 06:22] LABS: Absolute Lymphocytes (CBC) 0.2 K/uL (0.7-4.9); Absolute Monocytes 0.5 K/uL (0.1-1.3); Absolute Neutrophil 9.2 K/uL (1.8-8.0); Basophils % 0.1 % (0-1.3); Hematocrit 28.8 % (39.6-49.0); Lymphocytes % 2.4 % (15.3-44.8); MPV 8.9 fL (7.6-11.3); Monocytes % 4.8 % (3.3-12.3); RBC Red Blood Cell Count 3.61 M/uL (4.33-5.43)
[2019-01-06 06:46] LABS: Albumin 2.2 g/dL (3.4-5.0); Bilirubin Total 0.7 mg/dL (0.2-1.0); Potassium 3.7 mmol/L (3.5-5.1); Protein, Total 7.3 g/dL (6.4-8.2)
[2019-01-06] MEDS: ARFORMOTEROL TARTRATE 15 MCG/2 ML VIAL.NEB NEB SCH ×2 (07:48→20:28)
[2019-01-06] MEDS: LORazepam 2 MG/ML VIAL IV PRN ×3 (08:20→23:45)
[2019-01-06] MEDS: HOME MED 1 EA UNK (Umeclidinium Bromide [Incruse Ellipta] 62.5 MCG) IH SCH (09:00)
[2019-01-06] MEDS ORDERED: ENOXAPARIN 40 MG/0.4 ML SQ SCH (09:00)
--- NOTE | 2019-01-06 09:32 | RAD REPORT ---
EXAM DESCRIPTION: RAD - Chest Single View - 01/06/2019 9:11 am CLINICAL HISTORY: Respiratory failure COMPARISON: January 05 TECHNIQUE: AP portable chest image was obtained 0908 hour . FINDINGS: ETT and NG tube remain in good position. Alveolar opacification has substantially improved from prior day imaging. There remain scattered airspace opacities is well is an interstitial fibrosi s/ edema pattern. Cardiac silhouette has diminished. Vasculature has diminished. Trachea is midline. No enlarging pleural effusion. Delete select IMPRESSION: Significant improvement in the interstitial and alveolar opacification since prior day i yanick.
[2019-01-06] MEDS: URSODIOL 300 MG CAP PO SCH ×2 (10:01→20:17)
[2019-01-06] MEDS: SPIRONOLACTONE 100 MG TAB PO SCH (10:01)
[2019-01-06] MEDS: FUROSEMIDE 40 MG/4 ML VIAL IV SCH (10:01)
[2019-01-06] MEDS: ASPIRIN 81 MG CHEWABLE TABLET PO SCH (10:02)
[2019-01-06] MEDS: ENOXAPARIN 30 MG/0.3 ML SQ SCH (10:03)
[2019-01-06] MEDS: PANTOPRAZOLE 40 MG INJ IVP SCH (10:03)
--- NOTE | 2019-01-06 10:09 | P.PN ---
Subjective Date of Service: 01/06/19 Chief Complaint: Respiratory failure Overall patient is improving still has some secretions on FiO2 of 30% low-dose propofol Review of Systems is unable to be obtained Physical Examination - Vital Signs Temperature: 97.4 F Blood Pressure: 129/74 Pulse: 104 Respirations: 22 Pulse Ox (%): 100 - Physical Exam General: Unresponsive Neck: Supple Respiratory: Crackles/rales (Minimal crackles) Cardiovascular: No edema, Normal S1 S2 Gastrointestinal: Normal bowel sounds Assessment & Plan - Problems (Diagnosis) (1) Respiratory failure Current Visit: Yes Status: Acute Plan: P patient admitted with the respiratory failure secondary to presumed exacerbation of pulmonary fibrosis he is improving chest x-ray is probably better cultures and negative tolerating tube feeds plan to wean off propofol and wean off the ventilator daughter at the bedside discuss the possibility of L tach tracheostomy labs reviewed white count is declined back to normal renal function is slightly worse patient has depressed ejection fraction aortic stenosis stenosis currently on IV Lasix and spironolactone Qualifiers: Chronicity: acute Respiratory failure complication: hypoxia and hypercapnia Qualified Code(s): J96.01 - Acute respiratory failure with hypoxia ; J96.02 - Acute respiratory failure with hypercapnia
[2019-01-06] MEDS: Levofloxacin 750mg IV 750 MG/150 ML BAG IV SCH (12:11)
[2019-01-06] MEDS: OXYCODONE HCL 5 MG TAB PO PRN (13:45)
--- NOTE | 2019-01-06 15:10 | PN ---
Date of Progress Note: 01/06/2019 Subjective: The patient seen and examined. Chart reviewed and case discussed with RN and Dr. Taran helms. The patient still undergoing weaning trial, did not do well yesterday. Family at the bedside. Treatment plan explained, all questions answered. Medications: List reviewed. Physical Examination: Vital Signs: Temperature 97.4, heart rate 101, blood pressure 128/77, respirations 15, 100% on 35% F iO2, 10 of PEEP. General: The patient is now off sedation, will open his eyes to sternal rub. Following commands. CV: S1 and S2. Sinus tachycardia. Peripheral pulses weak. Respiratory: Diminished breath sounds. Crackles heard. Gastrointestinal: Abdomen is soft and nondistended. Positive bowel sounds. Extremities: No clubbing or cyanosis. The patient has peripheral edema upper and lower extremities. Skin: No rashes. Normal skin turgor. Laboratory Data: Sodium 133, potassium 3.7, chloride 93, CO2 32, BUN 69, creatinine 1.99, glucose 25 4, calcium 8.9, albumin 2.2. WBC 10, H and H 9.3 and 28.8, platelets 115, neutrophils 92%. Blood cu ltures, no growth to date. Assessment And Plan: A 73-year-old male with: 1.Acute respiratory failure with hypoxia on ventilator, difficult to wean, likely due to his pulmona ry fibrosis, lung mass and chronic obstructive pulmonary disease. We will continue weaning trials. Discussed at length with family regarding options including possible LTAC placement and tracheostomy versus the patient's daughter requesting possible transfer to [facility], which should be a lateral tr ansfer, but will have continuity of care as well as possibility of extubating and placing the patient on BiPAP. For now, we will continue weaning trials and monitor. Chest x-ray looks better today. 2.Acute chronic obstructive pulmonary disease exacerbation. Continue steroids and IV antibiotics. The patient on nebulizer treatments. Currently vented. 3.Severe aortic stenosis, ejection fraction 30%-35%. The patient will need outpatient workup for TA VR. 4.Acute kidney injury, multifactorial, likely due to hypoxia, possibly contrast-induced nephropathy with cardiorenal syndrome. Seems as if the creatinine has plateaued, we will discuss with Nephrology and resume Lasix. 5.Elevated troponin level likely due to hypoxia and demand mismatch and congestive heart failure, no t a candidate for catheterization at this time. 6.Hypertensive heart disease. 7.Coronary artery disease, [place] artery and [place] heart without angina, status post stent. 8.Abdominal aortic aneurysm, status post repair. 9.Peripheral vascular disease, stable. 10.Diabetes mellitus type 2 noninsulin-requiring with hyperglycemia. Continue sliding scale insulin and monitor Accu-Cheks, stable. 11.Essential hypertension, stable. Continue medications. 12.Liver and lung mass, likely metastatic cancer. The patient follows at [facility]. 13.Deep venous thrombosis prophylaxis with Lovenox renally dosed. Plan: Continue monitoring in ICU. Overall, guarded prognosis. SA/MODL Voice ID: [id number] Report ID: [id number]
--- NOTE | 2019-01-06 15:40 | PN ---
Mr. Camp is still intubated, unable to breathe on his own. Weaning trials generally elevate his he art rate. I think he needs improvement in his lung condition. He may be in a situation where he nee ds transfer to a higher level of care. Has multiple issues going on, perhaps a place where transcuta neous aortic valve surgery could be contemplated such as [facility] in [place]. If it comes to that right now, we would not want to do heart cath or any surgery at this point. RAMSEY/ADRIANNA Voice ID: [id number] Report ID: [id number]
[2019-01-06] MEDS: VITAL AF 1,000 ML BOT RTH SCH (17:39)
[2019-01-06] MEDS ORDERED: METOPROLOL TAR 25 MG TAB PO SCH (18:00)
[2019-01-06] MEDS: CARVEDILOL 6.25 MG TAB PO SCH (18:28)
[2019-01-06] MEDS: IPRATROPIUM BROM 0.5MG/2.5ML NEB PRN (20:28)
--- NOTE | 2019-01-07 01:20 | PN ---
Date of Progress Note: 01/06/2019 Chief Complaint: Acute kidney injury on chronic kidney disease. Subjective: The patient developed severe acute kidney injury, nonoliguric secondary to cardiorenal syndrome with respiratory failure. The patient is intubated and ventilated. The patient has multiple medical problems including coronary artery disease. He was started on Lasix for cardiorenal syndrome and Lasix dose was adjusted an in view of worsening of kidney function. The patient has been treated with antibiotics. Review of Systems: Unobtainable. The patient cannot provide review of systems. Physical Examination: Lungs: Coarse breath sounds bilaterally. Heart: S1, S2. Abdomen: Soft, benign. Extremities: Edema present in both legs. Lab Work: Hemoglobin 9.3, WBC 10.0, platelet count is 115,000. Sodium 153, potassium 3.7, chloride 93, CO2 32, BUN 69, creatinine 1.99, glucose 254. Albumin 2.2. Impression And Plan: 1. Acute kidney injury. Renal function has not improved since yesterday. The patient will continue diuretics for cardiorenal syndrome. The patient is on vent for respiratory failure and congestive heart failure with systolic dysfunction. Monitor electrolytes and fluid balance , advance diuretic dose for adequate fluid balance to treat fluid overload. 2. Leukocytosis. Continue antibiotics. Pending cultures. Adjust antibiotics to renal dose. 3. The patient developed severe acute kidney injury in setting of acute on chronic congestive heart failure complicated by hypoxemic respiratory failure, acute kidney injury remains nonoliguric. Acute kidney injury is due to secondary to cardiorenal syndrome and is associated with respiratory failure. The patient is intubated and ventilated. The patient has multiple medical problems including coronary artery disease. Plan is to continue diuretic and monitor for any evidence of nephritis. I spent total 36 min including 25 min to coordinate care plan. ARGENIS/ADRIANNA Voice ID: [id number] Report ID: [id number] VAISHALI
[2019-01-07] MEDS: FENTANYL CITR 100 MCG/2 ML IV PRN ×2 (02:28→22:14)
[2019-01-07] MEDS: METHYLPREDNISOLONE 40 MG INJ IV SCH ×2 (05:15→18:46)
[2019-01-07] MEDS: CARVEDILOL 6.25 MG TAB PO SCH ×2 (05:15→18:46)
[2019-01-07] MEDS: OXYCODONE HCL 5 MG TAB PO PRN (05:15)
[2019-01-07] MEDS: INSULIN -REGULAR HUMAN 50 UNIT/0.5 ML ML SQ SCH ×3 (05:29→18:47)
[2019-01-07 05:39] LABS: Albumin 2.1 g/dL (3.4-5.0); Bilirubin Total 0.8 mg/dL (0.2-1.0); Potassium 4.3 mmol/L (3.5-5.1); Protein, Total 7.2 g/dL (6.4-8.2)
[2019-01-07 05:41] LABS: Absolute Lymphocytes (CBC) 0.2 K/uL (0.7-4.9); Absolute Monocytes 0.5 K/uL (0.1-1.3); Absolute Neutrophil 10.1 K/uL (1.8-8.0); Basophils % 0.1 % (0-1.3); Hematocrit 29.5 % (39.6-49.0); Lymphocytes % 2.2 % (15.3-44.8); Monocytes % 4.9 % (3.3-12.3); RBC Red Blood Cell Count 3.68 M/uL (4.33-5.43)
[2019-01-07] MEDS: IPRATROPIUM BROM 0.5MG/2.5ML NEB PRN (07:30)
[2019-01-07] MEDS: ARFORMOTEROL TARTRATE 15 MCG/2 ML VIAL.NEB NEB SCH ×2 (07:30→20:00)
[2019-01-07] MEDS: FUROSEMIDE 40 MG/4 ML VIAL IV SCH ×2 (09:57→18:45)
[2019-01-07] MEDS: PANTOPRAZOLE 40 MG INJ IVP SCH (09:57)
[2019-01-07] MEDS: ASPIRIN 81 MG CHEWABLE TABLET PO SCH (09:57)
[2019-01-07] MEDS: SPIRONOLACTONE 100 MG TAB PO SCH (09:57)
[2019-01-07] MEDS: URSODIOL 300 MG CAP PO SCH ×2 (09:57→21:30)
[2019-01-07] MEDS: ENOXAPARIN 30 MG/0.3 ML SQ SCH (09:58)
[2019-01-07] MEDS: INSULIN GLARGINE 100 UNITS/ML SQ SCH (09:58)
--- NOTE | 2019-01-07 10:28 | RAD REPORT ---
EXAM DESCRIPTION: RAD - Chest Single View - 01/07/2019 10:19 am CLINICAL HISTORY: Respiratory failure COMPARISON: January 06, January 05 TECHNIQUE: AP portable chest image was obtained 1014 hour . FINDINGS: Lung volumes are low. ETT and NG tube remain in place. Interstitial and patchy alveolar op acities are present not substantially different. Cardiac silhouette is stable. Prominent pulmonary va sculature stable as well. No pneumothorax or enlarging pleural effusion. IMPRESSION: Prominent interstitial opacification and patchy alveolar opacification similar to compar sin. No further improvement from prior day imaging.
[2019-01-07] MEDS ORDERED: NALOXONE 0.4 MG/ML VIAL IV ONE (12:14)
[2019-01-07] MEDS ORDERED: OXYCODONE HCL 5 MG TAB PO PRN (12:18)
[2019-01-07 12:24] LABS: Arterial Blood Carboxyhemoglob 2.2 % (0-1.5); Blood Gas Oxyhemoglobin 93.7 % (94-97); Blood O2 Saturation 96.1 % (92-98.5)
--- NOTE | 2019-01-07 12:24 | P.PN ---
Subjective Date of Service: 01/07/19 Chief Complaint: Respiratory failure Patient has improved although it is not responsive he has been tolerating spontaneous breathing trial for over 4 hr now hemodynamically stable Review of Systems is unable to be obtained Physical Examination - Vital Signs Temperature: 97.4 F Blood Pressure: 99/69 Pulse: 92 Respirations: 16 Pulse Ox (%): 95 - Physical Exam General: Unresponsive Respiratory: Clear to auscultation bilaterally Cardiovascular: Normal pulses, Regular rate/rhythm Assessment & Plan - Problems (Diagnosis) (1) Respiratory failure Current Visit: Yes Status: Acute Plan: Patient admitted with respiratory failure he is doing much better creatinine is improved BUN is increased white count is normal will plan to wean and extubate wants is more awake Qualifiers: Chronicity: acute Respiratory failure complication: hypoxia and hypercapnia Qualified Code(s): J96.01 - Acute respiratory failure with hypoxia ; J96.02 - Acute respiratory failure with hypercapnia
--- NOTE | 2019-01-07 12:36 | RAD REPORT ---
EXAM DESCRIPTION: RAD - Chest Single View - 01/04/2019 10:51 pm CLINICAL HISTORY: 73 years old and is Male; PICC placement TECHNIQUE: Frontal view of the chest. COMPARISON: 01/04/2019 FINDINGS: Limitations: None. Lungs: Fibrosis present. Pleural space: Unremarkable. No pneumothorax. Heart: Stable prominent cardiac shadow. Mediastinum: Unremarkable. Bones/joints: Unremarkable. Tubes, lines and devices: The endotracheal tube terminates above the max 7.5 cm. Nasogastric tube terminates below the diaphragm followed to the region of the duodenum. The distal extent is not visible. Right percutaneous catheter terminates in the distal third of the SVC. IMPRESSION: No acute findings. Electronically signed by: Lisa Voss MD 01/04/2019 10:35 PM CDT Due to temporary technical issues with the PACS/Fluency reporting system, reports are being signed by the in house radiologist as a courtesy to ensure prompt reporting. The interpreting radiologist is f ully responsible for the content of the report.
--- NOTE | 2019-01-07 14:17 | PN ---
Date of Progress Note: 01/07/2019 Subjective: The patient seen and examined. Chart reviewed and case discussed with RN and Dr. Phan. The patient did well with his weaning trials yesterday. Kidney function has plateaued and improving. No acute events overnight. The patient has been tachycardic, improved with beta-blockers. Daughter at the bedside. Treatment plan explained, all questions answered. She did discuss with her mother concerning transfer to [facility]; however, they are not interested in transfer at this time. Medications: List reviewed. Physical Examination: Vital Signs: Temperature 97.4, heart rate 84, blood pressure 91/54, respirations 14, O2 94% on ET tube and 35% FiO2. General: Intubated, not sedated. Does open eyes to sternal rub. Following commands. CV: S1 and S2. Regular rate and rhythm, 3/6 holosystolic murmur. Pulses weak bilaterally. Respiratory: Diminished breath sounds. No wheezing or stridor. Gastrointestinal: Abdomen is soft, nondistended. Positive bowel sounds. No guarding or rigidity. Extremities: No clubbing or cyanosis. Edema is significantly improved. Does still have some trace edema, pedal edema as well as edema of the upper extremities. Skin: No rashes. Normal skin turgor. Neurologic: Intubated, not sedated. Opens eyes to sternal rub, will follow commands. Laboratory Data: Sodium 135, potassium 4.3, chloride 95, CO2 33, BUN 89, creatinine 1.77, glucose 344, calcium 8.8, albumin 2.1. WBC 10.9, H and H 9.4 and 29.5, platelets 94, neutrophils 92%. Blood cultures, no growth to date. Assessment And Plan: A 73-year-old male with: 1. Acute respiratory with hypoxia, currently on ventilator. Did well with weaning trials. We will continue to wean as tolerated, has come down on his PEEP to 5 and 7, FiO2. I did discuss LTAC placement versus transfer to [facility] where the patient's primary mobile sales assistant is, family is still deciding. Yesterday's chest x-ray looked improved. 2. Acute chronic obstructive pulmonary disease exacerbation, on steroids and antibiotics. Continue breathing treatments, currently on ventilator. 3. Severe aortic stenosis, EF 30% to 35%. The patient needs aortic valve replacement; however, not at this junction. Appreciate Dr. Pugh' input. 4. Acute kidney injury, multifactorial, likely due to hypoxia, cardiorenal syndrome or even contrast-induced nephropathy. Creatinine is improving. We will continue Lasix. Urine output is acceptable. Appreciate Nephrology input. 5. Elevated troponin level due to hypoxia and demand mismatch, congestive heart failure. The patient will eventually need heart catheterization, currently not stable. 6. Steroid-induced hyperglycemia. The patient is diabetic, is noninsulin- requiring. We will add long-acting insulin and adjust sliding scale to moderate. We will monitor Accu-Cheks. 7. Hypertensive heart disease. 8. Coronary artery disease, [place] artery [place] heart without angina, status post stent. 9. Abdominal aortic aneurysm, status post repair. 10. Peripheral vascular disease, stable. 11. Sinus tachycardia. The patient improved on Coreg. 12. Essential hypertension, currently normotensive to hypotensive. We will keep MAP above 65. 13. Liver and lung mass, likely metastatic cancer. The patient is undergoing workup at [facility]. 14. Deep venous thrombosis prophylaxis with Lovenox, renally dosed. 15. Acute systolic CHF exacerbation 16. Severe protein calorie malnutrition Plan: Continue to monitor in ICU setting, wean as tolerated. Overall guarded prognosis. If family wish to transfer to [facility], we will initiate transfer, otherwise LTAC may be an option if family is agreeable. CLARK Voice ID: [id number] Report ID: [id number] VAISHALI
[2019-01-07] MEDS ORDERED: GLUCERNA 1.2 CAL 1,000 ML BOT RTH SCH (17:00)
[2019-01-07] MEDS: VITAL AF 1,000 ML BOT RTH SCH (18:48)
[2019-01-07] MEDS ORDERED: VITAL AF 1,000 ML BOT FT SCH (21:00)
--- NOTE | 2019-01-08 02:08 | PN ---
Date of Progress Note: 01/07/2019 Chief Complaint: Acute kidney injury, nonoliguric, moderately severe. Subjective: Renal function has not improved since yesterday. The patient is responding to diuretic. He has cardiorenal syndrome and diuretic dose will be adjusted for negative fluid balance. The patient has congestive heart failure and has been treated with antibiotics for pneumonia. Review of Systems: Unobtainable. Physical Examination: Lungs: Few crackles at bases. Heart: S1, S2. Abdomen: Soft, benign. Extremities: Edema present in both legs. Laboratory Data: Creatinine 1.99, BUN 69. Impression And Plan: 1.Acute kidney injury. Renal function has not improved since yesterday. The patient will continue diuretic. Monitor renal function and adjust diuretic for negative fluid balance accordingly. 2.Leukocytosis. Continue antibiotics pending culture. 3.Respiratory failure. The patient is on vent. The patient has complicated history of pneumonia an d congestive heart failure. 4.Hypoalbuminemia. The patient may benefit from high protein intake and plan is to screen for prote inuria. ARGENIS/ADRIANNA Voice ID: [id number] Report ID: [id number]
[2019-01-08] MEDS: METHYLPREDNISOLONE 40 MG INJ IV SCH ×3 (03:13→17:00)
[2019-01-08] MEDS: INSULIN -REGULAR HUMAN 50 UNIT/0.5 ML ML SQ SCH ×5 (03:13→17:03)
[2019-01-08 05:51] LABS: Potassium 5.4 mmol/L (3.5-5.1)
[2019-01-08 06:03] LABS: Absolute Lymphocytes (CBC) 0.3 K/uL (0.7-4.9); Absolute Monocytes 0.8 K/uL (0.1-1.3); Absolute Neutrophil 13.4 K/uL (1.8-8.0); Basophils % 0.1 % (0-1.3); Hematocrit 32.3 % (39.6-49.0); Lymphocytes % 2.2 % (15.3-44.8); MPV 9.2 fL (7.6-11.3); Monocytes % 5.6 % (3.3-12.3); RBC Red Blood Cell Count 3.98 M/uL (4.33-5.43)
[2019-01-08] MEDS ORDERED: INSULIN GLARGINE 100 UNITS/ML SQ ONE (07:00)
[2019-01-08] MEDS ORDERED: INSULIN -REGULAR HUMAN 50 UNIT/0.5 ML ML SQ ONE (07:04)
[2019-01-08] MEDS: CARVEDILOL 6.25 MG TAB PO SCH ×2 (07:06→17:00)
[2019-01-08] MEDS: INSULIN GLARGINE 100 UNITS/ML SQ SCH (07:23)
[2019-01-08] MEDS: FENTANYL CITR 100 MCG/2 ML IV PRN (07:29)
[2019-01-08] MEDS: ARFORMOTEROL TARTRATE 15 MCG/2 ML VIAL.NEB NEB SCH ×2 (07:51→20:00)
[2019-01-08 08:06] LABS: Blood Morphology Comment NOT SEEN (NOT SEEN); Platelet Estimate ADEQ
[2019-01-08] MEDS: FUROSEMIDE 40 MG/4 ML VIAL IV SCH (08:46)
[2019-01-08] MEDS: PANTOPRAZOLE 40 MG INJ IVP SCH (08:46)
[2019-01-08] MEDS: ASPIRIN 81 MG CHEWABLE TABLET PO SCH (08:46)
[2019-01-08] MEDS: ENOXAPARIN 30 MG/0.3 ML SQ SCH (08:47)
[2019-01-08] MEDS: URSODIOL 300 MG CAP PO SCH ×2 (09:00→21:00)
[2019-01-08] MEDS: SPIRONOLACTONE 100 MG TAB PO SCH (09:00)
--- NOTE | 2019-01-08 10:15 | RAD REPORT ---
EXAM DESCRIPTION: RAD - Chest Single View - 01/08/2019 10:06 am CLINICAL HISTORY: Intubation, respiratory distress COMPARISON: January 07 TECHNIQUE: AP portable chest image was obtained 0959 hours . FINDINGS: Shallow inspiration upright portable study has significant motion degradation. Endotrachea l tube is in place with the tip mid aortic arch level. This is 2-3 cm above the max. PICC line rem ains in place with the tip in the distal SVC. NG tube is well positioned with the tip in the antrum o r duodenal bulb. Interstitial and alveolar opacities are not substantially different from the prior day study. Degree of motion limits the comparison. Cardiac silhouette remains enlarged. Upper lobe vasculature is similar to prior day imaging. No pneu mothorax present and no enlarging pleural effusion. IMPRESSION: Endotracheal tube is in good position mid aortic arch level. NG tube and PICC line remain in good positioning. Interstitial and scattered alveolar opacities are present not substantially different from the compar sin. Motion degradation limits the examination. Cardiomegaly without vascular engorgement.
[2019-01-08] MEDS ORDERED: D50W 25 GM/50 ML SYRINGE IV ONE (10:49)
[2019-01-08] MEDS ORDERED: INSULIN -REGULAR HUMAN 50 UNIT/0.5 ML ML IV ONE (10:51)
[2019-01-08] MEDS: Levofloxacin 750mg IV 750 MG/150 ML BAG IV SCH (11:44)
[2019-01-08] MEDS: THIAMINE HCL 100 MG TABLET PO SCH (12:07)
--- NOTE | 2019-01-08 12:09 | P.PN ---
Subjective Date of Service: 01/08/19 Chief Complaint: Respiratory failure Patient is doing much better he is more cooperative although not still not very alert will plan to wean and extubate today hemodynamically stable renal function is slightly worse Review of Systems is unable to be obtained Physical Examination - Vital Signs Temperature: 97.9 F Blood Pressure: 105/72 Pulse: 86 Respirations: 12 Pulse Ox (%): 93 - Physical Exam General: Cooperative Respiratory: Clear to auscultation bilaterally Cardiovascular: No edema, Normal S1 S2 - Studies Microbiology Data (last 24 hrs): 01/03/19 02:25 Blood - Blood Aerobic Blood Culture - Final No growth in 5 days. 01/03/19 02:25 Blood - Blood Anaerobic Blood Culture - Final No growth in 5 days. Assessment & Plan - Problems (Diagnosis) (1) Respiratory failure Current Visit: Yes Status: Acute Plan: Patient admitted with respiratory failure he is doing well plan to wean and extubate today chest x-ray seems to have improved reduce dose of steroids patient is hypoxic hypercarbic white count is mildly elevated there is no clinical evidence of sepsis Dc levofloxacin Dc pantoprazole Qualifiers: Chronicity: acute Respiratory failure complication: hypoxia and hypercapnia Qualified Code(s): J96.01 - Acute respiratory failure with hypoxia ; J96.02 - Acute respiratory failure with hypercapnia
--- NOTE | 2019-01-08 14:44 | P.PN ---
Subjective Date of Service: 01/08/19 Chief Complaint: Respiratory failure Patient seen and examined at bedside. Daughter and at bedside. Chart reviewed and case discussed with nursing staff. Patient doing well with spontaneous breathing trial. More alert this morning, able to follow commands. Review of Systems 10-point ROS is otherwise unremarkable Physical Examination - Vital Signs Temperature: 97.9 F Blood Pressure: 105/72 Pulse: 86 Respirations: 12 Pulse Ox (%): 93 - Physical Exam General: In no apparent distress HEENT: Atraumatic, PERRLA, EOMI Respiratory: Diminished Cardiovascular: Regular rate/rhythm, Systolic murmur Gastrointestinal: Normal bowel sounds, No tenderness Neurological: Other (Intubated, not sedated. Able to follow commands) - Studies Microbiology Data (last 24 hrs): 01/03/19 02:25 Blood - Blood Aerobic Blood Culture - Final No growth in 5 days. 01/03/19 02:25 Blood - Blood Anaerobic Blood Culture - Final No growth in 5 days. Assessment And Plan - Current Problems (Diagnosis) (1) Acute and chronic respiratory failure Current Visit: Yes Status: Acute Plan: Currently intubated. Doing well with weaning trials. We will continue to wean as tolerated, possible extubation today Pulmonology on board, recommendations appreciated. Qualifiers: Respiratory failure complication: hypoxia Qualified Code(s): J96.21 - Acute and chronic respiratory failure with hypoxia (2) COPD (chronic obstructive pulmonary disease) Current Visit: No Status: Acute Plan: Continue steroids and antibiotics. Continue breathing treatments, currently on ventilator, pending possible extubation today Qualifiers: COPD type: unspecified COPD Qualified Code(s): J44.9 - Chronic obstructive pulmonary disease, unspecified (3) Aortic stenosis Current Visit: No Status: Chronic Plan: EF 30% to 35%. The patient needs aortic valve replacement; however, not at this junction. Appreciate Dr. Pugh' input. Qualifiers: Cardiac valve disease etiology: etiology unspecified Qualified Code(s): I35.0 - Nonrheumatic aortic (valve) stenosis (4) ISIDORO (acute kidney injury) Current Visit: Yes Status: Acute Plan: multifactorial, likely due to hypoxia, cardiorenal syndrome or even contrast- induced nephropathy. Creatinine worsened today. We will continue Lasix. Urine output is acceptable. Appreciate Nephrology input. (5) Elevated troponin Current Visit: Yes Status: Acute Plan: due to hypoxia and demand mismatch, congestive heart failure. The patient will eventually need heart catheterization once more stable. (6) Steroid-induced hyperglycemia Current Visit: Yes Status: Acute Plan: The patient is diabetic, is noninsulin-requiring. We will continue long-acting insulin and adjust sliding scale to aggressive We will monitor Accu-Cheks. (7) Hypertensive heart disease Current Visit: Yes Status: Acute (8) Abdominal aortic aneurysm Current Visit: Yes Status: Acute (9) Peripheral vascular disease Current Visit: Yes Status: Acute (10) Sinus tachycardia Current Visit: Yes Status: Resolved (11) liver and lung mass, likely metastatic Current Visit: Yes Status: Acute Plan: The patient is undergoing workup at [facility]. (12) Acute systolic (congestive) heart failure Current Visit: Yes Status: Acute (13) Protein-calorie malnutrition, severe Current Visit: Yes Status: Acute (14) HTN (hypertension) Onset Date: 08/03/17 Current Visit: No Status: Chronic Qualifiers: Hypertension type: essential hypertension Qualified Code(s): I10 - Essential (primary) hypertension (15) CAD (coronary artery disease) Onset Date: 08/03/17 Current Visit: No Status: Chronic Qualifiers: Coronary Disease-Associated Artery/Lesion type: [place] artery [place] vs. transplanted heart: [place] heart Associated angina: without angina Qualified Code(s): I25.10 - Atherosclerotic heart disease of [place] coronary artery without angina pectoris (16) Anemia Current Visit: Yes Status: Acute Qualifiers: Anemia type: unspecified type Qualified Code(s): D64.9 - Anemia, unspecified (17) Leukocytosis Current Visit: Yes Status: Acute Plan: Likely secondary to steroid use. Will continue to monitor. No evidence of sepsis at this time Qualifiers: Leukocytosis type: unspecified Qualified Code(s): D72.829 - Elevated white blood cell count, unspecified - Plan Continue to monitor in ICU setting, wean as tolerated. Overall guarded prognosis. Social work has been consulted, potential multi placement. We will continue to monitor post extubation for further disposition plans
[2019-01-08] MEDS: IPRATROPIUM BROM 0.5MG/2.5ML NEB PRN ×2 (15:15→20:39)
[2019-01-08] MEDS: ALBUTEROL 2.5 MG/3 ML NEB SOL NEB PRN (15:15)
--- NOTE | 2019-01-08 16:50 | PN ---
Date of Progress Note: 01/08/2019 Subjective: The patient was admitted with respiratory failure, congestive heart failure, had acute k idney injury, over volume, nonoliguric. The patient had CT with contrast on the 2nd and gradually af ter that kidney function started to deteriorate. No hypotension. The patient was intubated, current ly weaning, on spontaneous. Physical Examination: Vital Signs: When I saw the patient today blood pressure 105/72, pulse of 86. The patient had good urine output of 1550 in the last 12 hours. Chest: Crackles bilateral. Heart: S1 and S2. Systolic murmur. Tachycardic. Abdomen: Soft and nontender. Extremities: Trace edema. Neurologic: The patient intubated, awake. Laboratory Data: The patient's echocardiogram show ejection fraction of 30-35, dilated left atrium, ventricular hypertrophy, severe aortic stenosis. WBC 14.5, H and H 9.9/32.3, platelet 101. Sodium o f 134, potassium 5.4, bicarb 33, BUN 121, creatinine up to 2.2, glucose 433, calcium 8.9. Current Medications: The patient on its include Levaquin 750 every 48 hours, aspirin, breathing joselo tment, Lovenox, carvedilol 6.25 b.i.d., haloperidol, spironolactone, Lasix 40 b.i.d., pantoprazole, u rsodiol, Solu-Medrol. Assessment And Plan: 1.Acute kidney injury, multifactorial, secondary to poor perfusion acute tubular necrosis/cardiorena l superimposed with contrast-induced nephropathy, nonoliguric with marginal hyperkalemia. Look to me to be euvolemic. The patient requiring only FiO2 of 35%. I am going to go ahead and decrease the L asix to once a day. 2.With the presence of hyperkalemia, I am going to go ahead and discontinue the spironolactone. We will monitor the patient. 3.Hyperkalemia secondary to renal failure. Discontinue Aldactone. We will follow up repeated lab. 4.Disproportion BUN and creatinine, multifactorial, secondary to cardiorenal/steroid use. We will d ecrease Lasix and we will continue to monitor. 5.Congestive heart failure, diastolic/systolic with aortic stenosis. Currently look close to be nor mal volume. We will decrease Lasix. 6.Respiratory failure secondary to chronic obstructive pulmonary disease exacerbation/congestive hea rt failure. Follow up with Pulmonary. JANY/ADRIANNA Voice ID: [id number] Report ID: [id number]
--- NOTE | 2019-01-08 19:05 | PN ---
Date of Progress Note: 01/08/2019 History Of Present Illness: Mr. Camp is 73, has a very complex past medical history and very compl ex present medical problems right now. He remains intubated. He is in sinus rhythm with 98% saturat ion. Creatinine has creeped up to 2.21. His glucose is 423. Echocardiogram revealed an ejection fr action of 30% to 35% with critical aortic stenosis. He remained septic, has multiple pulmonary issue s including pulmonary nodules. He remains hemodynamically stable nevertheless. We agree with his pr esent regimen. Consideration for transferring Mr. Camp to a tertiary care center should be pursued . MADHU/ADRIANNA Voice ID: [id number] Report ID: [id number]
[2019-01-09] MEDS: METHYLPREDNISOLONE 40 MG INJ IV SCH (02:00)
[2019-01-09] MEDS: INSULIN -REGULAR HUMAN 50 UNIT/0.5 ML ML SQ SCH ×5 (06:35→21:00)
[2019-01-09] MEDS: CARVEDILOL 6.25 MG TAB PO SCH ×2 (06:36→17:12)
[2019-01-09] MEDS: ARFORMOTEROL TARTRATE 15 MCG/2 ML VIAL.NEB NEB SCH ×2 (07:40→20:00)
[2019-01-09] MEDS: IPRATROPIUM BROM 0.5MG/2.5ML NEB PRN ×2 (07:40→13:35)
[2019-01-09 08:35] LABS: Absolute Lymphocytes (CBC) 0.4 K/uL (0.7-4.9); Absolute Monocytes 0.9 K/uL (0.1-1.3); Absolute Neutrophil 18.5 K/uL (1.8-8.0); Basophils % 0.4 % (0-1.3); Hematocrit 33.7 % (39.6-49.0); Lymphocytes % 2.2 % (15.3-44.8); MPV 9.3 fL (7.6-11.3); Monocytes % 4.4 % (3.3-12.3)
[2019-01-09 08:48] LABS: Potassium 5.2 mmol/L (3.5-5.1)
[2019-01-09] MEDS: ASPIRIN 81 MG CHEWABLE TABLET PO SCH (08:58)
[2019-01-09] MEDS: FUROSEMIDE 40 MG/4 ML VIAL IV SCH (08:58)
[2019-01-09] MEDS: ENOXAPARIN 30 MG/0.3 ML SQ SCH (08:58)
[2019-01-09] MEDS: predniSONE 10 MG TAB PO SCH ×2 (08:58→22:16)
[2019-01-09] MEDS: THIAMINE HCL 100 MG TABLET PO SCH (08:58)
[2019-01-09] MEDS: URSODIOL 300 MG CAP PO SCH ×2 (08:59→22:16)
[2019-01-09 09:42] LABS: Blood Morphology Comment NOT SEEN (NOT SEEN); Platelet Estimate ADEQ
[2019-01-09] MEDS: INSULIN GLARGINE 100 UNITS/ML SQ SCH (10:08)
--- NOTE | 2019-01-09 12:48 | P.PN ---
Subjective Date of Service: 01/09/19 Chief Complaint: Respiratory failure Subjective: Improving Patient seen and examined at bedside. Daughter and at bedside. Chart reviewed and case discussed with nursing staff. Patient successfully extubated on 01/09/2019 More alert this morning, able to follow commands. Review of Systems 10-point ROS is otherwise unremarkable Physical Examination - Vital Signs Temperature: 97.9 F Blood Pressure: 110/60 Pulse: 105 Respirations: 20 Pulse Ox (%): 96 - Physical Exam General: In no apparent distress, Confused (Intermittently), Other (Sleepy but arousable. Able to answer questions minimally) Neck: Supple, JVD not distended Respiratory: Diminished Cardiovascular: Regular rate/rhythm, Normal S1 S2 Gastrointestinal: Normal bowel sounds, No tenderness Assessment And Plan - Current Problems (Diagnosis) (1) Acute and chronic respiratory failure Current Visit: Yes Status: Acute Plan: Patient now successfully extubated on 01/08/2019. Currently doing well on 2 L nasal cannula. Pulmonology on board, recommendations appreciated. Qualifiers: Respiratory failure complication: hypoxia Qualified Code(s): J96.21 - Acute and chronic respiratory failure with hypoxia (2) COPD (chronic obstructive pulmonary disease) Current Visit: No Status: Acute Plan: Continue steroids, now converted to oral, and antibiotics. Continue breathing treatments Qualifiers: COPD type: unspecified COPD Qualified Code(s): J44.9 - Chronic obstructive pulmonary disease, unspecified (3) Aortic stenosis Current Visit: No Status: Chronic Plan: EF 30% to 35%. The patient needs aortic valve replacement; however, not at this junction. Appreciate Dr. Pugh' input. Qualifiers: Cardiac valve disease etiology: etiology unspecified Qualified Code(s): I35.0 - Nonrheumatic aortic (valve) stenosis (4) ISIDORO (acute kidney injury) Current Visit: Yes Status: Acute Plan: multifactorial, likely due to hypoxia, cardiorenal syndrome or even contrast- induced nephropathy. Creatinine continues to be elevated. We will continue Lasix. Urine output is acceptable. Appreciate Nephrology input. (5) Elevated troponin Current Visit: Yes Status: Acute Plan: due to hypoxia and demand mismatch, congestive heart failure. The patient will eventually need heart catheterization once more stable. (6) Steroid-induced hyperglycemia Current Visit: Yes Status: Acute Plan: The patient is diabetic, is noninsulin-requiring. We will continue long-acting insulin and adjust sliding scale to aggressive We will monitor Accu-Cheks. (7) Hypertensive heart disease Current Visit: Yes Status: Acute (8) Abdominal aortic aneurysm Current Visit: No Status: Chronic Qualifiers: Presence of rupture: without rupture Qualified Code(s): I71.4 - Abdominal aortic aneurysm, without rupture (9) Peripheral vascular disease Current Visit: No Status: Chronic (10) Sinus tachycardia Current Visit: Yes Status: Resolved (11) liver and lung mass, likely metastatic Current Visit: Yes Status: Chronic Plan: The patient is undergoing workup at [facility]. (12) Acute systolic (congestive) heart failure Current Visit: Yes Status: Acute (13) Protein-calorie malnutrition, severe Current Visit: Yes Status: Acute (14) HTN (hypertension) Onset Date: 08/03/17 Current Visit: No Status: Chronic Qualifiers: Hypertension type: essential hypertension Qualified Code(s): I10 - Essential (primary) hypertension (15) CAD (coronary artery disease) Onset Date: 08/03/17 Current Visit: No Status: Chronic Qualifiers: Coronary Disease-Associated Artery/Lesion type: [place] artery [place] vs. transplanted heart: [place] heart Associated angina: without angina Qualified Code(s): I25.10 - Atherosclerotic heart disease of [place] coronary artery without angina pectoris (16) Anemia Current Visit: Yes Status: Acute Qualifiers: Anemia type: unspecified type Qualified Code(s): D64.9 - Anemia, unspecified (17) Leukocytosis Current Visit: Yes Status: Acute Plan: Likely secondary to steroid use. Will continue to monitor. No evidence of sepsis at this time Qualifiers: Leukocytosis type: unspecified Qualified Code(s): D72.829 - Elevated white blood cell count, unspecified (18) Debility Current Visit: Yes Status: Acute Plan: Physical therapy consulted. Initiated conversation with family regarding the possibility of longterm facility for temporary placement for physical therapy. - Plan Continue to monitor in ICU setting, wean as tolerated. Overall, guarded prognosis Social work has been consulted, regarding placement. Patient may benefit from a longterm facility for short-term physical therapy prior to returning home.
--- NOTE | 2019-01-09 13:06 | RAD REPORT ---
EXAM DESCRIPTION: [facility] Single View01/09/2019 12:44 pm CLINICAL HISTORY: Chest pain COMPARISON: January 08, 2019 FINDINGS: Endotracheal and nasogastric tubes have been removed. Overall no significant change in moderate diffuse bilateral pulmonary opacities. The heart remains en larged. A PICC line remains in place
[2019-01-09] MEDS ORDERED: GLUCAGON 1 MG/VIAL IM PRN (15:06)
[2019-01-09] MEDS ORDERED: D50W 25 GM/50 ML SYRINGE IV PRN (15:06)
--- NOTE | 2019-01-09 20:28 | PN ---
Date of Progress Note: 01/09/2019 Subjective: The patient was extubated yesterday. The patient on nasal cannula , maintaining good ventilation. Physical Examination: Vital Signs: When I saw the patient's blood pressure 109/77, pulse of 100. Chest: Faint crackles on the base. Heart: S1, S2. Systolic murmur. Abdomen: Soft, nontender. Extremities: No edema. Neuro: No focal. The patient had urine output of almost 1500. Laboratory Data: WBC 19.9, H and H 10.5/33.7, platelet of 110. Sodium 142, potassium 5.2, bicarb 35, BUN 137, creatinine 2.1, calcium 9.6. Current Medications: The patient is on include Lasix 40 daily, carvedilol 6.25 , Lovenox, Tylenol, oxycodone, insulin, prednisone 10 mg b.i.d., Assessment And Plan: 1. Acute kidney injury secondary to cardiorenal, looked to me euvolemic. I am going to continue current diuresis dose. We will monitor the patient. 2. Hypertension, controlled, optimal. We will keep utilizing the blood pressure for diuresis. Continue current dose of Lasix. 3. Disproportion in the BUN and creatinine secondary to cardiorenal/catabolic state/prednisone. Monitor currently. Mental status not affected. We will follow up. 4. Pneumonia, as by primary. 5. Congestive heart failure, as by Cardiology and primary. 6. Respiratory failure has resolved. DYLON Voice ID: [id number] Report ID: [id number] VAISHALI
[2019-01-10] MEDS: CARVEDILOL 6.25 MG TAB PO SCH (05:13)
[2019-01-10] MEDS: IPRATROPIUM BROM 0.5MG/2.5ML NEB PRN ×3 (07:28→20:15)
[2019-01-10] MEDS: ALBUTEROL 2.5 MG/3 ML NEB SOL NEB PRN ×3 (07:28→20:15)
[2019-01-10] MEDS: ARFORMOTEROL TARTRATE 15 MCG/2 ML VIAL.NEB NEB SCH ×2 (07:28→20:15)
[2019-01-10] MEDS: INSULIN GLARGINE 100 UNITS/ML SQ SCH (08:03)
[2019-01-10] MEDS: INSULIN -REGULAR HUMAN 50 UNIT/0.5 ML ML SQ SCH ×4 (08:03→20:20)
[2019-01-10] MEDS: FUROSEMIDE 40 MG/4 ML VIAL IV SCH (08:04)
[2019-01-10] MEDS: predniSONE 10 MG TAB PO SCH ×2 (08:04→21:00)
[2019-01-10] MEDS: ASPIRIN 81 MG CHEWABLE TABLET PO SCH (08:04)
[2019-01-10] MEDS: THIAMINE HCL 100 MG TABLET PO SCH (08:04)
[2019-01-10 08:05] LABS: Absolute Lymphocytes (CBC) 0.8 K/uL (0.7-4.9); Absolute Monocytes 1.6 K/uL (0.1-1.3); Absolute Neutrophil 19.5 K/uL (1.8-8.0); Basophils % 0.1 % (0-1.3); Lymphocytes % 3.5 % (15.3-44.8); MPV 10.1 fL (7.6-11.3); Monocytes % 7.2 % (3.3-12.3); RBC Red Blood Cell Count 4.28 M/uL (4.33-5.43)
[2019-01-10] MEDS: URSODIOL 300 MG CAP PO SCH ×2 (08:05→21:00)
[2019-01-10] MEDS: ENOXAPARIN 30 MG/0.3 ML SQ SCH (08:05)
[2019-01-10 08:30] LABS: Anisocytosis 1+; Blood Morphology Comment NOTED (NOT SEEN); Platelet Estimate ADEQ
[2019-01-10 08:49] LABS: Potassium 5.7 mmol/L (3.5-5.1)
[2019-01-10] MEDS ORDERED: D50W 25 GM/50 ML SYRINGE IV ONE ×2 (08:56→16:00)
[2019-01-10] MEDS ORDERED: ALBUTEROL 2.5 MG/3 ML NEB SOL NEB ONE (08:56)
[2019-01-10] MEDS ORDERED: INSULIN -REGULAR HUMAN 50 UNIT/0.5 ML ML IV ONE ×2 (08:57→16:00)
[2019-01-10 09:26] LABS: Thyroid Stimulating Hormone 0.015 uIU/mL (0.360-3.740)
[2019-01-10] MEDS ORDERED: SODIUM CHLORIDE 0.9% 10ML INJ IV PRN (11:33)
[2019-01-10] MEDS ORDERED: NS 0.9% VIAL 0 ML ONE (12:09)
--- NOTE | 2019-01-10 12:42 | P.PN ---
Subjective Date of Service: 01/10/19 Chief Complaint: Respiratory failure Subjective: No new changes Patient seen and examined at bedside. Daughter and at bedside. Chart reviewed and case discussed with nursing staff. Patient successfully extubated on 01/09/2019 Patient able to raise common follow commands. He is more alert. Continues to be weak. He did eat and tolerated his breakfast this morning Review of Systems 10-point ROS is otherwise unremarkable Physical Examination - Vital Signs Temperature: 97 F Blood Pressure: 81/51 Pulse: 96 Respirations: 20 Pulse Ox (%): 97 - Physical Exam General: Mild distress, Other (Sleepy, able to follow command) Neck: Supple, JVD not distended Respiratory: Clear to auscultation bilaterally, Diminished Cardiovascular: Regular rate/rhythm, Normal S1 S2 Gastrointestinal: Normal bowel sounds, No tenderness Assessment And Plan - Current Problems (Diagnosis) (1) Acute and chronic respiratory failure Current Visit: Yes Status: Acute Plan: Patient now successfully extubated on 01/08/2019. Currently doing well on 2 L nasal cannula. Pulmonology on board, recommendations appreciated. Qualifiers: Respiratory failure complication: hypoxia Qualified Code(s): J96.21 - Acute and chronic respiratory failure with hypoxia (2) Hypotension Current Visit: Yes Status: Acute Plan: Patient with hypotension this morning, likely secondary to oxycodone. Caution was giving fluids, therefore will try 1 time midodrine dose of 5 mg. Continue to monitor blood pressure. Hold hypertension medications at this time Qualifiers: Hypotension type: hypotension due to drug Qualified Code(s): I95.2 - Hypotension due to drugs (3) ISIDORO (acute kidney injury) Current Visit: Yes Status: Acute Plan: multifactorial, likely due to hypoxia, cardiorenal syndrome or even contrast- induced nephropathy. Creatinine continues to be elevated. We will continue Lasix. Urine output is acceptable. Appreciate Nephrology input. Per nephrology, dialysis session today. Dr. Guzmán consulted for temporary femoral placement. He he is pending dialysis today (4) Positive occult stool blood test Current Visit: Yes Status: Acute Plan: Stool cold positive. H&H remained stable, no evidence of active bleeding at this time. We will continue to monitor Start PPI (5) COPD (chronic obstructive pulmonary disease) Current Visit: No Status: Acute Plan: Continue steroids, now converted to oral, and antibiotics. Continue breathing treatments Qualifiers: COPD type: unspecified COPD Qualified Code(s): J44.9 - Chronic obstructive pulmonary disease, unspecified (6) Aortic stenosis Current Visit: No Status: Chronic Plan: EF 30% to 35%. The patient needs aortic valve replacement; however, not at this junction. Appreciate Dr. Pugh' input. Qualifiers: Cardiac valve disease etiology: etiology unspecified Qualified Code(s): I35.0 - Nonrheumatic aortic (valve) stenosis (7) Elevated troponin Current Visit: Yes Status: Acute Plan: due to hypoxia and demand mismatch, congestive heart failure. The patient will eventually need heart catheterization once more stable. (8) Steroid-induced hyperglycemia Current Visit: Yes Status: Acute Plan: The patient is diabetic, is noninsulin-requiring. We will continue long-acting insulin and adjust sliding scale to aggressive We will monitor Accu-Cheks. (9) Hypertensive heart disease Current Visit: Yes Status: Acute (10) Abdominal aortic aneurysm Current Visit: No Status: Chronic Qualifiers: Presence of rupture: without rupture Qualified Code(s): I71.4 - Abdominal aortic aneurysm, without rupture (11) Peripheral vascular disease Current Visit: No Status: Chronic (12) Sinus tachycardia Current Visit: Yes Status: Resolved (13) liver and lung mass, likely metastatic Current Visit: Yes Status: Chronic Plan: The patient is undergoing workup at [facility]. (14) Acute systolic (congestive) heart failure Current Visit: Yes Status: Acute (15) Protein-calorie malnutrition, severe Current Visit: Yes Status: Acute (16) HTN (hypertension) Onset Date: 08/03/17 Current Visit: No Status: Chronic Qualifiers: Hypertension type: essential hypertension Qualified Code(s): I10 - Essential (primary) hypertension (17) CAD (coronary artery disease) Onset Date: 08/03/17 Current Visit: No Status: Chronic Qualifiers: Coronary Disease-Associated Artery/Lesion type: [place] artery [place] vs. transplanted heart: [place] heart Associated angina: without angina Qualified Code(s): I25.10 - Atherosclerotic heart disease of [place] coronary artery without angina pectoris (18) Anemia Current Visit: Yes Status: Acute Qualifiers: Anemia type: unspecified type Qualified Code(s): D64.9 - Anemia, unspecified (19) Leukocytosis Current Visit: Yes Status: Acute Plan: Likely secondary to steroid use. Will continue to monitor. No evidence of sepsis at this time Qualifiers: Leukocytosis type: unspecified Qualified Code(s): D72.829 - Elevated white blood cell count, unspecified (20) Debility Current Visit: Yes Status: Acute Plan: Physical therapy consulted. Initiated conversation with family regarding the possibility of senior living facility for temporary placement for physical therapy. - Plan Continue to monitor in ICU setting, wean as tolerated. Overall, guarded prognosis Social work has been consulted, regarding placement. Patient may benefit from a senior living facility for short-term physical therapy prior to returning home.
[2019-01-10] MEDS ORDERED: NA CHLORIDE 0.9% 1,000 ML IV PRN (13:44)
[2019-01-10 14:48] LABS: CKMB Creatine Kinase MB 1.7 ng/mL (0.3-3.6)
[2019-01-10 14:49] LABS: Potassium 5.6 mmol/L (3.5-5.1)
[2019-01-10] MEDS ORDERED: GLUCAGON 1 MG/VIAL IM PRN (15:28)
[2019-01-10 15:54] LABS: Albumin 2.2 g/dL (3.4-5.0); Bilirubin Direct 0.9 mg/dL (0-0.2); Bilirubin Total 1.5 mg/dL (0.2-1.0); Protein, Total 6.5 g/dL (6.4-8.2)
--- NOTE | 2019-01-10 16:40 | RAD REPORT ---
EXAM DESCRIPTION: CT - Abdomen Pelvis Wo Contrast - 01/10/2019 4:05 pm CLINICAL HISTORY: Abdominal pain. abd pain COMPARISON: Abdomen Pelvis W Contrast dated 05/06/2018 TECHNIQUE: CT imaging of the abdomen and pelvis was performed without contrast. Solid organ, bowel a nd vascular assessment is limited due to lack of IV and oral contrast. All CT scans are performed using dose optimization technique as appropriate and may include automated exposure control or mA/KV adjustment according to patient size. FINDINGS: Emphysematous changes are present in the lung bases. Vague pleural based opacity is noted in the right base anteriorly. Liver cirrhosis is present with cholecystectomy clips seen. Mild volume ascites is present.Pancreas a nd adrenal glands are normal. No hydronephrosis of either kidney. Cyst is present anterior lip of the right kidney measuring 3 cm. No bowel obstruction, free air, free fluid or abscess. Diverticulosis is present involving the colon without diverticulitis. Fat containing umbilical hernia is present. The osseous structures are within normal limits. IMPRESSION: Prominent liver cirrhosis with mild ascites noted. An acute process is not detected. A limited non-contrast examination was performed as detailed.
--- NOTE | 2019-01-10 16:47 | PN ---
Date of Progress Note: 01/10/2019 Subjective: The patient is still sleepy, weak. Physical Examination: Vital Signs: When I saw the patient, blood pressure 120/53, pulse of 100. Chest: Faint crackles bilateral base. Heart: S1, S2. Systolic murmur. Abdomen: Soft, nontender. Extremities: Trace edema. Neuro: No tremor, sleepy. Laboratory Data: WBC 21.9, H and H 10.7/34, platelet 116. Sodium 141, potassium 5.7, bicarb 34, BUN 148, creatinine 2.1, calcium 9.5. TSH 0.01. Chest x-ray done yesterday showing pulmonary opacity, cardiomegaly. Current Medications: Current medications the patient is on include: 1.Breathing treatment. 2.Lovenox. 3.Carvedilol 6.25. 4.Lasix 40 daily. 5.Ursodiol. 6.Pantoprazole. 7.Prednisone. 8.Insulin. Assessment And Plan: 1.Acute kidney injury secondary to cardiorenal, nonoliguric. The patient had good urine output for almost 2100 in the last 24 hours, still over-volume with uremic symptoms and hyperkalemia. I had kay g discussion with the patient's family, the and the daughter by the bedside, regarding initiatin g dialysis for uremic and fluid control. Family agreed. Hopefully, this is going to be temporary. We will proceed with placement of a temporary hemodialysis catheter. Then, we will arrange for the d ialysis today and tomorrow and we will follow up. 2.Hyperkalemia secondary to renal failure. Positive fecal occult, possible secondary to gastrointes tinal loss. The patient with unstable angina, on heparin. Continue PPI. Continue watching H and H and we will follow up. 3.Hypertension, currently hypotension. I am going to decrease carvedilol to 3.125. 4.Disproportion BUN/creatinine secondary to catabolic state/GI bleed. We will follow up with the pr imary. 5.Congestive heart failure by primary. 6.Respiratory failure status post extubation. Chronic obstructive pulmonary disease exacerbation as by Pulmonary. JANY/IJEOMAL Voice ID: [id number] Report ID: [id number]
[2019-01-10] MEDS: CARVEDILOL 3.125 MG TAB PO SCH (17:09)
[2019-01-10 18:10] LABS: Arterial Blood Carboxyhemoglob 2.2 % (0-1.5); Blood O2 Saturation 98.7 % (92-98.5)
[2019-01-10] MEDS: MANNITOL 25% 12.5 GM/50 ML VIAL IV PRN (18:15)
[2019-01-10] MEDS: ALBUMIN HUMAN 25% 50 ML IV SCH (18:37)
[2019-01-10] MEDS: LACTULOSE 20 GM/30 ML UCUP PO SCH (21:00)
--- NOTE | 2019-01-10 22:40 | CON ---
Date of Consultation: 01/10/2019 Diagnosis: Renal failure. Reason For Consult: Placement of a hemodialysis catheter Juliocesar. History Of Present Illness: This is the case of a 73-year-old patient, admitted here several days ag o after being confused, had altered mental status. He is on a ventilator right now, but his renal fu nctions have been deteriorating and they asked for an immediate dialysis catheter placement. The jordi chung is still a little bit combative on the floor, so they asked me to do a Juliocesar on the floor in t he femoral region, and then if he remains needing hemodialysis the next few days, then we will procee d with a HemoSplit under anesthesia and fluoroscopy. The family agree with that. Review of Systems: Unable to be obtained. Past Medical History: Include diabetes, COPD, rheumatoid arthritis. Past Surgical History: Include a surgery for aortic stenosis, lumbar compression fracture surgery, c holecystectomy, rotator cuff surgery, abdominal aortic aneurysm repair. Allergies: CODEINE. Medications: Reviewed. He received Lovenox this morning. Family History: Noncontributory. Physical Examination: GENERAL: The patient is awake, although cannot follow any commands. He is alert. Does not seem to b e in distress, although he cannot follow our commands. HEENT: Pupils are anicteric. ABDOMEN: Soft and depressible. No guarding or rebound. EXTREMITY: Good capillary refill. No cyanosis. Laboratory Data: A CAT scan of the abdomen and pelvis shows liver cirrhosis, mild ascites. Umbilica l hernia. Blood work shows WBC count of 21.9 with hemoglobin of 10.7. INR is 1.04. BUN is 144. Assessment: This is a 73-year-old patient, they asked for an emergent placement of a Juliocesar hemodia lysis catheter at bedside under local anesthetic. The family is fully explained the benefits, altern atives, and risks of placement of femoral Juliocesar catheter which include, but not limited to infectio n, bleeding, damage to adjacent structures, anesthesia complication, chronic bleeding, hematoma, sinc e the patient has a history of anticoagulation, DVTs pulmonary emboli, CT and even . They also understand this may not relieve any symptoms. He might need more than one surgical intervention. Th ey also understand that this is a temporary catheter, and we have to move to a mid long-term catheter which is going to be a HemoSplit, if we believe clinically he improve, and then eventually even that HemoSplit is going to have to be changed to a more permanent catheter if the dialysis continue. The y understood. Consent was obtained. FRANKLYN Voice ID: [id number] Report ID: [id number]
[2019-01-10 22:56] LABS: Albumin 2.3 g/dL (3.4-5.0); Bilirubin Total 1.6 mg/dL (0.2-1.0); Magnesium 2.7 mg/dL (1.8-2.4); Phosphorus 4.7 mg/dL (2.5-4.9); Potassium 5.2 mmol/L (3.5-5.1); Protein, Total 6.3 g/dL (6.4-8.2)
[2019-01-10 23:17] LABS: Absolute Lymphocytes (CBC) 0.8 K/uL (0.7-4.9); Absolute Monocytes 1.6 K/uL (0.1-1.3); Absolute Neutrophil 20.2 K/uL (1.8-8.0); Basophils % 0.3 % (0-1.3); Hematocrit 31.1 % (39.6-49.0); Lymphocytes % 3.5 % (15.3-44.8); MPV 9.1 fL (7.6-11.3); RBC Red Blood Cell Count 3.93 M/uL (4.33-5.43)
[2019-01-10] MEDS ORDERED: NA CHLORIDE 0.9% 1,000 ML IV SCH (23:45)
[2019-01-11] MEDS: IPRATROPIUM BROM 0.5MG/2.5ML NEB PRN ×2 (02:15→19:34)
[2019-01-11] MEDS: ALBUTEROL 2.5 MG/3 ML NEB SOL NEB PRN ×2 (02:15→19:34)
--- NOTE | 2019-01-11 03:32 | OP ---
Date of Procedure: 01/10/2019 Surgeon: Driss Guzmán MD Preoperative Diagnosis: End-stage renal disease. Postoperative Diagnosis: End-stage renal disease. Procedure: Placement of a Juliocesar hemodialysis catheter on the right femoral vein. Anesthesia: Local. Indication For Procedure: This is the case of a 73-year-old patient. He had an emergent dialysis ca theter, requested to be done at bedside under local anesthetic. Family once again had been fully exp lained the benefits, alternatives, and risks of this procedure which include but not limited to infec tion, bleeding, damage to adjacent structures, anesthesia complications, hematomas, DVTs, bleeding, P E, HI, even . They also understand this is a temporary catheter and will need to be reinserted once clinical conditions improve. Description Of Procedure: The patient was brought to the ICU-1, placed in flat position. A time-out was called. The right femoral area was prepped and draped in a sterile fashion. Lidocaine 1% plain was injected for local anesthetic, followed by insertion of an 18-gauge needle in the right femoral vein. Guidewire was passed through. The needle was removed. A small incision was made, carried matthew n the skin. Dilators were placed sequentially without resistance. Then, after that, the Juliocesar cat heter was placed in. Guidewire was removed. The line was secured in with 3-0 nylon and the area was covered with sterile dressings. The patient tolerated the procedure well. No hematoma seen at this time. Area was covered with sterile dressings after secured with 3-0 nylon and dialysis will be started in the next few minutes. ANNA/ADRIANNA Voice ID: [id number] Report ID: [id number]
[2019-01-11 05:25] LABS: Absolute Lymphocytes (CBC) 1.3 K/uL (0.7-4.9); Absolute Monocytes 1.7 K/uL (0.1-1.3); Basophils % 0.3 % (0-1.3); Eosinophils % 0.1 % (0-4.4); Hematocrit 30.6 % (39.6-49.0); Lymphocytes % 6.6 % (15.3-44.8); MPV 9.7 fL (7.6-11.3); RBC Red Blood Cell Count 3.81 M/uL (4.33-5.43)
[2019-01-11 05:41] LABS: Albumin 2.3 g/dL (3.4-5.0); Magnesium 2.7 mg/dL (1.8-2.4); Phosphorus 4.7 mg/dL (2.5-4.9); Potassium 5.1 mmol/L (3.5-5.1)
[2019-01-11] MEDS: CARVEDILOL 3.125 MG TAB PO SCH ×2 (06:00→17:40)
[2019-01-11] MEDS: INSULIN -REGULAR HUMAN 50 UNIT/0.5 ML ML SQ SCH ×4 (07:30→21:12)
[2019-01-11] MEDS: FUROSEMIDE 40 MG/4 ML VIAL IV SCH (07:55)
[2019-01-11] MEDS: ARFORMOTEROL TARTRATE 15 MCG/2 ML VIAL.NEB NEB SCH ×2 (08:38→19:34)
[2019-01-11] MEDS: predniSONE 10 MG TAB PO SCH ×2 (09:10→19:59)
[2019-01-11] MEDS: ASPIRIN 81 MG CHEWABLE TABLET PO SCH (09:10)
[2019-01-11] MEDS: URSODIOL 300 MG CAP PO SCH ×2 (09:10→19:59)
[2019-01-11] MEDS: LACTULOSE 20 GM/30 ML UCUP PO SCH ×2 (09:10→21:11)
[2019-01-11] MEDS: PANTOPRAZOLE 40 MG INJ IVP SCH (09:10)
[2019-01-11] MEDS: ENOXAPARIN 30 MG/0.3 ML SQ SCH (09:10)
[2019-01-11] MEDS: THIAMINE HCL 100 MG TABLET PO SCH (09:10)
[2019-01-11] MEDS: INSULIN GLARGINE 100 UNITS/ML SQ SCH (09:11)
[2019-01-11] MEDS ORDERED: MIDODRINE HCL 5 MG TABLET PO ONE (10:18)
--- NOTE | 2019-01-11 11:26 | P.PN ---
Subjective Date of Service: 01/11/19 Chief Complaint: Respiratory failure pt with ISIDORO admitted for SOB Bun ~140 started on HD for uremia and hyperkalemia UO decreasing BUn ~100 now after HD , more alert HD today BP borderline will give midodrin on lasix Physical Examination - Vital Signs Temperature: 97.1 F Blood Pressure: 100/72 Pulse: 102 Respirations: 18 Pulse Ox (%): 98 - Physical Exam General: Alert Neck: Supple, Without JVD or thyroid abnormality Respiratory: Diminished Cardiovascular: Edema, Irregular heart rate/rhythm, Systolic murmur Gastrointestinal: Normal bowel sounds Assessment And Plan - Current Problems (Diagnosis) (1) ISIDORO (acute kidney injury) Current Visit: Yes Status: Acute - Plan Assessment And Plan: Acute kidney injury Possibly due to cardiorenal Syndrome +/- contrast UO decreasing UA: no prot or bld started on Hd via temp cath for uremia HD today as BUn ~100 Hyperkalemia likely due to ISIDORO +/- Gi bleeding Hypertension now hypotesive midodrine on HD days leuckocytosis possibly stress induced Dm as per PCP CHF EF 30% will cont lasix for now Lung and liver lesion biopsy attempt at [facility] failed COPD inhalers , seroids and O2 prognosis guarded
[2019-01-11] MEDS: MANNITOL 25% 12.5 GM/50 ML VIAL IV PRN (12:16)
[2019-01-11] MEDS: ALBUMIN HUMAN 25% 50 ML IV SCH (12:29)
--- NOTE | 2019-01-11 14:22 | P.PN ---
Subjective Date of Service: 01/11/19 Chief Complaint: Respiratory failure Subjective: No new changes Patient seen and examined at bedside. Daughter at bedside. Chart reviewed and case discussed with nursing staff. Patient successfully extubated on 01/09/2019 Patient able to raise common follow commands. He is more alert. Continues to be weak. Currently undergoing dialysis. Review of Systems 10-point ROS is otherwise unremarkable Physical Examination - Vital Signs Temperature: 97.1 F Blood Pressure: 70/55 Pulse: 109 Respirations: 32 Pulse Ox (%): 96 - Physical Exam General: In no apparent distress, Other (drowsy, able to follow some commands on urging. ) HEENT: Atraumatic, PERRLA, EOMI Neck: Supple, JVD not distended Respiratory: Clear to auscultation bilaterally, Normal air movement Cardiovascular: Regular rate/rhythm, Normal S1 S2 Gastrointestinal: Normal bowel sounds, No tenderness Assessment And Plan - Current Problems (Diagnosis) (1) Acute and chronic respiratory failure Current Visit: Yes Status: Acute Plan: Patient now successfully extubated on 01/08/2019. Respiratory bazan, currently doing well on 2 L nasal cannula. Pulmonology on board, recommendations appreciated. Qualifiers: Respiratory failure complication: hypoxia Qualified Code(s): J96.21 - Acute and chronic respiratory failure with hypoxia (2) Hypotension Current Visit: Yes Status: Acute Plan: Patient with hypotension this morning, possibly secondary to hypovolemia vs overdiuresis, vs dialysis Continue to monitor blood pressure. Hold hypertension medications at this time. Hold lasix at this time. Continue to monitor. Qualifiers: Hypotension type: hypotension due to drug Qualified Code(s): I95.2 - Hypotension due to drugs (3) ISIDORO (acute kidney injury) Current Visit: Yes Status: Acute Plan: multifactorial, likely due to hypoxia, cardiorenal syndrome or even contrast- induced nephropathy. Creatinine continues to be elevated. We will continue Lasix. Urine output is acceptable. Appreciate Nephrology input. Per nephrology, dialysis session again today. temporal femoral access line placed. (4) Positive occult stool blood test Current Visit: Yes Status: Acute Plan: Stool cold positive. H&H remained stable, no evidence of active bleeding at this time. We will continue to monitor Continue PPI (5) COPD (chronic obstructive pulmonary disease) Current Visit: No Status: Acute Plan: Continue steroids, now converted to oral, and antibiotics. Continue breathing treatments Qualifiers: COPD type: unspecified COPD Qualified Code(s): J44.9 - Chronic obstructive pulmonary disease, unspecified (6) Aortic stenosis Current Visit: No Status: Chronic Plan: EF 30% to 35%. The patient needs aortic valve replacement; however, not at this junction. Appreciate Dr. Pugh' input. Qualifiers: Cardiac valve disease etiology: etiology unspecified Qualified Code(s): I35.0 - Nonrheumatic aortic (valve) stenosis (7) Elevated troponin Current Visit: Yes Status: Acute Plan: due to hypoxia and demand mismatch, congestive heart failure. The patient will eventually need heart catheterization once more stable. (8) Steroid-induced hyperglycemia Current Visit: Yes Status: Acute Plan: The patient is diabetic, is noninsulin-requiring. We will continue long-acting insulin and adjust sliding scale to aggressive We will monitor Accu-Cheks. (9) Hypertensive heart disease Current Visit: Yes Status: Acute (10) Abdominal aortic aneurysm Current Visit: No Status: Chronic Qualifiers: Presence of rupture: without rupture Qualified Code(s): I71.4 - Abdominal aortic aneurysm, without rupture (11) Peripheral vascular disease Current Visit: No Status: Chronic (12) Sinus tachycardia Current Visit: Yes Status: Resolved (13) liver and lung mass, likely metastatic Current Visit: Yes Status: Chronic Plan: The patient is undergoing workup at [facility]. (14) Acute systolic (congestive) heart failure Current Visit: Yes Status: Acute (15) Protein-calorie malnutrition, severe Current Visit: Yes Status: Acute (16) HTN (hypertension) Onset Date: 08/03/17 Current Visit: No Status: Chronic Qualifiers: Hypertension type: essential hypertension Qualified Code(s): I10 - Essential (primary) hypertension (17) CAD (coronary artery disease) Onset Date: 08/03/17 Current Visit: No Status: Chronic Qualifiers: Coronary Disease-Associated Artery/Lesion type: [place] artery [place] vs. transplanted heart: [place] heart Associated angina: without angina Qualified Code(s): I25.10 - Atherosclerotic heart disease of [place] coronary artery without angina pectoris (18) Anemia Current Visit: Yes Status: Acute Qualifiers: Anemia type: unspecified type Qualified Code(s): D64.9 - Anemia, unspecified (19) Leukocytosis Current Visit: Yes Status: Acute Plan: Likely secondary to steroid use. Will continue to monitor. No evidence of sepsis at this time Qualifiers: Leukocytosis type: unspecified Qualified Code(s): D72.829 - Elevated white blood cell count, unspecified (20) Debility Current Visit: Yes Status: Acute Plan: Physical therapy consulted. Initiated conversation with family regarding the possibility of [facility] facility for temporary placement for physical therapy. - Plan Continue to monitor in ICU setting, wean as tolerated. Overall, guarded prognosis Social work has been consulted, regarding placement. Patient may benefit from a [facility] facility for short-term physical therapy prior to returning home.
[2019-01-12 05:31] LABS: Absolute Lymphocytes (CBC) 0.9 K/uL (0.7-4.9); Absolute Monocytes 1.1 K/uL (0.1-1.3); Absolute Neutrophil 13.7 K/uL (1.8-8.0); Basophils % 1.1 % (0-1.3); Hematocrit 29.1 % (39.6-49.0); Lymphocytes % 5.9 % (15.3-44.8); MPV 9.3 fL (7.6-11.3); Monocytes % 6.9 % (3.3-12.3); RBC Red Blood Cell Count 3.57 M/uL (4.33-5.43)
[2019-01-12 05:58] LABS: Albumin 2.4 g/dL (3.4-5.0); Magnesium 2.6 mg/dL (1.8-2.4); Phosphorus 3.9 mg/dL (2.5-4.9); Potassium 5.1 mmol/L (3.5-5.1)
[2019-01-12] MEDS: CARVEDILOL 3.125 MG TAB PO SCH ×2 (06:12→17:24)
[2019-01-12] MEDS: INSULIN -REGULAR HUMAN 50 UNIT/0.5 ML ML SQ SCH ×4 (07:30→20:46)
[2019-01-12] MEDS: ARFORMOTEROL TARTRATE 15 MCG/2 ML VIAL.NEB NEB SCH ×2 (07:45→20:00)
[2019-01-12] MEDS: THIAMINE HCL 100 MG TABLET PO SCH (08:30)
[2019-01-12] MEDS: predniSONE 10 MG TAB PO SCH ×2 (08:30→20:46)
[2019-01-12] MEDS: LACTULOSE 20 GM/30 ML UCUP PO SCH (08:30)
[2019-01-12] MEDS: PANTOPRAZOLE 40 MG INJ IVP SCH (08:30)
[2019-01-12] MEDS: ASPIRIN 81 MG CHEWABLE TABLET PO SCH (08:30)
[2019-01-12] MEDS: INSULIN GLARGINE 100 UNITS/ML SQ SCH (08:30)
[2019-01-12] MEDS: URSODIOL 300 MG CAP PO SCH ×2 (08:30→20:46)
[2019-01-12 08:39] LABS: Anisocytosis 1+; Blood Morphology Comment NOTED (NOT SEEN); Platelet Estimate DECR; Urine White Blood Cell Casts OK
[2019-01-12] MEDS: FUROSEMIDE 40 MG/4 ML VIAL IV SCH (09:00)
[2019-01-12] MEDS: ENOXAPARIN 30 MG/0.3 ML SQ SCH (09:00)
--- NOTE | 2019-01-12 11:00 | P.PN ---
Subjective Date of Service: 01/12/19 Chief Complaint: Respiratory failure Patient has improved significantly he is alert responsive oriented cooperative more awake no new complaints daughter at the bedside Review of Systems General: Weakness Respiratory: Cough, Shortness of Breath Physical Examination - Vital Signs Temperature: 97 F Blood Pressure: 100/68 Pulse: 90 Respirations: 20 Pulse Ox (%): 98 - Physical Exam General: Alert, Oriented x3 HEENT: Atraumatic Neck: Supple Respiratory: Clear to auscultation bilaterally, Crackles/rales Cardiovascular: No edema, Regular rate/rhythm Assessment & Plan - Problems (Diagnosis) (1) Respiratory failure Current Visit: Yes Status: Acute Plan: Patient admitted with respiratory failure he is doing much better renal function has improved due to d dialysis patient's vital signs are stable no evidence of infection Dc IV pantoprazole views on nasal cannula oxygen Dc Shafer catheter transfer to the floor continue with low-dose prednisone Qualifiers: Chronicity: acute Respiratory failure complication: hypoxia and hypercapnia Qualified Code(s): J96.01 - Acute respiratory failure with hypoxia ; J96.02 - Acute respiratory failure with hypercapnia
--- NOTE | 2019-01-12 12:08 | P.PN ---
Subjective Date of Service: 01/12/19 Chief Complaint: Respiratory failure Subjective: Improving Patient seen and examined at bedside. Daughter at bedside. Chart reviewed and case discussed with nursing staff. Patient successfully extubated on 01/09/2019 Patient much more awake and alert this morning. Able to hold a conversation. During examination, talking and conversing with friend and daughter at bedside. In no acute distress. No acute events noted overnight. Continues to have hoarseness of his voice Blood pressure is improved this morning Review of Systems 10-point ROS is otherwise unremarkable Physical Examination - Vital Signs Temperature: 97 F Blood Pressure: 100/68 Pulse: 90 Respirations: 20 Pulse Ox (%): 98 - Physical Exam General: Alert, In no apparent distress, Oriented x3 HEENT: Other (Hoarseness of his voice noted) Neck: Supple, JVD not distended Respiratory: Dull Cardiovascular: Regular rate/rhythm, Normal S1 S2 Assessment And Plan - Current Problems (Diagnosis) (1) Acute and chronic respiratory failure Current Visit: Yes Status: Acute Plan: Patient now successfully extubated on 01/08/2019. Respiratory bazan, currently doing well on 2 L nasal cannula. Pulmonology on board, recommendations appreciated. Qualifiers: Respiratory failure complication: hypoxia Qualified Code(s): J96.21 - Acute and chronic respiratory failure with hypoxia (2) Hypotension Current Visit: Yes Status: Acute Plan: Patient with improved blood pressure this morning. He still does have some intermittent drops in blood pressure. Continue to hold Lasix. Continue to monitor blood pressure. Hold hypertension medications at this time. Qualifiers: Hypotension type: hypotension due to drug Qualified Code(s): I95.2 - Hypotension due to drugs (3) ISIDORO (acute kidney injury) Current Visit: Yes Status: Acute Plan: multifactorial, likely due to hypoxia, cardiorenal syndrome or even contrast- induced nephropathy. Creatinine improving with dialysis. We will continue Lasix. Urine output is acceptable. Appreciate Nephrology input. Per nephrology, dialysis session again today. temporal femoral access line placed. (4) Positive occult stool blood test Current Visit: Yes Status: Acute Plan: Stool cold positive. H&H remained stable, no evidence of active bleeding at this time. We will continue to monitor Continue PPI (5) COPD (chronic obstructive pulmonary disease) Current Visit: No Status: Acute Plan: Continue steroids, now converted to oral, and antibiotics. Continue breathing treatments Qualifiers: COPD type: unspecified COPD Qualified Code(s): J44.9 - Chronic obstructive pulmonary disease, unspecified (6) Aortic stenosis Current Visit: No Status: Chronic Plan: EF 30% to 35%. The patient needs aortic valve replacement; however, not at this junction. Appreciate Dr. Pugh' input. Qualifiers: Cardiac valve disease etiology: etiology unspecified Qualified Code(s): I35.0 - Nonrheumatic aortic (valve) stenosis (7) Elevated troponin Current Visit: Yes Status: Acute Plan: due to hypoxia and demand mismatch, congestive heart failure. The patient will eventually need heart catheterization once more stable. (8) Steroid-induced hyperglycemia Current Visit: Yes Status: Acute Plan: The patient is diabetic, is noninsulin-requiring. We will continue long-acting insulin and adjust sliding scale to aggressive We will monitor Accu-Cheks. (9) Hypertensive heart disease Current Visit: Yes Status: Acute (10) Abdominal aortic aneurysm Current Visit: No Status: Chronic Qualifiers: Presence of rupture: without rupture Qualified Code(s): I71.4 - Abdominal aortic aneurysm, without rupture (11) Peripheral vascular disease Current Visit: No Status: Chronic (12) Sinus tachycardia Current Visit: Yes Status: Resolved (13) liver and lung mass, likely metastatic Current Visit: Yes Status: Chronic Plan: The patient is undergoing workup at [facility]. (14) Acute systolic (congestive) heart failure Current Visit: Yes Status: Acute (15) Protein-calorie malnutrition, severe Current Visit: Yes Status: Acute (16) HTN (hypertension) Onset Date: 08/03/17 Current Visit: No Status: Chronic Qualifiers: Hypertension type: essential hypertension Qualified Code(s): I10 - Essential (primary) hypertension (17) CAD (coronary artery disease) Onset Date: 08/03/17 Current Visit: No Status: Chronic Qualifiers: Coronary Disease-Associated Artery/Lesion type: [place] artery [place] vs. transplanted heart: [place] heart Associated angina: without angina Qualified Code(s): I25.10 - Atherosclerotic heart disease of [place] coronary artery without angina pectoris (18) Anemia Current Visit: Yes Status: Acute Qualifiers: Anemia type: unspecified type Qualified Code(s): D64.9 - Anemia, unspecified (19) Leukocytosis Current Visit: Yes Status: Acute Plan: Likely secondary to steroid use. Will continue to monitor. No evidence of sepsis at this time Qualifiers: Leukocytosis type: unspecified Qualified Code(s): D72.829 - Elevated white blood cell count, unspecified (20) Debility Current Visit: Yes Status: Acute Plan: Physical therapy consulted. Initiated conversation with family regarding the possibility of retirement facility for temporary placement for physical therapy. - Plan Continue to monitor in ICU setting, wean as tolerated. Overall, guarded prognosis Social work has been consulted, regarding placement. Patient may benefit from a retirement facility for short-term physical therapy prior to returning home.
[2019-01-12] MEDS ORDERED: FUROSEMIDE 40 MG/4 ML VIAL IV ONE (13:15)
--- NOTE | 2019-01-12 13:51 | P.PN ---
Subjective Date of Service: 01/12/19 Chief Complaint: Respiratory failure Subjective: Improving pt with ISIDORO admitted for SOB Bun ~140 started on HD for uremia and hyperkalemia UO decreasing today AAOx3, UO ~900ml, fine rales and LE edema will give lasix 80mg IVP thrombocytopenia, lovenox on hold, will send for HIT WBc trending down obi hold on Hd for now , and resume as per RFT, volume status and K Physical Examination - Vital Signs Temperature: 97 F Blood Pressure: 100/68 Pulse: 90 Respirations: 20 Pulse Ox (%): 98 - Physical Exam General: In no apparent distress, Oriented x3 HEENT: Atraumatic Neck: Supple, Without JVD or thyroid abnormality Respiratory: Crackles/rales Cardiovascular: Regular rate/rhythm, Edema, Systolic murmur Gastrointestinal: Normal bowel sounds Assessment And Plan - Current Problems (Diagnosis) (1) ISIDORO (acute kidney injury) Current Visit: Yes Status: Acute - Plan Assessment And Plan: Acute kidney injury Possibly due to cardiorenal Syndrome +/- contrast UO decreasing UA: no prot or bld started on Hd via temp cath for uremia Hyperkalemia likely due to ISIDORO +/- Gi bleeding K today 5.1 Hypertension Now BP borderline midodrine on HD days leuckocytosis possibly stress induced improving Dm as per PCP CHF EF 30% will cont lasix for now Lung and liver lesion biopsy attempt at [facility] failed COPD inhalers , seroids and O2 Thrombocytopenia possible due to heparin will send for HI panel prognosis guarded
[2019-01-12 17:14] LABS: MPV 10.2 fL (7.6-11.3)
[2019-01-12 18:13] LABS: Platelet Estimate DECR
[2019-01-12] MEDS: IPRATROPIUM BROM 0.5MG/2.5ML NEB PRN (20:06)
[2019-01-13 05:47] LABS: Albumin 2.4 g/dL (3.4-5.0); Magnesium 2.4 mg/dL (1.8-2.4); Potassium 4.9 mmol/L (3.5-5.1)
[2019-01-13] MEDS: CARVEDILOL 3.125 MG TAB PO SCH ×2 (05:48→17:19)
[2019-01-13 05:54] LABS: Absolute Lymphocytes (CBC) 0.9 K/uL (0.7-4.9); Absolute Monocytes 1.1 K/uL (0.1-1.3); Absolute Neutrophil 18.6 K/uL (1.8-8.0); Basophils % 0.2 % (0-1.3); Eosinophils % 0.1 % (0-4.4); Hematocrit 29.8 % (39.6-49.0); Lymphocytes % 4.5 % (15.3-44.8); MPV 9.6 fL (7.6-11.3); Monocytes % 5.1 % (3.3-12.3)
[2019-01-13 07:01] LABS: Blood Morphology Comment NOT SEEN (NOT SEEN); Platelet Estimate DECR
--- NOTE | 2019-01-13 07:38 | RAD REPORT ---
EXAM DESCRIPTION: RAD - Chest Single View - 01/13/2019 6:56 am CLINICAL HISTORY: CHF COMPARISON: January 09 TECHNIQUE: AP portable chest image was obtained 0649 hours . FINDINGS: Lung volumes remain low. PICC line remains in place. Diffusely prominent interstitial rajan ings are present. Minimal alveolar opacities are present slightly improved from comparison. Significa ntly enlarged cardiac silhouette remains. Widened mediastinum remains. No pneumothorax or enlarging p leural effusion. IMPRESSION: Fractional improvement in the CHF pattern since prior imaging. Significant cardiomegaly remains. Mediastinum remains widened. Baseline diffuse interstitial opacification pattern again noted.
[2019-01-13] MEDS: INSULIN -REGULAR HUMAN 50 UNIT/0.5 ML ML SQ SCH ×4 (07:54→20:54)
[2019-01-13] MEDS: ARFORMOTEROL TARTRATE 15 MCG/2 ML VIAL.NEB NEB SCH ×2 (08:28→19:15)
[2019-01-13] MEDS: INSULIN GLARGINE 100 UNITS/ML SQ SCH (08:33)
[2019-01-13] MEDS: URSODIOL 300 MG CAP PO SCH ×2 (08:34→20:54)
[2019-01-13] MEDS: predniSONE 10 MG TAB PO SCH ×2 (08:34→20:54)
[2019-01-13] MEDS: ASPIRIN 81 MG CHEWABLE TABLET PO SCH (08:34)
[2019-01-13] MEDS: FUROSEMIDE 40 MG/4 ML VIAL IV SCH (08:34)
[2019-01-13] MEDS: THIAMINE HCL 100 MG TABLET PO SCH (08:34)
--- NOTE | 2019-01-13 11:53 | P.PN ---
Subjective Date of Service: 01/13/19 Chief Complaint: Respiratory failure pt with ISIDORO admitted for SOB Bun ~140 started on HD for uremia and hyperkalemia UO decreasing today AAOx3, UO ~1900ml, Chrest exam better significant LE edema , will cont lasix RFT stable for now Na 132, likely due to fluid overload, coont lasix and fluid restriction thrombocytopenia, lovenox on hold, will send for HIT WBc trending up obi hold on Hd for now , and resume as per RFT, volume status and K Physical Examination - Vital Signs Temperature: 97.3 F Blood Pressure: 119/82 Pulse: 92 Respirations: 20 Pulse Ox (%): 98 - Physical Exam General: In no apparent distress, Oriented x3 HEENT: Atraumatic Neck: Supple, Without JVD or thyroid abnormality Respiratory: Clear to auscultation bilaterally, Normal air movement Cardiovascular: Regular rate/rhythm, Normal S1 S2, No rubs, Edema Gastrointestinal: Normal bowel sounds, Soft and benign Integumentary: No rashes Assessment And Plan - Current Problems (Diagnosis) (1) ISIDORO (acute kidney injury) Current Visit: Yes Status: Acute - Plan Assessment And Plan: Acute kidney injury Possibly due to cardiorenal Syndrome +/- contrast UO decreasing UA: no prot or bld started on Hd via temp cath for uremia Hyperkalemia likely due to ISIDORO +/- Gi bleeding K today 5.1 Hypertension Now BP borderline midodrine on HD days leuckocytosis possibly stress induced improving Dm as per PCP CHF EF 30% will cont lasix for now Lung and liver lesion biopsy attempt at [facility] failed COPD inhalers , seroids and O2 Thrombocytopenia possible due to heparin will send for HI panel hyponatremia Na 132, likely due to fluid overload, coont lasix and fluid restriction prognosis guarded
[2019-01-13 13:08] LABS: Urine Appearance CLOUDY; Urine Bilirubin NEGATIVE (NEG); Urine Blood NEGATIVE (NEG); Urine Color YELLOW; Urine Glucose NEGATIVE (NEG); Urine Protein NEGATIVE (NEG); Urine Urobilinogen 0.2 mg/dL (0.2-1.0)
[2019-01-13 13:12] LABS: Urine Microscopic Reflex NO UMIC
--- NOTE | 2019-01-13 16:17 | P.PN ---
Subjective Date of Service: 01/13/19 Chief Complaint: Respiratory failure Subjective: Improving Patient seen and examined at bedside. Daughter at bedside. Chart reviewed and case discussed with nursing staff. Patient successfully extubated on 01/09/2019 Patient much more awake and alert this morning. Able to hold a conversation. During examination, talking and conversing with friend and daughter at bedside. In no acute distress. No acute events noted overnight. Continues to have hoarseness of his voice but this is also improving Blood pressure is improved this morning Review of Systems 10-point ROS is otherwise unremarkable Physical Examination - Vital Signs Temperature: 97.3 F Blood Pressure: 118/74 Pulse: 92 Respirations: 25 Pulse Ox (%): 100 - Physical Exam General: Alert, In no apparent distress, Oriented x3 HEENT: Atraumatic, PERRLA, EOMI Cardiovascular: Regular rate/rhythm, Normal S1 S2 Gastrointestinal: Normal bowel sounds, No tenderness Assessment And Plan - Current Problems (Diagnosis) (1) Acute and chronic respiratory failure Current Visit: Yes Status: Acute Plan: Patient now successfully extubated on 01/08/2019. Respiratory bazan, currently doing well on 2 L nasal cannula. Pulmonology on board, recommendations appreciated. Qualifiers: Respiratory failure complication: hypoxia Qualified Code(s): J96.21 - Acute and chronic respiratory failure with hypoxia (2) Hypotension Current Visit: Yes Status: Acute Plan: Patient with improved blood pressure this morning. He still does have some intermittent drops in blood pressure. Blood pressure has stabilized. Continue to monitor blood pressure. Hold hypertension medications at this time. Qualifiers: Hypotension type: hypotension due to drug Qualified Code(s): I95.2 - Hypotension due to drugs (3) ISIDORO (acute kidney injury) Current Visit: Yes Status: Acute Plan: multifactorial, likely due to hypoxia, cardiorenal syndrome or even contrast- induced nephropathy. Creatinine improving with dialysis. We will continue Lasix. Urine output is acceptable. Appreciate Nephrology input. Per nephrology, though dialysis today, continue to monitor to see if patient will need further dialysis sessions.. temporal femoral access line has been placed. Will need to confirm with nephrology regarding possibility of further dialysis sessions. If patient will require, will need a more permanent line placement. (4) Positive occult stool blood test Current Visit: Yes Status: Acute Plan: Stool cold positive. H&H remained stable, no evidence of active bleeding at this time. We will continue to monitor Continue PPI (5) COPD (chronic obstructive pulmonary disease) Current Visit: No Status: Acute Plan: Continue steroids, now converted to oral, and antibiotics. Continue breathing treatments Qualifiers: COPD type: unspecified COPD Qualified Code(s): J44.9 - Chronic obstructive pulmonary disease, unspecified (6) Aortic stenosis Current Visit: No Status: Chronic Plan: EF 30% to 35%. The patient needs aortic valve replacement; however, not at this junction. Appreciate Dr. Pugh' input. Qualifiers: Cardiac valve disease etiology: etiology unspecified Qualified Code(s): I35.0 - Nonrheumatic aortic (valve) stenosis (7) Elevated troponin Current Visit: Yes Status: Acute Plan: due to hypoxia and demand mismatch, congestive heart failure. The patient will eventually need heart catheterization once more stable. (8) Steroid-induced hyperglycemia Current Visit: Yes Status: Acute Plan: The patient is diabetic, is noninsulin-requiring. We will continue long-acting insulin and adjust sliding scale to aggressive We will monitor Accu-Cheks. (9) Hypertensive heart disease Current Visit: Yes Status: Acute (10) Abdominal aortic aneurysm Current Visit: No Status: Chronic Qualifiers: Presence of rupture: without rupture Qualified Code(s): I71.4 - Abdominal aortic aneurysm, without rupture (11) Peripheral vascular disease Current Visit: No Status: Chronic (12) Sinus tachycardia Current Visit: Yes Status: Resolved (13) liver and lung mass, likely metastatic Current Visit: Yes Status: Chronic Plan: The patient is undergoing workup at [facility]. (14) Acute systolic (congestive) heart failure Current Visit: Yes Status: Acute (15) Protein-calorie malnutrition, severe Current Visit: Yes Status: Acute (16) HTN (hypertension) Onset Date: 08/03/17 Current Visit: No Status: Chronic Qualifiers: Hypertension type: essential hypertension Qualified Code(s): I10 - Essential (primary) hypertension (17) CAD (coronary artery disease) Onset Date: 08/03/17 Current Visit: No Status: Chronic Qualifiers: Coronary Disease-Associated Artery/Lesion type: [place] artery [place] vs. transplanted heart: [place] heart Associated angina: without angina Qualified Code(s): I25.10 - Atherosclerotic heart disease of [place] coronary artery without angina pectoris (18) Anemia Current Visit: Yes Status: Acute Qualifiers: Anemia type: unspecified type Qualified Code(s): D64.9 - Anemia, unspecified (19) Leukocytosis Current Visit: Yes Status: Acute Plan: Likely secondary to steroid use and stress-induced. Will continue to monitor. No evidence of sepsis at this time Qualifiers: Leukocytosis type: unspecified Qualified Code(s): D72.829 - Elevated white blood cell count, unspecified (20) Debility Current Visit: Yes Status: Acute Plan: Physical therapy consulted. Initiated conversation with family regarding the possibility of jail facility for temporary placement for physical therapy. - Plan Continue to monitor in ICU setting, wean as tolerated. Overall, guarded prognosis Social work has been consulted, regarding placement. Patient may benefit from a jail facility for short-term physical therapy prior to returning home.
[2019-01-14 03:28] LABS: HBsAG Nonreactive (Nonreactive)
[2019-01-14 05:23] LABS: Absolute Lymphocytes (CBC) 1.1 K/uL (0.7-4.9); Absolute Monocytes 0.8 K/uL (0.1-1.3); Absolute Neutrophil 20.4 K/uL (1.8-8.0); Eosinophils % 0.1 % (0-4.4); Hematocrit 29.4 % (39.6-49.0); Lymphocytes % 4.9 % (15.3-44.8); Monocytes % 3.5 % (3.3-12.3)
[2019-01-14 05:38] LABS: Albumin 2.3 g/dL (3.4-5.0); Phosphorus 4.3 mg/dL (2.5-4.9); Potassium 4.8 mmol/L (3.5-5.1)
[2019-01-14] MEDS: CARVEDILOL 3.125 MG TAB PO SCH ×2 (06:33→18:40)
[2019-01-14] MEDS: INSULIN -REGULAR HUMAN 50 UNIT/0.5 ML ML SQ SCH ×4 (07:29→22:02)
[2019-01-14] MEDS: ARFORMOTEROL TARTRATE 15 MCG/2 ML VIAL.NEB NEB SCH ×2 (07:34→19:30)
[2019-01-14] MEDS: INSULIN GLARGINE 100 UNITS/ML SQ SCH (08:40)
[2019-01-14] MEDS: THIAMINE HCL 100 MG TABLET PO SCH (08:41)
[2019-01-14] MEDS: predniSONE 10 MG TAB PO SCH ×2 (08:41→22:01)
[2019-01-14] MEDS: ASPIRIN 81 MG CHEWABLE TABLET PO SCH (08:41)
[2019-01-14] MEDS: FUROSEMIDE 40 MG/4 ML VIAL IV SCH (08:41)
[2019-01-14] MEDS: URSODIOL 300 MG CAP PO SCH ×2 (08:41→22:02)
--- NOTE | 2019-01-14 18:10 | P.PN ---
Subjective Date of Service: 01/14/19 Chief Complaint: Respiratory failure Subjective: Improving Patient seen and examined at bedside. Daughter at bedside. Chart reviewed and case discussed with nursing staff. Patient successfully extubated on 01/09/2019 Patient much more awake and alert this morning. Working with physical therapy, is currently max assist. Breathing well, In no acute distress. No acute events noted overnight. Continues to have hoarseness of his voice but this is also improving Blood pressure stable this morning. He remained afebrile overnight. His WBC count jumped up to 22.5 this morning. Review of Systems 10-point ROS is otherwise unremarkable Physical Examination - Vital Signs Temperature: 97 F Blood Pressure: 101/83 Pulse: 86 Respirations: 16 Pulse Ox (%): 97 - Physical Exam General: Alert, In no apparent distress, Oriented x3, Other (Weak, frail) HEENT: Atraumatic, PERRLA, EOMI Neck: Supple, JVD not distended Respiratory: Clear to auscultation bilaterally, Normal air movement Cardiovascular: Regular rate/rhythm, Normal S1 S2 Gastrointestinal: Normal bowel sounds, No tenderness Musculoskeletal: No tenderness Integumentary: No rashes Neurological: Normal speech, Normal tone, Normal affect Lymphatics: No axilla or inguinal lymphadenopathy Assessment And Plan - Current Problems (Diagnosis) (1) Acute and chronic respiratory failure Current Visit: Yes Status: Acute Plan: Patient now successfully extubated on 01/08/2019. Respiratory bazan, currently doing well on 2 L nasal cannula. Pulmonology on board, recommendations appreciated. Qualifiers: Respiratory failure complication: hypoxia Qualified Code(s): J96.21 - Acute and chronic respiratory failure with hypoxia (2) ISIDORO (acute kidney injury) Current Visit: Yes Status: Acute Plan: multifactorial, likely due to hypoxia, cardiorenal syndrome or even contrast- induced nephropathy. Creatinine improving with dialysis. We will continue Lasix. Urine output is acceptable. Appreciate Nephrology input. Per nephrology, though dialysis today, continue to monitor to see if patient will need further dialysis sessions.. temporal femoral access line has been placed. Will need to confirm with nephrology regarding possibility of further dialysis sessions. If patient will require, will need a more permanent line placement. (3) Positive occult stool blood test Current Visit: Yes Status: Acute Plan: Stool cold positive. H&H remained stable, no evidence of active bleeding at this time. We will continue to monitor Continue PPI (4) COPD (chronic obstructive pulmonary disease) Current Visit: No Status: Acute Plan: Continue steroids, now converted to oral, and antibiotics. Continue breathing treatments Qualifiers: COPD type: unspecified COPD Qualified Code(s): J44.9 - Chronic obstructive pulmonary disease, unspecified (5) Aortic stenosis Current Visit: No Status: Chronic Plan: EF 30% to 35%. The patient needs aortic valve replacement; however, not at this junction. Appreciate Dr. Pugh' input. Qualifiers: Cardiac valve disease etiology: etiology unspecified Qualified Code(s): I35.0 - Nonrheumatic aortic (valve) stenosis (6) Elevated troponin Current Visit: Yes Status: Acute Plan: due to hypoxia and demand mismatch, congestive heart failure. The patient will eventually need heart catheterization once more stable. (7) Steroid-induced hyperglycemia Current Visit: Yes Status: Acute Plan: Blood sugars improving. patient is diabetic, is noninsulin-requiring. We will continue long-acting insulin and adjust sliding scale to aggressive We will monitor Accu-Cheks. (8) Hypertensive heart disease Current Visit: Yes Status: Acute (9) Abdominal aortic aneurysm Current Visit: No Status: Chronic Qualifiers: Presence of rupture: without rupture Qualified Code(s): I71.4 - Abdominal aortic aneurysm, without rupture (10) Peripheral vascular disease Current Visit: No Status: Chronic (11) Sinus tachycardia Current Visit: Yes Status: Resolved (12) liver and lung mass, likely metastatic Current Visit: Yes Status: Chronic Plan: The patient is undergoing workup at [facility]. (13) Acute systolic (congestive) heart failure Current Visit: Yes Status: Acute (14) Protein-calorie malnutrition, severe Current Visit: Yes Status: Acute (15) HTN (hypertension) Onset Date: 08/03/17 Current Visit: No Status: Chronic Qualifiers: Hypertension type: essential hypertension Qualified Code(s): I10 - Essential (primary) hypertension (16) CAD (coronary artery disease) Onset Date: 08/03/17 Current Visit: No Status: Chronic Qualifiers: Coronary Disease-Associated Artery/Lesion type: [place] artery [place] vs. transplanted heart: [place] heart Associated angina: without angina Qualified Code(s): I25.10 - Atherosclerotic heart disease of [place] coronary artery without angina pectoris (17) Anemia Current Visit: Yes Status: Acute Qualifiers: Anemia type: unspecified type Qualified Code(s): D64.9 - Anemia, unspecified (18) Leukocytosis Current Visit: Yes Status: Acute Plan: WBC count continues to trend up. This could be secondary to steroid use/ dressing dosed versus infectious. Potential source would include cellulitis from skin tears. Patient has multiple skin tears throughout his body, with drainage. No evidence of sepsis this time. Lactic acid was elevated on admission, down to 2.5 and more improved to 1.5 today. Pro calcitonin normal. He has been afebrile overnight. Blood cultures were drawn. Start patient on vancomycin, pending cultures. Patient does have a history of cellulitis with Staph aureus previously, per daughter. Qualifiers: Leukocytosis type: unspecified Qualified Code(s): D72.829 - Elevated white blood cell count, unspecified (19) Debility Current Visit: Yes Status: Acute Plan: Physical therapy consulted. Social work on board, pending placement. Patient will benefit from skilled facility placement. (20) Hypotension Current Visit: Yes Status: Acute Plan: Resolved. Qualifiers: Hypotension type: hypotension due to drug Qualified Code(s): I95.2 - Hypotension due to drugs - Plan Continue to monitor in ICU setting, wean as tolerated. Overall, guarded prognosis Social work has been consulted, regarding placement. Patient may benefit from a intermediate facility for short-term physical therapy prior to returning home. Transfer patient to the floor,
[2019-01-14] MEDS: IPRATROPIUM BROM 0.5MG/2.5ML NEB PRN (19:30)
[2019-01-14] MEDS ORDERED: TRAMADOL HCL 50 MG TAB PO ONE (21:26)
--- NOTE | 2019-01-15 04:19 | PN ---
Date of Progress Note: 01/14/2019 Chief Complaint: Respiratory failure, acute kidney injury. Subjective: The patient has nonoliguric urine output. The patient was found to have hyperkalemia and was started on dialysis for uremia and hyperkalemia. Urine output is somewhat improving. The patient will continue IV Lasix for volemic control. The patient has cardiorenal syndrome. The patient has congestive heart failure with systolic dysfunction, COPD exacerbation. He has been treated with Lasix and inhalers, as well as steroids. Review of Systems: Denies new complaints. Physical Examination: Lungs: Few crackles at the bases. Heart: S1and S2. Abdomen: Soft, benign. Extremities: Edema present in both legs. Laboratory Data: Hemoglobin is 9.4, WBC 22.5, and platelet count is 50,000. Chemistry showed; sodium 131, potassium 4.8, chloride 96, CO2 of 28, BUN 70, and creatinine 1.54. Impression: 1. Acute on chronic kidney injury. 2. Hyperkalemia, potassium was up to 5.7, is improving with treatment. 3. The patient has cardiorenal syndrome, fluid overload. Continue Lasix. Monitor electrolytes closely. 4. Anemia. Hemoglobin level is stable range, consider DANIKA. I spent total 36 min including 25 min to coordinate care plan. ARGENIS/ADRIANNA Voice ID: [id number] Report ID: [id number]
[2019-01-15] MEDS: CARVEDILOL 3.125 MG TAB PO SCH ×2 (06:00→18:00)
[2019-01-15 06:54] LABS: Magnesium 2.5 mg/dL (1.8-2.4); Potassium 4.9 mmol/L (3.5-5.1)
[2019-01-15] MEDS: ARFORMOTEROL TARTRATE 15 MCG/2 ML VIAL.NEB NEB SCH ×2 (08:35→20:00)
[2019-01-15] MEDS: INSULIN GLARGINE 100 UNITS/ML SQ SCH (08:46)
[2019-01-15] MEDS: INSULIN -REGULAR HUMAN 50 UNIT/0.5 ML ML SQ SCH ×4 (08:46→21:00)
[2019-01-15] MEDS: THIAMINE HCL 100 MG TABLET PO SCH (08:47)
[2019-01-15] MEDS: FUROSEMIDE 40 MG/4 ML VIAL IV SCH (08:47)
[2019-01-15] MEDS: predniSONE 10 MG TAB PO SCH ×2 (08:47→22:06)
[2019-01-15] MEDS: ASPIRIN 81 MG CHEWABLE TABLET PO SCH (08:47)
[2019-01-15] MEDS: URSODIOL 300 MG CAP PO SCH ×2 (13:31→22:06)
[2019-01-15] MEDS: MIDODRINE HCL 5 MG TABLET PO ONE ×2 (16:45→17:00)
--- NOTE | 2019-01-15 19:46 | PN ---
Date of Progress Note: 01/15/2019 Subjective: The patient was seen and examined. Chart reviewed and case discussed with RN as well as Dr. King and Dr. Borden. The patient, since I last saw him, has been extubated, was initiated on dialysis for 2 sessions. He will receive the 3rd session today. The patient seems to be doing si gnificantly better. His edema has improved. Does have multiple abrasions of the skin. Has had some periods of confusion, but overall doing significantly better. He did work with PT. Medications: List reviewed. Code Status: Full. Objective: Vital Signs: Temperature 97.2, heart rate 106, blood pressure 91/69, respirations 20, O2 95% on 2 L via nasal cannula. General: Awake, alert, oriented x3. Elderly male, in some mild distress. Ill-appearing male. CV: S1, S2. Regular rate and rhythm. Peripheral pulses weak bilaterally. 3/6 holosystolic murmur present. Respiratory: Diminished breath sounds. Some crackles present. No wheezing or stridor. No use of a ccessory muscles. Gastrointestinal: Abdomen is soft, nontender, nondistended. Positive bowel sounds. Extremities: No clubbing or cyanosis. The patient has trace pedal edema. Neuro: Cranial nerves 2-12 intact grossly. No focal neurological deficit. Speech is normal. Skin: Multiple skin abrasions and tears. No drainage. Laboratory Data: Sodium 130, potassium 4.9, chloride 96, CO2 of 28, BUN 70, creatinine 1.64, glucose 159, calcium 8.4, magnesium 2.5. WBC pending. Blood cultures from the 2nd are negative. Prelimina ry blood cultures from the show 2+ mixed skin john. Assessment And Plan: A 73-year-old male with: 1.Acute respiratory failure secondary to pulmonary edema, chronic obstructive pulmonary disease, sig nificantly improved, now extubated, currently on 2 L via nasal cannula. Pulmonology on board. Impro ving. 2.Acute kidney injury, likely due to hypoxia, cardiorenal syndrome, possibly contrast-induced nephro mode, significantly improved. The patient received dialysis. Urine output is acceptable. The oamr ent will go for another dialysis session today per Nephrology. This will not be permanent dialysis. 3.Acute chronic obstructive pulmonary disease exacerbation, improved, now stable, on p.o. steroids a nd antibiotics. We will continue nebulizers. 4.Aortic stenosis. The patient needs a transaortic valve replacement, not a surgical candidate at t his point for open heart surgery. He will need to follow up as an outpatient in [place]. His EF is 30%-35%. 5.Elevated troponin level likely due to hypoxia and demand mismatch, congestive heart failure. We w ill need heart catheterization once more, stable. 6.Steroid-induced hyperglycemia. The patient is diabetic; however, non-insulin requiring. We will continue sliding scale insulin. 7.Hypertensive heart disease. 8.Abdominal aortic aneurysm without rupture. 9.Peripheral vascular disease, stable. 10.Sinus tachycardia, resolved. 11.Liver and lung mass, likely metastatic. The patient having workup done at [facility]. 12.Acute systolic congestive heart failure, EF 30%-35%, improving. We will continue to monitor I's and O's. Continue diuretics. 13.Protein-calorie malnutrition, severe. Continue protein supplementation. 14.Essential hypertension, stable. 15.Coronary artery disease, [place] artery and [place] heart without angina. 16.Anemia, likely anemia of chronic disease. We will continue to monitor H and H, transfuse as need ed. 17.Leukocytosis, possibly due to steroids versus skin infection. The patient has multiple skin tear s with minimal drainage. Lactate has normalized. Procalcitonin is also normal. The patient has bee n afebrile. Blood cultures have been negative to date. Repeat cultures are pending. We will start the patient on vancomycin and follow up on CBC. 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 Continue physical therapy. The patient will likely need skilled nurs ing facility placement. 19.Hypertension, improved. 20.Acute metabolic encephalopathy, likely due to renal dysfunction, elevated BUN, improved. [facility] is still having some episodes of confusion; however, significantly improved. 21.Deep vein thrombosis prophylaxis, addressed. 22.Thrombocytopenia, unclear etiology. We will continue to monitor. Transfuse if less than 20 or i f bleeding. Plan: Continue PT, OT. SNF referral. Dialysis again today. Start vancomycin. Follow up on blood cultures. SA/MODL Voice ID: [id number] Report ID: [id number]
[2019-01-15] MEDS ORDERED: VANCOMYCIN 1 GM in NA CHLORIDE 0.9% 500 ML IVPB ONE (21:00)
--- NOTE | 2019-01-15 21:01 | PN ---
Date of Progress Note: 01/15/2019 Subjective: The patient was admitted with hepatic encephalopathy, respiratory failure, intubated and extubated. The patient was initiated on dialysis because of altered mental status and for uremia cl earance. Physical Examination: Vital Signs: When I saw the patient blood pressure 115/66, pulse of 106, afebrile. Chest: Crackles bilateral. Heart: S1 and S2, regular. Abdomen: Soft and nontender. Extremities: +2 edema. Laboratory Data: WBC 22.5, H and H 9.4/29.4, platelet of 50. Sodium 130, potassium 4.3, bicarb 28, BUN 70, creatinine 1.6, calcium 8.4, magnesium 2.5. Current Medications: The patient on its include: 1.Aspirin. 2.Albuterol. 3.Heparin. 4.Carvedilol 3.125 b.i.d. 5.Lasix. 6.Breathing treatment. 7.Ursodiol. 8.Zofran. 9.Prednisone. Assessment And Plan: 1.Acute kidney injury secondary to cardiorenal/doubt to be hepatorenal or recovery nonoliguric, stil l over volume. I am going to do another session of dialysis today and we will monitor the patient. 2.Hypertension, controlled. We will utilize the blood pressure for more diuresis. 3.Hyperkalemia, resolved. 4.Uremia, possible secondary to gastrointestinal bleed, cirrhosis. Continue to dialysis p.r.n. We will follow up with primary. 5.Hepatic encephalopathy. As above. 6.Leukocytosis, unknown etiology. I am going to go ahead and send for culture through the catheter today and we will follow up the patient. 7.Hyponatremia secondary to renal failure, hepatic failure. We will follow up after dialysis. JANY/ADRIANNA Voice ID: [id number] Report ID: [id number]
[2019-01-16] MEDS: CARVEDILOL 3.125 MG TAB PO SCH ×2 (05:57→18:01)
[2019-01-16] MEDS: INSULIN -REGULAR HUMAN 50 UNIT/0.5 ML ML SQ SCH ×4 (07:30→21:00)
[2019-01-16] MEDS: INSULIN GLARGINE 100 UNITS/ML SQ SCH (08:08)
[2019-01-16] MEDS: THIAMINE HCL 100 MG TABLET PO SCH (08:08)
[2019-01-16] MEDS: predniSONE 10 MG TAB PO SCH ×2 (08:09→22:08)
[2019-01-16] MEDS: URSODIOL 300 MG CAP PO SCH ×2 (08:09→22:08)
[2019-01-16] MEDS: ASPIRIN 81 MG CHEWABLE TABLET PO SCH (08:09)
[2019-01-16] MEDS: FUROSEMIDE 40 MG/4 ML VIAL IV SCH (08:09)
[2019-01-16 10:46] LABS: Absolute Lymphocytes (CBC) 0.8 K/uL (0.7-4.9); Absolute Monocytes 0.9 K/uL (0.1-1.3); Absolute Neutrophil 24.6 K/uL (1.8-8.0); Basophils % 0.1 % (0-1.3); Hematocrit 28.6 % (39.6-49.0); MPV 10.9 fL (7.6-11.3); Monocytes % 3.3 % (3.3-12.3); RBC Red Blood Cell Count 3.53 M/uL (4.33-5.43)
[2019-01-16 13:11] LABS: Anisocytosis 1+; Blood Morphology Comment NOTED (NOT SEEN); Macrocytosis 1+; Platelet Estimate DECR
[2019-01-16] MEDS: ARFORMOTEROL TARTRATE 15 MCG/2 ML VIAL.NEB NEB SCH ×2 (14:02→21:10)
[2019-01-16] MEDS: NEPRO SHAKE 237 ML CAN PO PRN (17:41)
--- NOTE | 2019-01-16 21:43 | PN ---
Date of Progress Note: 01/16/2019 History: The patient is seen and examined. Chart reviewed and case discussed with RN. The patient is still having some periods of confusion every now and then according to the daughter. Otherwise, he is still very weak. Working with Physical Therapy, was able to sit up for a few minutes. Medications: List reviewed. Physical Examination: Vital Signs: Temperature 96, heart rate 85, blood pressure 93/54, respirations 93% on 2 L via nasal cannula. General: Awake, alert, oriented x3. Elderly male, not in any acute distress. CV: S1, S2, regular rate and rhythm. Peripheral pulses present. Respiratory: Diminished breath sounds. No wheezing. Minimal crackles heard. Gastrointestinal: Abdomen is soft, nontender, nondistended. Positive bowel sounds. Extremities: No clubbing, cyanosis, or edema. Neurologic: Nonfocal. Skin: The patient has multiple skin tears greater than 10, spread throughout his body with the larger 1 in his back, currently with Tegaderm. Does have some drainage. Laboratory Data: WBC 26.3, H and H 9 and 28.6, platelets 85, neutrophils 93%. Repeat blood cultures pending. Culture from the arm growing out skin john. Peripheral blood smear is pending. Assessment And Plan: A 73-year-old male with: 1. Acute respiratory failure secondary to pulmonary edema, COPD, now extubated , currently on 2 L via nasal cannula, improved significantly. Appreciate Pulmonology input. 2. Acute kidney injury, multifactorial, secondary to hypoxia, cardiorenal syndrome, improving. The patient now off dialysis. Appreciate Nephrology input. 3. Acute chronic obstructive pulmonary disease exacerbation, improved, stable. Continue p.o. steroids and antibiotics. Continue nebulizer treatments. 4. Aortic stenosis. The patient will need transaortic valve replacement. Not a candidate for open heart surgery and needs to follow up as an outpatient in [place]. 5. Elevated troponin level due to hypoxia and demand mismatch and congestive heart failure. EF is 30%. Will need heart catheterization down the line. 6. Steroid-induced leukocytosis, however, seems to be disproportionate to the amount of steroids he is receiving and is trending up, may be related to infection from his skin tears. The patient is being covered with vancomycin. We will obtain peripheral blood smear to rule out any sort of acute leukemic process. 7. Hypertensive heart disease. 8. Abdominal aortic aneurysm without rupture, stable. 9. Peripheral vascular disease, stable. 10. Sinus tachycardia. Continue Coreg. 11. Liver and lung mass, likely metastatic. The patient will have workup completed at [facility]. 12. Acute systolic congestive heart failure, ejection fraction 30-35%, improving. Continue diuretics. The patient has good urinary output. 13. Severe protein-calorie malnutrition. We will continue protein supplementation. 14. Coronary artery disease [place] artery and [place] heart without angina, stable. 15. Anemia of chronic disease. We will continue to monitor H and H, transfuse as needed. 16. Thrombocytopenia, unclear etiology. Platelets improved today. 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 We will continue PT. The patient is being referred to alf facility. 18. Essential hypertension, currently hypotensive. 19. Acute metabolic encephalopathy, likely due to renal dysfunction. Elevated BUN, improving. Does have some episodes of confusion. 20. Skin macerations/tears: wound healing center consult. cont dressing changes. On Vancomycin. Cultures pending. Plan: We will continue to monitor white count. Follow up on peripheral blood smear. May need Hematology evaluation. Continue vancomycin. If cultures are negative, may discharge, SNF referral. /ADRIANNA Voice ID: [id number] Report ID: [id number] VAISHALI
[2019-01-17] MEDS: CARVEDILOL 3.125 MG TAB PO SCH ×2 (05:48→17:32)
[2019-01-17 06:05] LABS: Absolute Lymphocytes (CBC) 0.8 K/uL (0.7-4.9); Absolute Monocytes 0.8 K/uL (0.1-1.3); Absolute Neutrophil 21.7 K/uL (1.8-8.0); Basophils % 0.1 % (0-1.3); Lymphocytes % 3.4 % (15.3-44.8); MPV 9.9 fL (7.6-11.3); Monocytes % 3.2 % (3.3-12.3)
[2019-01-17 06:18] LABS: Albumin 2.2 g/dL (3.4-5.0); Bilirubin Total 1.4 mg/dL (0.2-1.0); Phosphorus 3.7 mg/dL (2.5-4.9); Potassium 4.6 mmol/L (3.5-5.1); Protein, Total 5.9 g/dL (6.4-8.2)
[2019-01-17] MEDS: INSULIN -REGULAR HUMAN 50 UNIT/0.5 ML ML SQ SCH ×4 (07:30→21:09)
[2019-01-17] MEDS: ARFORMOTEROL TARTRATE 15 MCG/2 ML VIAL.NEB NEB SCH ×2 (08:00→20:00)
[2019-01-17] MEDS: predniSONE 10 MG TAB PO SCH ×2 (09:05→21:09)
[2019-01-17] MEDS: THIAMINE HCL 100 MG TABLET PO SCH (09:05)
[2019-01-17] MEDS: FUROSEMIDE 40 MG/4 ML VIAL IV SCH (09:05)
[2019-01-17] MEDS: URSODIOL 300 MG CAP PO SCH ×2 (09:05→21:09)
[2019-01-17] MEDS: ASPIRIN 81 MG CHEWABLE TABLET PO SCH (09:05)
[2019-01-17] MEDS: INSULIN GLARGINE 100 UNITS/ML SQ SCH (09:07)
[2019-01-17] MEDS ORDERED: SAMSCA 15 MG PO ONE (12:30)
[2019-01-17] MEDS: NEPRO SHAKE 237 ML CAN PO PRN (12:41)
--- NOTE | 2019-01-17 13:37 | P.PN ---
Subjective Date of Service: 01/17/19 Chief Complaint: Respiratory failure pt with ISIDORO admitted for SOB Bun ~140 started on HD for uremia and hyperkalemia UO decreasing today still feels weak RFt stable na trending down will dc lasix and give 1 dose of tolvaptain TSH low , will check uric acid and cortisol didnt void today , will check bladder scan Physical Examination - Vital Signs Temperature: 97.3 F Blood Pressure: 100/58 Pulse: 86 Respirations: 24 Pulse Ox (%): 94 - Physical Exam General: Oriented x3, Mild distress Neck: Supple, Without JVD or thyroid abnormality Respiratory: Crackles/rales Cardiovascular: Regular rate/rhythm, Normal S1 S2, Edema Gastrointestinal: Normal bowel sounds, Soft and benign Assessment And Plan - Current Problems (Diagnosis) (1) ISIDORO (acute kidney injury) Current Visit: Yes Status: Acute - Plan Assessment And Plan: Acute kidney injury Possibly due to cardiorenal Syndrome +/- contrast UA: no prot or bld off HD hyponatremia likely due to fluid overload fluid restricition will give 1 dose of tolvaptan Hyperkalemia reslved likely due to ISIDORO +/- Gi bleeding Hypertension now controlled leuckocytosis F/u cultures improving Dm as per PCP CHF EF 30% will dc laisx and give tolvaptan Lung and liver lesion biopsy attempt at [facility] failed COPD inhalers , seroids and O2 prognosis guarded
--- NOTE | 2019-01-17 13:41 | PN ---
Date of Progress Note: 01/16/2019 Subjective: The patient was admitted with CHF ex with hepatic encephalopathy, respiratory failure secondary to CHF exacerbation. The patient developed acute kidney injury with uremic symptoms. The patient was diuresed. Physical Examination: Vital Signs: When I saw the patient, the blood pressure was 96/57, pulse of 75. Chest: Crackles bilateral. Heart: S1, S2. Systolic murmur. Abdomen: Soft, nontender. Extremities: +1 edema. Laboratory Data: H and H 06/01.6. Sodium 130, potassium 4.9, bicarb 28, BUN 70 , creatinine 1.6, calcium 8.4, magnesium 2.4. Current Medications: The patient is on include: 1. Breathing treatment. 2. Vancomycin. 3. Heparin. 4. Carvedilol 3.125. 5. Oxycodone. 6. Prednisone 7. Lasix 40 daily. Assessment And Plan: 1. Acute kidney injury secondary to cardiorenal, currently normal volume. I do not think we need any dialysis anymore. We will continue to monitor the patient. Continue current dose of Lasix. 2. Hypertension, controlled optimally will continue the diuresis. 3. Hepatic encephalopathy. Continue current treatment. 4. Deconditioning. Continue PT/OT. JANY/ADRIANNA Voice ID: [id number] Report ID: [id number] MTDD
--- NOTE | 2019-01-17 18:57 | PN ---
Date of Progress Note: 01/17/2019 Subjective: The patient seen and examined. Chart reviewed and case discussed with RN and Dr. Fleming. The patient is doing well. No further complaints. Daughter at the bedside. Treatment plan explain ed. All questions answered. The patient seen by wound care nurses yesterday, now having wound dress ing changes instead of Tegaderm. Medications: List reviewed. Physical Examination: Vital Signs: Temperature 97.3, heart rate 86, blood pressure 100/58, respirations 24, and O2 94% on 2 L via nasal cannula. General: Awake, alert, oriented x3. Elderly male, not in any acute distress. CV: S1 and S2. Regular rate and rhythm. Peripheral pulses present. A 3/6 systolic murmur. Respiratory: Diminished breath sounds at the bases, otherwise moving air well. No wheezing or strid or. Gastrointestinal: Abdomen is soft, nontender, nondistended. Positive bowel sounds. Extremities: No clubbing or cyanosis. Trace pedal edema. Neurologic: Nonfocal. Skin: The patient has multiple skin tears including large one on the back, which has been wrapped wi th Kerlix and gauze with drainage. Laboratory Data: Sodium 128, potassium 4.6, chloride 96, CO2 27, BUN 64, creatinine 1.56, glucose 12 1, calcium 8.2, albumin 2.2. WBC 23.3, H and H 9 and 28, platelets 84, neutrophils 93%. Peripheral blood smear shows a reactive neutrophilia, normocytic hypochromic anemia with mild anisopoikilocytosi s and thrombocytopenia. Assessment And Plan: A 73-year-old male with: 1.Acute respiratory failure secondary to pulmonary edema, chronic obstructive pulmonary disease. No w extubated. Currently on 2 L via nasal cannula. Still requiring supplemental oxygenation. Improve d significantly. We will continue wean as tolerated. 2.Acute kidney injury, multifactorial, cardiorenal syndrome, hypoxia, possible contrast induced neph ropathy. The patient now off dialysis. Appreciate Nephrology input. 3.Hyponatremia. We will likely due to fluid overload. We will place on 1200 mL fluid restriction. Nephrology recommends tolvaptan. We will continue to monitor. 4.Acute chronic obstructive pulmonary disease exacerbation, improved, now stable. Continue nebulize r treatments. The patient is still on steroids. We will continue to monitor. Currently requiring s upplemental oxygenation. 5.Aortic stenosis. The patient needs TEVAR as an outpatient. 6.Elevated troponin level due to hypoxia, demand mismatch, and congestive heart failure. Outpatient heart catheterization. No chest pain at this time. 7.Steroid-induced leukocytosis. The peripheral blood smear shows reactive neutrophilia. Doubt any acute leukemic reaction. There was no blast cells seen. We will continue to monitor trending down. 8.Hypertensive heart disease. 9.Abdominal aortic aneurysm without rupture. 10.Peripheral vascular disease, stable. 11.Sinus tachycardia. Continue Coreg. 12.Lung mass, likely metastatic. The patient was in the middle of having workup done at [facility] . 13.Acute systolic congestive heart failure, ejection fraction 30% to 35%, improving. We will contin ue diuretics and follow up with I's and O's. The patient did not void today. We will do bladder sca n and may need to straight cath. Monitor daily weights. 14.Severe protein-calorie malnutrition. Continue protein supplementation. 15.Disuse myopathy. We will continue physical therapy. 16.Thrombocytopenia likely due to his underlying medical condition, improving. We will continue to monitor. No indication for transfusion at this time. 17.Anemia of chronic disease. We will continue to monitor H and H, transfuse as needed. 18.Coronary artery disease, [place] artery and [place] heart without angina, stable. 19.Acute metabolic encephalopathy was likely due to renal dysfunction, elevated BUN, and hyponatremia improving. Plan: SNF referral. We will check a CRP in a.m. Repeat CBC. /MODL Voice ID: [id number] Report ID: [id number]
--- NOTE | 2019-01-17 20:48 | PN ---
Date of Progress Note: 01/17/2019 Mr. Camp is a 73-year-old patient with history of the renal insufficiency, receive hemodialysis thr ough an emergent femoral catheter. Recently they notices kidney functions improved, so they want the catheter removed. He was fully explained benefits and risks of removal which include, but not limit ed to infection, bleeding, damage to adjacent structures and hematoma. He understood. The patient w as placed in flat position. A time-out was called. The stitches were removed from the area. Cleane d the area with sterile solution and then the catheter was removed without resistant. Pressure was a pplied for 15 minutes. No bleeding. The patient tolerated the procedure well. Dressings were appli ed. ANNA/ADRIANNA Voice ID: [id number] Report ID: [id number]
[2019-01-18 06:31] LABS: Absolute Lymphocytes (CBC) 0.7 K/uL (0.7-4.9); Absolute Monocytes 0.8 K/uL (0.1-1.3); Absolute Neutrophil 17.1 K/uL (1.8-8.0); Eosinophils % 0.1 % (0-4.4); Hematocrit 28.9 % (39.6-49.0); Lymphocytes % 3.7 % (15.3-44.8); MPV 9.4 fL (7.6-11.3); Monocytes % 4.3 % (3.3-12.3); RBC Red Blood Cell Count 3.61 M/uL (4.33-5.43)
[2019-01-18] MEDS: CARVEDILOL 3.125 MG TAB PO SCH ×2 (06:58→18:00)
[2019-01-18 07:15] LABS: Albumin 2.2 g/dL (3.4-5.0); Bilirubin Total 1.6 mg/dL (0.2-1.0); C-Reactive Protein 7.77 mg/L (<3.00); Phosphorus 4.3 mg/dL (2.5-4.9); Potassium 4.3 mmol/L (3.5-5.1); Protein, Total 5.9 g/dL (6.4-8.2)
[2019-01-18] MEDS: INSULIN -REGULAR HUMAN 50 UNIT/0.5 ML ML SQ SCH ×4 (07:30→20:54)
--- NOTE | 2019-01-18 08:25 | RAD REPORT ---
EXAM DESCRIPTION: RAD - Chest Single View - 01/18/2019 6:39 am CLINICAL HISTORY: evaluate for effusion/edema Chest pain. COMPARISON: Chest Single View dated 01/13/2019; Chest Single View dated 01/09/2019; Chest Single View d ated 01/08/2019; Chest Single View dated 01/07/2019 FINDINGS: Portable technique limits examination quality. Prominent fibrotic and emphysematous changes are present with reduced lung volumes. Increased reticul ar opacity in the right mid lung is noted, likely representing developing pneumonia or aspiration. Th e heart is moderately enlarged with a tortuous thoracic aorta. Right-sided PICC line is unchanged in position. IMPRESSION: Poorly defined right mid lung opacity likely representing pneumonia or aspiration.
[2019-01-18] MEDS: MAGIC MOUTHWASH 180 ML BTL PO PRN ×2 (08:36→17:16)
[2019-01-18] MEDS: ARFORMOTEROL TARTRATE 15 MCG/2 ML VIAL.NEB NEB SCH ×2 (08:40→20:05)
[2019-01-18] MEDS: INSULIN GLARGINE 100 UNITS/ML SQ SCH (10:24)
[2019-01-18] MEDS: predniSONE 10 MG TAB PO SCH ×2 (10:25→20:54)
[2019-01-18] MEDS: URSODIOL 300 MG CAP PO SCH ×2 (10:25→20:55)
[2019-01-18] MEDS: THIAMINE HCL 100 MG TABLET PO SCH (10:25)
[2019-01-18] MEDS: ASPIRIN 81 MG CHEWABLE TABLET PO SCH (10:25)
--- NOTE | 2019-01-18 12:18 | P.PN ---
Subjective Date of Service: 01/18/19 Chief Complaint: Respiratory failure Subjective: No new changes pt with ISIDORO admitted for SOB Bun ~140 started on HD for uremia and hyperkalemia UO decreasing today corrceted NA 128 after tolvaptan edema much improved CXR; PNA .no effusion RFT stable Pt with chronic hyponatremia and Stage IIIliver cirrhosis and lesion will hold tolvaptan His hyponatremia is chronic and acceptable for cirrhotic pt , as per daughter recent labs at [facility] NA 127 will restart lasix trial of salt tablet , even though pt is hypervolemic will check uric Physical Examination - Vital Signs Temperature: 96.4 F Blood Pressure: 97/67 Pulse: 86 Respirations: 16 Pulse Ox (%): 98 - Physical Exam General: Alert, Mild distress HEENT: Atraumatic Neck: Supple, Without JVD or thyroid abnormality Respiratory: Crackles/rales Cardiovascular: Regular rate/rhythm, Normal S1 S2, No rubs, No murmurs, Edema Gastrointestinal: Normal bowel sounds, Soft and benign Assessment And Plan - Current Problems (Diagnosis) (1) ISIDORO (acute kidney injury) Current Visit: Yes Status: Acute - Plan Assessment And Plan: Acute kidney injury Possibly due to cardiorenal Syndrome +/- contrast UA: no prot or bld off HD chronic hyponatremia likely due to fluid overload and cirrhosis fluid restriction Pt with chronic hyponatremia and Stage IIIliver cirrhosis and lesion will hold tolvaptan His hyponatremia is chronic and acceptable for cirrhotic pt , as per daughter recent labs at [facility] NA 127 will restart lasix trial of salt tablet , even though pt is hypervolemic will check uric Hypertension now controlled leuckocytosis F/u cultures improving PNA Dm as per PCP CHF EF 30% lasix Lung and liver lesion biopsy attempt at [facility] failed COPD inhalers , seroids and O2 prognosis guarded
[2019-01-18] MEDS: METRONIDAZOLE 500mg IVPB 500 MG/100 ML BAG IV SCH ×2 (13:47→17:00)
[2019-01-18] MEDS: CEFTRIAXONE/SWI 1gm 1 GM/10 ML SYR IV SCH (13:47)
--- NOTE | 2019-01-18 14:50 | P.PN ---
Subjective Date of Service: 01/18/19 Chief Complaint: Sore throat abnormal chest x-ray Patient has improved still feels weak chest x-ray I doubt is significant change patient is significant pulmonary fibrosis complaining of a so throat possible aspiration currently being evaluated Review of Systems General: Weakness Respiratory: Cough, Shortness of Breath Physical Examination - Vital Signs Temperature: 96.4 F Blood Pressure: 97/67 Pulse: 86 Respirations: 16 Pulse Ox (%): 98 - Physical Exam General: Alert, In no apparent distress, Oriented x3 Respiratory: Clear to auscultation bilaterally, Crackles/rales Cardiovascular: No edema, Normal pulses Gastrointestinal: Normal bowel sounds, Soft and benign Assessment & Plan - Problems (Diagnosis) (1) Pulmonary fibrosis Onset Date: 08/03/17 Current Visit: No Status: Acute Plan: Patient is 73 years of age has done very well complaining of so throat possible of Divya although no oral lesions visible I recommend nystatin swish and swallow for now cultures are all negative white count is declining mild hyponatremia pro calcitonin level negative oxygenation satisfactory chest x-ray doubt if any significant new changes he has severe pulmonary fibrosis Dc a oral thymine physical therapy
--- NOTE | 2019-01-18 15:23 | RAD REPORT ---
EXAM DESCRIPTION: RAD - Barium Swallow Modified - 01/18/2019 2:57 pm CLINICAL HISTORY: Aspiration, coughing, pneumonia COMPARISON: None. TECHNIQUE: The patient was given liquid, semi-solid and solid forms of barium. Lateral view fluorosc opic imaging was performed in conjunction with speech pathology service. FINDINGS: Cineloop acquisitions: 21 Fluoro time: 4 minutes 55 seconds Laryngeal penetration: cleared with thin Pharyngeal residue: Vallecular- moderate to severe reduced to mild moderate with subsequent swallows. Pyriform - mild Posterior wall - mild Slow oral transit time with honey (7 sec) and pudding (15 sec) IMPRESSION: Modified barium swallow as detailed above and fully detailed on speech pathology report.
[2019-01-18] MEDS: NYSTATIN 500,000 UNIT/5 ML UDC PO SCH ×2 (15:57→20:54)
--- NOTE | 2019-01-18 17:01 | PN ---
Date of Progress Note: 01/18/2019 Subjective: The patient seen and examined, chart reviewed and case discussed with RN and Dr. Rosado. The patient still complaining of soreness in his mouth and throat, likely from the ET tube. Medications: List reviewed. Physical Examination: Vital Signs: Temperature 96.4, heart rate 86, blood pressure 97/67, respirations 15, O2 98% on 2 L via nasal cannula. General: Awake, alert, oriented x3. Elderly male, somewhat ill appearing. CV: S1, S2. Regular rate and rhythm. Peripheral pulses weak. Respiratory: Diminished breath sounds. Some rhonchi heard. Gastrointestinal: Abdomen is soft, nontender, nondistended. Positive bowel sounds. No guarding or rigidity. Extremities: No clubbing, cyanosis. Trace pedal edema. Neurologic: Nonfocal. Skin: Multiple skin tears bandaged and wrapped with some serous drainage. Laboratory Data: Sodium 127, potassium 4.3, chloride 95, CO2 29, BUN 63, creatinine 1.61, glucose 153, calcium 8.5, phosphorus 4.3, CRP 7.77, albumin 2.2. WBC 18.6, H and H 9.1, 28.9 and platelets 84. Chest x-ray personally reviewed, shows poorly defined right midlung opacity likely representing pneumonia or aspiration. Assessment And Plan: A 73-year-old male with: 1. Acute respiratory failure secondary to pulmonary edema, chronic obstructive pulmonary disease, currently on 2 L via nasal cannula, improving. Continue to wean as tolerated. 2. Acute kidney injury, multifactorial, off dialysis. Kidney function has stabilized around 1.5. Appreciate Dr. Watkins input. 3. Hyponatremia, worsening. Continue fluid restriction. We will give another dose of tolvaptan. We will add salt tablets. 4. Acute chronic obstructive pulmonary disease exacerbation, improved. Continue nebulizer treatments. Currently on p.o. steroids. 5. Aortic stenosis, needs aortic valve replacement as outpatient. 6. Elevated troponin level due to hypoxia and demand mismatch, congestive heart failure. Chest pain-free at this time. The patient needs heart catheterization down the line. 7. Aspiration pneumonia, right lobe. We will keep n.p.o. Speech Therapy evaluation to assess swallowing function. We will start on Rocephin and Flagyl to cover anaerobes. Blood cultures are negative at this time. 8. Steroid-induced leukocytosis, improving. 9. Hypertensive heart disease. 10. Abdominal aortic aneurysm without rupture. 11. Peripheral vascular disease, stable. 12. Sinus tachycardia. Coreg had to be held due to hypotension. 13. Lung mass, likely metastatic. The patient was scheduled for a biopsy at [facility], which was delayed due to hospitalization. 14. Acute systolic congestive heart failure, ejection fraction 30-35%, improving. We will continue diuretics and congestive heart failure guidelines. Monitor daily weights. 15. Severe protein-calorie malnutrition. Continue supplements. 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 17. Thrombocytopenia, improving. Continue to monitor. 18. Anemia of chronic disease. Transfuse as needed for hemoglobin less than 7. Monitor H and H. No acute bleeding at this time. 19. 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 20. Acute metabolic encephalopathy, improving, likely due to renal dysfunction , hyponatremia, and acute infection. 21. Chronic liver disease Plan: Swallow eval, SNF referral. /ADRIANNA Voice ID: [id number] Report ID: [id number] VAISHALI
[2019-01-18] MEDS: SODIUM CHLORIDE 1 GM TAB PO SCH (20:54)
[2019-01-19] MEDS: METRONIDAZOLE 500mg IVPB 500 MG/100 ML BAG IV SCH ×3 (00:50→17:09)
[2019-01-19] MEDS: CARVEDILOL 3.125 MG TAB PO SCH ×2 (06:00→17:08)
[2019-01-19 06:43] LABS: Absolute Lymphocytes (CBC) 0.7 K/uL (0.7-4.9); Absolute Monocytes 0.5 K/uL (0.1-1.3); Absolute Neutrophil 14.7 K/uL (1.8-8.0); Basophils % 0.7 % (0-1.3); Hematocrit 33.8 % (39.6-49.0); Lymphocytes % 4.1 % (15.3-44.8); MPV 9.3 fL (7.6-11.3); Monocytes % 3.3 % (3.3-12.3); RBC Red Blood Cell Count 4.18 M/uL (4.33-5.43)
[2019-01-19 07:09] LABS: Albumin 2.2 g/dL (3.4-5.0); Bilirubin Total 1.3 mg/dL (0.2-1.0); Phosphorus 3.5 mg/dL (2.5-4.9); Potassium 4.4 mmol/L (3.5-5.1)
[2019-01-19] MEDS: INSULIN -REGULAR HUMAN 50 UNIT/0.5 ML ML SQ SCH ×4 (07:30→21:00)
[2019-01-19] MEDS: ARFORMOTEROL TARTRATE 15 MCG/2 ML VIAL.NEB NEB SCH ×2 (08:15→20:00)
[2019-01-19] MEDS: INSULIN GLARGINE 100 UNITS/ML SQ SCH (09:04)
[2019-01-19] MEDS: CEFTRIAXONE/SWI 1gm 1 GM/10 ML SYR IV SCH (09:05)
[2019-01-19] MEDS: ASPIRIN 81 MG CHEWABLE TABLET PO SCH (09:05)
[2019-01-19] MEDS: NYSTATIN 500,000 UNIT/5 ML UDC PO SCH ×4 (09:05→21:15)
[2019-01-19] MEDS: predniSONE 10 MG TAB PO SCH ×2 (09:06→21:16)
[2019-01-19] MEDS: FUROSEMIDE 40 MG/4 ML VIAL IV SCH (09:06)
[2019-01-19] MEDS: SODIUM CHLORIDE 1 GM TAB PO SCH ×2 (10:58→21:16)
[2019-01-19] MEDS: URSODIOL 300 MG CAP PO SCH ×2 (10:59→21:16)
--- NOTE | 2019-01-19 15:23 | PN ---
Date of Progress Note: 01/19/2019 Subjective: The patient was admitted with hepatic encephalopathy, over volume, developed acute kidne y injury, required dialysis, weaned from the dialysis. Physical Examination: Vital Signs: When I saw the patient, blood pressure of 92/70, pulse of 77. Chest: Crackles bilateral base. Heart: S1, S2. Regular. Systolic murmur. Abdomen: Soft, nontender. Extremity: Plus edema. Laboratory Data: WBC 16, H and H 10.7/33.8, platelet of 70. Sodium 130, potassium 4.4, bicarb 28, B UN 59, creatinine 1.5, calcium 8.2, phosphorus 3.5. Current Medications: The patient on include; ceftriaxone, metronidazole, nystatin, midodrine, hepari n, carvedilol 3.25. Assessment And Plan: 1.Acute kidney injury secondary to hepatorenal or prerenal/cardiorenal. Recovered, weaned from the dialysis. 2.Hyponatremia, secondary to dilutional, secondary to cirrhosis. Sodium level acceptable. We will continue gentle diuresis. 3.Hypertension, currently dependent on midodrine. We will continue. 4.Sepsis with oral fungal as by primary. 5.Respiratory failure secondary to pneumonia as by Pulmonary. MA/MODL Voice ID: [id number] Report ID: [id number]
--- NOTE | 2019-01-19 16:23 | PN ---
Date of Progress Note: 01/19/2019 History: The patient seen and examined. Chart reviewed and case discussed with RN. The patient becoming hypotensive during physical therapy. Complains of soreness in the mouth. Medications List: Reviewed. Physical Examination: Vital Signs: Temperature 97.9, heart rate 79, blood pressure 101/62, respirations 16, O2 98% on 2 L via nasal cannula. General: Awake, alert, oriented x3. Elderly male, not in any acute distress. CV: S1, S2. Peripheral pulses weak. Respiratory: Diminished breath sounds at the bases. No wheezing. Gastrointestinal: Abdomen is soft, nontender, nondistended. Positive bowel sounds. Extremities: No clubbing, cyanosis. Trace pedal edema. Neurologic: Nonfocal. Laboratory Data: Sodium 130, potassium 4.4, chloride 96, CO2 28, BUN 59, creatinine 1.52, glucose 138, uric acid is 8.8, calcium 8.2, albumin is 2.2. WBC is 16,000, H and H 10.7 and 33.8, platelets 70,000, neutrophils 91%. Repeat blood cultures did not show any growth. Assessment And Plan: A 73-year-old male with: 1. Acute respiratory failure, resolved, was secondary to pulmonary edema, COPD. The patient is currently on 2 L via nasal cannula. 2. Acute kidney injury, multifactorial, did require dialysis, multiple times, now stabilized around 1.5. The patient's urine output is acceptable. 3. Hyponatremia, treated with tolvaptan and fluid restriction, improving, likely secondary to his chronic liver disease. 4. Acute chronic obstructive pulmonary disease exacerbation, improved, now back to baseline. Continue albuterol and ipratropium as needed. Continue p.o. steroids. 5. Aortic stenosis. Outpatient evaluation for aortic valve replacement. 6. Elevated troponin level due to hypoxia and demand mismatch and congestive heart failure. No chest pain. We will need outpatient cardiac catheterization. 7. Aspiration pneumonia, right lobe. Speech therapy evaluation is complete. Did not recommend any changes in his diet. Modified barium swallow study was also done yesterday. We will discuss further with speech therapist. 8. Steroid-induced leukocytosis, improving. 9. Hypertensive heart disease. 10. Abdominal aortic aneurysm without rupture. 11. Acute metabolic encephalopathy, resolving, likely due to renal dysfunction , hyponatremia, and acute infection. 12. Severe protein-calorie malnutrition. Albumin is 2.2. We will continue supplements. 13. Acute systolic congestive heart failure, ejection fraction 30%-35%, improving. Continue fluid restriction. Monitor I's and O's. 14. Disuse myopathy. He will continue PT/OT. 15. Thrombocytopenia related to his liver dysfunction. No indication for acute transfusion at this time. 16. Anemia of chronic disease. Monitor hemoglobin and hematocrit, transfuse as needed. 17. Lung mass, likely metastatic. The patient also has liver mass. To be scheduled for biopsy at [facility]. 18. Peripheral vascular disease, stable. 19. Abdominal aortic aneurysm without rupture. 20. Hypertensive heart disease. 21. Multiple skin tears. We will continue with wound dressing and monitor for signs of infection. 22. Thrush. We will continue with nystatin. 23. Liver disease Plan: The patient is awaiting retirement facility placement to [facility]. /ADRIANNA Voice ID: [id number] Report ID: [id number] VAISHALI
[2019-01-19] MEDS: MIDODRINE HCL 5 MG TABLET PO SCH (21:15)
[2019-01-20] MEDS: METRONIDAZOLE 500mg IVPB 500 MG/100 ML BAG IV SCH ×3 (01:30→16:29)
[2019-01-20 05:04] LABS: Absolute Lymphocytes (CBC) 0.8 K/uL (0.7-4.9); Absolute Monocytes 0.7 K/uL (0.1-1.3); Absolute Neutrophil 15.2 K/uL (1.8-8.0); Basophils % 0.1 % (0-1.3); Eosinophils % 0.1 % (0-4.4); Hematocrit 28.5 % (39.6-49.0); Lymphocytes % 4.6 % (15.3-44.8); MPV 9.8 fL (7.6-11.3); RBC Red Blood Cell Count 3.54 M/uL (4.33-5.43)
[2019-01-20 05:48] LABS: Albumin 2.1 g/dL (3.4-5.0); Phosphorus 3.4 mg/dL (2.5-4.9); Potassium 4.1 mmol/L (3.5-5.1)
[2019-01-20] MEDS: CARVEDILOL 3.125 MG TAB PO SCH ×2 (05:56→18:14)
[2019-01-20] MEDS: INSULIN -REGULAR HUMAN 50 UNIT/0.5 ML ML SQ SCH ×4 (07:30→21:59)
[2019-01-20] MEDS: ARFORMOTEROL TARTRATE 15 MCG/2 ML VIAL.NEB NEB SCH ×2 (08:40→20:20)
[2019-01-20] MEDS: NYSTATIN 500,000 UNIT/5 ML UDC PO SCH ×3 (09:00→22:01)
[2019-01-20] MEDS: FUROSEMIDE 40 MG/4 ML VIAL IV SCH (09:10)
[2019-01-20] MEDS: URSODIOL 300 MG CAP PO SCH ×2 (09:11→21:59)
[2019-01-20] MEDS: ASPIRIN 81 MG CHEWABLE TABLET PO SCH (09:11)
[2019-01-20] MEDS: predniSONE 10 MG TAB PO SCH ×2 (09:11→21:59)
[2019-01-20] MEDS: MIDODRINE HCL 5 MG TABLET PO SCH (09:11)
[2019-01-20] MEDS: SODIUM CHLORIDE 1 GM TAB PO SCH ×2 (09:12→21:59)
[2019-01-20] MEDS: INSULIN GLARGINE 100 UNITS/ML SQ SCH (09:14)
[2019-01-20] MEDS: CEFTRIAXONE/SWI 1gm 1 GM/10 ML SYR IV SCH (09:15)
--- NOTE | 2019-01-20 16:05 | PN ---
Date of Progress Note: 01/20/2019 Subjective: The patient is seen and examined. Chart reviewed, and case discussed with RN. The moar ent reports lesions in his throat are getting better. Appetite is improved somewhat. Daughter at th e bedside. Treatment plan explained. All questions answered. Medications: List reviewed. Physical Examination: Vital Signs: Temperature 97, heart rate 63, blood pressure 156/76, respirations 16, O2 of 95% on 2 L via nasal cannula. General: Awake, alert, oriented x3. A slightly ill-appearing obese male, elderly. CV: S1 and S2. Regular rate and rhythm. 3/6 systolic murmur. Peripheral pulses are weak bilateral ly. Respiratory: Diminished breath sounds at the bases. No wheezing or stridor. Gastrointestinal: Abdomen is soft, nontender, nondistended. Positive bowel sounds. No guarding or rigidity. Extremities: No clubbing or cyanosis. Trace pedal edema. Neurologic: Nonfocal. Laboratory Data: Sodium 130, potassium 4.1, chloride 96, CO2 of 27, BUN 56, creatinine 1.43, glucose 123, calcium 8.1, phosphorus 3.4. WBC 16.6, H and H 9 and 28.5, platelets 84, neutrophils 91%. Blo od cultures, no growth to date. Assessment: A 73-year-old male with: 1.Acute respiratory failure, improving. The patient is still requiring supplemental oxygen, current ly on 2 L via nasal cannula. This is secondary to pulmonary edema, chronic obstructive pulmonary dis ease. The patient also has severe pulmonary fibrosis. 2.Acute kidney injury, multifactorial, now off dialysis, stabilized. Creatinine improving at 1.4. Continue to monitor. 3.Hyponatremia, improving. We will continue with fluid restriction, likely secondary to chronic grey er disease. 4.Acute chronic obstructive pulmonary disease exacerbation, resolved, now back to baseline. Continu e nebulizers and p.o. steroids. 5.Aspiration pneumonia, right lobe. Speech therapy evaluation and modified barium swallow study com pleted. The patient is on thin liquids and mechanical soft diet. Continue aspiration precautions. 6.Elevated troponin level due to hypoxia and demand mismatch and congestive heart failure, stable. No intervention at this time. We will need outpatient cardiac catheterization. 7.Acute systolic congestive heart failure, EF 30% to 35%, improving. Continue fluid restriction. M onitor I's and O's, daily weights. 8.Severe protein-calorie malnutrition. We will continue supplements. The patient's appetite is imp roving. 9.Acute metabolic encephalopathy, resolved, likely due to renal dysfunction, hyponatremia, and acute infection. 10.Steroid-induced leukocytosis, improving. 11.Multiple skin tears. Continue wound dressing, Kerlix and gauze wrapping. Continue to weep. 12.Thrush. The patient refusing nystatin. 13.Abdominal aortic aneurysm without rupture, stable. 14.Peripheral vascular disease, stable. 15.Lung mass, liver mass likely metastatic disease. The patient's workup is underway at [facility] . 16.Liver disease. 17.Anemia of chronic disease. We will continue monitoring hemoglobin and hematocrit, transfuse as n eeded. 18.Thrombocytopenia related to liver dysfunction. We will continue to monitor. No active bleeding at this time. Transfuse for less than 20. 19.Hypertensive heart disease. 20.Aortic stenosis. The patient needs transcatheter aortic valve replacement as outpatient. Plan: Discharge to SNF once accepted. /ADRIANNA Voice ID: [id number] Report ID: [id number]
--- NOTE | 2019-01-20 16:50 | PN ---
Date of Progress Note: 01/20/2019 Subjective: The patient doing better, more awake. Physical Examination: Vital Signs: Blood pressure 121/64, pulse of 70. Chest: Faint crackles bilateral base, more prominent on the right side. Heart: S1, S2. Regular. Abdomen: Soft, ascites. Extremities: Trace edema. Laboratory Data: WBC 16.6, H and H 9/28.5, platelet 84. Sodium 130, potassium 4.1, bicarb 27, BUN 5 6, creatinine 1.4, calcium 8.1, phosphorus 3.4. Current Medications: The patient on include: 1.Ceftriaxone. 2.Metronidazole. 3.Nystatin. 4.Midodrine 5 b.i.d. 5.Carvedilol. 6.Lasix 40 daily. 7.Breathing treatment. Assessment And Plan: 1.Acute kidney injury secondary to cardiorenal/hepatorenal, require dialysis, recovered, nonoliguric . I am going to go ahead and continue current diuresis. We will monitor the patient. 2.Hypertension, currently hypo. Was requiring midodrine, started to recover. I am going to go ahea d and decrease midodrine to once a day, try to taper it and discontinue if possible. 3.Severe disproportion BUN and creatinine secondary to GI losses/cardiorenal, trending down. 4.Hepatic encephalopathy, recovered. 5.Hyponatremia secondary to cardiorenal/hepatorenal plateau. We will monitor. 6.Hepatic encephalopathy as by primary. The patient cleared from the renal standpoint for discharge planning. DYLON Voice ID: [id number] Report ID: [id number]
[2019-01-21] MEDS: METRONIDAZOLE 500mg IVPB 500 MG/100 ML BAG IV SCH ×2 (00:31→10:04)
[2019-01-21 05:25] LABS: Absolute Lymphocytes (CBC) 0.7 K/uL (0.7-4.9); Absolute Monocytes 0.5 K/uL (0.1-1.3); Absolute Neutrophil 15.5 K/uL (1.8-8.0); Basophils % 0.3 % (0-1.3); Eosinophils % 0.1 % (0-4.4); Hematocrit 28.1 % (39.6-49.0); Lymphocytes % 3.9 % (15.3-44.8); MPV 9.3 fL (7.6-11.3); Monocytes % 3.1 % (3.3-12.3); RBC Red Blood Cell Count 3.48 M/uL (4.33-5.43)
[2019-01-21 05:29] LABS: Albumin 2.1 g/dL (3.4-5.0); Phosphorus 3.3 mg/dL (2.5-4.9)
[2019-01-21] MEDS: CARVEDILOL 3.125 MG TAB PO SCH ×2 (06:30→18:03)
[2019-01-21] MEDS: INSULIN -REGULAR HUMAN 50 UNIT/0.5 ML ML SQ SCH ×4 (07:30→21:00)
[2019-01-21] MEDS: CEFTRIAXONE/SWI 1gm 1 GM/10 ML SYR IV SCH (09:00)
[2019-01-21] MEDS ORDERED: MIDODRINE HCL 5 MG TABLET PO SCH (09:00)
[2019-01-21] MEDS: predniSONE 10 MG TAB PO SCH (10:03)
[2019-01-21] MEDS: ASPIRIN 81 MG CHEWABLE TABLET PO SCH (10:03)
[2019-01-21] MEDS: FUROSEMIDE 40 MG/4 ML VIAL IV SCH (10:03)
[2019-01-21] MEDS: SODIUM CHLORIDE 1 GM TAB PO SCH ×2 (10:03→21:34)
[2019-01-21] MEDS: INSULIN GLARGINE 100 UNITS/ML SQ SCH (10:04)
[2019-01-21] MEDS: NYSTATIN 500,000 UNIT/5 ML UDC PO SCH ×3 (10:05→21:00)
[2019-01-21] MEDS: URSODIOL 300 MG CAP PO SCH ×2 (10:05→21:34)
[2019-01-21] MEDS: ARFORMOTEROL TARTRATE 15 MCG/2 ML VIAL.NEB NEB SCH ×2 (11:50→20:25)
--- NOTE | 2019-01-21 15:43 | PN ---
Date of Progress Note: 01/21/2019 Subjective: The patient seen and examined, chart reviewed and case discussed with RN. The patient n ow developed diarrhea. Complaining of being cold. Medications: List reviewed. Objective: Vital Signs: Temperature 97.7, heart rate 52, blood pressure 111/57, respirations 20, O2 96% on 2 L via nasal cannula. General: Awake, alert, oriented x3, not in any acute distress. Obese, elderly male. CV: S1, S2. Peripheral pulses weak. Respiratory: Diminished breath sounds at the bases. No wheezing. Gastrointestinal: Abdomen is soft, nontender, nondistended. Positive bowel sounds. Extremities: No clubbing, cyanosis. Trace pedal edema. Neurologic: Nonfocal. Laboratory Data: Sodium 130, potassium 4, chloride 95, CO2 27, BUN 54, creatinine 1.45, glucose 150, calcium 8, phosphorus 3.3. WBC 16.8, H and H 8.8, 28.1, platelets 62, neutrophils 92%. C. diff ass ay is pending. Repeat blood cultures also negative. Assessment: A 73-year-old male with: 1.Acute respiratory failure, improving, currently on 2 L via nasal cannula secondary to pulmonary ed konrad, chronic obstructive pulmonary disease, and severe pulmonary fibrosis. The patient will likely n eed oxygen long-term. 2.Acute kidney injury, multifactorial including cardiorenal, contrast induced and hypotension, curre ntly off dialysis, stable. Cleared from Nephrology standpoint. We will continue to monitor creatini ne. 3.Hyponatremia, improving. We will continue fluid restriction, secondary to chronic liver disease. 4.Acute chronic obstructive pulmonary disease exacerbation, resolved. We will continue nebulizers a nd p.o. steroids. 5.Aspiration pneumonia, right lobe. We will adjust antibiotics. The patient has developed diarrhea . Blood cultures are negative. 6.Dysphagia. The patient currently on thin liquids and mechanically soft diet. Continue aspiration precautions. 7.Acute systolic congestive heart failure, ejection fraction 30-35%. Continue congestive heart fail ure guidelines. Monitor inputs and outputs. Daily weights. Continue fluid restriction. 8.Elevated troponin level due to hypoxia and demand mismatch and congestive heart failure. The omar ent will need outpatient cardiac catheterization. No immediate intervention required at this time. 9.Severe protein-calorie malnutrition. We will continue supplementation with protein. 10.Acute metabolic encephalopathy, improving. The patient still has elevated BUN and hyponatremia w hich may be positive factors. 11.Steroid-induced leukocytosis. WBC around 16. 12.Multiple skin tears. Continue wound dressing. 13.Obesity, body mass index 30. 14.Thrush, improved. Nystatin was refused by the patient anyway. 15.Abdominal aortic aneurysm without rupture, stable. 16.Peripheral vascular disease, stable. 17.Lung and liver mass, likely metastatic disease. The patient will return to [facility] for angelito p. 18.Chronic liver disease, unclear etiology. 19.Anemia of chronic disease. Continue monitoring H and H, transfuse as needed. 20.Thrombocytopenia related to liver dysfunction. Transfuse for platelets less than 20. 21.Hypertensive heart disease. 22.Aortic stenosis. The patient to be evaluated for transcatheter aortic valve replacement as an ou tpatient. Plan: Rule out C. diff. Continue Flagyl for prophylaxis. Discharge to longterm facility onc e accepted. The patient's family finally has turned in their first choice today. /ADRIANNA Voice ID: [id number] Report ID: [id number]
[2019-01-21] MEDS: MIDODRINE HCL 5 MG TABLET PO SCH (21:34)
[2019-01-22] MEDS: CARVEDILOL 3.125 MG TAB PO SCH ×2 (06:00→17:57)
[2019-01-22 06:27] LABS: Absolute Lymphocytes (CBC) 1.1 K/uL (0.7-4.9); Absolute Monocytes 0.6 K/uL (0.1-1.3); Absolute Neutrophil 14.7 K/uL (1.8-8.0); Basophils % 0.3 % (0-1.3); Lymphocytes % 6.9 % (15.3-44.8); Monocytes % 3.4 % (3.3-12.3); RBC Red Blood Cell Count 3.48 M/uL (4.33-5.43)
[2019-01-22] MEDS: INSULIN -REGULAR HUMAN 50 UNIT/0.5 ML ML SQ SCH ×4 (07:30→20:39)
--- NOTE | 2019-01-22 07:47 | PN ---
Date of Progress Note: 01/21/2019 Chief Complaint: Acute kidney failure, cardiorenal syndrome, borderline hypotension, prerenal azotem ia, acute on chronic kidney injury. History Of Present Illness: The patient required dialysis to control azotemia. The patient has nono liguric urine output. Renal function is gradually stabilizing. Review of Systems: Denies fever, chills. Physical Examination: Lungs: Few crackles at bases. Heart: S1, S2. Abdomen: Soft, benign. Extremities: Trace edema. Laboratory Data: Sodium 130, potassium 4.1, bicarbonate 27, BUN 56, creatinine 1.4, calcium 8.1, luis sphorus 3.4, hemoglobin 8.8, WBC 16.8, platelet count is 62,000. Sodium 130, potassium 4.0, chloride 95, CO2 27, BUN 54, creatinine 1.45, glucose 150, calcium 8.0. Impression And Plan: 1.Acute on chronic kidney injury, prerenal azotemia, nonoliguric acute tubular necrosis in setting o f cardiorenal syndrome. The patient is improving gradually. Congestive heart failure responded to t reatment. Continue diuretic. 2.Hypertension. Blood pressure medication on hold. The patient requires midodrine for blood pressu re control. Monitor for any evidence of hypothyroidism. Recommend to check TSH as well as to rule o ut adrenal insufficiency. 3.High BUN and creatinine ratio secondary to cardiorenal syndrome. Improving BUN and creatinine resu lts. Monitor for any evidence of lower gastrointestinal bleeding. 4.Upper bleeding. 5.Hepatic encephalopathy. Continue treatment. Monitor ammonia level. 6.Hyponatremia secondary to cardiorenal and hepatorenal syndrome. Continue to monitor electrolytes and advance diet as needed. The patient will remain on low-sodium diet. Avoid nonsteroidal anti-inf lammatory medication. EB/MODL Voice ID: [id number] Report ID: [id number]
[2019-01-22 08:08] LABS: Blood Morphology Comment NOT SEEN (NOT SEEN); Platelet Estimate DECR
[2019-01-22] MEDS: INSULIN GLARGINE 100 UNITS/ML SQ SCH (08:26)
[2019-01-22] MEDS: predniSONE 10 MG TAB PO SCH (08:26)
[2019-01-22] MEDS: ASPIRIN 81 MG CHEWABLE TABLET PO SCH (08:26)
[2019-01-22] MEDS: NYSTATIN 500,000 UNIT/5 ML UDC PO SCH ×3 (08:27→20:40)
[2019-01-22] MEDS: MIDODRINE HCL 5 MG TABLET PO SCH ×2 (08:27→20:39)
[2019-01-22] MEDS: URSODIOL 300 MG CAP PO SCH ×2 (08:27→20:40)
[2019-01-22] MEDS: SODIUM CHLORIDE 1 GM TAB PO SCH ×2 (08:27→20:39)
[2019-01-22] MEDS: FUROSEMIDE 40 MG/4 ML VIAL IV SCH (08:30)
[2019-01-22] MEDS: ARFORMOTEROL TARTRATE 15 MCG/2 ML VIAL.NEB NEB SCH ×2 (08:30→20:16)
--- NOTE | 2019-01-22 12:23 | P.PN ---
Subjective Date of Service: 01/22/19 Chief Complaint: Sore throat abnormal chest x-ray Subjective: No new changes pt with ISIDORO admitted for SOB Bun ~140 started on HD for uremia and hyperkalemia , now off HD UO decreasing today na 130 , Cr 1.5 BP borderline Off Abx , consider to restart BP meds on hold Physical Examination - Vital Signs Temperature: 97.7 F Blood Pressure: 80/60 Pulse: 65 Respirations: 20 Pulse Ox (%): 97 - Physical Exam General: Oriented x3, Mild distress HEENT: Atraumatic Neck: Supple, Without JVD or thyroid abnormality Respiratory: Crackles/rales Cardiovascular: Regular rate/rhythm, Normal S1 S2, Edema Gastrointestinal: Normal bowel sounds, Soft and benign Musculoskeletal: No swelling Assessment And Plan - Current Problems (Diagnosis) (1) ISIDORO (acute kidney injury) Current Visit: Yes Status: Acute - Plan Assessment And Plan: Acute kidney injury Possibly due to cardiorenal Syndrome +/- contrast UA: no prot or bld off HD \ Cr stable for now chronic hyponatremia Stable likely due to fluid overload and cirrhosis fluid restriction Pt with chronic hyponatremia and Stage IIIliver cirrhosis and lesion will hold tolvaptan His hyponatremia is chronic and acceptable for cirrhotic pt , as per daughter recent labs at [facility] NA 127 Cont lasix Hypertension now on the low side leuckocytosis F/u cultures improved when started Abx now off Abx , consider to restart Dm as per PCP CHF EF 30% lasix Lung and liver lesion biopsy attempt at [facility] failed COPD inhalers , seroids and O2 prognosis guarded
--- NOTE | 2019-01-22 17:52 | P.PN ---
Subjective Date of Service: 01/22/19 Chief Complaint: Sore throat abnormal chest x-ray Subjective: No C/O voiced Patient seen and examined at bedside. Daughter at bedside. Chart reviewed and case discussed with nursing staff. Patient awake and alert this morning. No complaints. Working with physical therapy, is currently max assist. Breathing well, In no acute distress. No acute events noted overnight. Blood pressure stable this morning. He remained afebrile overnight. Review of Systems 10-point ROS is otherwise unremarkable Physical Examination - Vital Signs Temperature: 97.4 F Blood Pressure: 90/58 Pulse: 62 Respirations: 20 Pulse Ox (%): 94 - Physical Exam General: Alert, In no apparent distress, Other (Frail, elderly, ill appearing) HEENT: Atraumatic, PERRLA, EOMI Neck: Supple, JVD not distended Respiratory: Clear to auscultation bilaterally, Normal air movement Cardiovascular: Regular rate/rhythm, Normal S1 S2 Gastrointestinal: Normal bowel sounds, No tenderness Assessment And Plan - Current Problems (Diagnosis) (1) Acute and chronic respiratory failure Current Visit: Yes Status: Acute Plan: improving, currently on 2 L via nasal cannula secondary to pulmonary edema, chronic obstructive pulmonary disease, and severe pulmonary fibrosis. The patient will likely need oxygen long-term. Qualifiers: Respiratory failure complication: hypoxia Qualified Code(s): J96.21 - Acute and chronic respiratory failure with hypoxia (2) ISIDORO (acute kidney injury) Current Visit: Yes Status: Acute Plan: multifactorial including cardiorenal, contrast induced and hypotension, currently off dialysis, stable. Cleared from Nephrology standpoint. We will continue to monitor creatinine. (3) COPD (chronic obstructive pulmonary disease) Current Visit: No Status: Acute Plan: Continue breathing treatments and p.o. steroids Qualifiers: COPD type: unspecified COPD Qualified Code(s): J44.9 - Chronic obstructive pulmonary disease, unspecified (4) Aortic stenosis Current Visit: No Status: Chronic Plan: EF 30% to 35%.The patient to be evaluated for transcatheter aortic valve replacement as an outpatient Qualifiers: Cardiac valve disease etiology: etiology unspecified Qualified Code(s): I35.0 - Nonrheumatic aortic (valve) stenosis (5) Elevated troponin Current Visit: Yes Status: Acute Plan: due to hypoxia and demand mismatch, congestive heart failure. The patient will eventually need heart catheterization once more stable. (6) Hypertensive heart disease Current Visit: Yes Status: Acute (7) Abdominal aortic aneurysm Current Visit: No Status: Chronic Qualifiers: Presence of rupture: without rupture Qualified Code(s): I71.4 - Abdominal aortic aneurysm, without rupture (8) Peripheral vascular disease Current Visit: No Status: Chronic (9) Sinus tachycardia Current Visit: Yes Status: Resolved (10) liver and lung mass, likely metastatic Current Visit: Yes Status: Chronic Plan: The patient is undergoing workup at [facility]. (11) Acute systolic (congestive) heart failure Current Visit: Yes Status: Acute (12) Protein-calorie malnutrition, severe Current Visit: Yes Status: Acute (13) HTN (hypertension) Onset Date: 08/03/17 Current Visit: No Status: Chronic Qualifiers: Hypertension type: essential hypertension Qualified Code(s): I10 - Essential (primary) hypertension (14) CAD (coronary artery disease) Onset Date: 08/03/17 Current Visit: No Status: Chronic Qualifiers: Coronary Disease-Associated Artery/Lesion type: [place] artery [place] vs. transplanted heart: [place] heart Associated angina: without angina Qualified Code(s): I25.10 - Atherosclerotic heart disease of [place] coronary artery without angina pectoris (15) Anemia Current Visit: Yes Status: Acute Qualifiers: Anemia type: unspecified type Qualified Code(s): D64.9 - Anemia, unspecified (16) Leukocytosis Current Visit: Yes Status: Acute Plan: Likely secondary to steroid use. We will continue to monitor.. Qualifiers: Leukocytosis type: unspecified Qualified Code(s): D72.829 - Elevated white blood cell count, unspecified (17) Debility Current Visit: Yes Status: Acute Plan: Physical therapy consulted. Social work on board, pending placement. Patient will benefit from skilled facility placement. (18) Hypotension Current Visit: Yes Status: Resolved Plan: Resolved. Qualifiers: Hypotension type: hypotension due to drug Qualified Code(s): I95.2 - Hypotension due to drugs (19) Multiple skin tears Current Visit: Yes Status: Acute Plan: Continue wound dressing (20) Thrombocytopenia Current Visit: Yes Status: Acute Plan: Likely secondary to liver dysfunction. Monitor and transfuse if platelets less than 20 (21) Thrush Current Visit: Yes Status: Acute Plan: Improve (22) Acute metabolic encephalopathy Current Visit: Yes Status: Acute Plan: Improving. (23) Aspiration pneumonia Current Visit: Yes Status: Acute Plan: Continue IV antibiotics Qualifiers: Aspiration pneumonia type: unspecified Laterality: left Lung location: unspecified part of lung Qualified Code(s): J69.0 - Pneumonitis due to inhalation of food and vomit (24) Dysphagia Current Visit: Yes Status: Acute Plan: The patient currently on thin liquids and mechanically soft diet. Continue aspiration precautions. Qualifiers: Dysphagia type: unspecified Qualified Code(s): R13.10 - Dysphagia, unspecified - Plan Continue Flagyl for prophylaxis. Discharge to [facility] once accepted.
[2019-01-23] MEDS: CARVEDILOL 3.125 MG TAB PO SCH ×2 (05:06→17:36)
[2019-01-23 07:06] LABS: Absolute Monocytes 0.6 K/uL (0.1-1.3); Absolute Neutrophil 16.7 K/uL (1.8-8.0); Basophils % 0.9 % (0-1.3); Eosinophils % 1.1 % (0-4.4); Hematocrit 28.9 % (39.6-49.0); Lymphocytes % 5.2 % (15.3-44.8); MPV 8.9 fL (7.6-11.3); Monocytes % 3.4 % (3.3-12.3); RBC Red Blood Cell Count 3.55 M/uL (4.33-5.43)
[2019-01-23] MEDS: INSULIN -REGULAR HUMAN 50 UNIT/0.5 ML ML SQ SCH ×4 (07:30→20:38)
[2019-01-23] MEDS: ARFORMOTEROL TARTRATE 15 MCG/2 ML VIAL.NEB NEB SCH ×2 (07:38→20:25)
[2019-01-23 07:45] LABS: Magnesium 2.3 mg/dL (1.8-2.4); Phosphorus 2.6 mg/dL (2.5-4.9); Potassium 3.9 mmol/L (3.5-5.1)
[2019-01-23] MEDS: MIDODRINE HCL 5 MG TABLET PO SCH ×3 (08:10→20:38)
[2019-01-23] MEDS: NYSTATIN 500,000 UNIT/5 ML UDC PO SCH ×3 (08:11→20:38)
[2019-01-23] MEDS: ASPIRIN 81 MG CHEWABLE TABLET PO SCH (08:11)
[2019-01-23] MEDS: FUROSEMIDE 40 MG/4 ML VIAL IV SCH (08:11)
[2019-01-23] MEDS: predniSONE 10 MG TAB PO SCH (08:11)
[2019-01-23] MEDS: SODIUM CHLORIDE 1 GM TAB PO SCH ×2 (08:12→20:38)
[2019-01-23] MEDS: URSODIOL 300 MG CAP PO SCH ×2 (08:12→20:38)
[2019-01-23] MEDS: INSULIN GLARGINE 100 UNITS/ML SQ SCH (08:13)
[2019-01-23] MEDS ORDERED: GLUCERNA SHAKE 237 ML CAN PO PRN (10:52)
--- NOTE | 2019-01-23 12:50 | P.PN ---
Subjective Date of Service: 01/23/19 Chief Complaint: Sore throat abnormal chest x-ray Subjective: No new changes Patient seen and examined at bedside. Daughter at bedside. Chart reviewed and case discussed with nursing staff. Patient awake and alert this morning. No complaints. Working with physical therapy, is currently max assist. Breathing well, In no acute distress. No acute events noted overnight. Blood pressure stable this morning drops with sitting up. He remained afebrile overnight. Review of Systems 10-point ROS is otherwise unremarkable Physical Examination - Vital Signs Temperature: 97.1 F Blood Pressure: 124/67 Pulse: 61 Respirations: 16 Pulse Ox (%): 100 - Physical Exam General: Alert, In no apparent distress, Oriented x3, Other (Weak, frail) Neck: Supple, JVD not distended Respiratory: Clear to auscultation bilaterally, Normal air movement Cardiovascular: Regular rate/rhythm, Normal S1 S2 Gastrointestinal: Normal bowel sounds, No tenderness Assessment And Plan - Current Problems (Diagnosis) (1) Acute and chronic respiratory failure Current Visit: Yes Status: Acute Plan: improving, currently on 2 L via nasal cannula secondary to pulmonary edema, chronic obstructive pulmonary disease, and severe pulmonary fibrosis. The patient will likely need oxygen long-term. Qualifiers: Respiratory failure complication: hypoxia Qualified Code(s): J96.21 - Acute and chronic respiratory failure with hypoxia (2) ISIDORO (acute kidney injury) Current Visit: Yes Status: Acute Plan: multifactorial including cardiorenal, contrast induced and hypotension, currently off dialysis, stable. Cleared from Nephrology standpoint. We will continue to monitor creatinine. (3) COPD (chronic obstructive pulmonary disease) Current Visit: No Status: Acute Plan: Continue breathing treatments and p.o. steroids Qualifiers: COPD type: unspecified COPD Qualified Code(s): J44.9 - Chronic obstructive pulmonary disease, unspecified (4) Aortic stenosis Current Visit: No Status: Chronic Plan: EF 30% to 35%.The patient to be evaluated for transcatheter aortic valve replacement as an outpatient Qualifiers: Cardiac valve disease etiology: etiology unspecified Qualified Code(s): I35.0 - Nonrheumatic aortic (valve) stenosis (5) Elevated troponin Current Visit: Yes Status: Acute Plan: due to hypoxia and demand mismatch, congestive heart failure. The patient will eventually need heart catheterization once more stable. (6) Hypertensive heart disease Current Visit: Yes Status: Acute (7) Abdominal aortic aneurysm Current Visit: No Status: Chronic Qualifiers: Presence of rupture: without rupture Qualified Code(s): I71.4 - Abdominal aortic aneurysm, without rupture (8) Peripheral vascular disease Current Visit: No Status: Chronic (9) Sinus tachycardia Current Visit: Yes Status: Resolved (10) liver and lung mass, likely metastatic Current Visit: Yes Status: Chronic Plan: The patient is undergoing workup at [facility]. (11) Acute systolic (congestive) heart failure Current Visit: Yes Status: Acute (12) Protein-calorie malnutrition, severe Current Visit: Yes Status: Acute (13) HTN (hypertension) Onset Date: 08/03/17 Current Visit: No Status: Chronic Qualifiers: Hypertension type: essential hypertension Qualified Code(s): I10 - Essential (primary) hypertension (14) CAD (coronary artery disease) Onset Date: 08/03/17 Current Visit: No Status: Chronic Qualifiers: Coronary Disease-Associated Artery/Lesion type: [place] artery [place] vs. transplanted heart: [place] heart Associated angina: without angina Qualified Code(s): I25.10 - Atherosclerotic heart disease of [place] coronary artery without angina pectoris (15) Anemia Current Visit: Yes Status: Acute Qualifiers: Anemia type: unspecified type Qualified Code(s): D64.9 - Anemia, unspecified (16) Leukocytosis Current Visit: Yes Status: Acute Plan: Likely secondary to steroid use versus stress induced. We will continue to monitor.. Qualifiers: Leukocytosis type: unspecified Qualified Code(s): D72.829 - Elevated white blood cell count, unspecified (17) Debility Current Visit: Yes Status: Acute Plan: Physical therapy consulted. Social work on board, pending placement. Patient will benefit from skilled facility placement. (18) Hypotension Current Visit: Yes Status: Resolved Plan: Metastatic vital signs positive for orthostatic hypotension. Patient currently continued on midodrine t.i.d.. Continue to monitor Qualifiers: Hypotension type: orthostatic hypotension Qualified Code(s): I95.1 - Orthostatic hypotension (19) Multiple skin tears Current Visit: Yes Status: Acute Plan: Continue wound dressing (20) Thrombocytopenia Current Visit: Yes Status: Acute Plan: Likely secondary to liver dysfunction. Monitor and transfuse if platelets less than 20 (21) Thrush Current Visit: Yes Status: Acute Plan: Improve (22) Acute metabolic encephalopathy Current Visit: Yes Status: Acute Plan: Improving. (23) Aspiration pneumonia Current Visit: Yes Status: Acute Plan: Continue IV antibiotics Qualifiers: Aspiration pneumonia type: unspecified Laterality: left Lung location: unspecified part of lung Qualified Code(s): J69.0 - Pneumonitis due to inhalation of food and vomit (24) Dysphagia Current Visit: Yes Status: Acute Plan: The patient currently on thin liquids and mechanically soft diet. Continue aspiration precautions. Qualifiers: Dysphagia type: unspecified Qualified Code(s): R13.10 - Dysphagia, unspecified - Plan Continue Flagyl for prophylaxis. Discharge to alf facility once accepted.
[2019-01-23] MEDS ORDERED: IPRATROPIUM BROM 0.5MG/2.5ML NEB PRN (13:07)
[2019-01-23] MEDS ORDERED: ALBUTEROL 2.5 MG/3 ML NEB SOL NEB PRN (13:08)
[2019-01-23] MEDS: LIDOCAINE 5% PATCH TOP SCH (14:35)
--- NOTE | 2019-01-23 15:36 | PN ---
Date of Progress Note: 01/23/2019 Subjective: Patient was admitted with septic shock, hepatic encephalopathy, CHF exacerbation. The p atient had acute kidney injury secondary to cardiorenal, required dialysis, then weaned from the dial ysis. Physical Examination: Vital Signs: When I saw the patient, blood pressure 86/56, pulse of 89, afebrile. Chest: Faint crackles on the base. Heart: S1, S2 systolic murmur. Abdomen: Soft, nontender. Extremities: Plus edema. Laboratory Data: WBC 18.7, H and H 9.1/28.9, platelet of 53. Sodium of 128, potassium 3.9, bicarb 2 6, BUN 52, creatinine 1.4, calcium 7.9, phosphorus 2.6, magnesium 2.3. Medications: Current medications the patient is on include: 1.Aspirin. 2.Nystatin. 3.Midodrine 5 b.i.d. 4.Carvedilol 3.125 b.i.d. 5.Lasix. 6.Ursodiol. 7.Sodium chloride tablets, 1 tablet b.i.d. Assessment And Plan: 1.Acute kidney injury secondary to hepatorenal/cardiorenal, recover plateau. 2.Hypertension, currently hypotension. I am going to go ahead and increase his midodrine to t.i.d. We will advice for stocking socks and we will follow up. 3.Hyponatremia, secondary to cardiorenal/cirrhosis. We will continue diuresis and I do not think th e patient is going to benefit from vaptans for the time being. We will continue salt tablet. 4.Congestive heart failure. Continue diuresis. 5.Deconditioning. Continue PT/OT. JANY/MODL Voice ID: [id number] Report ID: [id number]
[2019-01-24 04:27] VITALS: BMI 29.6
[2019-01-24] MEDS: CARVEDILOL 3.125 MG TAB PO SCH ×2 (04:41→18:00)
[2019-01-24 07:14] LABS: Absolute Lymphocytes (CBC) 0.6 K/uL (0.7-4.9); Absolute Monocytes 0.6 K/uL (0.1-1.3); Absolute Neutrophil 14.1 K/uL (1.8-8.0); Basophils % 0.2 % (0-1.3); Eosinophils % 1.9 % (0-4.4); Hematocrit 28.5 % (39.6-49.0); Lymphocytes % 3.7 % (15.3-44.8); MPV 9.1 fL (7.6-11.3); Monocytes % 3.6 % (3.3-12.3); RBC Red Blood Cell Count 3.51 M/uL (4.33-5.43)
[2019-01-24] MEDS: ARFORMOTEROL TARTRATE 15 MCG/2 ML VIAL.NEB NEB SCH ×2 (07:25→19:35)
[2019-01-24 07:27] LABS: Potassium 3.7 mmol/L (3.5-5.1)
[2019-01-24] MEDS: INSULIN -REGULAR HUMAN 50 UNIT/0.5 ML ML SQ SCH ×4 (07:30→20:40)
[2019-01-24] MEDS: INSULIN GLARGINE 100 UNITS/ML SQ SCH (08:00)
[2019-01-24] MEDS: LIDOCAINE 5% PATCH TOP SCH (08:47)
[2019-01-24] MEDS: ASPIRIN 81 MG CHEWABLE TABLET PO SCH (08:47)
[2019-01-24] MEDS: NYSTATIN 500,000 UNIT/5 ML UDC PO SCH ×3 (08:47→20:40)
[2019-01-24] MEDS: SODIUM CHLORIDE 1 GM TAB PO SCH ×2 (08:47→20:40)
[2019-01-24] MEDS: predniSONE 10 MG TAB PO SCH (08:48)
[2019-01-24] MEDS: MIDODRINE HCL 5 MG TABLET PO SCH ×3 (08:48→20:40)
[2019-01-24] MEDS: FUROSEMIDE 40 MG/4 ML VIAL IV SCH (08:48)
[2019-01-24] MEDS: URSODIOL 300 MG CAP PO SCH ×2 (08:48→20:40)
[2019-01-24] MEDS ORDERED: POTASSIUM CL SA 10 MEQ TAB PO ONE ×2 (09:00→13:31)
--- NOTE | 2019-01-24 10:47 | P.PN ---
Subjective Date of Service: 01/24/19 Chief Complaint: Sore throat abnormal chest x-ray Subjective: No new changes Patient seen and examined at bedside. Friend at bedside. Chart reviewed and case discussed with nursing staff. Left a voicemail on daughters work phone as daughter wanted to speak to me. Patient awake and alert this morning. No complaints. Working with physical therapy, is currently max assist. Breathing well, In no acute distress. No acute events noted overnight. Blood pressure stable this morning drops with sitting up. He remained afebrile overnight. Review of Systems 10-point ROS is otherwise unremarkable Physical Examination - Vital Signs Temperature: 96.8 F Blood Pressure: 88/44 Pulse: 80 Respirations: 18 Pulse Ox (%): 95 - Physical Exam General: Alert, In no apparent distress, Oriented x3, Other (Elderly, frail, weak) HEENT: Atraumatic, PERRLA, EOMI Neck: Supple, JVD not distended Respiratory: Clear to auscultation bilaterally, Normal air movement Cardiovascular: Regular rate/rhythm, Normal S1 S2 Gastrointestinal: Normal bowel sounds, Non-distended, No tenderness, No rebound , No guarding Musculoskeletal: No tenderness Integumentary: No rashes Assessment And Plan - Current Problems (Diagnosis) (1) Acute and chronic respiratory failure Current Visit: Yes Status: Acute Plan: improving, currently on 2 L via nasal cannula secondary to pulmonary edema, chronic obstructive pulmonary disease, and severe pulmonary fibrosis. The patient will likely need oxygen long-term. Qualifiers: Respiratory failure complication: hypoxia Qualified Code(s): J96.21 - Acute and chronic respiratory failure with hypoxia (2) ISIDORO (acute kidney injury) Current Visit: Yes Status: Acute Plan: multifactorial including cardiorenal, contrast induced and hypotension, currently off dialysis, stable. Cleared from Nephrology standpoint. We will continue to monitor creatinine. (3) COPD (chronic obstructive pulmonary disease) Current Visit: No Status: Acute Plan: Continue breathing treatments and p.o. steroids Qualifiers: COPD type: unspecified COPD Qualified Code(s): J44.9 - Chronic obstructive pulmonary disease, unspecified (4) Aortic stenosis Current Visit: No Status: Chronic Plan: EF 30% to 35%.The patient to be evaluated for transcatheter aortic valve replacement as an outpatient Qualifiers: Cardiac valve disease etiology: etiology unspecified Qualified Code(s): I35.0 - Nonrheumatic aortic (valve) stenosis (5) Elevated troponin Current Visit: Yes Status: Acute Plan: due to hypoxia and demand mismatch, congestive heart failure. The patient will eventually need heart catheterization once more stable. (6) Hypertensive heart disease Current Visit: Yes Status: Acute (7) Abdominal aortic aneurysm Current Visit: No Status: Chronic Qualifiers: Presence of rupture: without rupture Qualified Code(s): I71.4 - Abdominal aortic aneurysm, without rupture (8) Peripheral vascular disease Current Visit: No Status: Chronic (9) Sinus tachycardia Current Visit: Yes Status: Resolved (10) liver and lung mass, likely metastatic Current Visit: Yes Status: Chronic Plan: The patient is undergoing workup at [facility]. (11) Acute systolic (congestive) heart failure Current Visit: Yes Status: Acute (12) Protein-calorie malnutrition, severe Current Visit: Yes Status: Acute (13) HTN (hypertension) Onset Date: 08/03/17 Current Visit: No Status: Chronic Qualifiers: Hypertension type: essential hypertension Qualified Code(s): I10 - Essential (primary) hypertension (14) CAD (coronary artery disease) Onset Date: 08/03/17 Current Visit: No Status: Chronic Qualifiers: Coronary Disease-Associated Artery/Lesion type: [place] artery [place] vs. transplanted heart: [place] heart Associated angina: without angina Qualified Code(s): I25.10 - Atherosclerotic heart disease of [place] coronary artery without angina pectoris (15) Anemia Current Visit: Yes Status: Acute Qualifiers: Anemia type: unspecified type Qualified Code(s): D64.9 - Anemia, unspecified (16) Leukocytosis Current Visit: Yes Status: Acute Plan: Likely secondary to steroid use versus stress induced. We will continue to monitor.. Qualifiers: Leukocytosis type: unspecified Qualified Code(s): D72.829 - Elevated white blood cell count, unspecified (17) Debility Current Visit: Yes Status: Acute Plan: Physical therapy consulted. Social work on board, pending placement. Patient will benefit from skilled facility placement. (18) Hypotension Current Visit: Yes Status: Resolved Plan: Metastatic vital signs positive for orthostatic hypotension. Patient currently continued on midodrine t.i.d.. Continue to monitor Qualifiers: Hypotension type: orthostatic hypotension Qualified Code(s): I95.1 - Orthostatic hypotension (19) Multiple skin tears Current Visit: Yes Status: Acute Plan: Continue wound dressing (20) Thrombocytopenia Current Visit: Yes Status: Acute Plan: Likely secondary to liver dysfunction. Monitor and transfuse if platelets less than 20 (21) Thrush Current Visit: Yes Status: Acute Plan: Improve (22) Acute metabolic encephalopathy Current Visit: Yes Status: Acute Plan: Improving. (23) Aspiration pneumonia Current Visit: Yes Status: Acute Plan: Continue IV antibiotics Qualifiers: Aspiration pneumonia type: unspecified Laterality: left Lung location: unspecified part of lung Qualified Code(s): J69.0 - Pneumonitis due to inhalation of food and vomit (24) Dysphagia Current Visit: Yes Status: Acute Plan: The patient currently on thin liquids and mechanically soft diet. Continue aspiration precautions. Qualifiers: Dysphagia type: unspecified Qualified Code(s): R13.10 - Dysphagia, unspecified - Plan Continue Flagyl for prophylaxis. Discharge to [facility] facility once accepted, still pending insurance approval at [facility].
--- NOTE | 2019-01-24 18:10 | PN ---
Date of Progress Note: 01/24/2019 Subjective: The patient was admitted with hepatic encephalopathy, acute kidney injury secondary to c ardiorenal, required dialysis, weaned from dialysis. Physical Examination: Vital Signs: Blood pressure 88/44, pulse of 80. Chest: Faint crackles in the base. Heart: S1, S2. Regular. Abdomen: Soft, nontender. Extremity: Trace edema. Laboratory Data: WBC 16.5, H and H 8.9/28.5, platelets 47. Sodium 129, potassium 3.7, bicarb 26, BU N 48, creatinine 1.3, GFR 53, calcium is 7.9. Current Medications: The patient on its include; nystatin, breathing treatment, carvedilol 3.25, [place] six 40 mg t.i.d., insulin, midodrine 5 mg t.i.d. Assessment And Plan: 1.Acute kidney injury secondary to cardiorenal, hepatorenal, recovered, resolved. This back to base line. 2.Hypertension. Currently hypotension. Continue midodrine. 3.Encephalopathy secondary hepatic encephalopathy and uremic encephalopathy. Back to baseline. We will follow up with the primary. 4.Deconditioning. Continue PT/OT. 5.Hyponatremia secondary to cirrhosis, stable. No need for adjustment right now. Continue Lasix. JANY/ADRIANNA Voice ID: [id number] Report ID: [id number]
[2019-01-25] MEDS: CARVEDILOL 3.125 MG TAB PO SCH (05:15)
[2019-01-25 05:32] LABS: Potassium 4.7 mmol/L (3.5-5.1)
[2019-01-25] MEDS: INSULIN -REGULAR HUMAN 50 UNIT/0.5 ML ML SQ SCH ×2 (07:30→11:30)
[2019-01-25] MEDS: ARFORMOTEROL TARTRATE 15 MCG/2 ML VIAL.NEB NEB SCH (07:33)
[2019-01-25 08:25] VITALS: TEMP 97
[2019-01-25] MEDS: INSULIN GLARGINE 100 UNITS/ML SQ SCH (08:37)
[2019-01-25] MEDS: NYSTATIN 500,000 UNIT/5 ML UDC PO SCH ×2 (08:38→12:43)
[2019-01-25] MEDS: ASPIRIN 81 MG CHEWABLE TABLET PO SCH (08:39)
[2019-01-25] MEDS: predniSONE 10 MG TAB PO SCH (08:39)
[2019-01-25] MEDS: SODIUM CHLORIDE 1 GM TAB PO SCH (08:39)
[2019-01-25] MEDS: MIDODRINE HCL 5 MG TABLET PO SCH ×2 (08:39→12:43)
[2019-01-25] MEDS: URSODIOL 300 MG CAP PO SCH (08:39)
[2019-01-25] MEDS: LIDOCAINE 5% PATCH TOP SCH (08:40)
[2019-01-25 08:48] VITALS: O2SAT 95
[2019-01-25] MEDS: FUROSEMIDE 40 MG/4 ML VIAL IV SCH (09:00)
[2019-01-25] MEDS ORDERED: PHENOL 1.4% ORAL SPRAY 180ML MM PRN (09:21)
--- NOTE | 2019-01-25 10:34 | RAD REPORT ---
EXAM DESCRIPTION: RAD - Chest Single View - 01/25/2019 9:55 am CLINICAL HISTORY: Acute on chronic respiratory failure COMPARISON: January 18 TECHNIQUE: AP portable chest image was obtained [id number] . FINDINGS: Lung volumes are low similar to comparison. Extensive chronic interstitial lung disease is present. Focally prominent opacification lateral right midlung field has improved but not fully reso lved. Lateral mid and lower left lung field opacification has not changed. PICC line remains in place . Trachea is midline. Cardiac silhouette remains enlarged. No measurable pleural effusion and no pneu mothorax. No acute bony abnormality seen. No acute aortic findings suspected. IMPRESSION: Slight improvement in the lateral right midlung focal infiltrate. Very extensive chronic interstitial lung changes are not substantially different. Stable cardiomegaly.
[2019-01-25 13:54] VITALS: BP 80/60
--- NOTE | 2019-01-28 17:32 | P.DS ---
Admission Date: 01/03/19 Discharge Date: 01/25/19 Disposition: TRANSFER TO SNF - REHAB Discharge Condition: FAIR Reason for Admission: Sore throat abnormal chest x-ray Consultations: Nephrology Pulmonology Cardiology General surgery Procedures: Intubation Extubation Dialysis catheter placement/removal - Problems (1) Acute and chronic respiratory failure Status: Acute Qualifiers: Respiratory failure complication: hypoxia Qualified Code(s): J96.21 - Acute and chronic respiratory failure with hypoxia (2) ISIDORO (acute kidney injury) Status: Acute (3) COPD (chronic obstructive pulmonary disease) Status: Acute Qualifiers: COPD type: unspecified COPD Qualified Code(s): J44.9 - Chronic obstructive pulmonary disease, unspecified (4) Aortic stenosis Status: Chronic Qualifiers: Cardiac valve disease etiology: etiology unspecified Qualified Code(s): I35.0 - Nonrheumatic aortic (valve) stenosis (5) Elevated troponin Status: Acute (6) Hypertensive heart disease Status: Acute (7) Abdominal aortic aneurysm Status: Chronic Qualifiers: Presence of rupture: without rupture Qualified Code(s): I71.4 - Abdominal aortic aneurysm, without rupture (8) Peripheral vascular disease Status: Chronic (9) Sinus tachycardia Status: Resolved (10) liver and lung mass, likely metastatic Status: Chronic (11) Acute systolic (congestive) heart failure Status: Acute (12) Protein-calorie malnutrition, severe Status: Acute (13) HTN (hypertension) Onset Date: 08/03/17 Status: Chronic Qualifiers: Hypertension type: essential hypertension Qualified Code(s): I10 - Essential (primary) hypertension (14) CAD (coronary artery disease) Onset Date: 08/03/17 Status: Chronic Qualifiers: Coronary Disease-Associated Artery/Lesion type: [place] artery [place] vs. transplanted heart: [place] heart Associated angina: without angina Qualified Code(s): I25.10 - Atherosclerotic heart disease of [place] coronary artery without angina pectoris (15) Anemia Status: Acute Qualifiers: Anemia type: unspecified type Qualified Code(s): D64.9 - Anemia, unspecified (16) Leukocytosis Status: Acute Qualifiers: Leukocytosis type: unspecified Qualified Code(s): D72.829 - Elevated white blood cell count, unspecified (17) Debility Status: Acute (18) Hypotension Status: Resolved Qualifiers: Hypotension type: orthostatic hypotension Qualified Code(s): I95.1 - Orthostatic hypotension (19) Multiple skin tears Status: Acute (20) Thrombocytopenia Status: Acute (21) Thrush Status: Acute (22) Acute metabolic encephalopathy Status: Acute (23) Aspiration pneumonia Status: Acute Qualifiers: Aspiration pneumonia type: unspecified Laterality: left Lung location: unspecified part of lung Qualified Code(s): J69.0 - Pneumonitis due to inhalation of food and vomit (24) Dysphagia Status: Acute Qualifiers: Dysphagia type: unspecified Qualified Code(s): R13.10 - Dysphagia, unspecified Brief History of Present Illness: Mr Camp is a 73 years old male with multiple medical problems includins, COPD , pulmonary fibrosis on continuous home oxygen at 2 L by [place], AAA, HTN, NIDDM, CAD, who start about 2 days ago with cough and progressive SOB, more than usual. He also change the color of his secretion from clear to brown. He denied fever or chills. No chest pain. Last night, his SOB got even worse when he got up to go to the bathroom, EMS were called then. IN ER he was afebrile, O2 Sat 86 % on 6 L of O2, Lab work shows Leukocytosis 15.1K (he is on chronic steroids), CXR worsening bilateral infiltrate compared with previous XR, awaiting radiology report. Hospital Course: The Patient was admitted for acute respiratory failure with hypoxia. He was placed on BiPAP. He continued to desaturate about 87%, this was likely thought to be secondary to obstructive pulmonary disease. Pulmonology was consulted for acute chronic obstructive pulmonary disease exacerbation. The patient had to be intubated due to worsening of his condition, likely secondary multifactorial etiologies including pulmonary fibrosis, lung mass, hemoptysis, pulmonary edema and COPD. He was then started on IV antibiotics, along with IV steroids and nebulizer treatments. Cardiology was consulted and echocardiogram was done. He was found to have severe aortic stenosis with ejection fraction of 30-35%. History opponents were also found to be elevated, thought likely secondary to hypoxia. His stay was then complicated by acute kidney injury, likely secondary to hypoxia along with contrast induced. Nephrology was then consulted. His ventilator settings were continued to be adjusted and he was continued to wean as tolerated. It turned out that he was a difficult patient to wean off of the ventilator. Multiple options regarding Ltac placement tracheostomy were discussed with daughter and at bedside. Patient was then intubated on 01/08/2019. Unfortunately, patient needed temporary dialysis. General surgery was consulted for a temporary dialysis catheter placement. He received multiple dialysis session, his kidney function stabilized. It was deemed that he will not need further dialysis at this point and temporary dialysis catheter was removed prior to discharge. He did have leukocytosis throughout the stay. This was aspirated 2 possible skin infection/skin tears. He was given IV antibiotics. Due to his general debility and muscle disuse myopathy, physical therapy was consulted. It was recommended that he would benefit from assisted facility placement. Social work was involved. Disposition and discharge were delayed as patient's family could not make a decision as to which facility they would like patient to go to. [facility]. Vital Signs/Physical Exam: Temp Pulse Resp BP Pulse Ox 97.0 F 80 16 80/60 L 97 01/25/19 12:00 01/25/19 12:00 01/25/19 12:00 01/25/19 12:00 01/25/19 12:00 General: Alert, In no apparent distress, Oriented x3 Neck: Supple, JVD not distended Respiratory: Clear to auscultation bilaterally, Normal air movement Cardiovascular: Regular rate/rhythm, Normal S1 S2 Gastrointestinal: Normal bowel sounds, No tenderness Laboratory Data at Discharge: WBC 15.5 K/uL (4.3-10.9) H D 01/24/19 06:40 Hgb 8.9 g/dL (13.6-17.9) L 01/24/19 06:40 Hct 28.5 % (39.6-49.0) L 01/24/19 06:40 Plt Count 47 K/uL (152-406) L* 01/24/19 06:40 PT 12.2 SECONDS (9.5-12.5) 01/03/19 02:25 INR 1.04 01/03/19 02:25 Sodium 127 mmol/L (136-145) L 01/25/19 05:00 Potassium 4.7 mmol/L (3.5-5.1) 01/25/19 05:00 BUN 48 mg/dL (7-18) H 01/25/19 05:00 Creatinine 1.47 mg/dL (0.55-1.3) H 01/25/19 05:00 Glucose 135 mg/dL (74-106) H 01/25/19 05:00 Uric Acid 8.8 mg/dL (3.5-7.2) H 01/19/19 06:14 Phosphorus 2.6 mg/dL (2.5-4.9) 01/23/19 06:40 Magnesium 2.3 mg/dL (1.8-2.4) 01/23/19 06:40 Total Bilirubin 1.3 mg/dL (0.2-1.0) H 01/19/19 06:14 AST 34 U/L (15-37) 01/19/19 06:14 ALT 45 U/L (12-78) 01/19/19 06:14 Alkaline Phosphatase 137 U/L (45-117) H 01/19/19 06:14 Troponin I 0.21 ng/mL (0.0-0.045) H 01/03/19 13:59 Home Medications: Aspirin 81 mg PO DAILY 08/03/17 Ezetimibe 10 mg PO DAILY 08/03/17 Metformin HCl 500 mg PO BID 08/03/17 Tiotropium [place] [Spiriva] 1 puff IH DAILY 08/03/17 predniSONE [Prednisone*] 10 mg PO DAILY 08/03/17 Albuterol Inhaler [Ventolin Inhaler*] 2 puff IH Q4H PRN #1 hfa.aer.ad 08/04/17 Furosemide 40 mg PO DAILY #1 tablet 09/05/17 Oxycodone HCl [Oxyir] 5 mg PO Q6H PRN 01/03/19 Pantoprazole [Protonix Tab] 40 mg PO DAILY 01/03/19 Spironolactone 100 mg PO DAILY 01/03/19 Umeclidinium [place] [Incruse Ellipta] 62.5 mcg IH DAILY 01/03/19 Ursodiol [Actigall] 300 mg PO BID 01/03/19 Midodrine HCl [Proamatine*] 5 mg PO TID #90 tab 01/25/19 New Medications: Midodrine HCl [Proamatine*] 5 mg PO TID #90 tab Time spent managing pt's care (in minutes): 55
== END 2019-01-25 13:48 | DRG 207 ==
LOC: ER 02:04 → ERHOLD 04:39 → 2ND 05:39 → 3RD-ICU 12:51 → 4TH 01-14 15:50
PROVIDERS: ADMIT Internal Medicine; ATTEND Family Medicine
PROC: 0BH17EZ Insertion of Endotracheal Airway into Trachea, Via Natural or Artificial Opening (ICD-10-PCS; principal; 2019-01-03)
PROC: 5A1955Z Respiratory Ventilation, Greater than 96 Consecutive Hours (ICD-10-PCS; 2019-01-03)
PROC: 02HV33Z Insertion of Infusion Device into Superior Vena Cava, Percutaneous Approach (ICD-10-PCS; 2019-01-04)
PROC: 06HM33Z Insertion of Infusion Device into Right Femoral Vein, Percutaneous Approach (ICD-10-PCS; 2019-01-10)
PROC: 5A1D70Z Performance of Urinary Filtration, Intermittent, Less than 6 Hours Per Day (ICD-10-PCS; 2019-01-10)
PROC: 06PYX3Z Removal of Infusion Device from Lower Vein, External Approach (ICD-10-PCS; 2019-01-17)
DX: J96.21 Acute and chronic respiratory failure with hypoxia (principal); I50.21 Acute systolic (congestive) heart failure; E43 Unspecified severe protein-calorie malnutrition; G93.41 Metabolic encephalopathy; J69.0 Pneumonitis due to inhalation of food and vomit; J44.1 Chronic obstructive pulmonary disease with (acute) exacerbation; N17.9 Acute kidney failure, unspecified; M84.48XA Pathological fracture, other site, initial encounter for fracture; E87.2 Acidosis; E87.1 Hypo-osmolality and hyponatremia; J96.22 Acute and chronic respiratory failure with hypercapnia; J84.10 Pulmonary fibrosis, unspecified; Z99.81 Dependence on supplemental oxygen; I25.10 Atherosclerotic heart disease of native coronary artery without angina pectoris; E11.51 Type 2 diabetes mellitus with diabetic peripheral angiopathy without gangrene; E11.65 Type 2 diabetes mellitus with hyperglycemia; I11.0 Hypertensive heart disease with heart failure; T38.0X5A Adverse effect of glucocorticoids and synthetic analogues, initial encounter; K74.60 Unspecified cirrhosis of liver; J98.4 Other disorders of lung; K72.90 Hepatic failure, unspecified without coma; K76.9 Liver disease, unspecified; I35.0 Nonrheumatic aortic (valve) stenosis; I95.2 Hypotension due to drugs; T40.2X5A Adverse effect of other opioids, initial encounter; I95.1 Orthostatic hypotension; B37.9 Candidiasis, unspecified; R13.10 Dysphagia, unspecified; M06.9 Rheumatoid arthritis, unspecified; E87.5 Hyperkalemia; D63.8 Anemia in other chronic diseases classified elsewhere; D69.59 Other secondary thrombocytopenia; T45.515A Adverse effect of anticoagulants, initial encounter; R53.81 Other malaise; G72.89 Other specified myopathies; I71.4 Abdominal aortic aneurysm, without rupture; R19.7 Diarrhea, unspecified; D72.829 Elevated white blood cell count, unspecified; T14.8XXA Other injury of unspecified body region, initial encounter; L08.9 Local infection of the skin and subcutaneous tissue, unspecified; X58.XXXA Exposure to other specified factors, initial encounter; Y92.230 Patient room in hospital as the place of occurrence of the external cause; E66.9 Obesity, unspecified; Z68.30 Body mass index [BMI] 30.0-30.9, adult; Z79.82 Long term (current) use of aspirin; Z79.84 Long term (current) use of oral hypoglycemic drugs; Z79.51 Long term (current) use of inhaled steroids; Z79.52 Long term (current) use of systemic steroids; Z87.891 Personal history of nicotine dependence; Z95.5 Presence of coronary angioplasty implant and graft
CPT/HCPCS: 36415; 71045; 71275; 74176; 74230; 76770; 80048; 80053; 80069; 80076; 81003; 82140; 82274; 82553; 82805; 82962; 83605; 83735; 83880; 84100; 84145; 84443; 84484; 84550; 85025; 85049; 85379; 85610; 86140; 86317; 86704; 86706; 87040; 87070; 87205; 87340; 87493; 90935; 92610; 92611; 93005; 93306; 94002; 94003; 94640; 94660; 94760; 96365; 96367; 96375; 97110; 97112; 97163; 97530; 97542; 99251; 99291; C9113; J0456; J0696; J1644; J1650; J1940; J2150; J2250; J2405; J2704; J2920; J2930; J3010; J3475; J7030; J7512; J7605; P9047